=== PATIENT | female | born 1970 | race Caucasian/White ===

== ENCOUNTER 2016-06-08 20:14 | Inpatient (IN) | payer MEDICAID ==
[2016-06-08] MEDS ORDERED: Sodium Chloride 0.9% 1,000 ML IV SCH (22:00)
[2016-06-08] MEDS ORDERED: Levofloxacin/Dextrose 5%-Water 500 MG in Premix Bag 1 BAG IV ONE (22:24)
[2016-06-08] MEDS ORDERED: methylPREDNISolone Sodium Succinate 125 MG/2 ML SDV IVPUSH ONE (22:25)
[2016-06-08] MEDS ORDERED: HYDROmorphone 1 MG/ML Syringe IVPUSH ONE (22:27)
[2016-06-08] MEDS ORDERED: Albuterol/Ipratropium 3.0-0.5 MG/3 ML Neb Soln NEB ONE (22:27)
[2016-06-08] MEDS ORDERED: Nicotine Polacrilex 2 MG Gum CHEW PRN (22:29)
[2016-06-08] MEDS ORDERED: Nicotine 21 MG/24 Hr Patch TRDERM ONE (22:29)
[2016-06-08] MEDS ORDERED: Albuterol/Ipratropium 3.0-0.5 MG/3 ML Neb Soln ONE (22:48)
--- NOTE | 2016-06-09 00:19 | PCM.HP ---
H&P History of Present Illness - General Date of Service: 06/08/16 Admit Problem/Dx: Admission Diagnosis/Problem Admission Diagnosis/Problem Pneumonia Source of Information: Patient History Limitations: Reports: No limitations - History of Present Illness Initial Comments - Free Text/Narative: pneumonia; thi sis a 45 year old female presents to ER for evaluation of worsen cough. reports has been sick for the 3 to4 weeks, but the last week having increased cough, fatigue, weakness and back pain from cough. currently prescribed zithromax, robitussin dm, prednisone and albuterol mdi Seen by Dr. Peterson yesterday, who advised Ms. Zeng to come to hospital for evaluation. Onset of Symptoms: Reports: gradual Duration of Symptoms: Reports: Day(s):, Getting worse Location: Reports: generalized Quality: Reports: Ache Severity: moderate Improves with: Reports: Medication Worsens with: Reports: None Associated Symptoms: Reports: cough, fever/chills, malaise, nausea/vomiting ( from frequent cough), shortness of breath rib/back Pain Score (Numeric/FACES): 8 - Related Data Allergies/Adverse Reactions: Allergies Allergy/AdvReac Type Severity Reaction Status Date / Time No Known Allergies Allergy Verified 06/08/16 21:44 Home Medications: Home Meds Gabapentin [Neurontin] 900 mg PO QID 11/18/14 [History] LORazepam [Ativan] 1 mg PO TID PRN 11/18/14 [History] Polyethylene Glycol 3350 [MiraLAX] 17 gm PO DAILY PRN 11/18/14 [History] Simethicone 1 tab PO QID PRN 11/18/14 [History] busPIRone [Buspar] 30 mg PO TID 11/18/14 [History] hydrOXYzine Pamoate [Vistaril] 50 mg PO QID 11/18/14 [History] carBAMazepine [Epitol] 800 mg PO BEDTIME 01/27/15 [History] OLANZapine [Olanzapine] 2.5 mg PO DAILY 03/29/15 [History] Ibuprofen 600 mg PO Q6H PRN 06/05/15 [History] Albuterol Sulfate [Proair Hfa] 1 - 2 puff IH Q4HR PRN 11/12/15 [History] Levothyroxine Sodium [Synthroid] 75 mcg PO ACBREAKFAST 11/12/15 [History] metFORMIN [Glucophage] 500 mg PO BIDMEALS 11/12/15 [History] Azithromycin [Azithromycin] 1 tab PO DAILY 06/08/16 [History] Cefdinir [Cefdinir] 2 cap PO BID 06/08/16 [History] Mometasone/Formoterol [Dulera 200-5 MCG] 2 puff INH BID 06/08/16 [History] OLANZapine [Olanzapine] 7.5 mg PO BEDTIME 06/08/16 [History] Prednisone [IJD: Prednisone] 20 mg PO TID 06/08/16 [History] Ziprasidone HCl [Ziprasidone HCl] 40 mg PO BID 06/08/16 [History] guaiFENesin/Dextromethorphan [Adult Robitussin Peak Cold Dm] 5 ml PO Q4H PRN 02/12 [History] lamoTRIgine [Lamotrigine] 150 mg pe PO DAILY 06/08/16 [History] lamoTRIgine [Lamotrigine] 200 mg PO BEDTIME 06/08/16 [History] Past Medical History HEENT History: Reports: Other (see below) Other HEENT History: dental caries Cardiovascular History: Reports: High cholesterol Respiratory History: Reports: COPD, Other (see below) Other Respiratory History: wheezing at night Gastrointestinal History: Reports: Chronic constipation, Irritable bowel syndrome Other Gastrointestinal History: constipation Genitourinary History: Reports: UTI, recurrent [employer] History: Reports: Musculoskeletal History: Reports: Back pain, chronic, Fracture, Neck pain, chronic Other Musculoskeletal History: left wrist 10/07/13 Neurological History: Reports: Concussion, Headaches, chronic, Migraines Psychiatric History: Reports: Anxiety, Bipolar, Depression, PTSD, Suicide attempt Other Psychiatric History: seeing psychologist Endocrine/Metabolic History: Reports: Hypothyroidism, Obesity/BMI 30+ Oncologic (Cancer) History: Reports: Cervix Other Oncologic History: frozen - Infectious Disease History Infectious Disease History: Reports: Chicken pox - Past Surgical History Head Surgeries/Procedures: Reports: None HEENT Surgical History: Reports: Adenoidectomy, Tonsillectomy GI Surgical History: Reports: Hernia repair/other, Other (see below) Other GI Surgeries/Procedures: x2 and x4 laprascopic procedures Female Surgical History: Reports: section, Cervical cryotherapy, Cystectomy Social & Family History - Family History Family Medical History: Noncontributory - Tobacco Use Smoking Status *Q: Current Every Day Smoker Years of Tobacco use: 25 Packs/Tins Daily: 1 Used Tobacco, but Quit: No Second Hand Smoke Exposure: Yes - Caffeine Use Caffeine Use: Reports: Coffee, Soda - Recreational Drug Use Recreational Drug Use: No Drug Use in Last 12 Months: No Recreational Drug Type: Reports: Marijuana/Hashish Recreational Drug Use Frequency: Not Used In Over 6 Months - Living Situation & Occupation Living situation: Reports: with significant other H&P Review of Systems - Review of Systems: Review Of Systems: See Below General: Reports: chills, malaise HEENT: Reports: no symptoms Pulmonary: Reports: Shortness of Breath, Wheezing, Cough Cardiovascular: Reports: no symptoms Gastrointestinal: Reports: Nausea Musculoskeletal: Reports: back pain Skin: Reports: no symptoms Psychiatric: Reports: no symptoms Neurological: Reports: No Symptoms Hematologic/Lymphatic: Reports: no symptoms Immunologic: Reports: no symptoms Exam - Exam Exam: See Below - Vital Signs Vital Signs: Last Vital Signs Temp 37.8 C 06/08/16 23:59 Pulse 121 H 06/08/16 23:59 Resp 24 H 06/08/16 23:59 BP 163/94 H 06/08/16 23:59 Pulse Ox 94 L 06/08/16 23:59 Weight: 131.1 kg - Exam General: alert, oriented HEENT: PERRLA, Hearing intact, Mucosa moist & pink, Nares patent, Normal nasal septum, Posterior pharynx clear, Conjunctiva clear, EOMI, EACs clear, TMs clear Neck: supple, trachea midline, 2 Lungs: Decreased breath sounds, Wheezing, Other (frequent bronchospasms noted) Cardiovascular: regular rate, regular rhythm Abdomen: normal bowel sounds, soft (Female) Exam: Deferred Rectal (Female) Exam: Deferred Back Exam: normal inspection, full range of motion, NT Extremities: 3, normal inspection, 10 Skin: warm, dry, intact Neurological: reflexes equal bilateral, strength equal bilateral Neuro Extensive - Mental Status: alert, oriented x3, normal mood/affect, normal cognition Neuro Extensive - Motor, Sensory, Reflexes: normal gait Psychiatric: alert, normal affect, normal mood - Patient Data Lab Results last 24 hrs: Laboratory Results - last 24 hr 06/08/16 06/08/16 06/08/16 Range/Units 21:57 21:57 21:57 WBC 24.2 H (4.5-11.0) K/uL RBC 4.88 (3.30-5.50) M/uL Hgb 14.2 (12.0-15.0) g/dL Hct 42.9 (36.0-48.0) % MCV 88 (80-98) fL MCH 29 (27-31) pg MCHC 33 (32-36) % Plt Count 416 H (150-400) K/uL Neut % (Auto) 85 H (36-66) % Lymph % (Auto) 3 L (24-44) % Robeson % (Auto) 12 H (2-6) % Eos % (Auto) 0 L (2-4) % Baso % (Auto) 0 (0-1) % Sodium (140-148) mmol/L Potassium (3.6-5.2) mmol/L Chloride (100-108) mmol/L Carbon Dioxide (21-32) mmol/L Anion Gap (5.0-14.0) mmol/L BUN (7-18) mg/dL Creatinine (0.6-1.0) mg/dL Est Cr Clr Drug Dosing mL/min Estimated GFR (MDRD) (>60) Glucose (74-106) mg/dL Lactic Acid 3.1 H (0.4-2.0) mmol/L Calcium (8.5-10.1) mg/dL Total Bilirubin (0.2-1.0) mg/dL AST (15-37) U/L ALT (12-78) U/L Alkaline Phosphatase (46-116) U/L Total Protein (6.4-8.2) g/dL Albumin (3.4-5.0) g/dL Globulin (2.3-3.5) g/dL Albumin/Globulin Ratio (1.2-2.2) Amylase (25-115) U/L Lipase 80 (73-393) U/L 06/08/16 Range/Units 21:57 WBC (4.5-11.0) K/uL RBC (3.30-5.50) M/uL Hgb (12.0-15.0) g/dL Hct (36.0-48.0) % MCV (80-98) fL MCH (27-31) pg MCHC (32-36) % Plt Count (150-400) K/uL Neut % (Auto) (36-66) % Lymph % (Auto) (24-44) % Robeson % (Auto) (2-6) % Eos % (Auto) (2-4) % Baso % (Auto) (0-1) % Sodium 142 (140-148) mmol/L Potassium 4.4 (3.6-5.2) mmol/L Chloride 104 (100-108) mmol/L Carbon Dioxide 27 (21-32) mmol/L Anion Gap 11.1 (5.0-14.0) mmol/L BUN 7 (7-18) mg/dL Creatinine 0.9 (0.6-1.0) mg/dL Est Cr Clr Drug Dosing 78.38 mL/min Estimated GFR (MDRD) > 60 (>60) Glucose 127 H (74-106) mg/dL Lactic Acid (0.4-2.0) mmol/L Calcium 7.8 L (8.5-10.1) mg/dL Total Bilirubin 0.2 (0.2-1.0) mg/dL AST 13 L (15-37) U/L ALT 23 (12-78) U/L Alkaline Phosphatase 116 (46-116) U/L Total Protein 7.7 (6.4-8.2) g/dL Albumin 3.4 (3.4-5.0) g/dL Globulin 4.3 H (2.3-3.5) g/dL Albumin/Globulin Ratio 0.8 L (1.2-2.2) Amylase 36 (25-115) U/L Lipase (73-393) U/L Result Diagrams: 06/09/16 06:00 06/09/16 06:00 Marcio Results last 24 hrs: Microbiology 06/08/16 22:12 Influenza Type A Antigen Screen - Final Nasal, Unspecified NEGATIVE INFLUENZA A VIRUS AG Influenza Type B Antigen Screen - Final NEGATIVE INFLUENZA B VIRUS AG *Q Meaningful Use (ADM) - VTE *Q VTE Criteria *Q: - Stroke *Q Stroke Criteria *Q: - AMI *Q AMI Criteria *Q: - Problem List (1) Pneumonia SNOMED Code(s): 494742009 ICD Code: J18.9 - PNEUMONIA, UNSPECIFIED ORGANISM Status: Acute Current Visit: Yes Qualifiers: Pneumonia type: due to unspecified organism Laterality: left (2) Tobacco use SNOMED Code(s): 049235663 ICD Code: Z72.0 - TOBACCO USE Status: Acute Priority: High Current Visit: Yes (3) Anxiety disorder SNOMED Code(s): 879172351 ICD Code: F41.9 - ANXIETY DISORDER, UNSPECIFIED Status: Acute Priority: High Current Visit: Yes Qualifiers: Anxiety disorder type: generalized anxiety disorder Qualified Code(s): F41.1 - Generalized anxiety disorder Problem List Initiated/Reviewed/Updated: Yes Orders Last 24hrs: Active Orders 24 hr Category Date Time Status Patient Status Manage Transfer [TRANSFER] Routine ADT 06/08/16 23:59 Ordered RT Aerosol Therapy [RC] ASDIRECTED Care 06/08/16 22:28 Active Chest 2V [CR] Urgent Exams 06/08/16 21:57 Taken CULTURE BLOOD [BC] Urgent Lab 06/08/16 21:57 Received CULTURE BLOOD [BC] Urgent Lab 06/08/16 21:57 Received Nicotine Polacrilex [Nicorelief] Med 06/08/16 22:29 Active 4 mg CHEW Q2H PRN Sodium Chloride 0.9% [Normal Saline] 1,000 ml Med 06/08/16 22:00 Active IV ASDIRECTED Blood Culture x2 Reflex Set [OM.PC] Urgent Oth 06/08/16 21:57 Ordered Resuscitation Status Routine Resus Stat 06/09/16 00:00 Ordered Medication Orders Sodium Chloride (Normal Saline) 1,000 mls @ 500 mls/hr IV ASDIRECTED TONEY Last Admin: 06/08/16 22:11 Dose: 500 mls/hr Nicotine Polacrilex (Nicorelief) 4 mg CHEW Q2H PRN PRN Reason: Anxiety Assessment/Plan Comment:: ASSESSMENT / PLAN pneumonia; this is a 45 year old female presents to ER for evaluation of worsen cough. reports has been sick for the 3 to 4 weeks, but the last week having increased cough, fatigue, weakness and back pain from cough. currently prescribed zithromax, robitussin dm, prednisone and albuterol mdi Seen by Dr. Peterson yesterday, who advised Ms. Zeng to come to hospital for evaluation. She is a heavy smoker, with 2.5 packs per day since age 16 years, has decreased to 1 pack per day since illness began 4 weeks ago. Labs WBC>24 Plan pneumonia -Admit to [address] [place] [address] for further monitoring -IV fluids for rehydration NS at 125 mL per hour -solumedrol 125mg iv every 8 hr -IV antibiotics; Levoquin 500mg IV and Rocephin 1 gram IV -blood cultures pending -Advise to notify nurses of any chest pain or other symptoms -a.m. labs: CBC, BMP, lactic acid tobacco abuse -nicotine patch -nicotine gum Diabetes type 2 -sliding scale insulin coverage -blood glucose checks before meals and at bedtime Anxiety disorder -continue home medications as prescribed Maintenance issues -Orders home meds: ordered and reviewed -Nutrition: diabetic diet -Kimble catheter not indicated at this time -DVT: Lovenox 40 mg subcut CODE STATUS: Full Admission status: Admit to [address] [place] [address] Admission justification. This patient will be admitted for inpatient services and is medically appropriate meeting medical necessity for inpatient admission as outlined in my documentation. I reasonably expect the patient will require inpatient services that span. Time over 2 midnights. I reasonably expect this patient to be discharged or transferred within 96 hours after admission to the critical access hospital. Disposition; home with family Primary care provider: Mary Jane Harding MEDICAL STENOGRAPHER
[2016-06-09] MEDS ORDERED: guaiFENesin/Dextromethorphan 100-10 MG/5 ML Soln 10 ML Cup PO PRN ×3 (00:44→07:28)
[2016-06-09] MEDS ORDERED: Zolpidem 5 MG Tab PO PRN (00:44)
[2016-06-09] MEDS ORDERED: Magnesium Hydroxide 400 MG/5 ML Susp 30 ML Cup PO PRN (00:44)
[2016-06-09] MEDS ORDERED: Acetaminophen 325 MG Tab PO PRN (00:44)
[2016-06-09] MEDS ORDERED: Insulin Aspart 100 Units/ML 3 ML Pen SUBCUT SCH (00:44)
[2016-06-09] MEDS ORDERED: Docusate Sodium 100 MG Cap PO PRN (00:44)
[2016-06-09] MEDS ORDERED: LORazepam 0.5 MG Tab PO PRN (00:44)
[2016-06-09] MEDS ORDERED: Promethazine 25 MG Tab PO PRN (00:44)
[2016-06-09] MEDS ORDERED: Ondansetron 4 MG/2 ML SDV IV PRN (00:44)
[2016-06-09] MEDS ORDERED: Polyethylene Glycol 3350 Powder 17 GM Packet PO PRN (00:44)
[2016-06-09] MEDS ORDERED: LORazepam 2 MG/ML MDV IV PRN (00:44)
[2016-06-09] MEDS ORDERED: cefTRIAXone 1 GM in Sodium Chloride 0.9% 50 ML IV SCH ×2 (01:00→22:00)
[2016-06-09] MEDS: oxyCODONE 5 MG Tab PO PRN ×3 (01:07→09:29)
[2016-06-09] MEDS: Sodium Chloride 0.9% 1,000 ML IV SCH ×2 (01:09→09:29)
[2016-06-09] MEDS ORDERED: cefTRIAXone 1 GM Vial ONE (01:32)
[2016-06-09] MEDS ORDERED: Sodium Chloride 0.9% 50 ML ONE (01:38)
[2016-06-09] MEDS: methylPREDNISolone Sodium Succinate 125 MG/2 ML SDV IVPUSH SCH ×2 (02:27→08:29)
[2016-06-09] MEDS: Albuterol 0.083% 2.5 MG/3 ML Neb Soln NEB PRN ×2 (05:20→09:06)
[2016-06-09] MEDS: Benzonatate 100 MG Cap PO PRN ×2 (06:39→12:58)
--- NOTE | 2016-06-09 07:13 | EDM.PDOC ---
ED HPI GENERAL MEDICAL PROBLEM - General Chief Complaint: Respiratory Problem Stated Complaint: TROUBLE BREATHING/COUGH Time Seen by Provider: 06/08/16 20:41 Source of Information: Reports: Patient History Limitations: Reports: No limitations - History of Present Illness Onset: gradual Duration: Day(s):, Getting worse Location: Reports: generalized Quality: Reports: Ache Severity: moderate Improves with: Reports: Medication Worsens with: Reports: None Associated Symptoms: Reports: cough, fever/chills, malaise, nausea/vomiting ( from frequent cough), shortness of breath rib/back Pain Score (Numeric/FACES): 8 - Related Data Allergies Allergy/AdvReac Type Severity Reaction Status Date / Time No Known Allergies Allergy Verified 06/08/16 21:44 Home Meds: Home Meds Gabapentin [Neurontin] 900 mg PO QID 11/18/14 [History] LORazepam [Ativan] 1 mg PO TID PRN 11/18/14 [History] Polyethylene Glycol 3350 [MiraLAX] 17 gm PO DAILY PRN 11/18/14 [History] Simethicone 1 tab PO QID PRN 11/18/14 [History] busPIRone [Buspar] 30 mg PO TID 11/18/14 [History] hydrOXYzine Pamoate [Vistaril] 50 mg PO QID 11/18/14 [History] carBAMazepine [Epitol] 800 mg PO BEDTIME 01/27/15 [History] OLANZapine [Olanzapine] 2.5 mg PO DAILY 03/29/15 [History] Ibuprofen 600 mg PO Q6H PRN 06/05/15 [History] Albuterol Sulfate [Proair Hfa] 1 - 2 puff IH Q4HR PRN 11/12/15 [History] Levothyroxine Sodium [Synthroid] 75 mcg PO ACBREAKFAST 11/12/15 [History] metFORMIN [Glucophage] 500 mg PO BIDMEALS 11/12/15 [History] Azithromycin [Azithromycin] 1 tab PO DAILY 06/08/16 [History] Cefdinir [Cefdinir] 2 cap PO BID 06/08/16 [History] Mometasone/Formoterol [Dulera 200-5 MCG] 2 puff INH BID 06/08/16 [History] OLANZapine [Olanzapine] 7.5 mg PO BEDTIME 06/08/16 [History] Prednisone [IJD: Prednisone] 20 mg PO TID 06/08/16 [History] Ziprasidone HCl [Ziprasidone HCl] 40 mg PO BID 06/08/16 [History] guaiFENesin/Dextromethorphan [Adult Robitussin Peak Cold Dm] 5 ml PO Q4H PRN 02/12 [History] lamoTRIgine [Lamotrigine] 150 mg pe PO DAILY 06/08/16 [History] lamoTRIgine [Lamotrigine] 200 mg PO BEDTIME 06/08/16 [History] Past Medical History HEENT History: Reports: Other (see below) Other HEENT History: dental caries Cardiovascular History: Reports: High cholesterol Respiratory History: Reports: COPD, Other (see below) Other Respiratory History: wheezing at night Gastrointestinal History: Reports: Chronic constipation, Irritable bowel syndrome Other Gastrointestinal History: constipation Genitourinary History: Reports: UTI, recurrent HEART NURSE History: Reports: Musculoskeletal History: Reports: Back pain, chronic, Fracture, Neck pain, chronic Other Musculoskeletal History: left wrist 10/07/13 Neurological History: Reports: Concussion, Headaches, chronic, Migraines Psychiatric History: Reports: Anxiety, Bipolar, Depression, PTSD, Suicide attempt Other Psychiatric History: seeing psychologist Endocrine/Metabolic History: Reports: Hypothyroidism, Obesity/BMI 30+ Oncologic (Cancer) History: Reports: Cervix Other Oncologic History: frozen - Infectious Disease History Infectious Disease History: Reports: Chicken pox - Past Surgical History Head Surgeries/Procedures: Reports: None HEENT Surgical History: Reports: Adenoidectomy, Tonsillectomy GI Surgical History: Reports: Hernia repair/other, Other (see below) Other GI Surgeries/Procedures: x2 and x4 laprascopic procedures Female Surgical History: Reports: section, Cervical cryotherapy, Cystectomy Social & Family History - Family History Family Medical History: Noncontributory - Tobacco Use Smoking Status *Q: Current Every Day Smoker Years of Tobacco use: 25 Packs/Tins Daily: 1 Used Tobacco, but Quit: No Second Hand Smoke Exposure: Yes - Caffeine Use Caffeine Use: Reports: Coffee, Soda - Recreational Drug Use Recreational Drug Use: No Drug Use in Last 12 Months: No Recreational Drug Type: Reports: Marijuana/Hashish Recreational Drug Use Frequency: Not Used In Over 6 Months - Living Situation & Occupation Living situation: Reports: with significant other ED ROS GENERAL - Review of Systems Review Of Systems: See Below Constitutional: Reports: fever, chills, malaise, decreased appetite HEENT: Reports: Throat pain (secondary to frequent cough) Respiratory: Reports: Shortness of Breath, Wheezing, Pleuritic Chest Pain, Cough , Sputum, Other (tobacco use; >1 pack per day) Cardiovascular: Reports: Dyspnea on exertion Endocrine: Reports: other (diabetes type 2) GI/Abdominal: Reports: No symptoms : Reports: no symptoms Musculoskeletal: Reports: back pain Skin: Reports: no symptoms Neurological: Reports: No Symptoms Psychiatric: Reports: Anxiety Hematologic/Lymphatic: Reports: no symptoms Immunologic: Reports: no symptoms ED EXAM, GENERAL - Physical Exam Exam: See Below Exam Limited By: No limitations General Appearance: alert, anxious, mild distress, obese Eye Exam: bilateral eye: normal inspection Ears: normal external exam, normal canal, hearing grossly normal, normal TMs Ear Exam: bilateral ear: auricle normal, canal normal, TM normal Nose: normal inspection, normal mucosa, no blood Throat/Mouth: Normal inspection, Normal lips, Normal teeth, Normal gums, Normal oropharynx, Normal voice, No airway compromise Head: atraumatic, normocephalic Neck: normal inspection, supple, non-tender, full range of motion Respiratory/Chest: decreased breath sounds, crackles, wheezing, other (frequent prolonged coughing til point of vomiting and near fainting.) Cardiovascular: normal peripheral pulses, regular rate, rhythm, no edema, no murmur GI/Abdominal: normal bowel sounds, soft, non tender, no organomegaly, no distention, no abnormal bruit, no mass (Female) Exam: Deferred Rectal (Female) Exam: Deferred Back Exam: normal inspection, full range of motion, muscle spasm, other (upper back pain due to frequent prolonged cough) Extremities: normal inspection, normal range of motion, non-tender, normal capillary refill, no pedal edema Neurological: alert, oriented, CN II-XII intact, normal cognition, normal gait, normal reflexes, no motor/sensory deficits Psychiatric: normal affect, normal mood Skin Exam: Warm, Dry, Intact, Normal color, No rash Lymphatic: no adenopathy Course - Vital Signs Last Recorded V/S: Last Vital Signs Temp 36.1 C 06/09/16 05:00 Pulse 93 06/09/16 05:00 Resp 18 06/09/16 05:00 BP 143/80 H 06/09/16 05:00 Pulse Ox 98 06/09/16 05:00 - Orders/Labs/Meds Orders: Active Orders 24 hr Category Date Time Status RT Aerosol Therapy [RC] ASDIRECTED Care 06/08/16 22:28 Active Chest 2V [CR] Urgent Exams 06/08/16 21:57 Taken CULTURE BLOOD [BC] Urgent Lab 06/08/16 21:57 Received CULTURE BLOOD [BC] Urgent Lab 06/08/16 21:57 Received Nicotine Polacrilex [Nicorelief] Med 06/08/16 22:29 Active 4 mg CHEW Q2H PRN Sodium Chloride 0.9% [Normal Saline] 1,000 ml Med 06/08/16 22:00 Active IV ASDIRECTED Blood Culture x2 Reflex Set [OM.PC] Urgent Oth 06/08/16 21:57 Ordered Medication Orders Acetaminophen (Tylenol) 650 mg PO Q4H PRN PRN Reason: Pain (Mild 1-3)/fever Albuterol (Proventil Neb Soln) 2.5 mg NEB Q4H PRN PRN Reason: Shortness Of Breath/wheezing Last Admin: 06/09/16 05:20 Dose: 2.5 mg Albuterol/Ipratropium (Duoneb 3.0-0.5 Mg/3 Ml) 3 ml NEB QIDRT [facility] Benzonatate (Tessalon Perles) 100 mg PO TID PRN PRN Reason: Cough Last Admin: 06/09/16 06:39 Dose: 100 mg Buspirone HCl (Buspar) 30 mg PO TID [facility] Carbamazepine (Tegretol Tab) 800 mg PO BEDTIME [facility] Docusate Sodium (Colace) 100 mg PO BID PRN PRN Reason: Constipation Enoxaparin Sodium (Lovenox) 40 mg SUBCUT DAILY [facility] Gabapentin (Neurontin) 900 mg PO QID [facility] Guaifenesin/Dextromethorphan (Robitussin Dm) 5 ml PO Q4H PRN PRN Reason: Cough Guaifenesin/Dextromethorphan (Robitussin Dm) 10 ml PO Q4H PRN PRN Reason: Cough Last Admin: 06/09/16 05:20 Dose: 10 ml Hydroxyzine HCl (Atarax) 50 mg PO QID [facility] Sodium Chloride (Normal Saline) 1,000 mls @ 500 mls/hr IV ASDIRECTED [facility] Last Admin: 06/08/16 22:11 Dose: 500 mls/hr Sodium Chloride (Normal Saline) 1,000 mls @ 125 mls/hr IV ASDIRECTED [facility] Last Admin: 06/09/16 01:09 Dose: 125 mls/hr Ceftriaxone Sodium 1 gm/ (Sodium Chloride) 50 mls @ 100 mls/hr IV Q24H [facility] Last Admin: 06/09/16 01:41 Dose: 100 mls/hr Insulin Aspart (Novolog) 0 unit SUBCUT ASDIRECTED [facility] PRN Reason: Protocol Lamotrigine (Lamotrigine) 150 mg PO DAILY [facility] Lamotrigine (Lamotrigine) 200 mg PO BEDTIME [facility] Levothyroxine Sodium (Levothyroxine) 75 mcg PO ACBREAKFAST [facility] Lorazepam (Ativan) 1 mg IV Q6H PRN PRN Reason: Nausea/Vomiting Last Admin: 06/09/16 06:39 Dose: 1 mg Lorazepam (Ativan) 1 mg PO TID PRN PRN Reason: Anxiety Last Admin: 06/09/16 01:08 Dose: 1 mg Magnesium Hydroxide (Milk Of Magnesia) 30 ml PO Q12H PRN PRN Reason: Constipation Metformin HCl (Glucophage) 500 mg PO BIDMEALS [facility] Methylprednisolone Sodium Succinate (Solu-Medrol) 125 mg IVPUSH Q8H [facility] Last Admin: 06/09/16 02:27 Dose: Nicotine Polacrilex (Nicorelief) 4 mg CHEW Q2H PRN PRN Reason: Anxiety Olanzapine (Zyprexa) 2.5 mg PO DAILY [facility] Olanzapine (Zyprexa) 7.5 mg PO BEDTIME [facility] Ondansetron HCl (Zofran) 4 mg IV Q4H PRN PRN Reason: Nausea/Vomiting Oxycodone HCl (Oxycodone) 5 mg PO Q4H PRN PRN Reason: Pain (moderate 4-6) Last Admin: 06/09/16 05:19 Dose: 5 mg Admin: 06/09/16 01:07 Dose: 5 mg Polyethylene Glycol (Miralax) 17 gm PO DAILY PRN PRN Reason: Constipation Promethazine HCl (Phenergan) 25 mg PO Q6H PRN PRN Reason: Nausea able to take PO Ziprasidone (Geodon) 40 mg PO BID [facility] Zolpidem Tartrate (Ambien) 5 mg PO BEDTIME PRN PRN Reason: Sleep Labs: Laboratory Tests 06/08/16 06/08/16 06/08/16 Range/Units 21:57 21:57 21:57 WBC 24.2 H (4.5-11.0) K/uL RBC 4.88 (3.30-5.50) M/uL Hgb 14.2 (12.0-15.0) g/dL Hct 42.9 (36.0-48.0) % MCV 88 (80-98) fL MCH 29 (27-31) pg MCHC 33 (32-36) % Plt Count 416 H (150-400) K/uL Neut % (Auto) 85 H (36-66) % Lymph % (Auto) 3 L (24-44) % [place] % (Auto) 12 H (2-6) % Eos % (Auto) 0 L (2-4) % Baso % (Auto) 0 (0-1) % Sodium (140-148) mmol/L Potassium (3.6-5.2) mmol/L Chloride (100-108) mmol/L Carbon Dioxide (21-32) mmol/L Anion Gap (5.0-14.0) mmol/L BUN (7-18) mg/dL Creatinine (0.6-1.0) mg/dL Est Cr Clr Drug Dosing mL/min Estimated GFR (MDRD) (>60) Glucose (74-106) mg/dL Lactic Acid 3.1 H (0.4-2.0) mmol/L Calcium (8.5-10.1) mg/dL Total Bilirubin (0.2-1.0) mg/dL AST (15-37) U/L ALT (12-78) U/L Alkaline Phosphatase (46-116) U/L Total Protein (6.4-8.2) g/dL Albumin (3.4-5.0) g/dL Globulin (2.3-3.5) g/dL Albumin/Globulin Ratio (1.2-2.2) Amylase (25-115) U/L Lipase 80 (73-393) U/L 06/08/16 Range/Units 21:57 WBC (4.5-11.0) K/uL RBC (3.30-5.50) M/uL Hgb (12.0-15.0) g/dL Hct (36.0-48.0) % MCV (80-98) fL MCH (27-31) pg MCHC (32-36) % Plt Count (150-400) K/uL Neut % (Auto) (36-66) % Lymph % (Auto) (24-44) % Rapides % (Auto) (2-6) % Eos % (Auto) (2-4) % Baso % (Auto) (0-1) % Sodium 142 (140-148) mmol/L Potassium 4.4 (3.6-5.2) mmol/L Chloride 104 (100-108) mmol/L Carbon Dioxide 27 (21-32) mmol/L Anion Gap 11.1 (5.0-14.0) mmol/L BUN 7 (7-18) mg/dL Creatinine 0.9 (0.6-1.0) mg/dL Est Cr Clr Drug Dosing 78.38 mL/min Estimated GFR (MDRD) > 60 (>60) Glucose 127 H (74-106) mg/dL Lactic Acid (0.4-2.0) mmol/L Calcium 7.8 L (8.5-10.1) mg/dL Total Bilirubin 0.2 (0.2-1.0) mg/dL AST 13 L (15-37) U/L ALT 23 (12-78) U/L Alkaline Phosphatase 116 (46-116) U/L Total Protein 7.7 (6.4-8.2) g/dL Albumin 3.4 (3.4-5.0) g/dL Globulin 4.3 H (2.3-3.5) g/dL Albumin/Globulin Ratio 0.8 L (1.2-2.2) Amylase 36 (25-115) U/L Lipase (73-393) U/L Meds: Medications Generic Name Dose Route Start Last Admin Trade Name Freq PRN Reason Stop Dose Admin Acetaminophen 650 mg 06/09/16 00:44 Tylenol PO Q4H PRN Pain (Mild 1-3)/fever Albuterol 2.5 mg 06/09/16 00:44 06/09/16 05:20 Proventil Neb Soln NEB 2.5 mg Q4H PRN Administration Shortness Of Breath/wheezing Albuterol/Ipratropium 3 ml 06/09/16 07:00 Duoneb 3.0-0.5 Mg/3 Ml NEB QIDRT [facility] Benzonatate 100 mg 06/09/16 06:04 06/09/16 06:39 Tessalon Perles PO 100 mg TID PRN Administration Cough Buspirone HCl 30 mg 06/09/16 09:00 Buspar PO TID [facility] Carbamazepine 800 mg 06/09/16 21:00 Tegretol Tab PO BEDTIME [facility] Docusate Sodium 100 mg 06/09/16 00:44 Colace PO BID PRN Constipation Enoxaparin Sodium 40 mg 06/09/16 09:00 Lovenox SUBCUT DAILY [facility] Gabapentin 900 mg 06/09/16 06:00 Neurontin PO QID [facility] Guaifenesin/Dextromethorphan 5 ml 06/09/16 00:44 Robitussin Dm PO Q4H PRN Cough Guaifenesin/Dextromethorphan 10 ml 06/09/16 00:44 06/09/16 05:20 Robitussin Dm PO 10 ml Q4H PRN Administration Cough Hydroxyzine HCl 50 mg 06/09/16 06:00 Atarax PO QID [facility] Sodium Chloride 1,000 mls @ 500 mls/hr 06/08/16 22:00 06/08/16 22:11 Normal Saline IV 500 mls/hr ASDIRECTED [facility] Administration Sodium Chloride 1,000 mls @ 125 mls/hr 06/09/16 00:44 06/09/16 01:09 Normal Saline IV 125 mls/hr ASDIRECTED [facility] Administration Ceftriaxone Sodium 1 gm/ 50 mls @ 100 mls/hr 06/09/16 01:00 06/09/16 01:41 Sodium Chloride IV 100 mls/hr Q24H [facility] Administration Insulin Aspart 0 unit 06/09/16 00:44 Novolog SUBCUT ASDIRECTED [facility] Protocol Lamotrigine 150 mg 06/09/16 09:00 Lamotrigine PO DAILY [facility] Lamotrigine 200 mg 06/09/16 21:00 Lamotrigine PO BEDTIME [facility] Levothyroxine Sodium 75 mcg 06/09/16 07:30 Levothyroxine PO ACBREAKFAST [facility] Lorazepam 1 mg 06/09/16 00:44 06/09/16 06:39 Ativan IV 1 mg Q6H PRN Administration Nausea/Vomiting Lorazepam 1 mg 06/09/16 00:44 06/09/16 01:08 Ativan PO 1 mg TID PRN Administration Anxiety Magnesium Hydroxide 30 ml 06/09/16 00:44 Milk Of Magnesia PO Q12H PRN Constipation Metformin HCl 500 mg 06/09/16 08:00 Glucophage PO BIDMEALS [facility] Methylprednisolone Sodium Succinate 125 mg 06/09/16 01:00 06/09/16 02:27 Solu-Medrol IVPUSH Not Given Q8H [facility] Nicotine Polacrilex 4 mg 06/08/16 22:29 Nicorelief CHEW Q2H PRN Anxiety Olanzapine 2.5 mg 06/09/16 09:00 Zyprexa PO DAILY [facility] Olanzapine 7.5 mg 06/09/16 21:00 Zyprexa PO BEDTIME [facility] Ondansetron HCl 4 mg 06/09/16 00:44 Zofran IV Q4H PRN Nausea/Vomiting Oxycodone HCl 5 mg 06/09/16 00:44 06/09/16 05:19 Oxycodone PO 5 mg Q4H PRN Administration Pain (moderate 4-6) Polyethylene Glycol 17 gm 06/09/16 00:44 Miralax PO DAILY PRN Constipation Promethazine HCl 25 mg 06/09/16 00:44 Phenergan PO Q6H PRN Nausea able to take PO Ziprasidone 40 mg 06/09/16 09:00 Geodon PO BID [facility] Zolpidem Tartrate 5 mg 06/09/16 00:44 Ambien PO BEDTIME PRN Sleep Discontinued Medications Generic Name Dose Route Start Last Admin Trade Name Freq PRN Reason Stop Dose Admin Albuterol/Ipratropium 3 ml 06/08/16 22:27 06/08/16 23:02 Duoneb 3.0-0.5 Mg/3 Ml NEB 06/08/16 22:28 3 ml ONETIME ONE Administration Albuterol/Ipratropium Confirm 06/08/16 22:48 06/08/16 23:06 Duoneb 3.0-0.5 Mg/3 Ml Administered 06/08/16 22:49 Not Given Dose 3 ml .ROUTE .STK-MED ONE Ceftriaxone Sodium Confirm 06/09/16 01:32 06/09/16 01:41 Rocephin Administered 06/09/16 01:33 Not Given Dose 1 gm .ROUTE .STK-MED ONE Hydromorphone HCl 1 mg 06/08/16 22:27 06/08/16 23:00 Dilaudid IVPUSH 06/08/16 22:28 1 mg ONETIME ONE Administration Levofloxacin/Dextrose 500 mg/ 100 mls @ 100 mls/hr 06/08/16 22:24 06/08/16 23 :06 Premix IV 06/08/16 23:23 100 mls/hr ONETIME ONE Administration Sodium Chloride Confirm 06/09/16 01:38 06/09/16 01:42 Normal Saline Administered 06/09/16 01:39 Not Given Dose 50 mls @ as directed .ROUTE .STK-MED ONE Methylprednisolone Sodium Succinate 125 mg 06/08/16 22:25 06/08/16 23:04 Solu-Medrol IVPUSH 06/08/16 22:26 125 mg ONETIME ONE Administration Nicotine 21 mg 06/08/16 22:29 06/08/16 23:11 Habitrol TRDERM 06/08/16 22:30 21 mg ONETIME ONE Administration - Re-Assessments/Exams Free Text/Narrative Re-Assessment/Exam: labs; WBC>24 chest; left with infiltrate IV fluids and antibiotics started in ER IV solumedrol 125mg IV dilaudid and ativan for comfort plan to admit to hospital Ms. Zeng agrees with plan of care Departure - Departure Time of Disposition: 01:00 Disposition: Admitted As Inpatient 68 Condition: fair Clinical Impression: Pneumonia - Problem List & Annotations (1) Pneumonia SNOMED Code(s): 636653555 Code(s): J18.9 - PNEUMONIA, UNSPECIFIED ORGANISM Status: Acute Current Visit: Yes Qualifiers: Pneumonia type: due to unspecified organism Laterality: left (2) Tobacco use SNOMED Code(s): 930515112 Code(s): Z72.0 - TOBACCO USE Status: Acute Priority: High Current Visit : Yes (3) Anxiety disorder SNOMED Code(s): 568147672 Code(s): F41.9 - ANXIETY DISORDER, UNSPECIFIED Status: Acute Priority: High Current Visit: Yes Qualifiers: Anxiety disorder type: generalized anxiety disorder Qualified Code(s): F41.1 - Generalized anxiety disorder - My Orders Last 24 Hours: My Active Orders 06/08/16 21:57 Chest 2V [CR] Urgent CULTURE BLOOD [BC] Urgent CULTURE BLOOD [BC] Urgent Blood Culture x2 Reflex Set [OM.PC] Urgent 06/08/16 22:00 Sodium Chloride 0.9% [Normal Saline] 1,000 ml IV ASDIRECTED 06/08/16 22:28 RT Aerosol Therapy [RC] ASDIRECTED 06/08/16 22:29 Nicotine Polacrilex [Nicorelief] 4 mg CHEW Q2H PRN - Assessment/Plan Last 24 Hours: My Active Orders 06/08/16 21:57 Chest 2V [CR] Urgent CULTURE BLOOD [BC] Urgent CULTURE BLOOD [BC] Urgent Blood Culture x2 Reflex Set [OM.PC] Urgent 06/08/16 22:00 Sodium Chloride 0.9% [Normal Saline] 1,000 ml IV ASDIRECTED 06/08/16 22:28 RT Aerosol Therapy [RC] ASDIRECTED 06/08/16 22:29 Nicotine Polacrilex [Nicorelief] 4 mg CHEW Q2H PRN
[2016-06-09] MEDS: Albuterol/Ipratropium 3.0-0.5 MG/3 ML Neb Soln NEB SCH ×2 (07:21→11:13)
[2016-06-09] MEDS ORDERED: Levothyroxine 75 MCG Tab PO SCH (07:30)
[2016-06-09] MEDS ORDERED: metFORMIN 500 MG Tab PO SCH (08:00)
[2016-06-09] MEDS: hydrOXYzine HCl 25 MG Tab PO SCH ×2 (08:24→10:27)
[2016-06-09] MEDS: Gabapentin 300 MG Cap PO SCH ×2 (08:26→10:27)
--- NOTE | 2016-06-09 08:40 | CR ---
Chest 2V INDICATION: cough rule out pnemonia FINDINGS: Normal heart size. No focal consolidation. Mild prominence of the interstitium which is no nspecific but can be secondary to atypical infectious processes or edema.
[2016-06-09] MEDS ORDERED: lamoTRIgine 100 MG Tab PO SCH ×2 (09:00→21:00)
[2016-06-09] MEDS ORDERED: OLANZapine 5 MG Tab PO SCH ×2 (09:00→21:00)
[2016-06-09] MEDS ORDERED: busPIRone 10 MG Tab PO SCH (09:00)
[2016-06-09] MEDS ORDERED: Ziprasidone HCl 20 MG Cap PO SCH (09:00)
[2016-06-09] MEDS ORDERED: Enoxaparin 40 MG/0.4 ML Syringe SUBCUT SCH (09:00)
[2016-06-09] MEDS ORDERED: LAMOTRIGINE PO SCH ×2 (09:00)
[2016-06-09 11:30] VITALS: BP 148/82
[2016-06-09] MEDS ORDERED: Codeine/guaiFENesin 100mg-10 MG/5 ML Syrup 10 ML Cup PO PRN (12:02)
--- NOTE | 2016-06-09 13:05 | PCM.DCSUM1 ---
Discharge Summary - Hospital Course Brief History: 45 -year-old female with history of tobacco dependence and COPD who presents with increasing cough and shortness of breath. She was admitted for management of atypical pneumonia and mild COPD exacerbation. - Discharge Data Discharge Date: 06/09/16 Discharge Disposition: Home, Self-Care 01 Condition: Good - Discharge Diagnosis/Problem(s) (1) Atypical pneumonia SNOMED Code(s): 454262763 ICD Code: J18.9 - PNEUMONIA, UNSPECIFIED ORGANISM Status: Acute (2) Acute exacerbation of chronic obstructive pulmonary disease SNOMED Code(s): 196009763 ICD Code: J44.1 - CHRONIC OBSTRUCTIVE PULMONARY DISEASE W (ACUTE) EXACERBATION Status: Acute (3) Tobacco dependence syndrome SNOMED Code(s): 44304896 ICD Code: F17.200 - NICOTINE DEPENDENCE, UNSPECIFIED, UNCOMPLICATED Status : Acute - Patient Summary/Data Hospital Course: Nichelle presented to the emergency room with progressive cough and shortness of breath. She had recently been diagnosed with an atypical pneumonia and had been started on antibiotics but felt too sick to be safe at home. She was admitted to the hospital and given a single dose of ceftriaxone and a single dose of levofloxacin. She received IV steroids overnight as well as nebulized inhaled therapies. By the morning after admission she is feeling a fair amount better. Her wheezing has diminished from oliveros-expiratory to just end expiratory. Her oxygenation has been stable even without supplemental oxygen. she has not had any fevers. She feels well enough at this point to be safe for hospital discharge. She has been up and walking around without significant dyspnea on exertion. She does understand that she will have to go slow and steady for several days. I believe she is safe for outpatient management at this time since she is no longer hypoxic. She has prescriptions for antibiotics as well as steroids and an albuterol inhaler. I did provide a prescription for Robitussin with codeine which she will use as needed for her cough. She should followup if symptoms get worse or do not continue to get better. - Patient Instructions Diet: Regular Diet as Tolerated Activity: As Tolerated Driving: May Drive Today Showering/Bathing: May Shower Notify Provider of: Fever, Increased Pain, Nausea and/or Vomiting Other/Special Instructions: 1. You were in the hospital for management of atypical pneumonia with bronchospasm. He seemed to be improving with the use of steroids and antibiotics. I would recommend that you continue to take the antibiotics prescribed by Dr. Rodrigues (cefdinir and azithromycin) as well at the prednisone per taper schedule. You can use the albuterol inhaler or albuterol nebulizer as needed for shortness of breath and wheezing. 2. I would strongly recommend complete tobacco cessation. Cutting down on her smoking is an excellent first step. I have provided some written information for you to help with your journey to quit smoking. 3. Please seek medical attention if you develop fever greater than 101, have acute onset of severe shortness of breath, develop chest pain or develop severe abdominal pain with nausea and vomiting. - Discharge Plan Prescriptions/Med Rec: Codeine/guaiFENesin [Robitussin AC] 10 ml PO Q4H PRN #240 ml PRN Reason: Cough Home Medications: Home Meds Gabapentin [Neurontin] 900 mg PO QID 11/18/14 [History] LORazepam [Ativan] 1 mg PO TID PRN 11/18/14 [History] Polyethylene Glycol 3350 [MiraLAX] 17 gm PO DAILY PRN 11/18/14 [History] Simethicone 1 tab PO QID PRN 11/18/14 [History] busPIRone [Buspar] 30 mg PO TID 11/18/14 [History] hydrOXYzine Pamoate [Vistaril] 50 mg PO QID 11/18/14 [History] carBAMazepine [Epitol] 800 mg PO BEDTIME 01/27/15 [History] OLANZapine [Olanzapine] 2.5 mg PO DAILY 03/29/15 [History] Ibuprofen 600 mg PO Q6H PRN 06/05/15 [History] Albuterol Sulfate [Proair Hfa] 1 - 2 puff IH Q4HR PRN 11/12/15 [History] Levothyroxine Sodium [Synthroid] 75 mcg PO ACBREAKFAST 11/12/15 [History] metFORMIN [Glucophage] 500 mg PO BIDMEALS 11/12/15 [History] Azithromycin 1 tab PO DAILY 06/08/16 [History] Cefdinir 2 cap PO BID 06/08/16 [History] Mometasone/Formoterol [Dulera 200-5 MCG] 2 puff INH BID 06/08/16 [History] OLANZapine [Olanzapine] 7.5 mg PO BEDTIME 06/08/16 [History] Prednisone [IJD: Prednisone] 20 mg PO TID 06/08/16 [History] Ziprasidone HCl 40 mg PO BID 06/08/16 [History] guaiFENesin/Dextromethorphan [Adult Robitussin Peak Cold Dm] 5 ml PO Q4H PRN 02/12 [History] lamoTRIgine [Lamotrigine] 150 mg pe PO DAILY 06/08/16 [History] lamoTRIgine [Lamotrigine] 200 mg PO BEDTIME 06/08/16 [History] Codeine/guaiFENesin [Robitussin AC] 10 ml PO Q4H PRN #240 ml 06/09/16 [Rx] Patient Handouts: Cefdinir capsules, Azithromycin tablets, Community-Acquired Pneumonia, Adult, Smoking Cessation, Tips for Success Referrals: Abbi Harding PA [Primary Care Provider] - (f/u early next week if your symptoms do not continue to improve or they get worse) - Discharge Summary/Plan Comment DC Time >30 min.: No (25) - Patient Data Vitals - Most Recent: Last Vital Signs Temp 36.3 C 06/09/16 11:29 Pulse 86 06/09/16 11:29 Resp 20 06/09/16 11:29 BP 148/82 H 06/09/16 11:29 Pulse Ox 94 L 06/09/16 11:29 Weight - Most Recent: 131.1 kg I&O - Last 24 hours: Intake & Output 06/08/16 06/09/16 06/09/16 22:59 06:59 14:59 Intake Total 360 480 Output Total 300 Balance 360 180 Lab Results - Last 24 hrs: Laboratory Results - last 24 hr 06/09/16 06/09/16 Range/Units 06:00 06:00 WBC 16.7 H (4.5-11.0) K/uL RBC 4.60 (3.30-5.50) M/uL Hgb 13.3 (12.0-15.0) g/dL Hct 41.3 (36.0-48.0) % MCV 90 (80-98) fL MCH 29 (27-31) pg MCHC 32 (32-36) % Plt Count 348 (150-400) K/uL Neut % (Auto) 84 H (36-66) % Lymph % (Auto) 7 L (24-44) % Kendall % (Auto) 10 H (2-6) % Eos % (Auto) 0 L (2-4) % Baso % (Auto) 0 (0-1) % Sodium 143 (140-148) mmol/L Potassium 4.5 (3.6-5.2) mmol/L Chloride 105 (100-108) mmol/L Carbon Dioxide 26 (21-32) mmol/L Anion Gap 11.6 (5.0-14.0) mmol/L BUN 8 (7-18) mg/dL Creatinine 1.0 (0.6-1.0) mg/dL Est Cr Clr Drug Dosing 70.35 mL/min Estimated GFR (MDRD) > 60 (>60) Glucose 175 H (74-106) mg/dL Calcium 7.7 L (8.5-10.1) mg/dL Med Orders - Current: Current Medications Acetaminophen (Tylenol) 650 mg PO Q4H PRN PRN Reason: Pain (Mild 1-3)/fever Albuterol (Proventil Neb Soln) 2.5 mg NEB Q4H PRN PRN Reason: Shortness Of Breath/wheezing Last Admin: 06/09/16 09:06 Dose: 2.5 mg Albuterol/Ipratropium (Duoneb 3.0-0.5 Mg/3 Ml) 3 ml NEB QIDRT [facility] Last Admin: 06/09/16 11:13 Dose: 3 ml Benzonatate (Tessalon Perles) 100 mg PO TID PRN PRN Reason: Cough Last Admin: 06/09/16 12:58 Dose: 100 mg Buspirone HCl (Buspar) 30 mg PO TID [facility] Last Admin: 06/09/16 08:25 Dose: 30 mg Carbamazepine (Tegretol Tab) 800 mg PO BEDTIME [facility] Docusate Sodium (Colace) 100 mg PO BID PRN PRN Reason: Constipation Doxycycline Hyclate (Vibramycin) 100 mg PO BID [facility] Enoxaparin Sodium (Lovenox) 40 mg SUBCUT DAILY [facility] Last Admin: 06/09/16 08:26 Dose: 40 mg Gabapentin (Neurontin) 900 mg PO QID [facility] Last Admin: 06/09/16 10:27 Dose: 900 mg Guaifenesin/Codeine Phosphate (Robitussin Ac) 10 ml PO Q4H PRN PRN Reason: Cough Hydroxyzine HCl (Atarax) 50 mg PO QID [facility] Last Admin: 06/09/16 10:27 Dose: 50 mg Sodium Chloride (Normal Saline) 1,000 mls @ 125 mls/hr IV ASDIRECTED [facility] Last Admin: 06/09/16 09:29 Dose: 125 mls/hr Ceftriaxone Sodium 1 gm/ (Sodium Chloride) 50 mls @ 100 mls/hr IV Q24H [facility] Insulin Aspart (Novolog) 0 unit SUBCUT ASDIRECTED [facility] PRN Reason: Protocol Lamotrigine (Lamotrigine) 200 mg PO BEDTIME [facility] Lamotrigine 50 mg/ Lamotrigine (100 mg) 150 mg PO DAILY [facility] Last Admin: 06/09/16 08:27 Dose: 150 mg Levothyroxine Sodium (Levothyroxine) 75 mcg PO ACBREAKFAST [facility] Last Admin: 06/09/16 08:25 Dose: 75 mcg Lorazepam (Ativan) 1 mg IV Q6H PRN PRN Reason: Nausea/Vomiting Last Admin: 06/09/16 06:39 Dose: 1 mg Lorazepam (Ativan) 1 mg PO TID PRN PRN Reason: Anxiety Last Admin: 06/09/16 01:08 Dose: 1 mg Magnesium Hydroxide (Milk Of Magnesia) 30 ml PO Q12H PRN PRN Reason: Constipation Metformin HCl (Glucophage) 500 mg PO BIDMEALS [facility] Last Admin: 06/09/16 08:25 Dose: 500 mg Methylprednisolone Sodium Succinate (Solu-Medrol) 62.5 mg IVPUSH Q8H [facility] Nicotine Polacrilex (Nicorelief) 4 mg CHEW Q2H PRN PRN Reason: Anxiety Olanzapine (Zyprexa) 2.5 mg PO DAILY [facility] Last Admin: 06/09/16 08:24 Dose: 2.5 mg Olanzapine (Zyprexa) 7.5 mg PO BEDTIME [facility] Ondansetron HCl (Zofran) 4 mg IV Q4H PRN PRN Reason: Nausea/Vomiting Oxycodone HCl (Oxycodone) 5 mg PO Q4H PRN PRN Reason: Pain (moderate 4-6) Last Admin: 06/09/16 09:29 Dose: 5 mg Polyethylene Glycol (Miralax) 17 gm PO DAILY PRN PRN Reason: Constipation Promethazine HCl (Phenergan) 25 mg PO Q6H PRN PRN Reason: Nausea able to take PO Ziprasidone (Geodon) 40 mg PO BID [facility] Last Admin: 06/09/16 08:23 Dose: 40 mg Zolpidem Tartrate (Ambien) 5 mg PO BEDTIME PRN PRN Reason: Sleep Discontinued Medications Albuterol/Ipratropium (Duoneb 3.0-0.5 Mg/3 Ml) 3 ml NEB ONETIME ONE Stop: 06/08/16 22:28 Last Admin: 06/08/16 23:02 Dose: 3 ml Albuterol/Ipratropium (Duoneb 3.0-0.5 Mg/3 Ml) Confirm Administered Dose 3 ml .ROUTE .STK-MED ONE Stop: 06/08/16 22:49 Last Admin: 06/08/16 23:06 Dose: Not Given Ceftriaxone Sodium (Rocephin) Confirm Administered Dose 1 gm .ROUTE .STK-MED ONE Stop: 06/09/16 01:33 Last Admin: 06/09/16 01:41 Dose: Not Given Guaifenesin/Dextromethorphan (Robitussin Dm) 10 ml PO Q4H PRN PRN Reason: Cough Last Admin: 06/09/16 05:20 Dose: 10 ml Guaifenesin/Dextromethorphan (Robitussin Dm) 5 - 10 ml PO Q4H PRN PRN Reason: Cough Last Admin: 06/09/16 10:31 Dose: 10 ml Hydromorphone HCl (Dilaudid) 1 mg IVPUSH ONETIME ONE Stop: 06/08/16 22:28 Last Admin: 06/08/16 23:00 Dose: 1 mg Sodium Chloride (Normal Saline) 1,000 mls @ 500 mls/hr IV ASDIRECTED [facility] Last Admin: 06/08/16 22:11 Dose: 500 mls/hr Levofloxacin/Dextrose 500 mg/ (Premix) 100 mls @ 100 mls/hr IV ONETIME ONE Stop: 06/08/16 23:23 Last Admin: 06/08/16 23:06 Dose: 100 mls/hr Ceftriaxone Sodium 1 gm/ (Sodium Chloride) 50 mls @ 100 mls/hr IV Q24H [facility] Last Admin: 06/09/16 01:41 Dose: 100 mls/hr Sodium Chloride (Normal Saline) Confirm Administered Dose 50 mls @ as directed .ROUTE .STK-MED ONE Stop: 06/09/16 01:39 Last Admin: 06/09/16 01:42 Dose: Not Given Methylprednisolone Sodium Succinate (Solu-Medrol) 125 mg IVPUSH ONETIME ONE Stop: 06/08/16 22:26 Last Admin: 06/08/16 23:04 Dose: 125 mg Methylprednisolone Sodium Succinate (Solu-Medrol) 125 mg IVPUSH Q8H [facility] Last Admin: 06/09/16 08:29 Dose: 125 mg Nicotine (Habitrol) 21 mg TRDERM ONETIME ONE Stop: 06/08/16 22:30 Last Admin: 06/08/16 23:11 Dose: 21 mg *Q Meaningful Use (DIS) - VTE *Q VTE Criteria *Q: - Stroke *Q Stroke Criteria *Q: - AMI *Q AMI Criteria *Q:
[2016-06-09] MEDS ORDERED: methylPREDNISolone Sodium Succinate 125 MG/2 ML SDV IVPUSH SCH (16:00)
[2016-06-09] MEDS ORDERED: Doxycycline 100 MG Cap PO SCH (21:00)
[2016-06-09] MEDS ORDERED: carBAMazepine 200 MG Tab PO SCH (21:00)
== END 2016-06-09 13:25 | disposition home or self-care (01) | DRG 139 ==
LOC: JP.ED 20:14 → JP.ICU 23:59 → JP.2SS 06-09 04:44
PROVIDERS: ADMIT Internal Medicine; ATTEND Internal Medicine
DX: J18.9 Pneumonia, unspecified organism (principal); F17.210 Nicotine dependence, cigarettes, uncomplicated; J44.1 Chronic obstructive pulmonary disease with (acute) exacerbation; K59.09 Other constipation; Z87.440 Personal history of urinary (tract) infections; E03.9 Hypothyroidism, unspecified; F41.1 Generalized anxiety disorder; F31.9 Bipolar disorder, unspecified; F43.10 Post-traumatic stress disorder, unspecified; E66.9 Obesity, unspecified; Z68.30 Body mass index [BMI] 30.0-30.9, adult; Z85.41 Personal history of malignant neoplasm of cervix uteri; Z79.84 Long term (current) use of oral hypoglycemic drugs; Z79.52 Long term (current) use of systemic steroids; Z91.5 Personal history of self-harm
CPT/HCPCS: 36415; 71020; 71020-26; 80048; 80053; 82150; 83605; 83690; 85025; 87040; 87804; 94640-76; 96361; 96365; 96375; 99285-25; A9270-GY; J0696; J1170; J1650; J1956; J2060; J2930; J7040; J7050; J7620

== ENCOUNTER 2016-07-26 16:41 | Emergency (ER) | payer MEDICAID ==
[2016-07-26 16:58] VITALS: BP 109/74
--- NOTE | 2016-07-26 17:16 | EDM.PDOC ---
[id number] 4d PAIN IN RIGHT SIDE RIBS Time Seen by Provider: 07/26/16 17:30 Source of Information: Reports: Patient History Limitations: Reports: No Limitations - History of Present Illness INITIAL COMMENTS - FREE TEXT/NARRATIVE: 45-year-old female was sitting in a chair reached down to pick something off the floor and couldn't reach it so extended her arm and pushed the right side of her chest on the arm of the chair and felt a pop, this occurred this morning and she is in a lot of discomfort. She has some pain with breathing. Onset: Sudden (7 hours ago) Location: Reports: Chest - Related Data Allergies Allergy/AdvReac Type Severity Reaction Status Date / Time No Known Allergies Allergy Verified 06/08/16 21:44 Home Meds: Home Meds Gabapentin [Neurontin] 900 mg PO QID 11/18/14 [History] LORazepam [Ativan] 1 mg PO TID PRN 11/18/14 [History] Polyethylene Glycol 3350 [MiraLAX] 17 gm PO DAILY PRN 11/18/14 [History] Simethicone 1 tab PO QID PRN 11/18/14 [History] busPIRone [Buspar] 30 mg PO TID 11/18/14 [History] carBAMazepine [Epitol] 800 mg PO BEDTIME 01/27/15 [History] Ibuprofen 600 mg PO Q6H PRN 06/05/15 [History] Albuterol Sulfate [Proair Hfa] 1 - 2 puff IH Q4HR PRN 11/12/15 [History] Levothyroxine Sodium [Synthroid] 75 mcg PO ACBREAKFAST 11/12/15 [History] metFORMIN [Glucophage] 500 mg PO BIDMEALS 11/12/15 [History] Ziprasidone HCl 40 mg PO BID 06/08/16 [History] lamoTRIgine [Lamotrigine] 150 mg pe PO DAILY 06/08/16 [History] lamoTRIgine [Lamotrigine] 200 mg PO BEDTIME 06/08/16 [History] Past Medical History HEENT History: Reports: Other (See Below) Other HEENT History: dental caries Cardiovascular History: Reports: High Cholesterol Respiratory History: Reports: COPD Other Respiratory History: wheezing at noc Gastrointestinal History: Reports: Chronic Constipation, Irritable Bowel Syndrome Other Gastrointestinal History: constipation Genitourinary History: Reports: UTI, Recurrent [employer]IST History: Reports: Musculoskeletal History: Reports: Back Pain, Chronic, Fracture, Neck Pain, Chronic Other Musculoskeletal History: left wrist 10/07/13 Neurological History: Reports: Concussion, Headaches, Chronic, Migraines Psychiatric History: Reports: Anxiety, Bipolar, Depression, PTSD, Suicide Attempt Other Psychiatric History: seeing psychologist Endocrine/Metabolic History: Reports: Hypothyroidism, Obesity/BMI 30+ Oncologic (Cancer) History: Reports: Cervix Other Oncologic History: frozen - Infectious Disease History Infectious Disease History: Reports: Chicken Pox - Past Surgical History Head Surgeries/Procedures: Reports: None GI Surgical History: Reports: Hernia Repair/Other, Other (See Below) Female Surgical History: Reports: Section, Cervical Cryotherapy, Cystectomy Social & Family History - Family History Family Medical History: Noncontributory - Tobacco Use Smoking Status *Q: Current Every Day Smoker Years of Tobacco use: 25 Packs/Tins Daily: 1 Used Tobacco, but Quit: No Second Hand Smoke Exposure: Yes - Caffeine Use Caffeine Use: Reports: Coffee, Soda - Recreational Drug Use Recreational Drug Use: Yes Drug Use in Last 12 Months: No Recreational Drug Type: Reports: Marijuana/Hashish Recreational Drug Use Frequency: Not Used In Over 6 Months - Living Situation & Occupation Living situation: Reports: with Significant Other ED ROS GENERAL - Review of Systems Review Of Systems: See Below Constitutional: Denies: Fever, Chills Respiratory: Reports: Pleuritic Chest Pain. Denies: Shortness of Breath Cardiovascular: Reports: Chest Pain GI/Abdominal: Denies: Abdominal Pain, Nausea, Vomiting Skin: Reports: No Symptoms. Denies: Bruising Neurological: Denies: Headache ED EXAM, GENERAL - Physical Exam Exam: See Below Exam Limited By: No Limitations General Appearance: Alert, Mild Distress (Acting very uncomfortable, holding her left anterior chest) Respiratory/Chest: No Respiratory Distress, Lungs Clear Cardiovascular: Regular Rate, Rhythm GI/Abdominal: Other (Morbidly obese, nontender) Neurological: Alert, Oriented Skin Exam: Warm, Dry, Other (No bruising or rash seen over the injured area) Course - Vital Signs Last Recorded V/S: Last Vital Signs Temp 97.4 F 07/26/16 17:08 Pulse 95 07/26/16 17:08 Resp 16 07/26/16 17:08 BP 109/74 07/26/16 17:08 Pulse Ox 95 07/26/16 17:08 - Orders/Labs/Meds Orders: Active Orders 24 hr Category Date Time Status Chest 2V [CR] Routine Exams 07/26/16 17:45 Taken Meds: Medications Discontinued Medications Generic Name Dose Route Start Last Admin Trade Name Luanne PRN Reason Stop Dose Admin Ketorolac Tromethamine 60 mg 07/26/16 17:56 07/26/16 18:00 Toradol IM 07/26/16 17:57 60 mg ONETIME ONE Administration - Re-Assessments/Exams Free Text/Narrative Re-Assessment/Exam: 07/26/16 18:08 Patient was asking for pain control so 60 mg of Toradol IM were given, and a two -view chest x-ray was obtained. 07/26/16 18:20 The Toradol didn't help, chest x-ray was normal. It was explained to the patient that she has a costochondral strain and it needs to get better with time. She was given 6 hydrocodone for pain control for the next 1-2 nights. She can recheck later with her primary provider as she may need a physical therapy consult if not improving satisfactorily. Departure - Departure Time of Disposition: 19:00 Disposition: Home, Self-Care 01 Condition: good Clinical Impression: Sprain of costochondral joint Qualifiers: Encounter type: initial encounter Qualified Code(s): S23.41XA - Sprain of ribs , initial encounter - Discharge Information Instructions: Costochondritis, [id number] Referrals: Abbi Harding PA [Primary Care Provider] - Forms: ED Department Discharge Care Plan Goals: Continue with ibuprofen 2-3 times daily, and add hydrocodone if needed the next 1-2 nights. Increase activity as tolerated. Local ice may help as well, and recheck in 3-4 days if not improving satisfactorily with your regular doctor, a physical therapy consultation may be helpful. - My Orders Last 24 Hours: My Active Orders 07/26/16 17:45 Chest 2V [CR] Routine - Assessment/Plan Last 24 Hours: My Active Orders 07/26/16 17:45 Chest 2V [CR] Routine
[2016-07-26] MEDS ORDERED: Ketorolac 60 MG/2 ML SDV IM ONE (17:56)
--- NOTE | 2016-07-27 10:08 | CR ---
Chest 2V HISTORY: No Clinical Info FINDINGS: Heart size within normal limits. Pulmonary vasculature within normal limits. No evidence f or focal consolidation or cardiopulmonary process. IMPRESSION: No radiographic evidence for acute cardiopulmonary process.
== END 2016-07-26 19:00 | disposition home or self-care (01) ==
LOC: JP.ED 16:41
DX: S23.41XA Sprain of ribs, initial encounter (principal); J44.9 Chronic obstructive pulmonary disease, unspecified; E78.00 Pure hypercholesterolemia, unspecified; F41.9 Anxiety disorder, unspecified; F32.9 Major depressive disorder, single episode, unspecified; F31.9 Bipolar disorder, unspecified; E03.9 Hypothyroidism, unspecified; E66.9 Obesity, unspecified; Z68.41 Body mass index [BMI] 40.0-44.9, adult; Z85.41 Personal history of malignant neoplasm of cervix uteri; Z98.890 Other specified postprocedural states; F17.210 Nicotine dependence, cigarettes, uncomplicated; Z79.899 Other long term (current) drug therapy; X58.XXXA Exposure to other specified factors, initial encounter
CPT/HCPCS: 71020; 96372; 99284; J1885

== ENCOUNTER 2016-09-27 16:52 | Emergency (ER) | payer MEDICAID ==
[2016-09-27 17:07] VITALS: BP 142/73
--- NOTE | 2016-09-27 17:13 | EDM.PDOC ---
ED HPI GENERAL MEDICAL PROBLEM - General Chief Complaint: Genitourinary Problem Stated Complaint: SURGERY 09/20 Time Seen by Provider: 09/27/16 17:10 Source of Information: Reports: Patient History Limitations: Reports: No Limitations - History of Present Illness INITIAL COMMENTS - FREE TEXT/NARRATIVE: pt had a tubal done on Monday and she continues to have alot of pain, She is out of her pain meds at this time. She has not had a fever and has not had any sig vag discharge. Onset: Gradual Duration: Day(s): Location: Reports: Abdomen Quality: Reports: Sharp Associated Symptoms: Reports: No Other Symptoms pelvic Pain Score (Numeric/FACES): 8 - Related Data Allergies Allergy/AdvReac Type Severity Reaction Status Date / Time No Known Allergies Allergy Verified 06/08/16 21:44 Home Meds: Home Meds Gabapentin [Neurontin] 900 mg PO QID 11/18/14 [History] LORazepam [Ativan] 1 mg PO TID PRN 11/18/14 [History] Polyethylene Glycol 3350 [MiraLAX] 17 gm PO DAILY PRN 11/18/14 [History] busPIRone [Buspar] 30 mg PO TID 11/18/14 [History] carBAMazepine [Epitol] 800 mg PO BEDTIME 01/27/15 [History] Ibuprofen 800 mg PO Q6H PRN 06/05/15 [History] Albuterol Sulfate [Proair Hfa] 1 - 2 puff IH Q4HR PRN 11/12/15 [History] Levothyroxine Sodium [Synthroid] 75 mcg PO ACBREAKFAST 11/12/15 [History] metFORMIN [Glucophage] 500 mg PO BIDMEALS 11/12/15 [History] Ziprasidone HCl 40 mg PO BID 06/08/16 [History] lamoTRIgine [Lamotrigine] 150 mg pe PO DAILY 06/08/16 [History] lamoTRIgine [Lamotrigine] 200 mg PO BEDTIME 06/08/16 [History] Past Medical History HEENT History: Reports: Other (See Below) Other HEENT History: dental caries Cardiovascular History: Reports: High Cholesterol Respiratory History: Reports: COPD Other Respiratory History: wheezing at noc Gastrointestinal History: Reports: Chronic Constipation, Irritable Bowel Syndrome Other Gastrointestinal History: constipation Genitourinary History: Reports: UTI, Recurrent [employer]PER[employer]OR History: Reports: Musculoskeletal History: Reports: Back Pain, Chronic, Fracture, Neck Pain, Chronic Other Musculoskeletal History: left wrist 10/07/13 Neurological History: Reports: Concussion, Headaches, Chronic, Migraines Psychiatric History: Reports: Anxiety, Bipolar, Depression, PTSD, Suicide Attempt Other Psychiatric History: seeing psychologist Endocrine/Metabolic History: Reports: Hypothyroidism, Obesity/BMI 30+ Oncologic (Cancer) History: Reports: Cervix Other Oncologic History: frozen - Infectious Disease History Infectious Disease History: Reports: Chicken Pox - Past Surgical History Head Surgeries/Procedures: Reports: None GI Surgical History: Reports: Hernia Repair/Other, Other (See Below) Female Surgical History: Reports: Section, Cervical Cryotherapy, Cystectomy, Tubal Ligation Social & Family History - Family History Family Medical History: Noncontributory - Tobacco Use Smoking Status *Q: Current Every Day Smoker Years of Tobacco use: 25 Packs/Tins Daily: 1 Used Tobacco, but Quit: No Second Hand Smoke Exposure: Yes - Caffeine Use Caffeine Use: Reports: Coffee, Soda - Recreational Drug Use Recreational Drug Use: Yes Drug Use in Last 12 Months: No Recreational Drug Type: Reports: Marijuana/Hashish Recreational Drug Use Frequency: Not Used In Over 6 Months - Living Situation & Occupation Living situation: Reports: with Significant Other ED ROS GENERAL - Review of Systems Review Of Systems: See Below Constitutional: Reports: No Symptoms HEENT: Reports: No Symptoms Respiratory: Reports: No Symptoms Cardiovascular: Reports: No Symptoms Endocrine: Reports: No Symptoms GI/Abdominal: Reports: Other (pt is having pain on both sides low abdoman. ) : Reports: No Symptoms Musculoskeletal: Reports: No Symptoms Skin: Reports: No Symptoms ED EXAM, RENAL/ - Physical Exam Exam: See Below Text/Narrative:: pt arrived with pain in her lower abdoman post tubal. Her pain has not relented. Exam Limited By: No Limitations General Appearance: Alert, Anxious, Moderate Distress Ears: Normal TMs Throat/Mouth: Normal Inspection Head: Atraumatic Neck: Normal Inspection Respiratory/Chest: No Respiratory Distress Cardiovascular: JVD GI/Abdominal: Soft, Other (pt is not guarded. ) Rectal (Female) Exam: Deferred Course - Vital Signs Last Recorded V/S: Last Vital Signs Temp 37.2 C 09/27/16 17:14 Pulse 103 H 09/27/16 17:14 Resp 28 H 09/27/16 17:14 BP 142/73 H 09/27/16 17:14 Pulse Ox 93 L 09/27/16 17:14 - Orders/Labs/Meds Orders: Active Orders 24 hr Category Date Time Status UA W/MICROSCOPIC [URIN] Urgent Lab 09/27/16 17:54 Received Labs: Laboratory Tests 09/27/16 Range/Units 17:34 WBC 11.7 H (4.5-11.0) K/uL RBC 4.44 (3.30-5.50) M/uL Hgb 12.9 (12.0-15.0) g/dL Hct 38.2 (36.0-48.0) % MCV 86 (80-98) fL MCH 29 (27-31) pg MCHC 34 (32-36) % Plt Count 264 (150-400) K/uL Neut % (Auto) 68 H (36-66) % Lymph % (Auto) 18 L (24-44) % [place] % (Auto) 14 H (2-6) % Eos % (Auto) 1 L (2-4) % Baso % (Auto) 0 (0-1) % Meds: Medications Discontinued Medications Generic Name Dose Route Start Last Admin Trade Name Freq PRN Reason Stop Dose Admin Ketorolac Tromethamine 60 mg 09/27/16 17:25 09/27/16 17:39 Toradol IM 09/27/16 17:26 60 mg ONETIME ONE Administration - Re-Assessments/Exams Free Text/Narrative Re-Assessment/Exam: 09/27/16 17:59 [place]bc [place] [id number]. She did get torodol 60mg im and norco 5/325 q6h prn for pain. 09/27/16 18:05 UA was clear. Departure - Departure Time of Disposition: 18:05 Disposition: Home, Self-Care 01 Condition: Fair Clinical Impression: Postoperative pain - Discharge Information Forms: ED Department Discharge Care Plan Goals: see obgyn regarding the ongoing pain, norco 5/325 q6h prn for pain # 5 - My Orders Last 24 Hours: My Active Orders 09/27/16 17:54 UA W/MICROSCOPIC [URIN] Urgent - Assessment/Plan Last 24 Hours: My Active Orders 09/27/16 17:54 UA W/MICROSCOPIC [URIN] Urgent
[2016-09-27] MEDS ORDERED: Ketorolac 60 MG/2 ML SDV IM ONE (17:25)
[2016-09-27] MEDS ORDERED: Acetaminophen/HYDROcodone 325-5 MG Tab PO ONE (18:04)
== END 2016-09-27 18:26 | disposition home or self-care (01) ==
LOC: JP.ED 16:52
DX: G89.18 Other acute postprocedural pain (principal); R10.30 Lower abdominal pain, unspecified; E78.00 Pure hypercholesterolemia, unspecified; J44.9 Chronic obstructive pulmonary disease, unspecified; G43.909 Migraine, unspecified, not intractable, without status migrainosus; E03.9 Hypothyroidism, unspecified; E66.9 Obesity, unspecified; Z85.41 Personal history of malignant neoplasm of cervix uteri; Z79.899 Other long term (current) drug therapy; Z87.440 Personal history of urinary (tract) infections; Z98.51 Tubal ligation status; Z98.890 Other specified postprocedural states
CPT/HCPCS: 36415; 81001; 85025; 96372; 99284; A9270; J1885

== ENCOUNTER 2016-12-23 14:12 | Emergency (ER) | payer MEDICAID ==
[2016-12-23 14:30] VITALS: BP 154/106
--- NOTE | 2016-12-23 15:07 | EDM.PDOC ---
ED HPI GENERAL MEDICAL PROBLEM - General Chief Complaint: Neurological Problem Stated Complaint: PSYCHIATRIST SENT OVER TO BE SEEN FOR AN MRI? Time Seen by Provider: 12/23/16 14:40 Source of Information: Reports: Patient, Provider History Limitations: Reports: No Limitations - History of Present Illness INITIAL COMMENTS - FREE TEXT/NARRATIVE: 45-year-old female with chronic psychiatric issues including hallucinations had a psychiatric evaluation today and when she mentioned her headaches and worsening visual hallucinations the psychiatrist became worried about a possible tumor. He was actually considering the possibility for several weeks, and was hoping to send her to the emergency room for a CT of the head for reassurance. In talking with the patient she has no neurologic deficits, visual problems, speech difficulties, peripheral weakness or paresthesias. She has had a headache for the past 24 hours, left frontal in location. She has tried 2 doses of ibuprofen today without relief. She looks completely comfortable. Severity: Moderate Associated Symptoms: Reports: Other (Headaches) Head Pain Score (Numeric/FACES): 7 - Related Data Allergies Allergy/AdvReac Type Severity Reaction Status Date / Time No Known Allergies Allergy Verified 12/23/16 14:28 Home Meds: Home Meds Gabapentin [Neurontin] 900 mg PO QID 11/18/14 [History] LORazepam [Ativan] 1 mg PO TID PRN 11/18/14 [History] Polyethylene Glycol 3350 [MiraLAX] 17 gm PO DAILY PRN 11/18/14 [History] busPIRone [Buspar] 30 mg PO TID 11/18/14 [History] carBAMazepine [Epitol] 800 mg PO BEDTIME 01/27/15 [History] Ibuprofen 800 mg PO Q6H PRN 06/05/15 [History] Albuterol Sulfate [Proair Hfa] 1 - 2 puff IH Q4HR PRN 11/12/15 [History] Levothyroxine Sodium [Synthroid] 75 mcg PO ACBREAKFAST 11/12/15 [History] metFORMIN [Glucophage] 500 mg PO BIDMEALS 11/12/15 [History] Ziprasidone HCl 40 mg PO BID 06/08/16 [History] lamoTRIgine [Lamotrigine] 150 mg pe PO DAILY 06/08/16 [History] lamoTRIgine [Lamotrigine] 200 mg PO BEDTIME 04/12/17 [History] Past Medical History HEENT History: Reports: Other (See Below) Other HEENT History: dental caries Cardiovascular History: Reports: High Cholesterol Respiratory History: Reports: COPD Other Respiratory History: wheezing at noc Gastrointestinal History: Reports: Chronic Constipation, Irritable Bowel Syndrome Other Gastrointestinal History: constipation Genitourinary History: Reports: UTI, Recurrent 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: Musculoskeletal History: Reports: Back Pain, Chronic, Fracture, Neck Pain, Chronic Other Musculoskeletal History: left wrist 10/07/13 Neurological History: Reports: Concussion, Headaches, Chronic, Migraines Psychiatric History: Reports: Anxiety, Bipolar, Depression, PTSD, Suicide Attempt Other Psychiatric History: seeing psychologist, MAURICIO ANNE Endocrine/Metabolic History: Reports: Hypothyroidism, Obesity/BMI 30+ Oncologic (Cancer) History: Reports: Cervix Other Oncologic History: frozen - Infectious Disease History Infectious Disease History: Reports: Chicken Pox - Past Surgical History GI Surgical History: Reports: Hernia Repair/Other, Other (See Below) Female Surgical History: Reports: Section, Cervical Cryotherapy, Cystectomy, Tubal Ligation Social & Family History - Family History Family Medical History: Noncontributory - Tobacco Use Smoking Status *Q: Unknown Ever Smoked Years of Tobacco use: 25 Packs/Tins Daily: 1 Used Tobacco, but Quit: No Second Hand Smoke Exposure: Yes - Caffeine Use Caffeine Use: Reports: Coffee, Soda - Recreational Drug Use Recreational Drug Use: Yes Drug Use in Last 12 Months: No Recreational Drug Type: Reports: Marijuana/Hashish Recreational Drug Use Frequency: Not Used In Over 6 Months - Living Situation & Occupation Living situation: Reports: with Significant Other ED ROS GENERAL - Review of Systems Review Of Systems: See Below Constitutional: Denies: Fever, Chills, Malaise HEENT: Denies: Vision Change Respiratory: Denies: Shortness of Breath Cardiovascular: Denies: Chest Pain GI/Abdominal: Denies: Abdominal Pain Musculoskeletal: Reports: No Symptoms Skin: Reports: No Symptoms Neurological: Reports: Headache Psychiatric: Reports: Hallucinations ED EXAM, GENERAL - Physical Exam Exam: See Below Exam Limited By: No Limitations General Appearance: Alert, No Apparent Distress Eye Exam: Bilateral Eye: EOMI, PERRL Head: Atraumatic Respiratory/Chest: No Respiratory Distress Neurological: Alert, Oriented, No Motor/Sensory Deficits Psychiatric: Normal Affect, Normal Mood Skin Exam: Warm, Dry Course - Vital Signs Last Recorded V/S: Last Vital Signs Temp 36.7 F L 12/23/16 14:29 Pulse 102 H 12/23/16 14:29 Resp 15 12/23/16 14:29 BP 154/106 H 12/23/16 14:29 Pulse Ox 96 12/23/16 14:29 - Orders/Labs/Meds Orders: Active Orders 24 hr Category Date Time Status Head wo Cont [CT] Stat Exams 12/23/16 14:45 Taken Meds: Medications Discontinued Medications Generic Name Dose Route Start Last Admin Trade Name Luanne PRN Reason Stop Dose Admin Ketorolac Tromethamine 60 mg 12/23/16 15:20 12/23/16 15:24 Toradol IM 12/23/16 15:21 60 mg ONETIME ONE Administration - Re-Assessments/Exams Free Text/Narrative Re-Assessment/Exam: 12/23/16 15:[address] without contrast was obtained. 12/23/16 15:[address] was completely normal. Patient was given 60 mg of Toradol IM for her headache. 12/23/16 15:47 Patient's headache improved with the Toradol. She told me that her psychiatrist asked her to ask me if I would give her Xanax instead of Ativan if her CAT scan was normal. However I talked with him for several minutes prior to her coming in and he never mentioned that, I'm going to ask her to talk with him about that next week. That is what myself and the psychiatrist agreed on. Departure - Departure Time of Disposition: 15:58 Disposition: Home, Self-Care 01 Condition: Good Clinical Impression: Visual hallucination, Tension headache - Discharge Information Instructions: Tension Headache, [id number] Referrals: Abbi Harding PA [Primary Care Provider] - Forms: ED Department Discharge Care Plan Goals: Continue your regular medications until you can talk to your psychiatrist next week. Rest, activity as tolerated. - My Orders Last 24 Hours: My Active Orders 12/23/16 14:45 Head wo Cont [CT] Stat - Assessment/Plan Last 24 Hours: My Active Orders 12/23/16 14:45 Head wo Cont [CT] Stat
[2016-12-23] MEDS ORDERED: Ketorolac 60 MG/2 ML SDV IM ONE (15:20)
== END 2016-12-23 15:59 | disposition home or self-care (01) ==
LOC: JP.ED 14:12
DX: R44.1 Visual hallucinations (principal); G44.209 Tension-type headache, unspecified, not intractable; J44.9 Chronic obstructive pulmonary disease, unspecified; E66.9 Obesity, unspecified; Z79.899 Other long term (current) drug therapy
CPT/HCPCS: 70450; 96372; 99284; J1885

== ENCOUNTER 2017-04-07 07:45 | Day surgery (SDC) | payer MEDICAID ==
[~2017-04-07 07:45] MED LIST: Bupivacaine 0.5% 50 ML MDV ONE; Lidocaine 1% with EPINEPHrine 1:100,000 50 ML MDV ONE
[2017-04-07] MEDS ORDERED: Lactated Ringers 1,000 ML IV SCH (08:00)
[2017-04-07] MEDS ORDERED: Neostigmine Methylsulfate 1 MG/ML 5 ML Syringe ONE (08:02)
[2017-04-07] MEDS ORDERED: Succinylcholine/Normal Saline 200 MG/10 ML Syringe ONE (08:02)
[2017-04-07] MEDS ORDERED: fentaNYL 250 MCG/5 ML SDV ONE (08:02)
[2017-04-07] MEDS ORDERED: Propofol 200 MG/20 ML SDV ONE (08:02)
[2017-04-07] MEDS ORDERED: Rocuronium 50 MG/5 ML Vial ONE (08:02)
[2017-04-07] MEDS ORDERED: Ondansetron 4 MG/2 ML SDV ONE (08:02)
[2017-04-07] MEDS ORDERED: Dexamethasone 4 MG/ML SDV ONE (08:02)
[2017-04-07] MEDS ORDERED: Bupivacaine 0.5%/EPINEPHrine 1:200,000 50 ML MDV ONE (08:28)
[2017-04-07] MEDS ORDERED: Albuterol/Ipratropium 3.0-0.5 MG/3 ML Neb Soln NEB ONE (09:00)
[2017-04-07] MEDS ORDERED: ceFAZolin 2 GM in Premix Bag 1 BAG IV ONE (09:00)
[2017-04-07] MEDS ORDERED: fentaNYL 100 MCG/2 ML SDV ONE (09:52)
[2017-04-07] MEDS ORDERED: hydrOXYzine HCl 100 MG/2 ML SDV IM ONE (10:39)
[2017-04-07] MEDS ORDERED: Acetaminophen/HYDROcodone 325-5 MG Tab PO PRN (11:16)
[2017-04-07 12:07] VITALS: BP 126/87
--- NOTE | 2017-04-07 17:27 | OR ---
DATE OF PROCEDURE: 04/07/2017 PREOPERATIVE DIAGNOSIS: Epigastric hernia. POSTOPERATIVE DIAGNOSIS: Epigastric hernia. PROCEDURE: Repair of epigastric hernia with an 8 cm Ventralex mesh patch with straps. ANESTHESIA: General endotracheal. INDICATION: This 46-year-old white female, notes a tender mass in her epigastrium in the supraumbilical area. She has a history of an umbilical hernia repair in the remote past. She denies predisposing factors for hernia formation. I counseled her for repair of this hernia possibly with mesh including risks and alternatives, and she gave her informed consent to proceed. DESCRIPTION OF PROCEDURE: After adequate general endotracheal anesthesia was obtained, the patient's abdomen was prepped and draped in the usual sterile fashion. Time-out was held. A vertical midline incision was made in the supraumbilical area. This was carried deep using Bovie cautery to a hernia sac. The hernia sac was dissected free. It was not incarcerated. The sac was opened and noted to contain no intraabdominal contents. The sac was excised and sent to pathology. The defect was large enough but we could use an 8 cm Ventralex mesh patch with straps. This was obtained, was placed under the defect, and the straps were anchored to the anterior fascia with horizontal mattress stitches of 2-0 Vicryl. The 2-0 Vicryl then closed the fascia over the mesh with a running stitch. Lidocaine 1% with epinephrine in a 50:50 mix with 0.5% Marcaine was infiltrated about the incision. The incision was irrigated and suctioned dry. Interrupted stitches of 3-0 Vicryl were used to approximate the subcutaneous tissue, 4-0 Vicryl were used in a subcuticular stitch was placed to approximate the skin. Dermabond was applied. The anesthesia was reversed. She was extubated and brought to recovery room in good condition. Jesse Altamirano MD /[id number]
== END 2017-04-07 12:15 | disposition home or self-care (01) ==
LOC: JP.SDS 07:45
PROVIDERS: ATTEND Surgery
DX: K43.9 Ventral hernia without obstruction or gangrene (principal); F41.9 Anxiety disorder, unspecified; J44.9 Chronic obstructive pulmonary disease, unspecified; E03.9 Hypothyroidism, unspecified; E66.01 Morbid (severe) obesity due to excess calories; Z68.41 Body mass index [BMI] 40.0-44.9, adult; F33.41 Major depressive disorder, recurrent, in partial remission; Z79.899 Other long term (current) drug therapy; F17.210 Nicotine dependence, cigarettes, uncomplicated
CPT/HCPCS: 49570; 81025; 82962; 94640; A9270; C1781; J0690; J1100; J2405; J2704; J3010; J3410; J7120; J7620; 88302

== ENCOUNTER 2017-07-14 09:06 | Day surgery (SDC) | payer MEDICARE, MEDICAID ==
[~2017-07-14 09:06] MED LIST changes: +Midazolam 1 MG/ML 2 ML SDV ONE; +Propofol 200 MG/20 ML SDV ONE; +fentaNYL 100 MCG/2 ML SDV ONE
[2017-07-14] MEDS ORDERED: Albuterol 0.083% 2.5 MG/3 ML Neb Soln NEB ONE (10:00)
[2017-07-14] MEDS ORDERED: Propofol 200 MG/20 ML SDV ONE ×2 (10:59→11:15)
[2017-07-14] MEDS ORDERED: Dextrose 5%-Lactated Ringers 1,000 ML IV SCH (11:00)
[2017-07-14] MEDS ORDERED: fentaNYL 100 MCG/2 ML SDV ONE (11:25)
[2017-07-14] MEDS ORDERED: ceFAZolin 2 GM in Premix Bag 1 BAG IV ONE ×4 (11:30)
[2017-07-14] MEDS ORDERED: ceFAZolin 2 GM in Sodium Chloride 0.9% 50 ML IV ONE (11:30)
[2017-07-14] MEDS ORDERED: hydrOXYzine HCl 100 MG/2 ML SDV IM ONE (11:38)
[2017-07-14] MEDS ORDERED: Acetaminophen/HYDROcodone 325-5 MG Tab PO ONE (12:20)
[2017-07-14 12:40] VITALS: BP 139/85
--- NOTE | 2017-07-17 12:06 | OR ---
DATE OF PROCEDURE: 07/14/2017 PREOPERATIVE DIAGNOSIS: Periumbilical hernia. POSTOPERATIVE DIAGNOSIS: Periumbilical hernia. PROCEDURE: Repair of periumbilical hernia with an 8 cm in diameter Ventralex mesh patch with straps. ANESTHESIA: IV anesthesia with monitored anesthesia care. INDICATION: This 46-year-old white female has a history of multiple prior hernias. Most recently, she had an epigastric hernia repaired. She notes reducible mass just to the left of her umbilicus. CAT scan shows that she has a periumbilical hernia. She is admitted for repair of this hernia. I counseled her for the procedure with possible mesh, including risks and alternatives, and she gave her informed consent to proceed. DESCRIPTION OF PROCEDURE: After adequate IV anesthesia was obtained, the patient's abdomen was prepped and draped in the usual sterile fashion. Time-out was held. A midline incision was made, going to the left of the umbilicus. This was a small incision. This was carried deep and sharply to the hernia sac. The sac was dissected free, excised, and sent to pathology. There was omentum present, which was dissected free and reduced back in the abdominal cavity. The defect was large enough to allow 2 fingers to be introduced into it. We obtained an 8 cm in diameter Ventralex mesh patch with straps. This was placed down under the defect. The straps were pulled up. Bringing the mesh to the posterior aspect of the anterior abdominal wall. The straps were cut to appropriate length and anchored with 2- 0 Vicryl suture to the anterior fascia. The fascia was closed over the mesh with interrupted 2-0 Vicryl suture. The subcutaneous tissue was closed with 2-0 Vicryl, 4-0 Vicryl using a subcuticular stitch was placed to approximate the skin. Dermabond was applied. She tolerated the procedure well and was brought from the operating room in a good condition. Jesse Altamirano MD /[id number]
== END 2017-07-14 12:46 | disposition home or self-care (01) ==
LOC: JP.SDS 09:06
PROVIDERS: ATTEND Surgery
DX: K42.9 Umbilical hernia without obstruction or gangrene (principal); J44.9 Chronic obstructive pulmonary disease, unspecified; F41.9 Anxiety disorder, unspecified; E66.01 Morbid (severe) obesity due to excess calories; J30.2 Other seasonal allergic rhinitis; E03.9 Hypothyroidism, unspecified; J45.20 Mild intermittent asthma, uncomplicated; F17.210 Nicotine dependence, cigarettes, uncomplicated; F31.81 Bipolar II disorder; E11.9 Type 2 diabetes mellitus without complications; Z68.41 Body mass index [BMI] 40.0-44.9, adult; Z79.899 Other long term (current) drug therapy; Z79.84 Long term (current) use of oral hypoglycemic drugs
CPT/HCPCS: 49585; 81025; 94640; A9270; C1781; J0690; J2250; J2704; J3010; J3410; J7042

== ENCOUNTER 2017-07-23 15:01 | Emergency (ER) | payer MEDICARE, MEDICAID ==
[2017-07-23 15:57] VITALS: BP 133/87
[2017-07-23] MEDS ORDERED: Acetaminophen/HYDROcodone 325-5 MG Tab PO ONE (16:49)
--- NOTE | 2017-07-23 16:51 | EDM.PDOC ---
ED HPI GENERAL MEDICAL PROBLEM - General Chief Complaint: Abdominal Pain Stated Complaint: FLUID LEAKAGE FROM HERNIA SURGERY 2 WEEKS AGO Time Seen by Provider: 07/23/17 16:05 Source of Information: Reports: Patient History Limitations: Reports: No Limitations - History of Present Illness INITIAL COMMENTS - FREE TEXT/NARRATIVE: 46 yo presents with drainage from ABD hernia repair site. pain was managed by norco but she ran out 2 days ago. last dose of ibuprofen 800 mg was this morning. denies headache or fever. denies general illness. Pt has hx of peripheral edema but it usually resolves on its own. Abdominal Pain Score (Numeric/FACES): 8 - Related Data Allergies Allergy/AdvReac Type Severity Reaction Status Date / Time No Known Allergies Allergy Verified 07/23/17 16:31 Home Meds: Home Meds Gabapentin [Neurontin] 900 mg PO QID 11/18/14 [History] Polyethylene Glycol 3350 [MiraLAX] 17 gm PO DAILY PRN 11/18/14 [History] carBAMazepine [Epitol] 800 mg PO BEDTIME 01/27/15 [History] Ibuprofen 800 mg PO Q6H PRN 06/05/15 [History] Albuterol Sulfate [Proair Hfa] 1 - 2 puff IH Q4HR PRN 11/12/15 [History] Levothyroxine Sodium [Synthroid] 75 mcg PO ACBREAKFAST 11/12/15 [History] metFORMIN [Glucophage] 500 mg PO BIDMEALS 11/12/15 [History] lamoTRIgine [Lamotrigine] 150 mg pe PO DAILY 06/08/16 [History] lamoTRIgine [Lamotrigine] 200 mg PO BEDTIME 06/08/16 [History] ALPRAZolam [Alprazolam] 1 mg PO QID 04/05/17 [History] Cyclobenzaprine HCl 10 mg PO TID PRN 04/05/17 [History] risperiDONE 1 mg PO BID 04/05/17 [History] Ciclopirox [Loprox 0.77% Crm] 1 cm TOP BID 07/12/17 [History] FLUoxetine HCl [Fluoxetine HCl] 10 mg PO DAILY 07/12/17 [History] OLANZapine [Olanzapine] 20 mg PO DAILY 07/12/17 [History] Past Medical History HEENT History: Reports: Impaired Vision, Other (See Below) Other HEENT History: dental caries Cardiovascular History: Reports: High Cholesterol Respiratory History: Reports: COPD Other Respiratory History: wheezing at noc Gastrointestinal History: Reports: Chronic Constipation, Irritable Bowel Syndrome Other Gastrointestinal History: constipation Genitourinary History: Reports: UTI, Recurrent 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: Musculoskeletal History: Reports: Back Pain, Chronic, Fracture, Neck Pain, Chronic Other Musculoskeletal History: left wrist 10/07/13 Neurological History: Reports: Concussion, Headaches, Chronic, Migraines Psychiatric History: Reports: Anxiety, Bipolar, Depression, PTSD, Suicide Attempt Other Psychiatric History: seeing psychologist, [employer] Endocrine/Metabolic History: Reports: Diabetes, Type II, Hypothyroidism, Obesity /BMI 30+ Oncologic (Cancer) History: Reports: Cervix Other Oncologic History: frozen - Infectious Disease History Infectious Disease History: Reports: Chicken Pox - Past Surgical History GI Surgical History: Reports: Hernia Repair/Other, Other (See Below) Other GI Surgeries/Procedures: laparoscopies umbilical hernia with mesh Female Surgical History: Reports: Section, Cervical Cryotherapy, Cystectomy, Tubal Ligation Social & Family History - Family History Family Medical History: Noncontributory Cardiac: Reports: [place], Stent Respiratory: Reports: COPD Musculoskeletal: Reports: Back pain, Chronic Endocrine/Metabolic: Reports: Diabetes, type II, Hypothyroidism - Tobacco Use Smoking Status *Q: Current Every Day Smoker Years of Tobacco use: 30 Packs/Tins Daily: 1.5 Used Tobacco, but Quit: No Second Hand Smoke Exposure: Yes - Caffeine Use Caffeine Use: Reports: Coffee, Soda - Recreational Drug Use Recreational Drug Use: No - Living Situation & Occupation Living situation: Reports: with Significant Other ED ROS GENERAL - Review of Systems Review Of Systems: See Below Constitutional: Denies: Fever, Chills, Malaise, Fatigue Respiratory: Reports: Cough (chronic for pt). Denies: Shortness of Breath, Wheezing Cardiovascular: Denies: Chest Pain GI/Abdominal: Reports: Abdominal Pain : Denies: Dysuria, Flank Pain, Frequency ED EXAM, GI/ABD - Physical Exam Exam: See Below Exam Limited By: No Limitations General Appearance: Alert, WD/WN, No Apparent Distress Neck: No: Lymphadenopathy (R), Lymphadenopathy (L) Respiratory/Chest: No Respiratory Distress, Lungs Clear, Normal Breath Sounds. No: Crackles, Rhonchi, Wheezing Cardiovascular: Other (2+ pitting edema bilateral LE). No: Regular Rate, Rhythm GI/Abdominal Exam: Soft, Tender (moderate tenderness at umbilical repair site, bloody SA drainage, no flucuance, no erythema, not warm to the touch) Neurological: Alert, Oriented Psychiatric: Normal Affect, Normal Mood Skin Exam: Warm, Dry, Intact. No: Rash Course - Vital Signs Last Recorded V/S: Last Vital Signs Temp 36.7 C 07/23/17 16:32 Pulse 108 H 07/23/17 16:32 Resp 20 07/23/17 16:32 BP 133/87 07/23/17 16:32 Pulse Ox 92 L 07/23/17 16:32 - Orders/Labs/Meds Labs: Laboratory Tests 07/23/17 07/23/17 Range/Units 17:00 17:00 WBC 13.3 H (4.5-11.0) K/uL RBC 4.85 (3.30-5.50) M/uL Hgb 13.1 (12.0-15.0) g/dL Hct 41.8 (36.0-48.0) % MCV 86 (80-98) fL MCH 27 (27-31) pg MCHC 31 L (32-36) % Plt Count 306 (150-400) K/uL Neut % (Auto) 67 H (36-66) % Lymph % (Auto) 20 L (24-44) % [place] % (Auto) 12 H (2-6) % Eos % (Auto) 1 L (2-4) % Baso % (Auto) 0 (0-1) % Sodium 141 (140-148) mmol/L Potassium 4.5 (3.6-5.2) mmol/L Chloride 102 (100-108) mmol/L Carbon Dioxide 35 H (21-32) mmol/L Anion Gap 8.5 (5.0-14.0) mmol/L BUN 4 L (7-18) mg/dL Creatinine 0.9 (0.6-1.0) mg/dL Est Cr Clr Drug Dosing 80.47 mL/min Estimated GFR (MDRD) > 60 (>60) Glucose 127 H (74-106) mg/dL Calcium 8.8 (8.5-10.1) mg/dL Meds: Medications Discontinued Medications Generic Name Dose Route Start Last Admin Trade Name Freq PRN Reason Stop Dose Admin Hydrocodone Bitart/Acetaminophen 1 tab 07/23/17 16:49 07/23/17 16:55 [place] 325-5 Mg PO 07/23/17 16:50 1 tab ONETIME ONE Administration Furosemide 40 mg 07/23/17 17:29 07/23/17 17:42 Lasix PO 07/23/17 17:30 40 mg ONETIME ONE Administration - Re-Assessments/Exams Free Text/Narrative Re-Assessment/Exam: 07/23/17 17:36 oral norco given and pain is now tolerable. will DC on small amount of norco with instructions to follow-up with surgeon. Will also treat with lasix 20 mg daily for 4 days Departure - Departure Time of Disposition: 17:47 Disposition: Home, Self-Care 01 Condition: Good Clinical Impression: Post-op pain, Peripheral edema - Discharge Information Instructions: Opioid Pain Medicine Information Referrals: Abbi Harding PA [Primary Care Provider] - Forms: ED Department Discharge Additional Instructions: norco 10 tablets this must last you through your follow-up with surgery Lasix 20 mg daily start tomorrow increase fluid intake with goal of 1.5 L per day
[2017-07-23] MEDS ORDERED: Furosemide 40 MG Tab PO ONE (17:29)
== END 2017-07-23 18:04 | disposition home or self-care (01) ==
LOC: JP.ED 15:01
DX: G89.18 Other acute postprocedural pain (principal); R10.9 Unspecified abdominal pain; R60.0 Localized edema; J44.9 Chronic obstructive pulmonary disease, unspecified; E11.9 Type 2 diabetes mellitus without complications; E03.9 Hypothyroidism, unspecified; Z79.899 Other long term (current) drug therapy; E78.00 Pure hypercholesterolemia, unspecified; Z79.84 Long term (current) use of oral hypoglycemic drugs; Z98.890 Other specified postprocedural states
CPT/HCPCS: 36415; 80048; 85025; 99284; A9270

== ENCOUNTER 2017-09-06 15:56 | Emergency (ER) | payer MEDICARE, MEDICAID ==
[2017-09-06] MEDS ORDERED: Albuterol 0.083% 2.5 MG/3 ML Neb Soln NEB ONE (16:16)
[2017-09-06] MEDS ORDERED: Sodium Chloride 0.9% 10 ML Syringe FLUSH PRN (16:22)
--- NOTE | 2017-09-06 16:24 | EDM.PDOC ---
<Iveth Starks - Last Filed: 09/06/17 18:14> ED HPI GENERAL MEDICAL PROBLEM - General Chief Complaint: Respiratory Problem Stated Complaint: BREATHING TROUBLE, PASSING OUT Time Seen by Provider: 09/06/17 16:24 Source of Information: Reports: Patient, Family History Limitations: Reports: No Limitations - History of Present Illness INITIAL COMMENTS - FREE TEXT/NARRATIVE: PT ARRIVED WITH MARKED SOB. sHE IS COUGHING UP GRREN SPUTUM. hER 02 SATS WETRE DOWN IN THE 70S ON ARRIVAL. Onset: Gradual, Other ( PAST 2-3 DAYS. ) Duration: Hour(s): Location: Reports: Chest Associated Symptoms: Reports: Cough, Malaise, Shortness of Breath - Related Data Allergies Allergy/AdvReac Type Severity Reaction Status Date / Time No Known Allergies Allergy Verified 09/06/17 17:54 Home Meds: Home Meds Gabapentin [Neurontin] 900 mg PO QID 11/18/14 [History] Polyethylene Glycol 3350 [MiraLAX] 17 gm PO DAILY PRN 11/18/14 [History] carBAMazepine [Epitol] 800 mg PO BEDTIME 01/27/15 [History] Ibuprofen 800 mg PO Q6H PRN 06/05/15 [History] Albuterol Sulfate [Proair Hfa] 1 - 2 puff IH Q4HR PRN 11/12/15 [History] Levothyroxine Sodium [Synthroid] 75 mcg PO ACBREAKFAST 11/12/15 [History] metFORMIN [Glucophage] 500 mg PO BIDMEALS 11/12/15 [History] lamoTRIgine [Lamotrigine] 150 mg pe PO DAILY 06/08/16 [History] lamoTRIgine [Lamotrigine] 200 mg PO BEDTIME 06/08/16 [History] ALPRAZolam [Alprazolam] 1 mg PO QID 04/05/17 [History] Cyclobenzaprine HCl 10 mg PO TID PRN 04/05/17 [History] risperiDONE 1 mg PO BID 04/05/17 [History] Ciclopirox [Loprox 0.77% Crm] 1 cm TOP BID 07/12/17 [History] FLUoxetine HCl [Fluoxetine HCl] 10 mg PO DAILY 07/12/17 [History] OLANZapine [Olanzapine] 20 mg PO DAILY 07/12/17 [History] Past Medical History HEENT History: Reports: Impaired Vision, Other (See Below) Other HEENT History: dental caries Cardiovascular History: Reports: High Cholesterol Respiratory History: Reports: COPD Other Respiratory History: wheezing at noc Gastrointestinal History: Reports: Chronic Constipation, Irritable Bowel Syndrome Other Gastrointestinal History: constipation Genitourinary History: Reports: UTI, Recurrent 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: Musculoskeletal History: Reports: Back Pain, Chronic, Fracture, Neck Pain, Chronic Other Musculoskeletal History: left wrist 10/07/13 Neurological History: Reports: Concussion, Headaches, Chronic, Migraines Psychiatric History: Reports: Anxiety, Bipolar, Depression, PTSD, Suicide Attempt Other Psychiatric History: seeing psychologist, [employer] Endocrine/Metabolic History: Reports: Diabetes, Type II, Hypothyroidism, Obesity /BMI 30+ Oncologic (Cancer) History: Reports: Cervix Other Oncologic History: frozen - Infectious Disease History Infectious Disease History: Reports: Chicken Pox - Past Surgical History GI Surgical History: Reports: Hernia Repair/Other, Other (See Below) Other GI Surgeries/Procedures: laparoscopies umbilical hernia with mesh Female Surgical History: Reports: Section, Cervical Cryotherapy, Cystectomy, Tubal Ligation Social & Family History - Family History Family Medical History: Noncontributory Cardiac: Reports: PA, Stent Respiratory: Reports: COPD Musculoskeletal: Reports: Back pain, Chronic Endocrine/Metabolic: Reports: Diabetes, type II, Hypothyroidism - Caffeine Use Caffeine Use: Reports: Coffee, Soda - Living Situation & Occupation Living situation: Reports: with Significant Other ED ROS GENERAL - Review of Systems Review Of Systems: See Below Constitutional: Reports: Chills, Malaise HEENT: Reports: No Symptoms Respiratory: Reports: Shortness of Breath, Other (LOW O2 SATS. ) Cardiovascular: Reports: No Symptoms Endocrine: Reports: No Symptoms GI/Abdominal: Reports: No Symptoms : Reports: No Symptoms Musculoskeletal: Reports: No Symptoms Skin: Reports: No Symptoms Neurological: Reports: No Symptoms Psychiatric: Reports: No Symptoms ED EXAM, GENERAL - Physical Exam Exam: See Below Free Text/Narrative:: PT ARRIVED WITH INCREASED SOB AND COUGHING UP GEEN SPUTUM.sHE HAS A HISTORY OF COPD. sHE HAS NOT HAD A DEFINITE FEVER. hER O2 SATS WERE DOWN IN THE 70S ON ARRIVAL. Exam Limited By: No Limitations General Appearance: Alert, Moderate Distress, Other ( VERY LOW O2 SATS. ) Ears: Normal TMs Nose: Normal Inspection Throat/Mouth: Normal Inspection Head: Atraumatic Neck: Normal Inspection Respiratory/Chest: Decreased Breath Sounds, Wheezing, Prolonged Expiration Cardiovascular: Regular Rate, Rhythm GI/Abdominal: Soft, Non-Tender (Female) Exam: Deferred Rectal (Female) Exam: Deferred Back Exam: Normal Inspection Extremities: Pedal Edema, Other (PT DOES USE A FLUID PILL AND TODAY SHE HAS HAD SWELLING. ) Neurological: Alert, Oriented, Normal Cognition Psychiatric: Normal Affect Course - Vital Signs Last Recorded V/S: Last Vital Signs Temp 36.9 C 09/06/17 16:30 Pulse 101 H 09/06/17 18:43 Resp 22 H 09/06/17 18:43 BP 118/85 09/06/17 18:43 Pulse Ox 91 L 09/06/17 18:43 - Orders/Labs/Meds Orders: Active Orders 24 hr Category Date Time Status RT Aerosol Therapy [RC] ASDIRECTED Care 09/06/17 16:17 Active RT Aerosol Therapy [RC] ASDIRECTED Care 09/06/17 16:55 Active Chest 2V [CR] Stat Exams 09/06/17 16:23 Taken CULTURE BLOOD [BC] Urgent Lab 09/06/17 17:05 Received CULTURE BLOOD [BC] Urgent Lab 09/06/17 17:05 Received UA W/MICROSCOPIC [URIN] Urgent Lab 09/06/17 16:55 Ordered Sodium Chloride 0.9% [Normal Saline] 1,000 ml Med 09/06/17 17:45 Active IV ASDIRECTED Sodium Chloride 0.9% [Normal Saline] 1,000 ml Med 09/06/17 17:45 Active IV ASDIRECTED Sodium Chloride 0.9% [Saline Flush] Med 09/06/17 16:22 Active 10 ml FLUSH ASDIRECTED PRN Blood Culture x2 Reflex Set [OM.PC] Urgent Oth 09/06/17 17:05 Ordered Saline Lock Insert [OM.PC] Routine Oth 09/06/17 16:22 Ordered Medication Orders Sodium Chloride (Normal Saline) 1,000 mls @ 999 mls/hr IV ASDIRECTED TONEY Last Admin: 09/06/17 17:42 Dose: 999 mls/hr Sodium Chloride (Normal Saline) 1,000 mls @ 500 mls/hr IV ASDIRECTED TONEY Last Admin: 09/06/17 19:18 Dose: 500 mls/hr Sodium Chloride (Saline Flush) 10 ml FLUSH ASDIRECTED PRN PRN Reason: Keep Vein Open Last Admin: 09/06/17 17:39 Dose: 10 ml Labs: Laboratory Tests 09/06/17 09/06/17 09/06/17 Range/Units 16:16 16:16 16:30 WBC 15.3 H (4.5-11.0) K/uL RBC 4.79 (3.30-5.50) M/uL Hgb 12.6 (12.0-15.0) g/dL Hct 40.3 (36.0-48.0) % MCV 84 (80-98) fL MCH 26 L (27-31) pg MCHC 31 L (32-36) % Plt Count 302 (150-400) K/uL Neut % (Auto) 73 H (36-66) % Lymph % (Auto) 11 L (24-44) % Mobile % (Auto) 16 H (2-6) % Eos % (Auto) 1 L (2-4) % Baso % (Auto) 0 (0-1) % Puncture Site ABG pH (7.350-7.450) ABG pCO2 (35.0-42.0) mmHg ABG pO2 (75.0-100.0) mmHg ABG HCO3 (22.0-26.0) mmol/L ABG Total CO2 (21.0-25.0) mmol/L ABG O2 Saturation (95.0-98.0) % ABG O2 Content (15.0-23.0) %vol ABG Base Excess mm/L ABG Hemoglobin (12.0-16.0) g/dL ABG Oxyhemoglobin % ABG Carboxyhemoglobin (0.0-1.6) % ABG Methemoglobin % Hernando Test O2 Delivery Device Oxygen Flow Rate L Sodium 129 L (140-148) mmol/L Potassium 3.1 L (3.6-5.2) mmol/L Chloride 92 L (100-108) mmol/L Carbon Dioxide 29 (21-32) mmol/L Anion Gap 11.1 (5.0-14.0) mmol/L BUN 5 L (7-18) mg/dL Creatinine 0.9 (0.6-1.0) mg/dL Est Cr Clr Drug Dosing 80.47 mL/min Estimated GFR (MDRD) > 60 (>60) Glucose 125 H (74-106) mg/dL Lactic Acid (0.4-2.0) mmol/L Calcium 7.9 L (8.5-10.1) mg/dL Total Bilirubin 0.3 (0.2-1.0) mg/dL AST 20 (15-37) U/L ALT 21 (12-78) U/L Alkaline Phosphatase 118 H (46-116) U/L NT-Pro-B Natriuret Pep 559 H (5-125) pg/mL Total Protein 7.2 (6.4-8.2) g/dL Albumin 2.9 L (3.4-5.0) g/dL Globulin 4.3 H (2.3-3.5) g/dL Albumin/Globulin Ratio 0.7 L (1.2-2.2) Urine Color Urine Appearance Urine pH (4.5-8.0) Ur Specific [place] (1.008-1.030) Urine Protein (NEGATIVE) mg/dL Urine Glucose (UA) (NEGATIVE) mg/dL Urine Ketones (NEGATIVE) mg/dL Urine Occult Blood (NEGATIVE) Urine Nitrite (NEGATIVE) Urine Bilirubin (NEGATIVE) Urine Urobilinogen (NORMAL) mg/dL Ur Leukocyte Esterase (NEGATIVE) Urine RBC (0-5) Urine WBC (0-5) Ur Epithelial Cells Amorphous Sediment Urine Bacteria Urine Mucus Urine Other 09/06/17 09/06/17 09/06/17 Range/Units 16:31 16:55 17:06 WBC (4.5-11.0) K/uL RBC (3.30-5.50) M/uL Hgb (12.0-15.0) g/dL Hct (36.0-48.0) % MCV (80-98) fL MCH (27-31) pg MCHC (32-36) % Plt Count (150-400) K/uL Neut % (Auto) (36-66) % Lymph % (Auto) (24-44) % Mobile % (Auto) (2-6) % Eos % (Auto) (2-4) % Baso % (Auto) (0-1) % Puncture Site Rt radial ABG pH 7.381 (7.350-7.450) ABG pCO2 53.5 H (35.0-42.0) mmHg ABG pO2 90.0 (75.0-100.0) mmHg ABG HCO3 31.0 H (22.0-26.0) mmol/L ABG Total CO2 28.0 H (21.0-25.0) mmol/L ABG O2 Saturation 96.9 (95.0-98.0) % ABG O2 Content 14.5 L (15.0-23.0) %vol ABG Base Excess 5.2 mm/L ABG Hemoglobin 12.3 (12.0-16.0) g/dL ABG Oxyhemoglobin 83.1 % ABG Carboxyhemoglobin 13.2 H (0.0-1.6) % ABG Methemoglobin 1.0 % Hernando Test Pass O2 Delivery Device Nasal cannula Oxygen Flow Rate 6 L Sodium (140-148) mmol/L Potassium (3.6-5.2) mmol/L Chloride (100-108) mmol/L Carbon Dioxide (21-32) mmol/L Anion Gap (5.0-14.0) mmol/L BUN (7-18) mg/dL Creatinine (0.6-1.0) mg/dL Est Cr Clr Drug Dosing mL/min Estimated GFR (MDRD) (>60) Glucose (74-106) mg/dL Lactic Acid 2.3 H (0.4-2.0) mmol/L Calcium (8.5-10.1) mg/dL Total Bilirubin (0.2-1.0) mg/dL AST (15-37) U/L ALT (12-78) U/L Alkaline Phosphatase (46-116) U/L NT-Pro-B Natriuret Pep (5-125) pg/mL Total Protein (6.4-8.2) g/dL Albumin (3.4-5.0) g/dL Globulin (2.3-3.5) g/dL Albumin/Globulin Ratio (1.2-2.2) Urine Color Yellow Urine Appearance Clear Urine pH 6.0 (4.5-8.0) Ur Specific [place] 1.005 L (1.008-1.030) Urine Protein Negative (NEGATIVE) mg/dL Urine Glucose (UA) 1000 H (NEGATIVE) mg/dL Urine Ketones Negative (NEGATIVE) mg/dL Urine Occult Blood Negative (NEGATIVE) Urine Nitrite Negative (NEGATIVE) Urine Bilirubin Negative (NEGATIVE) Urine Urobilinogen Normal (NORMAL) mg/dL Ur Leukocyte Esterase Negative (NEGATIVE) Urine RBC 0-5 (0-5) Urine WBC 0-5 (0-5) Ur Epithelial Cells Few Amorphous Sediment Not seen Urine Bacteria Rare Urine Mucus Not seen Urine Other Meds: Medications Generic Name Dose Route Start Last Admin Trade Name Freq PRN Reason Stop Dose Admin Sodium Chloride 1,000 mls @ 999 mls/hr 09/06/17 17:45 09/06/17 17:42 Normal Saline IV 999 mls/hr ASDIRECTED TONEY Administration Sodium Chloride 1,000 mls @ 500 mls/hr 09/06/17 17:45 09/06/17 19:18 Normal Saline IV 500 mls/hr ASDIRECTED TONEY Administration Sodium Chloride 10 ml 09/06/17 16:22 09/06/17 17:39 Saline Flush FLUSH 10 ml ASDIRECTED PRN Administration Keep Vein Open Discontinued Medications Generic Name Dose Route Start Last Admin Trade Name Freq PRN Reason Stop Dose Admin Albuterol 2.5 mg 09/06/17 16:16 09/06/17 16:20 Proventil Neb Soln NEB 09/06/17 16:17 2.5 mg ONETIME ONE Administration Albuterol/Ipratropium 3 ml 09/06/17 16:55 09/06/17 17:34 Duoneb 3.0-0.5 Mg/3 Ml NEB 09/06/17 16:56 3 ml ONETIME ONE Administration Ceftriaxone Sodium 1 gm/ 50 mls @ 100 mls/hr 09/06/17 17:04 09/06/17 17:34 Sodium Chloride IV 09/06/17 17:33 100 mls/hr ONETIME ONE Administration Methylprednisolone Sodium Succinate 125 mg 09/06/17 17:03 09/06/17 17:34 Solu-Medrol IVPUSH 09/06/17 17:04 125 mg ONETIME ONE Administration Potassium Chloride 10 meq 09/06/17 17:06 09/06/17 17:34 Potassium Chloride PO 09/06/17 17:07 10 meq ONETIME ONE Administration Potassium Chloride 20 meq 09/06/17 17:06 09/06/17 17:34 Klor-Con M20 PO 09/06/17 17:07 20 meq ONETIME ONE Administration - Re-Assessments/Exams Free Text/Narrative Re-Assessment/Exam: 09/06/17 18:15 chest xray revealed a infiltrate in the left lower lung base. . Her wbc is elevated. Her lactic acid is elevated. She has received 1 gm of rocephen. 2 liters of fluid was ordered. She was given 2 nebs and solumedrol 125 mg iv. Departure - Departure Disposition: DC/Tfer to [facility] 02 Clinical Impression: Hypoxia Pneumonia Qualifiers: Pneumonia type: due to unspecified organism Laterality: unspecified laterality Lung location: unspecified part of lung Qualified Code(s): J18.9 - Pneumonia, unspecified organism - Discharge Information Referrals: Abbi Harding PA [Primary Care Provider] - Forms: ED Department Discharge <Nikhil Granda - Last Filed: 09/06/17 19:35> Course - Vital Signs Text/Narrative:: Accepted in [place] @ 1930h by Dr. Burger, hospitalist. Departure - Departure Time of Disposition: 19:40 Condition: Poor
[2017-09-06] MEDS ORDERED: Albuterol/Ipratropium 3.0-0.5 MG/3 ML Neb Soln NEB ONE (16:55)
[2017-09-06] MEDS ORDERED: methylPREDNISolone Sodium Succinate 125 MG/2 ML SDV IVPUSH ONE (17:03)
[2017-09-06] MEDS ORDERED: cefTRIAXone 1 GM in Sodium Chloride 0.9% 50 ML IV ONE (17:04)
[2017-09-06] MEDS ORDERED: Potassium Chloride 10 MEQ Cap.ER PO ONE (17:06)
[2017-09-06] MEDS ORDERED: Potassium Chloride 20 MEQ Tab.ER PO ONE (17:06)
[2017-09-06] MEDS ORDERED: Sodium Chloride 0.9% 1,000 ML IV SCH ×2 (17:45)
[2017-09-06 19:38] VITALS: BP 144/88
--- NOTE | 2017-09-07 08:33 | CR ---
CHEST: 2 view CLINICAL HISTORY:Productive cough, shortness of breath COMPARISON:2017 FINDINGS: Heart size is normal. Pulmonary vascularity is mildly cephalized. There are diffuse patchy bilateral pulmonary infiltrates. There are no effusions. IMPRESSION: Diffuse bilateral pulmonary infiltrates. Considering patient's history, this is most lik gurdeep bilateral pneumonia. There is some vascular cephalization which may represent pulmonary venous hypertension
== END 2017-09-06 20:00 ==
LOC: JP.ED 15:56
DX: J18.9 Pneumonia, unspecified organism (principal); R09.02 Hypoxemia; E78.00 Pure hypercholesterolemia, unspecified; J44.9 Chronic obstructive pulmonary disease, unspecified; E11.9 Type 2 diabetes mellitus without complications; E03.9 Hypothyroidism, unspecified; Z79.899 Other long term (current) drug therapy; Z79.84 Long term (current) use of oral hypoglycemic drugs
CPT/HCPCS: 36415; 36600; 71046; 80053; 81001; 82803; 83605; 83880; 85025; 87040; 94640; 96361; 96365; 96375; 99285; A9270; J0696; J2930; J7030; J7050; J7620

== ENCOUNTER 2018-03-13 17:25 | Emergency (ER) | payer MEDICARE, MEDICAID ==
[2018-03-13 18:09] VITALS: BP 119/75
[2018-03-13] MEDS ORDERED: HYDROmorphone 1 MG/ML Syringe IM ONE (18:32)
--- NOTE | 2018-03-13 18:39 | EDM.PDOC ---
ED HPI GENERAL MEDICAL PROBLEM - General Chief Complaint: ENT Problem Stated Complaint: TOOTH BROKE Time Seen by Provider: 03/13/18 18:25 Source of Information: Reports: Patient History Limitations: Reports: No Limitations - History of Present Illness INITIAL COMMENTS - FREE TEXT/NARRATIVE: 47-year-old female with advanced dental decay in the right upper molars who is scheduled for a consultation for oral surgery had a piece of the anterior aspect of the tooth break off earlier today. She called the dentist and they said that she has to wait till her oral surgery appointment. She is in significant discomfort. Onset: Sudden Duration: Hour(s): (6 hours ago) Right Upper Tooth/Teeth Pain Score (Numeric/FACES): 8 - Related Data Allergies Allergy/AdvReac Type Severity Reaction Status Date / Time No Known Allergies Allergy Verified 03/13/18 18:14 Home Meds: Home Meds Gabapentin [Neurontin] 900 mg PO QID 11/18/14 [History] Polyethylene Glycol 3350 [MiraLAX] 17 gm PO DAILY PRN 11/18/14 [History] carBAMazepine [Epitol] 800 mg PO BEDTIME 01/27/15 [History] Ibuprofen 800 mg PO Q6H PRN 06/05/15 [History] Albuterol Sulfate [Proair Hfa] 1 - 2 puff IH Q4HR PRN 11/12/15 [History] Levothyroxine Sodium [Synthroid] 88 mcg PO ACBREAKFAST 11/12/15 [History] metFORMIN [Glucophage] 1,000 mg PO BIDMEALS 11/12/15 [History] lamoTRIgine [Lamotrigine] 150 mg pe PO DAILY 06/08/16 [History] lamoTRIgine [Lamotrigine] 200 mg PO BEDTIME 06/08/16 [History] ALPRAZolam [Alprazolam] 1 mg PO QID 04/05/17 [History] Cyclobenzaprine HCl 10 mg PO TID PRN 04/05/17 [History] risperiDONE 1 mg PO BID 04/05/17 [History] Ciclopirox [Loprox 0.77% Crm] 1 cm TOP BID 07/12/17 [History] FLUoxetine HCl [Fluoxetine HCl] 40 mg PO DAILY 07/12/17 [History] OLANZapine [Olanzapine] 15 mg PO BEDTIME 07/12/17 [History] Past Medical History HEENT History: Reports: Impaired Vision, Other (See Below) Other HEENT History: dental caries; wears glasses Cardiovascular History: Reports: SOB on Exertion Respiratory History: Reports: COPD, SOB, Other (See Below) Other Respiratory History: wheezing at noc; uses home O2; hospitalized in ICU 2017 for pneumonia Gastrointestinal History: Reports: Chronic Constipation, Irritable Bowel Syndrome Other Gastrointestinal History: constipation Genitourinary History: Reports: UTI, Recurrent [employer]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: Musculoskeletal History: Reports: Back Pain, Chronic, Fracture, Neck Pain, Chronic Other Musculoskeletal History: left wrist 10/07/13 Neurological History: Reports: Concussion, Headaches, Chronic, Migraines Psychiatric History: Reports: Anxiety, Bipolar, Depression, Psych Hospitalization(s), PTSD, Suicide Attempt, Suicidal Ideation, Other (See Below) 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 Endocrine/Metabolic History: Reports: Diabetes, Type II, Hypothyroidism, Obesity /BMI 30+ Oncologic (Cancer) History: Reports: Cervix Other Oncologic History: frozen - Infectious Disease History Infectious Disease History: Reports: Chicken Pox - Past Surgical History Head Surgeries/Procedures: Reports: None HEENT Surgical History: Reports: Adenoidectomy, Tonsillectomy Cardiovascular Surgical History: Reports: None Respiratory Surgical History: Reports: None GI Surgical History: Reports: Hernia Repair/Other, Other (See Below) Other GI Surgeries/Procedures: laparoscopies umbilical hernia with mesh x4 Female Surgical History: Reports: Section, Cervical Cryotherapy, Cystectomy, Tubal Ligation Endocrine Surgical History: Reports: None Neurological Surgical History: Reports: None Musculoskeletal Surgical History: Reports: Other (See Below) Other Musculoskeletal Surgeries/Procedures:: wrist surgery Oncologic Surgical History: Reports: None Dermatological Surgical History: Reports: None Social & Family History - Family History Family Medical History: Noncontributory HEENT: Reports: Impaired Vision Cardiac: Reports: ND, Stent Respiratory: Reports: COPD Musculoskeletal: Reports: Back pain, Chronic Endocrine/Metabolic: Reports: Diabetes, type II, Hypothyroidism Oncologic: Reports: Prostate - Tobacco Use Smoking Status *Q: Current Every Day Smoker Years of Tobacco use: 31 Packs/Tins Daily: 1 Second Hand Smoke Exposure: Yes - Caffeine Use Caffeine Use: Reports: Coffee, Soda - Recreational Drug Use Recreational Drug Use: No - Living Situation & Occupation Living situation: Reports: with Significant Other ED ROS ENT - Review of Systems Review Of Systems: See Below Constitutional: Denies: Fever, Chills HEENT: Reports: Dental Pain Respiratory: Reports: Other (COPD, oxygen dependent stable) Cardiovascular: Denies: Chest Pain GI/Abdominal: Denies: Nausea, Vomiting ED EXAM, ENT - Physical Exam Exam: See Below Exam Limited By: No Limitations General Appearance: Alert, No Apparent Distress (Patient is not distressed but does look uncomfortable) Mouth/Throat: Dental Tenderness (The second molar of the right maxilla is significantly decayed, the anterior aspect is broken. There is no significant gingival erythema or swelling) Respiratory/Chest: No Respiratory Distress Course - Vital Signs Last Recorded V/S: Last Vital Signs Temp 97.6 F 03/13/18 18:20 Pulse 104 H 03/13/18 18:20 Resp 20 03/13/18 18:20 BP 119/75 03/13/18 18:20 Pulse Ox 995 H 03/13/18 18:20 - Orders/Labs/Meds Meds: Medications Discontinued Medications Generic Name Dose Route Start Last Admin Trade Name Luanne PRN Reason Stop Dose Admin Hydromorphone HCl 1 mg 03/13/18 18:32 03/13/18 18:47 Dilaudid IM 03/13/18 18:33 1 mg ONETIME ONE Administration - Re-Assessments/Exams Free Text/Narrative Re-Assessment/Exam: 03/13/18 18:36 Patient was started on penicillin VK 500 4 times a day for prevention of abscess formation, given 1 mg of IM Dilaudid and 10 hydrocodone to take for extra pain control. She needs to call the dentist again tomorrow to ask them if they can do a temporary crown or cover to give her some more consistent relief until surgery. Departure - Departure Time of Disposition: 18:50 Disposition: Home, Self-Care 01 Condition: Good Clinical Impression: Broken tooth Qualifiers: Encounter type: initial encounter Fracture type: closed Qualified Code(s): S02.5XXA - Fracture of tooth (traumatic), initial encounter for closed fracture - Discharge Information Instructions: Tooth Injuries, [id number] Referrals: Abbi Harding PA [Primary Care Provider] - Forms: ED Department Discharge Care Plan Goals: Take a regular anti-inflammatory such as ibuprofen or naproxen, add stronger pain medications as prescribed and avoid warm or cold foods. Contacted the dentist tomorrow to discuss a temporary pain solution until seen by oral surgery.
== END 2018-03-13 18:50 | disposition home or self-care (01) ==
LOC: JP.ED 17:25
DX: K03.81 Cracked tooth (principal); J44.9 Chronic obstructive pulmonary disease, unspecified; E11.9 Type 2 diabetes mellitus without complications; E66.9 Obesity, unspecified; F17.210 Nicotine dependence, cigarettes, uncomplicated; Z79.899 Other long term (current) drug therapy; Z79.84 Long term (current) use of oral hypoglycemic drugs
CPT/HCPCS: 96372; 99283; J1170

== ENCOUNTER 2018-11-02 09:12 | Day surgery (SDC) | payer MEDICARE, BC ==
[~2018-11-02 09:12] MED LIST changes: -Midazolam 1 MG/ML 2 ML SDV ONE; -Propofol 200 MG/20 ML SDV ONE; -fentaNYL 100 MCG/2 ML SDV ONE
[2018-11-02] MEDS ORDERED: Dextrose 5%-Lactated Ringers 1,000 ML IV SCH (10:00)
[2018-11-02] MEDS ORDERED: ceFAZolin 2 GM in Premix Bag 1 BAG IV ONE (10:00)
[2018-11-02] MEDS ORDERED: Albuterol/Ipratropium 3.0-0.5 MG/3 ML Neb Soln NEB ONE (10:00)
[2018-11-02] MEDS ORDERED: Dexamethasone 4 MG/ML SDV ONE (11:12)
[2018-11-02] MEDS ORDERED: fentaNYL 250 MCG/5 ML SDV ONE (11:12)
[2018-11-02] MEDS ORDERED: Rocuronium 50 MG/5 ML Vial ONE ×2 (11:12→12:13)
[2018-11-02] MEDS ORDERED: Succinylcholine 200 MG/10 ML MDV ONE (11:12)
[2018-11-02] MEDS ORDERED: Ondansetron 4 MG/2 ML SDV ONE (11:12)
[2018-11-02] MEDS ORDERED: Propofol 200 MG/20 ML SDV ONE (11:12)
[2018-11-02] MEDS ORDERED: Neostigmine Methylsulfate 1 MG/ML 5 ML Syringe ONE (12:14)
[2018-11-02] MEDS ORDERED: Glycopyrrolate 0.2 MG/ML 5 ML MDV ONE (12:14)
[2018-11-02] MEDS ORDERED: fentaNYL 100 MCG/2 ML SDV ONE (12:36)
[2018-11-02] MEDS ORDERED: hydrOXYzine HCl 100 MG/2 ML SDV IM ONE (12:44)
[2018-11-02] MEDS ORDERED: Acetaminophen/HYDROcodone 325-5 MG Tab PO PRN (13:34)
--- NOTE | 2018-11-02 13:57 | OR ---
DATE OF PROCEDURE: 11/02/2018 PREOPERATIVE DIAGNOSIS: Recurrent umbilical hernia, incarcerated. POSTOPERATIVE DIAGNOSIS: Recurrent incarcerated umbilical hernia. PROCEDURE: Removal of existing mesh and repair of recurrent incarcerated umbilical hernia with an 11.4 cm in diameter Ventrio ST hernia patch. SURGEON: Jesse Altamirano MD ANESTHESIA: General endotracheal. INDICATION: This 47-year-old white female, about a year and a half ago, underwent repair of hernia immediately adjacent to her umbilicus. This was done with an 8 cm in diameter Ventralex mesh patch with straps. She has developed a recurrence. There was a mass protruding up just to the left of her umbilicus. This was not reducible. CAT scan showed she has fat in this hernia. It is uncomfortable for her. She is admitted for repair of this with mesh. We also plan to remove her old mesh. I counseled her for surgery, including risks and alternatives, and she gave her informed consent to proceed. DESCRIPTION OF PROCEDURE: After adequate general endotracheal anesthesia was obtained, the patient's abdomen was prepped and draped in the usual sterile fashion. The leg compression stockings were in place and used during the entire procedure. Time-out was held. An incision surrounding the umbilicus to the left and extending a little superior was made. This was carried deep bluntly and sharply to the incarcerated hernia. This was the mesh. This was dissected free. The mesh was excised. There was omentum adherent in it. This was all dissected free and reduced back in the abdominal cavity with the mesh delivered from the field. The defect measured about 4 cm in diameter. We obtained an 11.4 cm in diameter Ventrio ST hernia patch. This was used to repair the defect. 2-0 Vicryl suture was placed superiorly and inferiorly in the mesh. A small skin incision was then made superior and inferior to the hernia defect. The mesh was placed down under the defect. We used the trocar from the fascial closure device to penetrate through the abdominal wall superiorly and inferiorly to grab each arm of the associated suture. When we had them both up, the mesh nicely laid out underneath the fascia, both sutures were tied down. We then used the [facility] permanent fixation system device to place ernesto around all sides of the mesh, nicely closing off all sides and anchored it well to the anterior abdominal wall. All looked well. The fascia was closed over the mesh with a running stitch of 0 Vicryl. The incision was irrigated and suctioned dry. 4-0 Vicryl using a subcuticular stitch was placed to approximate the skin. Dermabond was applied. The anesthesia was reversed. She was extubated. She was placed on the cart with an abdominal binder placed. She was taken to the recovery room in a good condition having tolerated the procedure well. Jesse Altamirano MD /[id number]
[2018-11-02 14:53] VITALS: BP 112/76
== END 2018-11-02 15:17 | disposition home or self-care (01) ==
LOC: JP.SDS 09:12
PROVIDERS: ATTEND Surgery
DX: K42.0 Umbilical hernia with obstruction, without gangrene (principal); J44.9 Chronic obstructive pulmonary disease, unspecified; F31.9 Bipolar disorder, unspecified; E11.9 Type 2 diabetes mellitus without complications; J30.2 Other seasonal allergic rhinitis; F17.210 Nicotine dependence, cigarettes, uncomplicated; E66.01 Morbid (severe) obesity due to excess calories; Z68.33 Body mass index [BMI] 33.0-33.9, adult
CPT/HCPCS: 49587; A9270; C1713; C1781; J0330; J0690; J1100; J2405; J2704; J2710; J3010; J3410; J3490; J7042; J7620-GY

== ENCOUNTER 2018-11-03 15:46 | Emergency (ER) | payer MEDICARE, BC ==
[2018-11-03] MEDS ORDERED: oxyCODONE 5 MG Tab PO ONE (16:12)
[2018-11-03 16:17] VITALS: BP 115/77
--- NOTE | 2018-11-03 16:18 | EDM.PDOC ---
ED HPI GENERAL MEDICAL PROBLEM - General Chief Complaint: General Stated Complaint: SURGERY 11/02, HAVING PAIN Time Seen by Provider: 11/03/18 16:05 Source of Information: Reports: Patient, Old Records, Provider History Limitations: Reports: No Limitations - History of Present Illness INITIAL COMMENTS - FREE TEXT/NARRATIVE: 47 yo female had hernia repair yesterday here. States her pain is worse today and her 5/325 Oaklyn's (2) is not controlling her pain. Her visiting nurse thought her bowel sounds were diminished so her surgeon asked her to come to the ER to be evaluated. 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) (Oaklyn x 2) - Related Data Allergies Allergy/AdvReac Type Severity Reaction Status Date / Time No Known Allergies Allergy Verified 11/03/18 16:01 Home Meds: Home Meds Gabapentin [Neurontin] 900 mg PO QID 11/18/14 [History] Polyethylene Glycol 3350 [MiraLAX] 17 gm PO DAILY PRN 11/18/14 [History] carBAMazepine [Epitol] 800 mg PO BEDTIME 01/27/15 [History] Ibuprofen 800 mg PO Q6H PRN 06/05/15 [History] Albuterol Sulfate [Proair Hfa] 1 - 2 puff IH Q4HR PRN 11/12/15 [History] Levothyroxine Sodium [Synthroid] 88 mcg PO ACBREAKFAST 11/12/15 [History] metFORMIN [Glucophage] 1,000 mg PO BIDMEALS 11/12/15 [History] lamoTRIgine [Lamotrigine] 100 mg pe PO DAILY 06/08/16 [History] lamoTRIgine [Lamotrigine] 200 mg PO BEDTIME 06/08/16 [History] ALPRAZolam [Alprazolam] 1 mg PO QID 04/05/17 [History] Cyclobenzaprine HCl 10 mg PO TID PRN 04/05/17 [History] Ciclopirox [Loprox 0.77% Crm] 1 cm TOP BID 07/12/17 [History] FLUoxetine HCl [Fluoxetine HCl] 60 mg PO DAILY 07/12/17 [History] OLANZapine [Olanzapine] 15 mg PO BEDTIME 07/12/17 [History] Albuterol/Ipratropium [DuoNeb 3.0-0.5 MG/3 ML] 3 ml IH QID 11/01/18 [History] Aspirin [Halfprin] 81 mg PO DAILY 11/01/18 [History] Empagliflozin [Jardiance] 10 mg PO DAILY 11/01/18 [History] Furosemide 80 mg PO BID 11/01/18 [History] Potassium Chloride [Klor-Con M20] 20 meq PO BID 11/01/18 [History] Hydrocodone/Acetaminophen [Hydrocodon-Acetaminophen 5-325] 1 - 2 tab PO Q4H PRN 11/03/18 [History] Past Medical History HEENT History: Reports: Impaired Vision, Other (See Below) Other HEENT History: dental caries; wears glasses Cardiovascular History: Reports: SOB on Exertion Respiratory History: Reports: COPD, SOB, Other (See Below) Other Respiratory History: wheezing at noc; uses home O2; hospitalized in ICU 2017 for pneumonia Gastrointestinal History: Reports: Chronic Constipation, Irritable Bowel Syndrome Other Gastrointestinal History: constipation Genitourinary History: Reports: UTI, Recurrent 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: Musculoskeletal History: Reports: Back Pain, Chronic, Fracture, Neck Pain, Chronic Other Musculoskeletal History: left wrist 10/07/13 Neurological History: Reports: Concussion, Headaches, Chronic, Migraines Psychiatric History: Reports: Anxiety, Bipolar, Depression, Psych Hospitalization(s), PTSD, Suicide Attempt, Suicidal Ideation, Other (See Below) Other Psychiatric History: seeing psychologist, JOSHERNATACHA PERSONALITY Endocrine/Metabolic History: Reports: Diabetes, Type II, Hypothyroidism, Obesity /BMI 30+ Oncologic (Cancer) History: Reports: Cervix Other Oncologic History: frozen - Infectious Disease History Infectious Disease History: Reports: Chicken Pox, Influenza - Past Surgical History Head Surgeries/Procedures: Reports: None HEENT Surgical History: Reports: Adenoidectomy, Tonsillectomy Cardiovascular Surgical History: Reports: None Respiratory Surgical History: Reports: None GI Surgical History: Reports: Hernia, Abdominal, Hernia Repair/Other, Other ( See Below) Other GI Surgeries/Procedures: laparoscopies umbilical hernia with mesh x4 Female Surgical History: Reports: Section, Cervical Cryotherapy, Cystectomy, Tubal Ligation Endocrine Surgical History: Reports: None Neurological Surgical History: Reports: None Musculoskeletal Surgical History: Reports: Other (See Below) Other Musculoskeletal Surgeries/Procedures:: wrist surgery Oncologic Surgical History: Reports: None Dermatological Surgical History: Reports: None Social & Family History - Family History Family Medical History: Noncontributory HEENT: Reports: Impaired Vision Cardiac: Reports: [place], Stent Respiratory: Reports: COPD Musculoskeletal: Reports: Back pain, Chronic Endocrine/Metabolic: Reports: Diabetes, type II, Hypothyroidism Oncologic: Reports: Prostate - Tobacco Use Smoking Status *Q: Current Every Day Smoker Years of Tobacco use: 30 Packs/Tins Daily: 2 Used Tobacco, but Quit: No Second Hand Smoke Exposure: Yes - Caffeine Use Caffeine Use: Reports: Soda - Recreational Drug Use Recreational Drug Use: No - Living Situation & Occupation Living situation: Reports: with Significant Other ED ROS GENERAL - Review of Systems Review Of Systems: See Below Constitutional: Reports: No Symptoms HEENT: Reports: No Symptoms Respiratory: Reports: No Symptoms Cardiovascular: Reports: No Symptoms Endocrine: Reports: No Symptoms GI/Abdominal: Reports: Abdominal Pain, Flatus. Denies: Constipation, Diarrhea, Distension, Nausea, Vomiting : Reports: No Symptoms Musculoskeletal: Reports: No Symptoms Skin: Reports: No Symptoms Neurological: Reports: No Symptoms ED EXAM, GENERAL - Physical Exam Exam: See Below Exam Limited By: No Limitations General Appearance: Alert, WD/WN, No Apparent Distress, Obese Eye Exam: Bilateral Eye: Normal Inspection, PERRL Ears: Normal External Exam, Hearing Grossly Normal Ear Exam: Bilateral Ear: Auricle Normal, Canal Normal Nose: Normal Inspection, No Blood Throat/Mouth: Normal Inspection, Normal Lips, Normal Oropharynx, Normal Voice, No Airway Compromise Head: Atraumatic, Normocephalic Neck: Normal Inspection Respiratory/Chest: No Respiratory Distress, Lungs Clear, Normal Breath Sounds, No Accessory Muscle Use Cardiovascular: Regular Rate, Rhythm, No Edema GI/Abdominal: Normal Bowel Sounds, Soft, Non-Tender, No Distention Back Exam: Normal Inspection. No: CVA Tenderness (R), CVA Tenderness (L) Extremities: Normal Inspection, Normal Range of Motion, Non-Tender, No Pedal Edema Neurological: Alert, Oriented, CN II-XII Intact, Normal Cognition, No Motor/ Sensory Deficits Psychiatric: Normal Affect, Normal Mood Skin Exam: Warm, Dry, Intact, Normal Color, No Rash Course - Vital Signs Last Recorded V/S: Last Vital Signs Temp 35.3 C 11/03/18 16:05 Pulse 93 11/03/18 16:05 Resp 16 11/03/18 16:05 BP 115/77 11/03/18 16:05 Pulse Ox 93 L 11/03/18 16:05 - Orders/Labs/Meds Orders: Active Orders 24 hr Category Date Time Status Abdomen 2V AP Flat Upright [CR] Stat Exams 11/03/18 15:59 Ordered Meds: Medications Discontinued Medications Generic Name Dose Route Start Last Admin Trade Name Freq PRN Reason Stop Dose Admin Oxycodone HCl 5 mg 11/03/18 16:12 11/03/18 16:16 Oxycodone PO 11/03/18 16:13 5 mg ONETIME ONE Administration - Radiology Interpretation Free Text/Narrative:: Abd flat and upright X-ray-neg Departure - Departure Time of Disposition: 17:25 Disposition: Home, Self-Care 01 Condition: Good Clinical Impression: Post-op pain - Discharge Information *PRESCRIPTION DRUG MONITORING PROGRAM REVIEWED*: No *COPY OF PRESCRIPTION DRUG MONITORING REPORT IN PATIENT PARVIZ: No Instructions: Pain Relief Before and After Surgery Referrals: Abbi Harding PA [Primary Care Provider] - Forms: ED Department Discharge Additional Instructions: Take Oaklyn 7.5/325 1-2 every 6 hrs as needed for pain relief. Drink ample fluids and consider Miralax to keep your stools soft so you don't get constipated. F/U with your doctor this next week. If your pain is less you may go back to the lower strength Oaklyn for pain control. - My Orders Last 24 Hours: My Active Orders 11/03/18 15:59 Abdomen 2V AP Flat Upright [CR] Stat - Assessment/Plan Last 24 Hours: My Active Orders 11/03/18 15:59 Abdomen 2V AP Flat Upright [CR] Stat
--- NOTE | 2018-11-03 17:49 | CRLCR ---
Indication: Pain after hernia repair 1 day prior Technique: AP abdominal radiographs, 4 images Comparison: Abdominal CT 09/21/2018. Findings: No pneumoperitoneum. No evidence of ileus or bowel obstruction. Lung bases clear. No acute osseous abnormality. Surgical masses noted in the region of the recently repaired periumbilical hernia. Essure devices project over the pelvis. Impression: 1. No bowel obstruction or ileus. 2. No free air. Dictated by Rodolfo Reynolds MD @ Nov 03 2018 5:46PM Signed by Dr. Rodolfo Reynolds @ Nov 03 2018 5:49PM
== END 2018-11-03 17:47 | disposition home or self-care (01) ==
LOC: JP.ED 15:46
DX: G89.18 Other acute postprocedural pain (principal); F17.210 Nicotine dependence, cigarettes, uncomplicated; J44.9 Chronic obstructive pulmonary disease, unspecified; F31.9 Bipolar disorder, unspecified; F41.9 Anxiety disorder, unspecified; E11.9 Type 2 diabetes mellitus without complications; E03.9 Hypothyroidism, unspecified; Z79.84 Long term (current) use of oral hypoglycemic drugs; Z79.899 Other long term (current) drug therapy; Z79.82 Long term (current) use of aspirin
CPT/HCPCS: 74019; 99284; A9270

== ENCOUNTER 2019-02-06 14:29 | Inpatient (IN) | payer MEDICARE, BC ==
[2019-02-06] MEDS ORDERED: Codeine/guaiFENesin 100mg-10 MG/5 ML Syrup 10 ML Cup PO ONE (15:36)
[2019-02-06] MEDS ORDERED: Acetaminophen 325 MG Tab PO ONE (15:36)
[2019-02-06] MEDS ORDERED: methylPREDNISolone Sodium Succinate 125 MG/2 ML SDV IVPUSH ONE (15:42)
[2019-02-06] MEDS ORDERED: Doxycycline 100 MG in Sodium Chloride 0.9% 100 ML IV SCH (15:45)
[2019-02-06] MEDS ORDERED: cefTRIAXone 2 GM in Sodium Chloride 0.9% 50 ML IV SCH (15:45)
[2019-02-06] MEDS ORDERED: Lactated Ringers 1,000 ML IV SCH (15:45)
--- NOTE | 2019-02-06 15:47 | EDM.PDOC ---
ED HPI GENERAL MEDICAL PROBLEM - General Chief Complaint: Respiratory Problem Stated Complaint: UPPER RESP PAIN Time Seen by Provider: 02/06/19 15:28 Source of Information: Reports: Patient, RN Notes Reviewed History Limitations: Reports: No Limitations - History of Present Illness INITIAL COMMENTS - FREE TEXT/NARRATIVE: 48-year-old female presents emergency department today complaint of shortness of breath, she does have a known history of COPD will use oxygen at home as needed however she states over the last couple days she is gotten progressively more short of breath does have cough and sputum production also has had fevers at home. Chest Pain Score (Numeric/FACES): 7 - Related Data Allergies Allergy/AdvReac Type Severity Reaction Status Date / Time No Known Allergies Allergy Verified 02/06/19 14:50 Home Meds: Home Meds Gabapentin [Neurontin] 900 mg PO QID 11/18/14 [History] Polyethylene Glycol 3350 [MiraLAX] 17 gm PO DAILY PRN 11/18/14 [History] carBAMazepine [Epitol] 800 mg PO BEDTIME 01/27/15 [History] Ibuprofen 800 mg PO Q6H PRN 06/05/15 [History] Albuterol Sulfate [Proair Hfa] 1 - 2 puff IH Q4HR PRN 11/12/15 [History] Levothyroxine Sodium [Synthroid] 88 mcg PO ACBREAKFAST 11/12/15 [History] metFORMIN [Glucophage] 1,000 mg PO QID 11/12/15 [History] lamoTRIgine [Lamotrigine] 100 mg pe PO DAILY 06/08/16 [History] lamoTRIgine [Lamotrigine] 200 mg PO BEDTIME 06/08/16 [History] ALPRAZolam [Alprazolam] 1 mg PO QID 04/05/17 [History] Ciclopirox [Loprox 0.77% Crm] 1 cm TOP BID 07/12/17 [History] FLUoxetine HCl [Fluoxetine HCl] 60 mg PO DAILY 07/12/17 [History] OLANZapine [Olanzapine] 15 mg PO BEDTIME 07/12/17 [History] Albuterol/Ipratropium [DuoNeb 3.0-0.5 MG/3 ML] 3 ml IH QID 11/01/18 [History] Aspirin [Halfprin] 81 mg PO DAILY 11/01/18 [History] Empagliflozin [Jardiance] 10 mg PO DAILY 11/01/18 [History] Furosemide 80 mg PO BID 11/01/18 [History] Potassium Chloride [Klor-Con M20] 20 meq PO BID 11/01/18 [History] tiZANidine [Zanaflex] 2 mg PO Q8HR PRN 02/06/19 [History] Past Medical History HEENT History: Reports: Impaired Vision, Other (See Below) Other HEENT History: dental caries; wears glasses Cardiovascular History: Reports: SOB on Exertion Respiratory History: Reports: COPD, SOB, Other (See Below) Other Respiratory History: wheezing at noc; uses home O2; hospitalized in ICU 2017 for pneumonia Gastrointestinal History: Reports: Chronic Constipation, Irritable Bowel Syndrome Other Gastrointestinal History: constipation Genitourinary History: Reports: UTI, Recurrent 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: Musculoskeletal History: Reports: Back Pain, Chronic, Fracture, Neck Pain, Chronic Other Musculoskeletal History: left wrist 10/07/13 Neurological History: Reports: Concussion, Headaches, Chronic, Migraines Psychiatric History: Reports: Anxiety, Bipolar, Depression, Psych Hospitalization(s), PTSD, Suicide Attempt, Suicidal Ideation, Other (See Below) Other Psychiatric History: seeing psychologist, MAURICIO PERSONALITY Endocrine/Metabolic History: Reports: Diabetes, Type II, Hypothyroidism, Obesity /BMI 30+ Oncologic (Cancer) History: Reports: Cervix Other Oncologic History: frozen - Infectious Disease History Infectious Disease History: Reports: Chicken Pox - Past Surgical History Head Surgeries/Procedures: Reports: None HEENT Surgical History: Reports: Adenoidectomy, Tonsillectomy Cardiovascular Surgical History: Reports: None Respiratory Surgical History: Reports: None GI Surgical History: Reports: Hernia, Abdominal, Hernia Repair/Other, Other ( See Below) Other GI Surgeries/Procedures: laparoscopies umbilical hernia with mesh x4 Female Surgical History: Reports: Section, Cervical Cryotherapy, Cystectomy, Tubal Ligation Endocrine Surgical History: Reports: None Neurological Surgical History: Reports: None Musculoskeletal Surgical History: Reports: Other (See Below) Other Musculoskeletal Surgeries/Procedures:: wrist surgery Oncologic Surgical History: Reports: None Dermatological Surgical History: Reports: None Social & Family History - Family History Family Medical History: Noncontributory HEENT: Reports: Impaired Vision Cardiac: Reports: [place], Stent Respiratory: Reports: COPD Musculoskeletal: Reports: Back pain, Chronic Endocrine/Metabolic: Reports: Diabetes, type II, Hypothyroidism Oncologic: Reports: Prostate - Tobacco Use Smoking Status *Q: Current Every Day Smoker Years of Tobacco use: 28 Packs/Tins Daily: 1.5 - Caffeine Use Caffeine Use: Reports: Coffee, Soda - Recreational Drug Use Recreational Drug Use: No - Living Situation & Occupation Living situation: Reports: with Significant Other ED ROS GENERAL - Review of Systems Review Of Systems: See Below Constitutional: Reports: Fever, Chills HEENT: Reports: No Symptoms Respiratory: Reports: Shortness of Breath, Wheezing, Cough, Sputum Cardiovascular: Reports: Dyspnea on Exertion GI/Abdominal: Reports: No Symptoms : Reports: No Symptoms ED EXAM, GENERAL - Physical Exam Exam: See Below Exam Limited By: Other General Appearance: Alert, Mild Distress Respiratory/Chest: Decreased Breath Sounds, Rhonchi, Wheezing, Accessory Muscle Use Cardiovascular: Regular Rate, Rhythm, No Murmur GI/Abdominal: Soft, Non-Tender Course - Vital Signs Last Recorded V/S: Last Vital Signs Temp 100.9 F H 02/06/19 17:15 Pulse 82 02/06/19 17:09 Resp 24 H 02/06/19 17:09 BP 129/75 02/06/19 17:09 Pulse Ox 90 L 02/06/19 17:09 - Orders/Labs/Meds Orders: Active Orders 24 hr Category Date Time Status Cardiac Monitoring [RC] CONTINUOUS Care 02/06/19 15:32 Active CULTURE BLOOD [BC] Urgent Lab 02/06/19 16:00 Received CULTURE BLOOD [BC] Urgent Lab 02/06/19 16:07 Received CULTURE RESPIRATORY + SMEAR [RM] Routine Lab 02/06/19 16:48 Results Doxycycline [Vibramycin] 100 mg Med 02/06/19 15:45 Active Sodium Chloride 0.9% [Normal Saline] 100 ml IV Q12H Lactated Ringers [Ringers, Lactated] 1,000 ml Med 02/06/19 15:45 Active IV ASDIRECTED cefTRIAXone [Rocephin] 2 gm Med 02/06/19 15:45 Active Sodium Chloride 0.9% [Normal Saline] 50 ml IV Q24H Blood Culture x2 Reflex Set [OM.PC] Urgent Oth 02/06/19 15:31 Ordered Severe Sepsis Onset Time [OM.PC] Stat Oth 02/06/19 15:31 Ordered Medication Orders Ceftriaxone Sodium 2 gm/ (Sodium Chloride) 50 mls @ 100 mls/hr IV Q24H [facility] Last Admin: 02/06/19 16:11 Dose: 100 mls/hr Doxycycline Hyclate 100 mg/ (Sodium Chloride) 100 mls @ 100 mls/hr IV Q12H [facility] Last Admin: 02/06/19 16:10 Dose: 100 mls/hr Lactated Ringer's (Ringers, Lactated) 1,000 mls @ 999 mls/hr IV ASDIRECTED [facility] Last Admin: 02/06/19 16:09 Dose: 999 mls/hr Labs: Laboratory Tests 02/06/19 02/06/19 02/06/19 Range/Units 16:00 16:07 16:07 WBC 13.4 H (4.5-11.0) K/uL RBC 4.99 (3.30-5.50) M/uL Hgb 11.6 L (12.0-15.0) g/dL Hct 39.5 (36.0-48.0) % MCV 79 L (80-98) fL MCH 23 L (27-31) pg MCHC 29 L (32-36) % Plt Count 291 (150-400) K/uL Neut % (Auto) 68 H (36-66) % Lymph % (Auto) 12 L (24-44) % Evangeline % (Auto) 20 H (2-6) % Eos % (Auto) 1 L (2-4) % Baso % (Auto) 0 (0-1) % Puncture Site Rt radial ABG pH 7.390 (7.350-7.450) ABG pCO2 58.7 H (35.0-42.0) mmHg ABG pO2 60.0 L (75.0-100.0) mmHg ABG HCO3 34.8 H (22.0-26.0) mmol/L ABG Total CO2 31.8 H (21.0-25.0) mmol/L ABG O2 Saturation 88.3 L (95.0-98.0) % ABG O2 Content 13.6 L (15.0-23.0) %vol ABG Base Excess 8.5 mm/L ABG Hemoglobin 11.5 L (12.0-16.0) g/dL ABG Oxyhemoglobin 83.7 % ABG Carboxyhemoglobin 4.2 H (0.0-1.6) % ABG Methemoglobin 1.0 % Hernando Test Pass O2 Delivery Device Nasal cannula Oxygen Flow Rate L Sodium 135 L (140-148) mmol/L Potassium 3.1 L (3.6-5.2) mmol/L Chloride 94 L (100-108) mmol/L Carbon Dioxide 35 H (21-32) mmol/L Anion Gap 9.1 (5.0-14.0) mmol/L BUN 5 L (7-18) mg/dL Creatinine 0.8 (0.6-1.0) mg/dL Est Cr Clr Drug Dosing 85.45 mL/min Estimated GFR (MDRD) > 60 (>60) Glucose 113 H (74-106) mg/dL Lactic Acid (0.4-2.0) mmol/L Calcium 7.9 L (8.5-10.1) mg/dL Total Bilirubin 0.3 (0.2-1.0) mg/dL AST 84 H D (15-37) U/L ALT 81 H (12-78) U/L Alkaline Phosphatase 147 H (46-116) U/L Troponin I < 0.017 (0.000-0.056) ng/mL C-Reactive Protein > 25.00 H (0.0-0.3) mg/dL Total Protein 7.7 (6.4-8.2) g/dL Albumin 2.8 L (3.4-5.0) g/dL Globulin 4.9 H (2.3-3.5) g/dL Albumin/Globulin Ratio 0.6 L (1.2-2.2) Urine Color (YELLOW) Urine Appearance (CLEAR) Urine pH (5.0-8.0) Ur Specific Atlantic (1.008-1.030) Urine Protein (NEGATIVE) mg/dL Urine Glucose (UA) (NEGATIVE) mg/dL Urine Ketones (NEGATIVE) mg/dL Urine Occult Blood (NEGATIVE) Urine Nitrite (NEGATIVE) Urine Bilirubin (NEGATIVE) Urine Urobilinogen (0.2-1.0) EU/dL Ur Leukocyte Esterase (NEGATIVE) Urine RBC (0-5) Urine WBC (0-5) Ur Epithelial Cells Amorphous Sediment Urine Bacteria Urine Mucus 02/06/19 02/06/19 Range/Units 16:07 16:46 WBC (4.5-11.0) K/uL RBC (3.30-5.50) M/uL Hgb (12.0-15.0) g/dL Hct (36.0-48.0) % MCV (80-98) fL MCH (27-31) pg MCHC (32-36) % Plt Count (150-400) K/uL Neut % (Auto) (36-66) % Lymph % (Auto) (24-44) % Evangeline % (Auto) (2-6) % Eos % (Auto) (2-4) % Baso % (Auto) (0-1) % Puncture Site ABG pH (7.350-7.450) ABG pCO2 (35.0-42.0) mmHg ABG pO2 (75.0-100.0) mmHg ABG HCO3 (22.0-26.0) mmol/L ABG Total CO2 (21.0-25.0) mmol/L ABG O2 Saturation (95.0-98.0) % ABG O2 Content (15.0-23.0) %vol ABG Base Excess mm/L ABG Hemoglobin (12.0-16.0) g/dL ABG Oxyhemoglobin % ABG Carboxyhemoglobin (0.0-1.6) % ABG Methemoglobin % Hernando Test O2 Delivery Device Oxygen Flow Rate L Sodium (140-148) mmol/L Potassium (3.6-5.2) mmol/L Chloride (100-108) mmol/L Carbon Dioxide (21-32) mmol/L Anion Gap (5.0-14.0) mmol/L BUN (7-18) mg/dL Creatinine (0.6-1.0) mg/dL Est Cr Clr Drug Dosing mL/min Estimated GFR (MDRD) (>60) Glucose (74-106) mg/dL Lactic Acid 1.5 (0.4-2.0) mmol/L Calcium (8.5-10.1) mg/dL Total Bilirubin (0.2-1.0) mg/dL AST (15-37) U/L ALT (12-78) U/L Alkaline Phosphatase (46-116) U/L Troponin I (0.000-0.056) ng/mL C-Reactive Protein (0.0-0.3) mg/dL Total Protein (6.4-8.2) g/dL Albumin (3.4-5.0) g/dL Globulin (2.3-3.5) g/dL Albumin/Globulin Ratio (1.2-2.2) Urine Color Yellow (YELLOW) Urine Appearance Clear (CLEAR) Urine pH 6.0 (5.0-8.0) Ur Specific [place] 1.015 (1.008-1.030) Urine Protein 30 H (NEGATIVE) mg/dL Urine Glucose (UA) 500 H (NEGATIVE) mg/dL Urine Ketones Negative (NEGATIVE) mg/dL Urine Occult Blood Small H (NEGATIVE) Urine Nitrite Negative (NEGATIVE) Urine Bilirubin Negative (NEGATIVE) Urine Urobilinogen 1.0 (0.2-1.0) EU/dL Ur Leukocyte Esterase Negative (NEGATIVE) Urine RBC 0-5 (0-5) Urine WBC Not seen (0-5) Ur Epithelial Cells Rare Amorphous Sediment Not seen Urine Bacteria Not seen Urine Mucus Not seen Meds: Medications Generic Name Dose Route Start Last Admin Trade Name Freq PRN Reason Stop Dose Admin Ceftriaxone Sodium 2 gm/ 50 mls @ 100 mls/hr 02/06/19 15:45 02/06/19 16:11 Sodium Chloride IV 100 mls/hr Q24H TONEY Administration Doxycycline Hyclate 100 mg/ 100 mls @ 100 mls/hr 02/06/19 15:45 02/06/19 16: 10 Sodium Chloride IV 100 mls/hr Q12H TONEY Administration Lactated Ringer's 1,000 mls @ 999 mls/hr 02/06/19 15:45 02/06/19 16:09 Ringers, Lactated IV 999 mls/hr ASDIRECTED TONEY Administration Discontinued Medications Generic Name Dose Route Start Last Admin Trade Name Freq PRN Reason Stop Dose Admin Acetaminophen 650 mg 02/06/19 15:36 02/06/19 16:08 Tylenol PO 02/06/19 15:37 650 mg NOW ONE Administration Guaifenesin/Codeine Phosphate 10 ml 02/06/19 15:36 02/06/19 15:54 Robitussin Ac PO 02/06/19 15:37 10 ml ONETIME ONE Administration Methylprednisolone Sodium Succinate 125 mg 02/06/19 15:42 02/06/19 16:12 Solu-Medrol IVPUSH 02/06/19 15:43 125 mg ONETIME ONE Administration Departure - Departure Time of Disposition: 17:36 Disposition: Admitted As Inpatient 68 Condition: Fair Clinical Impression: COPD with acute bronchitis - Discharge Information Referrals: Abbi Harding PA [Primary Care Provider] - Forms: ED Department Discharge Sepsis Event Note - Evaluation Sepsis Screening Result: Possible Sepsis Risk - Focused Exam Vital Signs: Vital Signs Temp Temp Pulse Resp BP Pulse Ox 02/06/19 17:15 100.9 F H 02/06/19 17:09 82 24 H 129/75 90 L 02/06/19 16:08 102.1 F H 02/06/19 15:49 85 22 H 129/83 95 02/06/19 15:15 24 H 94 L 02/06/19 14:46 100.1 F 71 24 H 111/43 L 71 L Date Exam was Performed: 02/06/19 Time Exam was Performed: 17:35 - My Orders Last 24 Hours: My Active Orders 02/06/19 15:31 Blood Culture x2 Reflex Set [OM.PC] Urgent Severe Sepsis Onset Time [OM.PC] Stat 02/06/19 15:32 Cardiac Monitoring [RC] CONTINUOUS 02/06/19 15:45 Doxycycline [Vibramycin] 100 mg Sodium Chloride 0.9% [Normal Saline] 100 ml IV Q12H Lactated Ringers [Ringers, Lactated] 1,000 ml IV ASDIRECTED cefTRIAXone [Rocephin] 2 gm Sodium Chloride 0.9% [Normal Saline] 50 ml IV Q24H 02/06/19 16:00 CULTURE BLOOD [BC] Urgent 02/06/19 16:07 CULTURE BLOOD [BC] Urgent 02/06/19 16:48 CULTURE RESPIRATORY + SMEAR [RM] Routine - Assessment/Plan Last 24 Hours: My Active Orders 02/06/19 15:31 Blood Culture x2 Reflex Set [OM.PC] Urgent Severe Sepsis Onset Time [OM.PC] Stat 02/06/19 15:32 Cardiac Monitoring [RC] CONTINUOUS 02/06/19 15:45 Doxycycline [Vibramycin] 100 mg Sodium Chloride 0.9% [Normal Saline] 100 ml IV Q12H Lactated Ringers [Ringers, Lactated] 1,000 ml IV ASDIRECTED cefTRIAXone [Rocephin] 2 gm Sodium Chloride 0.9% [Normal Saline] 50 ml IV Q24H 02/06/19 16:00 CULTURE BLOOD [BC] Urgent 02/06/19 16:07 CULTURE BLOOD [BC] Urgent 02/06/19 16:48 CULTURE RESPIRATORY + SMEAR [RM] Routine Plan: Assessment Acuity = acute Site and laterality = COPD exacerbation with bronchitis Etiology = unknown Manifestations = hypoxia Location of injury = Home Lab values = WBC elevated 13.4 consistent leukocytosis pH normal 7.39 PCO2 58.7 PO2 60 bicarb 34.8 potassium low at 3.1 consistent hypokalemia AST elevated 84 ALT elevated 81 consistent with elevated liver enzymes troponin is negative CRP greater than 25 urinalysis unremarkable chest x-ray shows opacity of infiltrate versus fluid overload type pattern Plan Call discussed case with hospitalist on-call at 1700 agreed to come and evaluate the patient emergency department for admission This note was dictated using Subtext voice recognition software please call with any questions on syntax or grammar.
--- NOTE | 2019-02-06 17:07 | CRLCR ---
Indication: Hypoxia. Technique: PA and lateral views the chest. Comparison: September 27, 2017. Findings: Bilateral patchy opacities are identified bilaterally. Heart is normal sized. No pleural effusion or pneumothorax is identified. Impression: Bilateral opacities, infiltrates versus fluid overload versus an inflammatory process. Dictated by Danielle Mueller MD @ Feb 06 2019 5:06PM Signed by Dr. Danielle Mueller @ Feb 06 2019 5:06PM
[2019-02-06] MEDS ORDERED: Potassium Chloride 20 MEQ in Premix Bag 1 BAG IV ONE (17:35)
[2019-02-06] MEDS ORDERED: Lidocaine 1% PF 2 ML SDV IV ONE (17:53)
[2019-02-06] MEDS ORDERED: Nicotine 21 MG/24 Hr Patch TRDERM ONE (17:54)
[2019-02-06] MEDS ORDERED: Acetaminophen 325 MG Tab PO PRN (19:45)
[2019-02-06] MEDS ORDERED: Albuterol 0.083% 2.5 MG/3 ML Neb Soln NEB PRN (19:45)
[2019-02-06] MEDS ORDERED: Morphine 2 MG/ML Syringe IVPUSH PRN (19:45)
[2019-02-06] MEDS ORDERED: Bisacodyl 5 MG Tab PO PRN (19:45)
[2019-02-06] MEDS ORDERED: Ondansetron 4 MG Tab.DIS PO PRN (19:45)
[2019-02-06] MEDS ORDERED: Docusate Sodium 100 MG Cap PO PRN (19:45)
[2019-02-06] MEDS ORDERED: Polyethylene Glycol 3350 Powder 17 GM Packet PO PRN (19:45)
[2019-02-06] MEDS ORDERED: oxyCODONE 5 MG Tab PO PRN (19:45)
[2019-02-06] MEDS ORDERED: Ondansetron 4 MG/2 ML SDV IV PRN (19:45)
[2019-02-06] MEDS: Sodium Chloride 0.9% 1,000 ML IV SCH (20:23)
[2019-02-06] MEDS: Potassium Chloride 20 MEQ Tab.ER PO SCH (20:41)
[2019-02-06] MEDS: Albuterol/Ipratropium 3.0-0.5 MG/3 ML Neb Soln NEB SCH (20:41)
[2019-02-06] MEDS: Furosemide 40 MG Tab PO SCH (20:41)
[2019-02-06] MEDS: lamoTRIgine 100 MG Tab PO SCH (20:42)
[2019-02-06] MEDS: OLANZapine 5 MG Tab PO SCH (20:43)
[2019-02-06] MEDS: carBAMazepine 200 MG Tab PO SCH (20:44)
[2019-02-06] MEDS: Insulin Lispro 100 Unit/ML 3 ML KwikPen SUBCUT SCH (20:54)
[2019-02-06] MEDS ORDERED: CICLOPIROX TOP SCH (21:00)
[2019-02-06] MEDS: Propranolol 40 MG Tab PO SCH (21:46)
[2019-02-06] MEDS: Nicotine 21 MG/24 Hr Patch TRDERM SCH (21:46)
[2019-02-06] MEDS: ALPRAZolam 0.5 MG Tab PO SCH (21:47)
[2019-02-06] MEDS: Gabapentin 300 MG Cap PO SCH (21:48)
[2019-02-06] MEDS: methylPREDNISolone Sodium Succinate 125 MG/2 ML SDV IV SCH (21:48)
[2019-02-06] MEDS: Codeine/guaiFENesin 100mg-10 MG/5 ML Syrup 10 ML Cup PO PRN (21:59)
--- NOTE | 2019-02-06 22:01 | PCM.HP.2 ---
H&P History of Present Illness - General Date of Service: 02/06/19 Admit Problem/Dx: Admission Diagnosis/Problem Admission Diagnosis/Problem Acute bronchitis with chronic obstructive pulmonary disease (COPD) Source of Information: Patient, Provider, RN History Limitations: Reports: No Limitations - History of Present Illness Initial Comments - Free Text/Narative: 48-year-old female presents emergency department today complaint of shortness of breath, she does have a known history of COPD will use oxygen at home as needed however she states over the last couple days she is gotten progressively more short of breath does have cough and sputum production also has had fevers at home. Acuity = acute Site and laterality = COPD exacerbation with bronchitis Etiology = unknown Manifestations = hypoxia Lab values = WBC elevated 13.4 consistent leukocytosis pH normal 7.39 PCO2 58.7 PO2 60 bicarb 34.8 potassium low at 3.1 consistent hypokalemia AST elevated 84 ALT elevated 81 consistent with elevated liver enzymes troponin is negative CRP greater than 25 urinalysis unremarkable chest x-ray shows opacity of infiltrate versus fluid overload type pattern Plan Call discussed case with hospitalist on-call at 1700 agreed to come and evaluate the patient emergency department for admission Onset of Symptoms: Reports: Gradual Symptom Onset Date: 02/03/19 Duration of Symptoms: Reports: Getting Worse Location: Reports: Generalized Quality: Reports: Other (shortness of breath) Severity: Severe Improves with: Reports: None Worsens with: Reports: None Context: Reports: Other (has COPD, used to have home oxygen and nebs, but weaned herself off. but the last 4 days has been sick.) Associated Symptoms: Reports: Cough, Fever/Chills (for the past 4 days), Loss of Appetite, Nausea/Vomiting (from all the phlem - coughing up then swallowed the phlem - then vomited.), Shortness of Breath, Weakness Chest Pain Score (Numeric/FACES): 7 - Related Data Allergies/Adverse Reactions: Allergies Allergy/AdvReac Type Severity Reaction Status Date / Time No Known Allergies Allergy Verified 02/06/19 14:50 Home Medications: Home Meds Gabapentin [Neurontin] 900 mg PO QID 11/18/14 [History] Polyethylene Glycol 3350 [MiraLAX] 17 gm PO DAILY PRN 11/18/14 [History] carBAMazepine [Epitol] 800 mg PO BEDTIME 01/27/15 [History] Ibuprofen 800 mg PO Q6H PRN 06/05/15 [History] Albuterol Sulfate [Proair Hfa] 1 - 2 puff IH Q4HR PRN 11/12/15 [History] Levothyroxine Sodium [Synthroid] 88 mcg PO ACBREAKFAST 11/12/15 [History] metFORMIN [Glucophage] 1,000 mg PO QID 11/12/15 [History] lamoTRIgine [Lamotrigine] 100 mg pe PO DAILY 06/08/16 [History] lamoTRIgine [Lamotrigine] 200 mg PO BEDTIME 06/08/16 [History] ALPRAZolam [Alprazolam] 1 mg PO QID 04/05/17 [History] Ciclopirox [Loprox 0.77% Crm] 1 cm TOP BID 07/12/17 [History] FLUoxetine HCl [Fluoxetine HCl] 60 mg PO DAILY 07/12/17 [History] OLANZapine [Olanzapine] 15 mg PO BEDTIME 07/12/17 [History] Albuterol/Ipratropium [DuoNeb 3.0-0.5 MG/3 ML] 3 ml IH QID 11/01/18 [History] Aspirin [Halfprin] 81 mg PO DAILY 11/01/18 [History] Empagliflozin [Jardiance] 10 mg PO DAILY 11/01/18 [History] Furosemide 80 mg PO BID 11/01/18 [History] Potassium Chloride [Klor-Con M20] 20 meq PO BID 11/01/18 [History] Propranolol [Inderal] 20 mg PO BID 02/06/19 [History] Propranolol [Inderal] 20 mg PO PRN 02/06/19 [History] tiZANidine [Zanaflex] 2 mg PO Q8HR PRN 02/06/19 [History] Past Medical History HEENT History: Reports: Impaired Vision, Other (See Below) Other HEENT History: dental caries; wears glasses Cardiovascular History: Reports: SOB on Exertion Respiratory History: Reports: COPD, SOB, Other (See Below) Other Respiratory History: wheezing at noc; uses home O2; hospitalized in ICU 2017 for pneumonia Gastrointestinal History: Reports: Chronic Constipation, Irritable Bowel Syndrome Other Gastrointestinal History: constipation Genitourinary History: Reports: UTI, Recurrent [employer] History: Reports: Musculoskeletal History: Reports: Back Pain, Chronic, Fracture, Neck Pain, Chronic Other Musculoskeletal History: left wrist 10/07/13 Neurological History: Reports: Concussion, Headaches, Chronic, Migraines Psychiatric History: Reports: Anxiety, Bipolar, Depression, Psych Hospitalization(s), PTSD, Suicide Attempt, Suicidal Ideation, Other (See Below) Other Psychiatric History: seeing psychologist, [facility] Endocrine/Metabolic History: Reports: Diabetes, Type II, Hypothyroidism, Obesity /BMI 30+ Oncologic (Cancer) History: Reports: Cervix Other Oncologic History: frozen - Infectious Disease History Infectious Disease History: Reports: Chicken Pox - Past Surgical History Head Surgeries/Procedures: Reports: None HEENT Surgical History: Reports: Adenoidectomy, Tonsillectomy Cardiovascular Surgical History: Reports: None Respiratory Surgical History: Reports: None GI Surgical History: Reports: Hernia, Abdominal, Hernia Repair/Other, Other ( See Below) Other GI Surgeries/Procedures: laparoscopies umbilical hernia with mesh x4 Female Surgical History: Reports: Section, Cervical Cryotherapy, Cystectomy, Tubal Ligation Endocrine Surgical History: Reports: None Neurological Surgical History: Reports: None Musculoskeletal Surgical History: Reports: Other (See Below) Other Musculoskeletal Surgeries/Procedures:: wrist surgery Oncologic Surgical History: Reports: None Dermatological Surgical History: Reports: None Social & Family History - Family History Family Medical History: Noncontributory HEENT: Reports: Impaired Vision Cardiac: Reports: DE, Stent Respiratory: Reports: COPD Musculoskeletal: Reports: Back pain, Chronic Endocrine/Metabolic: Reports: Diabetes, type II, Hypothyroidism Oncologic: Reports: Prostate - Tobacco Use Smoking Status *Q: Current Every Day Smoker Years of Tobacco use: 31 Packs/Tins Daily: 2 Used Tobacco, but Quit: No Second Hand Smoke Exposure: Yes - Caffeine Use Caffeine Use: Reports: Coffee, Soda Other Caffeine Use: high intake per day - Recreational Drug Use Recreational Drug Use: No - Living Situation & Occupation Living situation: Reports: with Significant Other (lives with YOVANY Goldman in [place]. 2 children ages 26 years and 11 years.) Occupation: Disabled H&P Review of Systems - Review of Systems: Review Of Systems: See Below General: Reports: Fever, Chills, Malaise, Weakness, Decreased Appetite HEENT: Reports: Glasses, Headaches, Rhinitis, Sore Throat, Other (dentures) Pulmonary: Reports: Shortness of Breath, Wheezing, Pleuritic Chest Pain, Cough, Sputum Cardiovascular: Reports: Edema (hx of CHF, "takes water pills and potassium") Gastrointestinal: Reports: Decreased Appetite, Nausea Genitourinary: Reports: No Symptoms Musculoskeletal: Reports: Other (generalized back pain from coughing.) Skin: Reports: No Symptoms Neurological: Reports: Headache Hematologic/Lymphatic: Reports: No Symptoms Immunologic: Reports: No Symptoms Exam - Exam Exam: See Below - Vital Signs Vital Signs: Last Vital Signs Temp 36.5 C 02/06/19 19:45 Pulse 82 02/06/19 19:45 Resp 20 02/06/19 19:45 BP 126/73 02/06/19 19:45 Pulse Ox 93 L 02/06/19 19:45 Weight: 110.223 kg - Exam Quality Assessment: Supplemental Oxygen, DVT Prophylaxis General: Alert, Oriented, Cooperative, Mild Distress HEENT: PERRLA, Conjunctiva Clear, EACs Clear, EOMI, Hearing Intact, Mucosa Moist & [place], Nares Patent, Glasses, Other (full dentures) Neck: Supple, Trachea Midline Lungs: Decreased Breath Sounds (bilateral), Crackles (bilateral), Wheezing ( expiratory bilateral) Cardiovascular: Regular Rate, Regular Rhythm, Normal S1, Normal S2 GI/Abdominal Exam: Normal Bowel Sounds, Soft, Non-Tender (Female) Exam: Deferred Rectal (Female) Exam: Deferred Extremities: Normal Inspection, Normal Range of Motion, Non-Tender, No Pedal Edema, Normal Capillary Refill Peripheral Pulses: 2+: Radial (L), Radial (R) Skin: Warm, Dry, Intact Neurological: Cranial Nerves Intact, Reflexes Equal Bilateral Neuro Extensive - Mental Status: Alert, Oriented x3, Normal Mood/Affect, Normal Cognition Neuro Extensive - Motor, Sensory, Reflexes: CN II-XII Intact, Normal Gait, Normal Reflexes Psychiatric: Alert, Normal Affect, Normal Mood, Other (reports Bi-polar, anxiety disorder and PTSD) - Patient Data Lab Results Last 24 hrs: Laboratory Results - last 24 hr 02/06/19 02/06/19 02/06/19 Range/Units 16:00 16:07 16:07 WBC 13.4 H (4.5-11.0) K/uL RBC 4.99 (3.30-5.50) M/uL Hgb 11.6 L (12.0-15.0) g/dL Hct 39.5 (36.0-48.0) % MCV 79 L (80-98) fL MCH 23 L (27-31) pg MCHC 29 L (32-36) % Plt Count 291 (150-400) K/uL Neut % (Auto) 68 H (36-66) % Lymph % (Auto) 12 L (24-44) % [place] % (Auto) 20 H (2-6) % Eos % (Auto) 1 L (2-4) % Baso % (Auto) 0 (0-1) % Puncture Site Rt radial ABG pH 7.390 (7.350-7.450) ABG pCO2 58.7 H (35.0-42.0) mmHg ABG pO2 60.0 L (75.0-100.0) mmHg ABG HCO3 34.8 H (22.0-26.0) mmol/L ABG Total CO2 31.8 H (21.0-25.0) mmol/L ABG O2 Saturation 88.3 L (95.0-98.0) % ABG O2 Content 13.6 L (15.0-23.0) %vol ABG Base Excess 8.5 mm/L ABG Hemoglobin 11.5 L (12.0-16.0) g/dL ABG Oxyhemoglobin 83.7 % ABG Carboxyhemoglobin 4.2 H (0.0-1.6) % ABG Methemoglobin 1.0 % Hernando Test Pass O2 Delivery Device Nasal cannula Oxygen Flow Rate L Sodium 135 L (140-148) mmol/L Potassium 3.1 L (3.6-5.2) mmol/L Chloride 94 L (100-108) mmol/L Carbon Dioxide 35 H (21-32) mmol/L Anion Gap 9.1 (5.0-14.0) mmol/L BUN 5 L (7-18) mg/dL Creatinine 0.8 (0.6-1.0) mg/dL Est Cr Clr Drug Dosing 85.45 mL/min Estimated GFR (MDRD) > 60 (>60) Glucose 113 H (74-106) mg/dL Lactic Acid (0.4-2.0) mmol/L Calcium 7.9 L (8.5-10.1) mg/dL Total Bilirubin 0.3 (0.2-1.0) mg/dL AST 84 H D (15-37) U/L ALT 81 H (12-78) U/L Alkaline Phosphatase 147 H (46-116) U/L Troponin I < 0.017 (0.000-0.056) ng/mL C-Reactive Protein > 25.00 H (0.0-0.3) mg/dL Total Protein 7.7 (6.4-8.2) g/dL Albumin 2.8 L (3.4-5.0) g/dL Globulin 4.9 H (2.3-3.5) g/dL Albumin/Globulin Ratio 0.6 L (1.2-2.2) Urine Color (YELLOW) Urine Appearance (CLEAR) Urine pH (5.0-8.0) Ur Specific [place] (1.008-1.030) Urine Protein (NEGATIVE) mg/dL Urine Glucose (UA) (NEGATIVE) mg/dL Urine Ketones (NEGATIVE) mg/dL Urine Occult Blood (NEGATIVE) Urine Nitrite (NEGATIVE) Urine Bilirubin (NEGATIVE) Urine Urobilinogen (0.2-1.0) EU/dL Ur Leukocyte Esterase (NEGATIVE) Urine RBC (0-5) Urine WBC (0-5) Ur Epithelial Cells Amorphous Sediment Urine Bacteria Urine Mucus 02/06/19 02/06/19 Range/Units 16:07 16:46 WBC (4.5-11.0) K/uL RBC (3.30-5.50) M/uL Hgb (12.0-15.0) g/dL Hct (36.0-48.0) % MCV (80-98) fL MCH (27-31) pg MCHC (32-36) % Plt Count (150-400) K/uL Neut % (Auto) (36-66) % Lymph % (Auto) (24-44) % [place] % (Auto) (2-6) % Eos % (Auto) (2-4) % Baso % (Auto) (0-1) % Puncture Site ABG pH (7.350-7.450) ABG pCO2 (35.0-42.0) mmHg ABG pO2 (75.0-100.0) mmHg ABG HCO3 (22.0-26.0) mmol/L ABG Total CO2 (21.0-25.0) mmol/L ABG O2 Saturation (95.0-98.0) % ABG O2 Content (15.0-23.0) %vol ABG Base Excess mm/L ABG Hemoglobin (12.0-16.0) g/dL ABG Oxyhemoglobin % ABG Carboxyhemoglobin (0.0-1.6) % ABG Methemoglobin % Hernando Test O2 Delivery Device Oxygen Flow Rate L Sodium (140-148) mmol/L Potassium (3.6-5.2) mmol/L Chloride (100-108) mmol/L Carbon Dioxide (21-32) mmol/L Anion Gap (5.0-14.0) mmol/L BUN (7-18) mg/dL Creatinine (0.6-1.0) mg/dL Est Cr Clr Drug Dosing mL/min Estimated GFR (MDRD) (>60) Glucose (74-106) mg/dL Lactic Acid 1.5 (0.4-2.0) mmol/L Calcium (8.5-10.1) mg/dL Total Bilirubin (0.2-1.0) mg/dL AST (15-37) U/L ALT (12-78) U/L Alkaline Phosphatase (46-116) U/L Troponin I (0.000-0.056) ng/mL C-Reactive Protein (0.0-0.3) mg/dL Total Protein (6.4-8.2) g/dL Albumin (3.4-5.0) g/dL Globulin (2.3-3.5) g/dL Albumin/Globulin Ratio (1.2-2.2) Urine Color Yellow (YELLOW) Urine Appearance Clear (CLEAR) Urine pH 6.0 (5.0-8.0) Ur Specific [place] 1.015 (1.008-1.030) Urine Protein 30 H (NEGATIVE) mg/dL Urine Glucose (UA) 500 H (NEGATIVE) mg/dL Urine Ketones Negative (NEGATIVE) mg/dL Urine Occult Blood Small H (NEGATIVE) Urine Nitrite Negative (NEGATIVE) Urine Bilirubin Negative (NEGATIVE) Urine Urobilinogen 1.0 (0.2-1.0) EU/dL Ur Leukocyte Esterase Negative (NEGATIVE) Urine RBC 0-5 (0-5) Urine WBC Not seen (0-5) Ur Epithelial Cells Rare Amorphous Sediment Not seen Urine Bacteria Not seen Urine Mucus Not seen Result Diagrams: 02/06/19 16:07 02/06/19 16:07 Marcio Results Last 24 hrs: Microbiology 02/06/19 16:48 Gram Stain - Final Sputum - Expectorated 02/06/19 16:46 Influenza Type A Antigen Screen - Final Nasal Aspirate, Unspecified NEGATIVE INFLUENZA A VIRUS AG REFERENCE RANGE: NEGATIVE Influenza Type B Antigen Screen - Final NEGATIVE INFLUENZA B VIRUS AG REFERENCE RANGE: NEGATIVE Sepsis Event Note - Evaluation Sepsis Screening Result: No Definite Risk - Focused Exam Vital Signs: Vital Signs Temp Temp Pulse Resp BP Pulse Ox 02/06/19 19:45 36.5 C 82 20 126/73 93 L 02/06/19 19:01 84 20 122/45 L 90 L 02/06/19 17:53 85 104/56 L 90 L 02/06/19 17:15 38.3 C H 02/06/19 17:09 82 24 H 129/75 90 L 02/06/19 16:08 38.9 C H 02/06/19 15:49 85 22 H 129/83 95 02/06/19 15:15 24 H 94 L 02/06/19 14:46 37.8 C 71 24 H 111/43 L 71 L Date Exam was Performed: 02/06/19 Time Exam was Performed: 22:18 - Problem List (1) COPD with acute bronchitis SNOMED Code(s): 985994470423270 ICD Code: J44.0 - CHR OBSTRUCTIVE PULMON DISEASE WITH (ACUTE) LOWER RESP INFCT; J20.9 - ACUTE BRONCHITIS, UNSPECIFIED Status: Acute Priority: High Current Visit: Yes (2) Chronic mental illness SNOMED Code(s): 195916863 ICD Code: F99 - MENTAL DISORDER, NOT OTHERWISE SPECIFIED Status: Chronic Priority: Medium Current Visit: Yes (3) Tobacco dependence syndrome SNOMED Code(s): 86879171 ICD Code: F17.200 - NICOTINE DEPENDENCE, UNSPECIFIED, UNCOMPLICATED Status : Chronic Priority: High Current Visit: Yes (4) Type 2 diabetes mellitus SNOMED Code(s): 37733072 ICD Code: E11.9 - TYPE 2 DIABETES MELLITUS WITHOUT COMPLICATIONS Status: Chronic Priority: Medium Current Visit: Yes Qualifiers: Diabetes mellitus residential insulin use: without residential use (5) Congestive heart failure (CHF) SNOMED Code(s): 28106587 ICD Code: I50.9 - HEART FAILURE, UNSPECIFIED Status: Chronic Priority: Low Current Visit: Yes Qualifiers: Heart failure chronicity: chronic (6) Hypokalemia SNOMED Code(s): 25441121 ICD Code: E87.6 - HYPOKALEMIA Status: Chronic Priority: Low Current Visit: Yes Problem List Initiated/Reviewed/Updated: Yes Orders Last 24hrs: Active Orders 24 hr Category Date Time Status Communication Order [RC] ASDIRECTED Care 02/06/19 19:45 Active Diabetes Education [RC] Click to Edit Care 02/06/19 19:45 Active Intake and Output [RC] QSHIFT Care 02/06/19 19:45 Active Notify Provider Vital Signs [RC] ASDIRECTED Care 02/06/19 19:45 Active Notify Provider [RC] PRN Care 02/06/19 19:45 Active Notify Provider [RC] PRN Care 02/06/19 19:45 Active Oxygen Therapy [RC] PRN Care 02/06/19 19:45 Active Pulse Oximetry [RC] CONTINUOUS Care 02/06/19 19:45 Active RT Aerosol Therapy [RC] ASDIRECTED Care 02/06/19 19:45 Active Up ad Valeri [RC] ASDIRECTED Care 02/06/19 19:45 Active VTE/DVT Education [RC] Per Unit Routine Care 02/06/19 19:45 Active Vital Signs [RC] Q4H Care 02/06/19 19:45 Active Consistent Carbohydrate Diet [DIET] Diet 02/06/19 Breakfast Active BASIC METABOLIC PANEL,BMP [CHEM] AM Lab 02/07/19 05:11 Ordered CBC WITH AUTO DIFF [HEME] AM Lab 02/07/19 05:11 Ordered CULTURE BLOOD [BC] Urgent Lab 02/06/19 16:00 Received CULTURE BLOOD [BC] Urgent Lab 02/06/19 16:07 Received CULTURE RESPIRATORY + SMEAR [RM] Routine Lab 02/06/19 16:48 Results ALPRAZolam [Xanax] Med 02/06/19 22:00 Active 1 mg PO QID Acetaminophen [Tylenol] Med 02/06/19 19:45 Active 650 mg PO Q4H PRN Albuterol [Proventil Neb Soln] Med 02/06/19 19:45 Active 2.5 mg NEB Q2H PRN Albuterol/Ipratropium [DuoNeb 3.0-0.5 MG/3 ML] Med 02/06/19 21:00 Active 3 ml NEB QIDRT Bisacodyl [Dulcolax] Med 02/06/19 19:45 Active 5 mg PO DAILY PRN Ciclopirox [Loprox 0.77% Crm] Med 02/06/19 21:00 Pending 1 cm TOP BID Codeine/guaiFENesin [Robitussin AC] Med 02/06/19 19:45 Active 10 ml PO Q4H PRN Docusate Sodium [Colace] Med 02/06/19 19:45 Active 100 mg PO BID PRN Doxycycline [Vibramycin] 100 mg Med 02/07/19 06:00 Active Sodium Chloride 0.9% [Normal Saline] 100 ml IV Q12H Empagliflozin [Jardiance] Med 02/07/19 09:00 Pending 10 mg PO DAILY Enoxaparin [Lovenox] Med 02/07/19 09:00 Active 40 mg SUBCUT DAILY FLUoxetine [PROzac] Med 02/07/19 09:00 Active 60 mg PO DAILY Furosemide [Lasix] Med 02/06/19 19:45 Active 80 mg PO BIDDIURETIC Gabapentin [Neurontin] Med 02/06/19 22:00 Active 900 mg PO QID Insulin Lispro [HumaLOG] Med 02/06/19 20:00 Active See Protocol SUBCUT QIDACANDBED Levothyroxine [Synthroid] Med 02/07/19 07:30 Active 88 mcg PO ACBREAKFAST Morphine Med 02/06/19 19:45 Active 2 mg IVPUSH Q2H PRN Nicotine [Habitrol] Med 02/06/19 21:00 Active 21 mg TRDERM DAILY OLANZapine [ZyPREXA] Med 02/06/19 21:00 Active 15 mg PO BEDTIME Ondansetron [Zofran ODT] Med 02/06/19 19:45 Active 4 mg PO Q6H PRN Ondansetron [Zofran] Med 02/06/19 19:45 Active 4 mg IV Q4H PRN Pantoprazole [ProTONIX IV] Med 02/07/19 09:00 Active 40 mg IVPUSH DAILY Polyethylene Glycol 3350 [MiraLAX] Med 02/06/19 19:45 Active 17 gm PO DAILY PRN Potassium Chloride [Klor-Con M20] Med 02/06/19 21:00 Active 20 meq PO BID Propranolol [Inderal] Med 02/06/19 21:30 Active 20 mg PO BID Sodium Chloride 0.9% [Normal Saline] 1,000 ml Med 02/06/19 19:45 Active IV ASDIRECTED carBAMazepine [TEGretol Tab] Med 02/06/19 21:00 Active 800 mg PO BEDTIME cefTRIAXone [Rocephin] 2 gm Med 02/07/19 16:00 Active Sodium Chloride 0.9% [Normal Saline] 50 ml IV Q24H lamoTRIgine Med 02/07/19 09:00 Active 100 mg PO DAILY lamoTRIgine Med 02/06/19 21:00 Active 200 mg PO BEDTIME methylPREDNISolone Sod Succ [Solu-MEDROL] Med 02/06/19 22:00 Active 62.5 mg IV Q6H oxyCODONE Med 02/06/19 19:45 Active 10 mg PO Q4H PRN Blood Culture x2 Reflex Set [OM.PC] Urgent Oth 02/06/19 15:31 Ordered Severe Sepsis Onset Time [OM.PC] Stat Ot 02/06/19 15:31 Ordered Resuscitation Status Routine Resus Stat 02/06/19 18:34 Ordered Medication Orders Acetaminophen (Tylenol) 650 mg PO Q4H PRN PRN Reason: Pain (Mild 1-3)/fever Albuterol (Proventil Neb Soln) 2.5 mg NEB Q2H PRN PRN Reason: Shortness Of Breath/wheezing Albuterol/Ipratropium (Duoneb 3.0-0.5 Mg/3 Ml) 3 ml NEB QIDRT [facility] Last Admin: 02/06/19 20:41 Dose: 3 ml Alprazolam (Xanax) 1 mg PO QID [facility] Last Admin: 02/06/19 21:47 Dose: 1 mg Bisacodyl (Dulcolax) 5 mg PO DAILY PRN PRN Reason: Constipation Carbamazepine (Tegretol Tab) 800 mg PO BEDTIME [facility] Last Admin: 02/06/19 20:44 Dose: 800 mg Docusate Sodium (Colace) 100 mg PO BID PRN PRN Reason: Constipation Enoxaparin Sodium (Lovenox) 40 mg SUBCUT DAILY [facility] Fluoxetine HCl (Prozac) 60 mg PO DAILY [facility] Furosemide (Lasix) 80 mg PO BIDDIURETIC [facility] Last Admin: 02/06/19 20:41 Dose: Not Given Gabapentin (Neurontin) 900 mg PO QID [facility] Last Admin: 02/06/19 21:48 Dose: 900 mg Guaifenesin/Codeine Phosphate (Robitussin Ac) 10 ml PO Q4H PRN PRN Reason: Cough Doxycycline Hyclate 100 mg/ (Sodium Chloride) 100 mls @ 100 mls/hr IV Q12H [facility] Ceftriaxone Sodium 2 gm/ (Sodium Chloride) 50 mls @ 100 mls/hr IV Q24H [facility] Sodium Chloride (Normal Saline) 1,000 mls @ 125 mls/hr IV ASDIRECTED [facility] Last Admin: 02/06/19 20:23 Dose: 125 mls/hr Insulin Human Lispro (Humalog) 0 unit SUBCUT QIDACANDBED [facility]; Protocol Last Admin: 02/06/19 20:54 Dose: 1 units Lamotrigine (Lamotrigine) 100 mg PO DAILY [facility] Lamotrigine (Lamotrigine) 200 mg PO BEDTIME [facility] Last Admin: 02/06/19 20:42 Dose: 200 mg Levothyroxine Sodium (Synthroid) 88 mcg PO ACBREAKFAST [facility] Methylprednisolone Sodium Succinate (Solu-Medrol) 62.5 mg IV Q6H [facility] Last Admin: 02/06/19 21:48 Dose: 62.5 mg Morphine Sulfate (Morphine) 2 mg IVPUSH Q2H PRN PRN Reason: Pain (severe 7-10) Nicotine (Habitrol) 21 mg TRDERM DAILY [facility] Last Admin: 02/06/19 21:46 Dose: 21 mg Non-Formulary Medication (Ciclopirox [Loprox 0.77% Crm]) 1 cm TOP BID [facility] Non-Formulary Medication (Empagliflozin [Jardiance]) 10 mg PO DAILY [facility] Olanzapine (Zyprexa) 15 mg PO BEDTIME [facility] Last Admin: 02/06/19 20:43 Dose: 15 mg Ondansetron HCl (Zofran Odt) 4 mg PO Q6H PRN PRN Reason: Nausea able to take PO Ondansetron HCl (Zofran) 4 mg IV Q4H PRN PRN Reason: Nausea/Vomiting Oxycodone HCl (Oxycodone) 10 mg PO Q4H PRN PRN Reason: Pain (moderate 4-6) Pantoprazole Sodium (Protonix Iv) 40 mg IVPUSH DAILY [facility] Polyethylene Glycol (Miralax) 17 gm PO DAILY PRN PRN Reason: Constipation Potassium Chloride (Klor-Con M20) 20 meq PO BID [facility] Last Admin: 02/06/19 20:41 Dose: 20 meq Propranolol HCl (Inderal) 20 mg PO BID [facility] Last Admin: 02/06/19 21:46 Dose: 20 mg Assessment/Plan Comment:: Assessment/Plan Comment: COPD WITH ACUTE BRONCHITIS -IV Rocephin 2 gram daily -IV Doxycycline 100 mg every 12 hours -IV Solu-medrol 62.5mg every 6 hours, 125mg given in ER -Duonebs every 6 hours scheduled -Albuterol neb every 2 hours prn shortness of breath or wheezing -Robitussin AC 10ml every 4 hours prn cough -blood cultures x 2 pending -sputum culture pending Labs in am - CBC, BMP CONGESTIVE HEART FAILURE -continue Lasix 80 mg po bid -continue home medication Hypokalemia - Potassium 3.1 in ER, given IV Potassium 20 meq. -Potassium replacement bid -am Labs - BMP TYPE 2 DIABETES MELLITUS -Continue oral hypoglycemic therapy -Low-dose sliding scale Humalog -4 times a day glucometers Mental illness - reports Bi-polar, anxiety, depression, PTSD -continue home medication Nicotine dependence - reports smoke one and half pack of cigarettes daily -would like to quit -Nicotine patch 21 mg daily MAINTENANCE ISSUES -DVT prophylaxis;Lovenox 40 mg subcut daily -GI prophylaxis; IV Protonix 40 mg daily -Kimble catheter;Not indicated -Nutrition; Consistent Carb, no milk, dairy intolerance -Nicotine dependence; Nicotine 21mg patch CODE STATUS-FULL ADMISSION STATUS-patient will be admitted to inpatient status, expect at least a 2 night hospital stay for evaluation and management of problems as outlined above. At the time of this admission I do not reasonably expected evaluation and management of this problem will require more than a 96 hour hospital stay. DISPOSITION-anticipate discharge to home after the hospital stay. PRIMARY CARE PROVIDER-Dr. Marcio Harding HOSPITALIST - Dr. Ruiz - Mortality Measure Prognosis:: Good
[2019-02-07] MEDS ORDERED: Pneumococcal Polyvalent-23 Vaccine 0.5 ML SDV IM ONE (00:43)
[2019-02-07] MEDS: Codeine/guaiFENesin 100mg-10 MG/5 ML Syrup 10 ML Cup PO PRN ×5 (01:48→21:16)
[2019-02-07] MEDS: Sodium Chloride 0.9% 1,000 ML IV SCH ×2 (04:34→13:41)
[2019-02-07] MEDS: methylPREDNISolone Sodium Succinate 125 MG/2 ML SDV IV SCH ×2 (04:36→09:09)
[2019-02-07] MEDS: Gabapentin 300 MG Cap PO SCH ×4 (06:06→21:12)
[2019-02-07] MEDS: ALPRAZolam 0.5 MG Tab PO SCH ×5 (06:06→21:16)
[2019-02-07] MEDS: Doxycycline 100 MG in Sodium Chloride 0.9% 100 ML IV SCH ×2 (06:07→18:32)
[2019-02-07] MEDS: Albuterol/Ipratropium 3.0-0.5 MG/3 ML Neb Soln NEB SCH ×4 (07:31→21:07)
[2019-02-07] MEDS ORDERED: Nicotine 21 MG/24 Hr Patch TRDERM SCH (09:00)
[2019-02-07] MEDS ORDERED: Non-Formulary Medication 1 Each (Empagliflozin [Jardiance] 10 MG) PO SCH (09:00)
[2019-02-07] MEDS ORDERED: Pantoprazole 40 MG Vial IVPUSH SCH (09:00)
[2019-02-07] MEDS: Levothyroxine 88 MCG Tab PO SCH (09:05)
[2019-02-07] MEDS: Pantoprazole 40 MG Tab.CR PO SCH (09:05)
[2019-02-07] MEDS: Furosemide 40 MG Tab PO SCH ×2 (09:06→14:18)
[2019-02-07] MEDS: Potassium Chloride 20 MEQ Tab.ER PO SCH ×2 (09:07→21:10)
[2019-02-07] MEDS: Nicotine 21 MG/24 Hr Patch TRDERM SCH ×2 (09:07→23:48)
[2019-02-07] MEDS: FLUoxetine 20 MG Cap PO SCH (09:07)
[2019-02-07] MEDS: Propranolol 40 MG Tab PO SCH ×2 (09:08→21:09)
[2019-02-07] MEDS: Enoxaparin 40 MG/0.4 ML Syringe SUBCUT SCH (09:08)
[2019-02-07] MEDS: lamoTRIgine 100 MG Tab PO SCH ×2 (09:10→21:10)
[2019-02-07] MEDS: Insulin Lispro 100 Unit/ML 3 ML KwikPen SUBCUT SCH ×4 (09:11→21:05)
[2019-02-07] MEDS ORDERED: Propranolol 40 MG Tab PO PRN (14:07)
--- NOTE | 2019-02-07 15:08 | PCM.PN ---
- General Info Date of Service: 02/07/19 Subjective Update: Ms. Zneg has been stable since admission and reports improvement in shortness of breath. She continues to experience wheezing and requires supplemental oxygen to maintain adequate oxygenation. Functional Status: Reports: Tolerating Diet, Ambulating, Urinating - Review of Systems General: Denies: Fever, Chills Pulmonary: Reports: Shortness of Breath, Cough, Wheezing. Denies: Pleuritic Chest Pain, Sputum, Hemoptysis Cardiovascular: Reports: Dyspnea on Exertion. Denies: Chest Pain, Palpitations , Orthopnea, PND, Edema, Lightheadedness Gastrointestinal: Reports: No Symptoms - Patient Data Vitals - Most Recent: Last Vital Signs Temp 96.5 F 02/07/19 15:00 Pulse 64 02/07/19 15:00 Resp 18 02/07/19 15:00 BP 102/57 L 02/07/19 15:00 Pulse Ox 94 L 02/07/19 15:00 Weight - Most Recent: 243 lb I&O - Last 24 Hours: Intake & Output 02/07/19 02/07/19 02/07/19 06:59 14:59 22:59 Intake Total 3134 1180 Output Total 800 500 Balance 2334 680 Lab Results Last 24 Hours: Laboratory Results - last 24 hr 02/06/19 02/06/19 02/06/19 Range/Units 16:00 16:07 16:07 WBC 13.4 H (4.5-11.0) K/uL RBC 4.99 (3.30-5.50) M/uL Hgb 11.6 L (12.0-15.0) g/dL Hct 39.5 (36.0-48.0) % MCV 79 L (80-98) fL MCH 23 L (27-31) pg MCHC 29 L (32-36) % Plt Count 291 (150-400) K/uL Neut % (Auto) 68 H (36-66) % Lymph % (Auto) 12 L (24-44) % [place] % (Auto) 20 H (2-6) % Eos % (Auto) 1 L (2-4) % Baso % (Auto) 0 (0-1) % Puncture Site Rt radial ABG pH 7.390 (7.350-7.450) ABG pCO2 58.7 H (35.0-42.0) mmHg ABG pO2 60.0 L (75.0-100.0) mmHg ABG HCO3 34.8 H (22.0-26.0) mmol/L ABG Total CO2 31.8 H (21.0-25.0) mmol/L ABG O2 Saturation 88.3 L (95.0-98.0) % ABG O2 Content 13.6 L (15.0-23.0) %vol ABG Base Excess 8.5 mm/L ABG Hemoglobin 11.5 L (12.0-16.0) g/dL ABG Oxyhemoglobin 83.7 % ABG Carboxyhemoglobin 4.2 H (0.0-1.6) % ABG Methemoglobin 1.0 % Hernando Test Pass O2 Delivery Device Nasal cannula Oxygen Flow Rate L Sodium 135 L (140-148) mmol/L Potassium 3.1 L (3.6-5.2) mmol/L Chloride 94 L (100-108) mmol/L Carbon Dioxide 35 H (21-32) mmol/L Anion Gap 9.1 (5.0-14.0) mmol/L BUN 5 L (7-18) mg/dL Creatinine 0.8 (0.6-1.0) mg/dL Est Cr Clr Drug Dosing 85.45 mL/min Estimated GFR (MDRD) > 60 (>60) Glucose 113 H (74-106) mg/dL Lactic Acid (0.4-2.0) mmol/L Calcium 7.9 L (8.5-10.1) mg/dL Total Bilirubin 0.3 (0.2-1.0) mg/dL AST 84 H D (15-37) U/L ALT 81 H (12-78) U/L Alkaline Phosphatase 147 H (46-116) U/L Troponin I < 0.017 (0.000-0.056) ng/mL C-Reactive Protein > 25.00 H (0.0-0.3) mg/dL Total Protein 7.7 (6.4-8.2) g/dL Albumin 2.8 L (3.4-5.0) g/dL Globulin 4.9 H (2.3-3.5) g/dL Albumin/Globulin Ratio 0.6 L (1.2-2.2) Urine Color (YELLOW) Urine Appearance (CLEAR) Urine pH (5.0-8.0) Ur Specific [place] (1.008-1.030) Urine Protein (NEGATIVE) mg/dL Urine Glucose (UA) (NEGATIVE) mg/dL Urine Ketones (NEGATIVE) mg/dL Urine Occult Blood (NEGATIVE) Urine Nitrite (NEGATIVE) Urine Bilirubin (NEGATIVE) Urine Urobilinogen (0.2-1.0) EU/dL Ur Leukocyte Esterase (NEGATIVE) Urine RBC (0-5) Urine WBC (0-5) Ur Epithelial Cells Amorphous Sediment Urine Bacteria Urine Mucus 02/06/19 02/06/19 02/07/19 Range/Units 16:07 16:46 04:10 WBC 13.3 H (4.5-11.0) K/uL RBC 4.55 (3.30-5.50) M/uL Hgb 10.6 L (12.0-15.0) g/dL Hct 36.2 (36.0-48.0) % MCV 80 (80-98) fL MCH 23 L (27-31) pg MCHC 29 L (32-36) % Plt Count 270 (150-400) K/uL Neut % (Auto) 76 H (36-66) % Lymph % (Auto) 11 L (24-44) % [place] % (Auto) 13 H (2-6) % Eos % (Auto) 0 L (2-4) % Baso % (Auto) 0 (0-1) % Puncture Site ABG pH (7.350-7.450) ABG pCO2 (35.0-42.0) mmHg ABG pO2 (75.0-100.0) mmHg ABG HCO3 (22.0-26.0) mmol/L ABG Total CO2 (21.0-25.0) mmol/L ABG O2 Saturation (95.0-98.0) % ABG O2 Content (15.0-23.0) %vol ABG Base Excess mm/L ABG Hemoglobin (12.0-16.0) g/dL ABG Oxyhemoglobin % ABG Carboxyhemoglobin (0.0-1.6) % ABG Methemoglobin % Hernando Test O2 Delivery Device Oxygen Flow Rate L Sodium (140-148) mmol/L Potassium (3.6-5.2) mmol/L Chloride (100-108) mmol/L Carbon Dioxide (21-32) mmol/L Anion Gap (5.0-14.0) mmol/L BUN (7-18) mg/dL Creatinine (0.6-1.0) mg/dL Est Cr Clr Drug Dosing mL/min Estimated GFR (MDRD) (>60) Glucose (74-106) mg/dL Lactic Acid 1.5 (0.4-2.0) mmol/L Calcium (8.5-10.1) mg/dL Total Bilirubin (0.2-1.0) mg/dL AST (15-37) U/L ALT (12-78) U/L Alkaline Phosphatase (46-116) U/L Troponin I (0.000-0.056) ng/mL C-Reactive Protein (0.0-0.3) mg/dL Total Protein (6.4-8.2) g/dL Albumin (3.4-5.0) g/dL Globulin (2.3-3.5) g/dL Albumin/Globulin Ratio (1.2-2.2) Urine Color Yellow (YELLOW) Urine Appearance Clear (CLEAR) Urine pH 6.0 (5.0-8.0) Ur Specific [place] 1.015 (1.008-1.030) Urine Protein 30 H (NEGATIVE) mg/dL Urine Glucose (UA) 500 H (NEGATIVE) mg/dL Urine Ketones Negative (NEGATIVE) mg/dL Urine Occult Blood Small H (NEGATIVE) Urine Nitrite Negative (NEGATIVE) Urine Bilirubin Negative (NEGATIVE) Urine Urobilinogen 1.0 (0.2-1.0) EU/dL Ur Leukocyte Esterase Negative (NEGATIVE) Urine RBC 0-5 (0-5) Urine WBC Not seen (0-5) Ur Epithelial Cells Rare Amorphous Sediment Not seen Urine Bacteria Not seen Urine Mucus Not seen 02/07/19 Range/Units 04:10 WBC (4.5-11.0) K/uL RBC (3.30-5.50) M/uL Hgb (12.0-15.0) g/dL Hct (36.0-48.0) % MCV (80-98) fL MCH (27-31) pg MCHC (32-36) % Plt Count (150-400) K/uL Neut % (Auto) (36-66) % Lymph % (Auto) (24-44) % [place] % (Auto) (2-6) % Eos % (Auto) (2-4) % Baso % (Auto) (0-1) % Puncture Site ABG pH (7.350-7.450) ABG pCO2 (35.0-42.0) mmHg ABG pO2 (75.0-100.0) mmHg ABG HCO3 (22.0-26.0) mmol/L ABG Total CO2 (21.0-25.0) mmol/L ABG O2 Saturation (95.0-98.0) % ABG O2 Content (15.0-23.0) %vol ABG Base Excess mm/L ABG Hemoglobin (12.0-16.0) g/dL ABG Oxyhemoglobin % ABG Carboxyhemoglobin (0.0-1.6) % ABG Methemoglobin % Hernando Test O2 Delivery Device Oxygen Flow Rate L Sodium 138 L (140-148) mmol/L Potassium 3.5 L (3.6-5.2) mmol/L Chloride 99 L (100-108) mmol/L Carbon Dioxide 33 H (21-32) mmol/L Anion Gap 9.5 (5.0-14.0) mmol/L BUN 6 L (7-18) mg/dL Creatinine 0.6 (0.6-1.0) mg/dL Est Cr Clr Drug Dosing 113.93 mL/min Estimated GFR (MDRD) > 60 (>60) Glucose 128 H (74-106) mg/dL Lactic Acid (0.4-2.0) mmol/L Calcium 7.9 L (8.5-10.1) mg/dL Total Bilirubin (0.2-1.0) mg/dL AST (15-37) U/L ALT (12-78) U/L Alkaline Phosphatase (46-116) U/L Troponin I (0.000-0.056) ng/mL C-Reactive Protein (0.0-0.3) mg/dL Total Protein (6.4-8.2) g/dL Albumin (3.4-5.0) g/dL Globulin (2.3-3.5) g/dL Albumin/Globulin Ratio (1.2-2.2) Urine Color (YELLOW) Urine Appearance (CLEAR) Urine pH (5.0-8.0) Ur Specific [place] (1.008-1.030) Urine Protein (NEGATIVE) mg/dL Urine Glucose (UA) (NEGATIVE) mg/dL Urine Ketones (NEGATIVE) mg/dL Urine Occult Blood (NEGATIVE) Urine Nitrite (NEGATIVE) Urine Bilirubin (NEGATIVE) Urine Urobilinogen (0.2-1.0) EU/dL Ur Leukocyte Esterase (NEGATIVE) Urine RBC (0-5) Urine WBC (0-5) Ur Epithelial Cells Amorphous Sediment Urine Bacteria Urine Mucus Marcio Results Last 24 Hours: Microbiology 02/06/19 16:48 Gram Stain - Final Sputum - Expectorated 02/06/19 16:46 Influenza Type A Antigen Screen - Final Nasal Aspirate, Unspecified NEGATIVE INFLUENZA A VIRUS AG REFERENCE RANGE: NEGATIVE Influenza Type B Antigen Screen - Final NEGATIVE INFLUENZA B VIRUS AG REFERENCE RANGE: NEGATIVE Med Orders - Current: Current Medications Acetaminophen (Tylenol) 650 mg PO Q4H PRN PRN Reason: Pain (Mild 1-3)/fever Last Admin: 02/07/19 01:50 Dose: 650 mg Albuterol (Proventil Neb Soln) 2.5 mg NEB Q2H PRN PRN Reason: Shortness Of Breath/wheezing Albuterol/Ipratropium (Duoneb 3.0-0.5 Mg/3 Ml) 3 ml NEB QIDRT [facility] Last Admin: 02/07/19 14:44 Dose: 3 ml Alprazolam (Xanax) 1 mg PO QID [facility] Last Admin: 02/07/19 11:20 Dose: 1 mg Bisacodyl (Dulcolax) 5 mg PO DAILY PRN PRN Reason: Constipation Carbamazepine (Tegretol Tab) 800 mg PO BEDTIME [facility] Last Admin: 02/06/19 20:44 Dose: 800 mg Docusate Sodium (Colace) 100 mg PO BID PRN PRN Reason: Constipation Enoxaparin Sodium (Lovenox) 40 mg SUBCUT DAILY [facility] Last Admin: 02/07/19 09:08 Dose: 40 mg Fluoxetine HCl (Prozac) 60 mg PO DAILY [facility] Last Admin: 02/07/19 09:07 Dose: 60 mg Furosemide (Lasix) 80 mg PO BIDDIURETIC [facility] Last Admin: 02/07/19 14:18 Dose: 80 mg Gabapentin (Neurontin) 900 mg PO QID [facility] Last Admin: 02/07/19 09:09 Dose: 900 mg Guaifenesin/Codeine Phosphate (Robitussin Ac) 10 ml PO Q4H PRN PRN Reason: Cough Last Admin: 02/07/19 13:12 Dose: 10 ml Doxycycline Hyclate 100 mg/ (Sodium Chloride) 100 mls @ 100 mls/hr IV Q12H [facility] Last Admin: 02/07/19 06:07 Dose: 100 mls/hr Ceftriaxone Sodium 2 gm/ (Sodium Chloride) 50 mls @ 100 mls/hr IV Q24H [facility] Insulin Human Lispro (Humalog) 0 unit SUBCUT QIDACANDBED [facility]; Protocol Last Admin: 02/07/19 11:53 Dose: 2 units Lamotrigine (Lamotrigine) 100 mg PO DAILY [facility] Last Admin: 02/07/19 09:10 Dose: 100 mg Lamotrigine (Lamotrigine) 200 mg PO BEDTIME [facility] Last Admin: 02/06/19 20:42 Dose: 200 mg Levothyroxine Sodium (Synthroid) 88 mcg PO ACBREAKFAST [facility] Last Admin: 02/07/19 09:05 Dose: 88 mcg Methylprednisolone Sodium Succinate (Solu-Medrol) 40 mg IV Q6H [facility] Morphine Sulfate (Morphine) 2 mg IVPUSH Q2H PRN PRN Reason: Pain (severe 7-10) Nicotine (Habitrol) 21 mg TRDERM DAILY [facility] Last Admin: 02/07/19 09:07 Dose: 21 mg Non-Formulary Medication (Ciclopirox [Loprox 0.77% Crm]) 1 cm TOP BID [facility] Non-Formulary Medication (Empagliflozin [Jardiance]) 10 mg PO DAILY [facility] Olanzapine (Zyprexa) 15 mg PO BEDTIME [facility] Last Admin: 02/06/19 20:43 Dose: 15 mg Ondansetron HCl (Zofran Odt) 4 mg PO Q6H PRN PRN Reason: Nausea able to take PO Ondansetron HCl (Zofran) 4 mg IV Q4H PRN PRN Reason: Nausea/Vomiting Oxycodone HCl (Oxycodone) 10 mg PO Q4H PRN PRN Reason: Pain (moderate 4-6) Pantoprazole Sodium (Protonix) 40 mg PO ACBREAKFAST [facility] Last Admin: 02/07/19 09:05 Dose: 40 mg Polyethylene Glycol (Miralax) 17 gm PO DAILY PRN PRN Reason: Constipation Potassium Chloride (Klor-Con M20) 20 meq PO BID [facility] Last Admin: 02/07/19 09:07 Dose: 20 meq Potassium Chloride (Klor-Con M20) 40 meq PO ONETIME ONE Stop: 02/07/19 17:01 Propranolol HCl (Inderal) 20 mg PO BID [facility] Last Admin: 02/07/19 09:08 Dose: 20 mg Propranolol HCl (Inderal) 20 mg PO DAILY PRN PRN Reason: Anxiety Last Admin: 02/07/19 14:18 Dose: 20 mg Discontinued Medications Acetaminophen (Tylenol) 650 mg PO NOW ONE Stop: 02/06/19 15:37 Last Admin: 02/06/19 16:08 Dose: 650 mg Guaifenesin/Codeine Phosphate (Robitussin Ac) 10 ml PO ONETIME ONE Stop: 02/06/19 15:37 Last Admin: 02/06/19 15:54 Dose: 10 ml Ceftriaxone Sodium 2 gm/ (Sodium Chloride) 50 mls @ 100 mls/hr IV Q24H [facility] Last Admin: 02/06/19 16:11 Dose: 100 mls/hr Doxycycline Hyclate 100 mg/ (Sodium Chloride) 100 mls @ 100 mls/hr IV Q12H [facility] Last Admin: 02/06/19 16:10 Dose: 100 mls/hr Lactated Ringer's (Ringers, Lactated) 1,000 mls @ 999 mls/hr IV ASDIRECTED [facility] Last Admin: 02/06/19 16:09 Dose: 999 mls/hr Potassium Chloride 20 meq/ (Premix) 100 mls @ 50 mls/hr IV ONETIME ONE Stop: 02/06/19 19:34 Last Admin: 02/06/19 18:16 Dose: 50 mls/hr Sodium Chloride (Normal Saline) 1,000 mls @ 125 mls/hr IV ASDIRECTED [facility] Last Admin: 02/07/19 13:41 Dose: 125 mls/hr Lidocaine HCl (Xylocaine-Mpf 1%) 2 ml IV ONETIME ONE Stop: 02/06/19 17:54 Last Admin: 02/06/19 18:17 Dose: 2 ml Methylprednisolone Sodium Succinate (Solu-Medrol) 125 mg IVPUSH ONETIME ONE Stop: 02/06/19 15:43 Last Admin: 02/06/19 16:12 Dose: 125 mg Methylprednisolone Sodium Succinate (Solu-Medrol) 62.5 mg IV Q6H [facility] Last Admin: 02/07/19 09:09 Dose: 62.5 mg Nicotine (Habitrol) 21 mg TRDERM ONETIME ONE Stop: 02/06/19 17:55 Last Admin: 02/06/19 18:24 Dose: 21 mg Nicotine (Habitrol) 21 mg TRDERM DAILY [facility] Pneumococcal Polyvalent Vaccine (Pneumovax 23) 0.5 ml IM .ONCE ONE Stop: 02/08/19 10:01 - Exam Quality Assessment: DVT Prophylaxis General: Alert, Oriented, Cooperative, Mild Distress Lungs: Decreased Breath Sounds, Rhonchi, Wheezing. No: Crackles, Rales, Rub, Stridor Cardiovascular: Regular Rate, Regular Rhythm, No Murmurs GI/Abdominal Exam: Soft, Non-Tender, No Organomegaly, No Distention Extremities: Non-Tender, No Pedal Edema Sepsis Event Note - Evaluation Sepsis Screening Result: No Definite Risk - Focused Exam Vital Signs: Vital Signs Temp Pulse Resp BP Pulse Ox Pulse Ox 02/07/19 15:00 96.5 F 64 18 102/57 L 94 L 02/07/19 14:45 76 91 L 02/07/19 11:30 61 94 L 02/07/19 11:00 95.2 F L 62 18 111/64 97 02/07/19 07:31 70 86 L 02/07/19 07:00 95.5 F 61 22 H 119/70 97 Date Exam was Performed: 02/07/19 Time Exam was Performed: 15:05 - Problem List Review Problem List Initiated/Reviewed/Updated: Yes - My Orders Last 24 Hours: My Active Orders 02/07/19 14:07 Propranolol [Inderal] 20 mg PO DAILY PRN 02/07/19 15:04 methylPREDNISolone Sod Succ [Solu-MEDROL] 40 mg IV Q6H Convert IV to Saline Lock [OM.PC] Routine 02/07/19 17:00 Potassium Chloride [Klor-Con M20] 40 meq PO ONETIME ONE 02/08/19 05:00 BASIC METABOLIC PANEL,BMP [CHEM] Timed CBC WITH AUTO DIFF [HEME] Timed - Plan Plan:: Assessment/Plan Comment: COPD WITH ACUTE BRONCHITIS -IV Rocephin 2 gram daily -IV Doxycycline 100 mg every 12 hours -IV Solu-medrol 40mg every 6 hours -Duonebs every 6 hours scheduled -Albuterol neb every 2 hours prn shortness of breath or wheezing -Robitussin AC 10ml every 4 hours prn cough -blood cultures x 2 pending -sputum culture pending Labs in am - CBC, BMP CONGESTIVE HEART FAILURE -continue Lasix 80 mg po bid -continue home medication Hypokalemia - Potassium 3.1 in ER, given IV Potassium 20 meq. -Potassium replacement bid -am Labs - BMP TYPE 2 DIABETES MELLITUS -Continue oral hypoglycemic therapy -Low-dose sliding scale Humalog -4 times a day glucometers Mental illness - reports Bi-polar, anxiety, depression, PTSD -continue home medication Nicotine dependence - reports smoke one and half pack of cigarettes daily -would like to quit -Nicotine patch 21 mg daily MAINTENANCE ISSUES -DVT prophylaxis;Lovenox 40 mg subcut daily -GI prophylaxis; IV Protonix 40 mg daily -Kimble catheter;Not indicated -Nutrition; Consistent Carb, no milk, dairy intolerance -Nicotine dependence; Nicotine 21mg patch CODE STATUS-FULL ADMISSION STATUS-patient will be admitted to inpatient status, expect at least a 2 night hospital stay for evaluation and management of problems as outlined above. At the time of this admission I do not reasonably expected evaluation and management of this problem will require more than a 96 hour hospital stay. DISPOSITION-anticipate discharge to home after the hospital stay. PRIMARY CARE PROVIDER-Dr. Marcio Harding HOSPITALIST - Dr. Ruiz
[2019-02-07] MEDS: cefTRIAXone 2 GM in Sodium Chloride 0.9% 50 ML IV SCH (15:21)
[2019-02-07] MEDS: methylPREDNISolone Sodium Succinate 40 MG/1 ML SDV IV SCH ×2 (15:36→21:12)
[2019-02-07] MEDS ORDERED: Potassium Chloride 20 MEQ Tab.ER PO ONE (17:00)
[2019-02-07] MEDS: tiZANidine 2 MG Tab PO PRN (21:09)
[2019-02-07] MEDS: carBAMazepine 200 MG Tab PO SCH (21:11)
[2019-02-07] MEDS: OLANZapine 5 MG Tab PO SCH (21:11)
[2019-02-08] MEDS: Codeine/guaiFENesin 100mg-10 MG/5 ML Syrup 10 ML Cup PO PRN ×4 (01:10→17:17)
[2019-02-08] MEDS: methylPREDNISolone Sodium Succinate 40 MG/1 ML SDV IV SCH ×3 (04:41→16:23)
[2019-02-08] MEDS: Gabapentin 300 MG Cap PO SCH ×3 (05:41→16:23)
[2019-02-08] MEDS: ALPRAZolam 0.5 MG Tab PO SCH ×3 (05:41→16:23)
[2019-02-08] MEDS: Doxycycline 100 MG in Sodium Chloride 0.9% 100 ML IV SCH (06:17)
[2019-02-08 08:02] VITALS: BP 102/49
[2019-02-08] MEDS: Levothyroxine 88 MCG Tab PO SCH (08:26)
[2019-02-08] MEDS: Pantoprazole 40 MG Tab.CR PO SCH (08:26)
[2019-02-08] MEDS: Furosemide 40 MG Tab PO SCH ×2 (08:28→14:24)
[2019-02-08] MEDS: Propranolol 40 MG Tab PO SCH (08:29)
[2019-02-08] MEDS: Potassium Chloride 20 MEQ Tab.ER PO SCH (08:30)
[2019-02-08] MEDS: lamoTRIgine 100 MG Tab PO SCH (08:31)
[2019-02-08] MEDS: Enoxaparin 40 MG/0.4 ML Syringe SUBCUT SCH (08:31)
[2019-02-08] MEDS: FLUoxetine 20 MG Cap PO SCH (08:32)
[2019-02-08] MEDS: Insulin Lispro 100 Unit/ML 3 ML KwikPen SUBCUT SCH ×2 (08:45→11:46)
[2019-02-08] MEDS: Albuterol/Ipratropium 3.0-0.5 MG/3 ML Neb Soln NEB SCH ×3 (09:01→14:42)
[2019-02-08] MEDS: tiZANidine 2 MG Tab PO PRN (09:56)
[2019-02-08] MEDS ORDERED: Pneumococcal Polyvalent-23 Vaccine 0.5 ML SDV IM ONE (10:00)
--- NOTE | 2019-02-08 10:46 | PCM.DCSUM1 ---
Discharge Summary - Hospital Course Brief History: Ms. Zeng is a 48-year-old woman who was admitted through the emergency department with increased shortness of breath and cough secondary to COPD exacerbation and underlying bronchitis. - Discharge Data Discharge Date: 02/08/19 Discharge Disposition: Home, W Home Health Agency 06 Condition: Stable - Referral to Home Health Date of Face to Face Encounter: 02/08/19 Reason for Homebound Status: Weakness, O2 dependent COPD Primary Care Physician: CONNOR Lopez Skilled Need: Nursing, PT, OT - Discharge Diagnosis/Problem(s) (1) COPD with acute bronchitis SNOMED Code(s): 600418717496669 ICD Code: J44.0 - CHR OBSTRUCTIVE PULMON DISEASE WITH (ACUTE) LOWER RESP INFCT; J20.9 - ACUTE BRONCHITIS, UNSPECIFIED Status: Acute Priority: High Current Visit: Yes (2) Chronic mental illness SNOMED Code(s): 098023808 ICD Code: F99 - MENTAL DISORDER, NOT OTHERWISE SPECIFIED Status: Chronic Priority: Medium Current Visit: Yes (3) Tobacco dependence syndrome SNOMED Code(s): 05904580 ICD Code: F17.200 - NICOTINE DEPENDENCE, UNSPECIFIED, UNCOMPLICATED Status : Chronic Priority: High Current Visit: Yes (4) Type 2 diabetes mellitus SNOMED Code(s): 64059858 ICD Code: E11.9 - TYPE 2 DIABETES MELLITUS WITHOUT COMPLICATIONS Status: Chronic Priority: Medium Current Visit: Yes Qualifiers: Diabetes mellitus senior living insulin use: 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 Zeng is a 48-year-old female who was admitted through the emergency department with complaint of shortness of breath and cough. She does have a known history of COPD will use oxygen at home as needed however she states over the last couple days she is gotten progressively more short of breath does have cough and sputum production also has had fevers at home. Chest x-ray was obtained in the emergency department and showed no obvious infiltrate. White blood cell count was modestly elevated and she was found to be hypoxic requiring supplemental oxygen. On admission she was started on antibiotic therapy with doxycycline and ceftriaxone. She received supplemental oxygen as well as IV fluids for hydration. Glucocorticoid therapy was initiated with Solu -Medrol every 6 hours. Over the next 2 days of hospitalization she improved significantly and was able to be up and about her room ambulating without significant shortness of breath. Physical exam had improved with much less wheezing and tightness. She will continue to require supplemental oxygen after discharge 2 L/min via nasal cannula. She already has oxygen available at home. She will be transitioned to oral antibiotic therapy with levofloxacin 500 mg daily for an additional 5 days. She will be transitioned to oral prednisone 40 mg daily for an additional 4 days. Follow-up appointment will be scheduled with her primary care provider within 1 week. She will resume home care services after discharge. Activity will be as tolerated and she will resume her usual diabetic diet. - Patient Instructions Diet: Diabetic Diet Activity: As Tolerated Other/Special Instructions: Please schedule follow-up appointment with primary care provider within 1 week. Home oxygen, 2 L/min via nasal cannula. - Discharge Plan *PRESCRIPTION DRUG MONITORING PROGRAM REVIEWED*: Not Applicable *COPY OF PRESCRIPTION DRUG MONITORING REPORT IN PATIENT PARVIZ: Not Applicable Prescriptions/Med Rec: Levofloxacin [Levaquin] 500 mg PO DAILY #5 tablet predniSONE [Prednisone] 40 mg PO DAILY #8 tablet Home Medications: Home Meds Gabapentin [Neurontin] 900 mg PO QID 11/18/14 [History] Polyethylene Glycol 3350 [MiraLAX] 17 gm PO DAILY PRN 11/18/14 [History] carBAMazepine [Epitol] 800 mg PO BEDTIME 01/27/15 [History] Ibuprofen 800 mg PO Q6H PRN 06/05/15 [History] Albuterol Sulfate [Proair Hfa] 1 - 2 puff IH Q4HR PRN 11/12/15 [History] Levothyroxine Sodium [Synthroid] 88 mcg PO ACBREAKFAST 11/12/15 [History] metFORMIN [Glucophage] 1,000 mg PO QID 11/12/15 [History] lamoTRIgine [Lamotrigine] 100 mg pe PO DAILY 06/08/16 [History] lamoTRIgine [Lamotrigine] 200 mg PO BEDTIME 06/08/16 [History] ALPRAZolam [Alprazolam] 1 mg PO QID 04/05/17 [History] Ciclopirox [Loprox 0.77% Crm] 1 cm TOP BID 07/12/17 [History] FLUoxetine HCl [Fluoxetine HCl] 60 mg PO DAILY 07/12/17 [History] OLANZapine [Olanzapine] 15 mg PO BEDTIME 07/12/17 [History] Albuterol/Ipratropium [DuoNeb 3.0-0.5 MG/3 ML] 3 ml IH QID 11/01/18 [History] Aspirin [Halfprin] 81 mg PO DAILY 11/01/18 [History] Empagliflozin [Jardiance] 10 mg PO DAILY 11/01/18 [History] Furosemide 80 mg PO BID 11/01/18 [History] Potassium Chloride [Klor-Con M20] 20 meq PO BID 11/01/18 [History] Propranolol [Inderal] 20 mg PO BID 02/06/19 [History] Propranolol [Inderal] 20 mg PO DAILY PRN 02/06/19 [History] tiZANidine [Zanaflex] 2 mg PO Q8HR PRN 02/06/19 [History] Levofloxacin [Levaquin] 500 mg PO DAILY #5 tablet 02/08/19 [Rx] predniSONE [Prednisone] 40 mg PO DAILY #8 tablet 02/08/19 [Rx] Oxygen Therapy Mode: Nasal Cannula Oxygen Flow Rate (L/min): 2 Maintain SpO2% greater than: 90 Referrals: Stephanie Ferguson DO [Physician] - 02/13/19 11:00 am ([facility]) - Discharge Summary/Plan Comment DC Time >30 min.: No - Patient Data Vitals - Most Recent: Last Vital Signs Temp 95 F L 02/08/19 07:59 Pulse 62 02/08/19 09:01 Resp 16 02/08/19 07:59 BP 102/49 L 02/08/19 07:59 Pulse Ox 97 02/08/19 07:59 Weight - Most Recent: 243 lb I&O - Last 24 hours: Intake & Output 02/07/19 02/08/19 02/08/19 22:59 06:59 14:59 Intake Total 2906 705 Output Total 1300 650 Balance 1606 55 Lab Results - Last 24 hrs: Laboratory Results - last 24 hr 02/08/19 02/08/19 Range/Units 05:47 05:47 WBC 11.5 H (4.5-11.0) K/uL RBC 4.41 (3.30-5.50) M/uL Hgb 10.3 L (12.0-15.0) g/dL Hct 35.5 L (36.0-48.0) % MCV 81 (80-98) fL MCH 23 L (27-31) pg MCHC 29 L (32-36) % Plt Count 275 (150-400) K/uL Neut % (Auto) 63 (36-66) % Lymph % (Auto) 23 L (24-44) % [place] % (Auto) 13 H (2-6) % Eos % (Auto) 0 L (2-4) % Baso % (Auto) 0 (0-1) % Sodium 135 L (140-148) mmol/L Potassium 4.1 (3.6-5.2) mmol/L Chloride 98 L (100-108) mmol/L Carbon Dioxide 33 H (21-32) mmol/L Anion Gap 8.1 (5.0-14.0) mmol/L BUN 12 D (7-18) mg/dL Creatinine 0.6 (0.6-1.0) mg/dL Est Cr Clr Drug Dosing 113.93 mL/min Estimated GFR (MDRD) > 60 (>60) Glucose 130 H (74-106) mg/dL Calcium 8.1 L (8.5-10.1) mg/dL CAROLE Results - Last 24 hrs: Microbiology 02/06/19 16:48 Gram Stain - Final Sputum - Expectorated Respiratory Culture - Preliminary NORMAL RESPIRATORY MITA 1 DAY 02/06/19 16:07 Aerobic Blood Culture - Preliminary Blood - Arm, Right NO GROWTH AFTER 1 DAY Anaerobic Blood Culture - Preliminary NO GROWTH AFTER 1 DAY 02/06/19 16:00 Aerobic Blood Culture - Preliminary Blood - Artery NO GROWTH AFTER 1 DAY Anaerobic Blood Culture - Preliminary NO GROWTH AFTER 1 DAY Med Orders - Current: Current Medications Acetaminophen (Tylenol) 650 mg PO Q4H PRN PRN Reason: Pain (Mild 1-3)/fever Last Admin: 02/07/19 01:50 Dose: 650 mg Albuterol (Proventil Neb Soln) 2.5 mg NEB Q2H PRN PRN Reason: Shortness Of Breath/wheezing Albuterol/Ipratropium (Duoneb 3.0-0.5 Mg/3 Ml) 3 ml NEB QIDRT [facility] Last Admin: 02/08/19 09:01 Dose: 3 ml Alprazolam (Xanax) 1 mg PO QID [facility] Last Admin: 02/08/19 10:01 Dose: 1 mg Bisacodyl (Dulcolax) 5 mg PO DAILY PRN PRN Reason: Constipation Carbamazepine (Tegretol Tab) 800 mg PO BEDTIME [facility] Last Admin: 02/07/19 21:11 Dose: 800 mg Docusate Sodium (Colace) 100 mg PO BID PRN PRN Reason: Constipation Enoxaparin Sodium (Lovenox) 40 mg SUBCUT DAILY [facility] Last Admin: 02/08/19 08:31 Dose: 40 mg Fluoxetine HCl (Prozac) 60 mg PO DAILY [facility] Last Admin: 02/08/19 08:32 Dose: 60 mg Furosemide (Lasix) 80 mg PO BIDDIURETIC [facility] Last Admin: 02/08/19 08:28 Dose: 80 mg Gabapentin (Neurontin) 900 mg PO QID [facility] Last Admin: 02/08/19 09:57 Dose: 900 mg Guaifenesin/Codeine Phosphate (Robitussin Ac) 10 ml PO Q4H PRN PRN Reason: Cough Last Admin: 02/08/19 06:27 Dose: 10 ml Doxycycline Hyclate 100 mg/ (Sodium Chloride) 100 mls @ 100 mls/hr IV Q12H [facility] Last Admin: 02/08/19 06:17 Dose: 100 mls/hr Ceftriaxone Sodium 2 gm/ (Sodium Chloride) 50 mls @ 100 mls/hr IV Q24H [facility] Last Admin: 02/07/19 15:21 Dose: 100 mls/hr Insulin Human Lispro (Humalog) 0 unit SUBCUT QIDACANDBED [facility]; Protocol Last Admin: 02/08/19 08:45 Dose: Not Given Lamotrigine (Lamotrigine) 100 mg PO DAILY [facility] Last Admin: 02/08/19 08:31 Dose: 100 mg Lamotrigine (Lamotrigine) 200 mg PO BEDTIME [facility] Last Admin: 02/07/19 21:10 Dose: 200 mg Levothyroxine Sodium (Synthroid) 88 mcg PO ACBREAKFAST [facility] Last Admin: 02/08/19 08:26 Dose: 88 mcg Methylprednisolone Sodium Succinate (Solu-Medrol) 40 mg IV Q6H [facility] Last Admin: 02/08/19 09:57 Dose: 40 mg Morphine Sulfate (Morphine) 2 mg IVPUSH Q2H PRN PRN Reason: Pain (severe 7-10) Nicotine (Habitrol) 21 mg TRDERM BEDTIME [facility] Non-Formulary Medication (Ciclopirox [Loprox 0.77% Crm]) 1 cm TOP BID [facility] Non-Formulary Medication (Empagliflozin [Jardiance]) 10 mg PO DAILY [facility] Olanzapine (Zyprexa) 15 mg PO BEDTIME [facility] Last Admin: 02/07/19 21:11 Dose: 15 mg Ondansetron HCl (Zofran Odt) 4 mg PO Q6H PRN PRN Reason: Nausea able to take PO Ondansetron HCl (Zofran) 4 mg IV Q4H PRN PRN Reason: Nausea/Vomiting Oxycodone HCl (Oxycodone) 10 mg PO Q4H PRN PRN Reason: Pain (moderate 4-6) Pantoprazole Sodium (Protonix) 40 mg PO ACBREAKFAST [facility] Last Admin: 02/08/19 08:26 Dose: 40 mg Polyethylene Glycol (Miralax) 17 gm PO DAILY PRN PRN Reason: Constipation Potassium Chloride (Klor-Con M20) 20 meq PO BID [facility] Last Admin: 02/08/19 08:30 Dose: 20 meq Propranolol HCl (Inderal) 20 mg PO BID [facility] Last Admin: 02/08/19 08:29 Dose: 20 mg Propranolol HCl (Inderal) 20 mg PO DAILY PRN PRN Reason: Anxiety Last Admin: 02/07/19 14:18 Dose: 20 mg Tizanidine HCl (Zanaflex) 2 mg PO Q8H PRN PRN Reason: Muscle Spasm Last Admin: 02/08/19 09:56 Dose: 2 mg Discontinued Medications Acetaminophen (Tylenol) 650 mg PO NOW ONE Stop: 02/06/19 15:37 Last Admin: 02/06/19 16:08 Dose: 650 mg Guaifenesin/Codeine Phosphate (Robitussin Ac) 10 ml PO ONETIME ONE Stop: 02/06/19 15:37 Last Admin: 02/06/19 15:54 Dose: 10 ml Ceftriaxone Sodium 2 gm/ (Sodium Chloride) 50 mls @ 100 mls/hr IV Q24H [facility] Last Admin: 02/06/19 16:11 Dose: 100 mls/hr Doxycycline Hyclate 100 mg/ (Sodium Chloride) 100 mls @ 100 mls/hr IV Q12H [facility] Last Admin: 02/06/19 16:10 Dose: 100 mls/hr Lactated Ringer's (Ringers, Lactated) 1,000 mls @ 999 mls/hr IV ASDIRECTED [facility] Last Admin: 02/06/19 16:09 Dose: 999 mls/hr Potassium Chloride 20 meq/ (Premix) 100 mls @ 50 mls/hr IV ONETIME ONE Stop: 02/06/19 19:34 Last Admin: 02/06/19 18:16 Dose: 50 mls/hr Sodium Chloride (Normal Saline) 1,000 mls @ 125 mls/hr IV ASDIRECTED [facility] Last Admin: 02/07/19 13:41 Dose: 125 mls/hr Lidocaine HCl (Xylocaine-Mpf 1%) 2 ml IV ONETIME ONE Stop: 02/06/19 17:54 Last Admin: 02/06/19 18:17 Dose: 2 ml Methylprednisolone Sodium Succinate (Solu-Medrol) 125 mg IVPUSH ONETIME ONE Stop: 02/06/19 15:43 Last Admin: 02/06/19 16:12 Dose: 125 mg Methylprednisolone Sodium Succinate (Solu-Medrol) 62.5 mg IV Q6H [facility] Last Admin: 02/07/19 09:09 Dose: 62.5 mg Nicotine (Habitrol) 21 mg TRDERM ONETIME ONE Stop: 02/06/19 17:55 Last Admin: 02/06/19 18:24 Dose: 21 mg Nicotine (Habitrol) 21 mg TRDERM DAILY [facility] Nicotine (Habitrol) 21 mg TRDERM DAILY [facility] Last Admin: 02/07/19 23:48 Dose: 21 mg Pneumococcal Polyvalent Vaccine (Pneumovax 23) 0.5 ml IM .ONCE ONE Stop: 02/08/19 10:01 Potassium Chloride (Klor-Con M20) 40 meq PO ONETIME ONE Stop: 02/07/19 17:01 Last Admin: 02/07/19 17:20 Dose: 40 meq - Exam General: Reports: Alert, Oriented, Cooperative, No Acute Distress Lungs: Reports: Normal Respiratory Effort, Wheezing. Denies: Rales, Rhonchi, Stridor Cardiovascular: Reports: Regular Rate, Regular Rhythm, No Murmurs GI/Abdominal Exam: Soft, Non-Tender, No Organomegaly, No Distention
[2019-02-08 14:43] VITALS: PULSE 60
[2019-02-08] MEDS: cefTRIAXone 2 GM in Sodium Chloride 0.9% 50 ML IV SCH (16:23)
[2019-02-08] MEDS ORDERED: Nicotine 21 MG/24 Hr Patch TRDERM SCH (21:00)
== END 2019-02-08 17:30 | disposition home health service (06) | DRG 202 ==
LOC: JP.ED 14:29 → JP.MS 18:25
PROVIDERS: ADMIT Hospitalist; ATTEND Hospitalist
DX: J20.9 Acute bronchitis, unspecified (principal); J44.1 Chronic obstructive pulmonary disease with (acute) exacerbation; J44.0 Chronic obstructive pulmonary disease with (acute) lower respiratory infection; R09.02 Hypoxemia; F99 Mental disorder, not otherwise specified; K58.1 Irritable bowel syndrome with constipation; F17.200 Nicotine dependence, unspecified, uncomplicated; E11.9 Type 2 diabetes mellitus without complications; H54.7 Unspecified visual loss; K59.09 Other constipation; F17.210 Nicotine dependence, cigarettes, uncomplicated; G89.29 Other chronic pain; I50.9 Heart failure, unspecified; E87.6 Hypokalemia; M54.9 Dorsalgia, unspecified; M54.2 Cervicalgia; G43.909 Migraine, unspecified, not intractable, without status migrainosus; F60.3 Borderline personality disorder; Z91.5 Personal history of self-harm; F41.9 Anxiety disorder, unspecified; F31.9 Bipolar disorder, unspecified; F43.10 Post-traumatic stress disorder, unspecified; E03.9 Hypothyroidism, unspecified; E66.9 Obesity, unspecified; Z68.38 Body mass index [BMI] 38.0-38.9, adult; Z90.89 Acquired absence of other organs; Z98.51 Tubal ligation status; Z98.890 Other specified postprocedural states; Z85.41 Personal history of malignant neoplasm of cervix uteri; Z99.81 Dependence on supplemental oxygen; Z79.84 Long term (current) use of oral hypoglycemic drugs; Z79.899 Other long term (current) drug therapy; Z79.890 Hormone replacement therapy
CPT/HCPCS: 36415; 36600; 71046; 80053; 81001; 82803; 83605; 84484; 85025; 86140; 87040 ×2; 87070; 87077; 87205; 87804 ×2; 96365; 96367; 96375; 99284; 99285; A9270 ×3; J0696; J2001; J2930; J3480; J3490; J7050 ×2; J7120; 80048; 82962; 94640; 94762; J1650; J1815; J2920; J7030; J7620-GY

== ENCOUNTER 2019-04-21 23:47 | Emergency (ER) | payer MEDICARE, BC ==
--- NOTE | 2019-04-22 00:29 | EDM.PDOC ---
ED HPI GENERAL MEDICAL PROBLEM - General Chief Complaint: Flank Pain Stated Complaint: [facility] Time Seen by Provider: 04/22/19 00:20 Source of Information: Reports: Patient, RN Notes Reviewed History Limitations: Reports: No Limitations - History of Present Illness INITIAL COMMENTS - FREE TEXT/NARRATIVE: 48-year-old female presents emergency department today complaint of abdominal pain, she states the pain started about 24 hours ago no nausea or vomiting she still passing gas does have a history of abdominal surgeries pain is predominantly on the left flank area, EMS services were called she did receive 100 mcg of fentanyl while in route now has become very somnolent and hypotensive. Does arouse and will respond to questions LLQ Pain Score (Numeric/FACES): 4 - Related Data Allergies Allergy/AdvReac Type Severity Reaction Status Date / Time No Known Allergies Allergy Verified 04/22/19 00:08 Home Meds: Home Meds Gabapentin [Neurontin] 900 mg PO QID 11/18/14 [History] Polyethylene Glycol 3350 [MiraLAX] 17 gm PO DAILY PRN 11/18/14 [History] carBAMazepine [Epitol] 800 mg PO BEDTIME 01/27/15 [History] Ibuprofen 800 mg PO Q6H PRN 06/05/15 [History] Albuterol Sulfate [Proair Hfa] 1 - 2 puff IH Q4HR PRN 11/12/15 [History] Levothyroxine Sodium [Synthroid] 100 mcg PO ACBREAKFAST 11/12/15 [History] metFORMIN [Glucophage] 1,000 mg PO BID 11/12/15 [History] lamoTRIgine [Lamotrigine] 100 mg PO BID 06/08/16 [History] ALPRAZolam [Alprazolam] 1 mg PO QID 04/05/17 [History] Ciclopirox [Loprox 0.77% Crm] 1 cm TOP BID 07/12/17 [History] FLUoxetine HCl [Fluoxetine HCl] 60 mg PO DAILY 07/12/17 [History] OLANZapine [Olanzapine] 10 mg PO BID 07/12/17 [History] Albuterol/Ipratropium [DuoNeb 3.0-0.5 MG/3 ML] 3 ml IH QID 11/01/18 [History] Aspirin [Halfprin] 81 mg PO DAILY 11/01/18 [History] Empagliflozin [Jardiance] 10 mg PO DAILY 11/01/18 [History] Furosemide 80 mg PO BID 11/01/18 [History] Potassium Chloride [Klor-Con M20] 20 meq PO BID 11/01/18 [History] Propranolol [Inderal] 20 mg PO DAILY PRN 02/06/19 [History] Propranolol [Inderal] 20 mg PO TID 02/06/19 [History] tiZANidine [Zanaflex] 2 mg PO Q8HR PRN 02/06/19 [History] Ergocalciferol (Vitamin D2) [Vitamin D2] 50,000 unit PO Q7D 04/22/19 [History] Fluticasone/Umeclidin/Vilanter [Trelegy Ellipta 100-62.5-25] 1 puff INH DAILY [History] Simvastatin 1 tab PO BEDTIME 04/22/19 [History] lisinopriL [Lisinopril] 1 tab PO DAILY 04/22/19 [History] Past Medical History HEENT History: Reports: Impaired Vision, Other (See Below) Other HEENT History: dental caries; wears glasses Cardiovascular History: Reports: Heart Failure, High Cholesterol, Hypertension, SOB on Exertion Respiratory History: Reports: COPD, SOB, Other (See Below) Other Respiratory History: wheezing at noc; uses home O2; hospitalized in ICU 2017 for pneumonia Gastrointestinal History: Reports: Chronic Constipation, Irritable Bowel Syndrome Other Gastrointestinal History: constipation Genitourinary History: Reports: UTI, Recurrent [employer]AL[employer] 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: Reports: Musculoskeletal History: Reports: Back Pain, Chronic, Fracture, Neck Pain, Chronic Other Musculoskeletal History: left wrist 10/07/13 Neurological History: Reports: Concussion, Headaches, Chronic, Migraines Psychiatric History: Reports: Anxiety, Bipolar, Depression, Psych Hospitalization(s), PTSD, Suicide Attempt, Suicidal Ideation, Other (See Below) Other Psychiatric History: seeing psychologist, BORDERLINE PERSONALITY Endocrine/Metabolic History: Reports: Diabetes, Type II, Hypothyroidism, Obesity /BMI 30+ Oncologic (Cancer) History: Reports: Cervix Other Oncologic History: frozen - Infectious Disease History Infectious Disease History: Reports: Chicken Pox - Past Surgical History Head Surgeries/Procedures: Reports: None HEENT Surgical History: Reports: Adenoidectomy, Tonsillectomy Cardiovascular Surgical History: Reports: None Respiratory Surgical History: Reports: None GI Surgical History: Reports: Hernia, Abdominal, Hernia Repair/Other, Other ( See Below) Other GI Surgeries/Procedures: laparoscopies umbilical hernia with mesh x4 Female Surgical History: Reports: Section, Cervical Cryotherapy, Cystectomy, Tubal Ligation Endocrine Surgical History: Reports: None Neurological Surgical History: Reports: None Musculoskeletal Surgical History: Reports: Other (See Below) Other Musculoskeletal Surgeries/Procedures:: wrist surgery Oncologic Surgical History: Reports: None Dermatological Surgical History: Reports: None Social & Family History - Family History Family Medical History: Noncontributory HEENT: Reports: Impaired Vision Cardiac: Reports: IA, Stent Respiratory: Reports: COPD Musculoskeletal: Reports: Back pain, Chronic Endocrine/Metabolic: Reports: Diabetes, type II, Hypothyroidism Oncologic: Reports: Prostate - Tobacco Use Smoking Status *Q: Current Every Day Smoker Years of Tobacco use: 31 Packs/Tins Daily: 1 - Caffeine Use Caffeine Use: Reports: Coffee, Soda Other Caffeine Use: high intake per day - Recreational Drug Use Recreational Drug Use: No - Living Situation & Occupation Living situation: Reports: with Significant Other (lives with YOVANY Goldman in [place]. 2 children ages 26 years and 11 years.) Occupation: Disabled ED ROS GENERAL - Review of Systems Review Of Systems: See Below Constitutional: Reports: No Symptoms HEENT: Reports: No Symptoms Respiratory: Reports: Shortness of Breath Cardiovascular: Reports: Dyspnea on Exertion GI/Abdominal: Reports: Abdominal Pain, Flatus. Denies: Nausea, Vomiting : Reports: No Symptoms ED EXAM, GI/ABD - Physical Exam Exam: See Below Exam Limited By: No Limitations General Appearance: Obese, Other (Somnolent but arousable) Respiratory/Chest: No Respiratory Distress, Lungs Clear, Normal Breath Sounds, No Accessory Muscle Use, Chest Non-Tender Cardiovascular: Regular Rate, Rhythm, No Murmur GI/Abdominal Exam: Normal Bowel Sounds, Soft, Non-Tender, No Organomegaly, No Distention, No Mass Course - Vital Signs Last Recorded V/S: Last Vital Signs Temp 97.1 F 04/22/19 00:09 Pulse 70 04/22/19 00:09 Resp 20 04/22/19 00:09 BP 97/57 L 04/22/19 00:09 Pulse Ox 93 L 04/22/19 00:09 - Orders/Labs/Meds Orders: Active Orders 24 hr Category Date Time Status Abdomen 1V Upright [CR] Urgent Exams 04/22/19 00:24 Taken Labs: Laboratory Tests 04/22/19 04/22/19 04/22/19 Range/Units 00:30 00:30 00:30 WBC 14.1 H (4.5-11.0) K/uL RBC 5.26 (3.30-5.50) M/uL Hgb 11.4 L (12.0-15.0) g/dL Hct 38.9 (36.0-48.0) % MCV 74 L (80-98) fL MCH 22 L (27-31) pg MCHC 29 L (32-36) % Plt Count 327 (150-400) K/uL Neut % (Auto) 67 H (36-66) % Lymph % (Auto) 20 L (24-44) % [place] % (Auto) 13 H (2-6) % Eos % (Auto) 1 L (2-4) % Baso % (Auto) 0 (0-1) % Sodium 140 (140-148) mmol/L Potassium 3.9 (3.6-5.2) mmol/L Chloride 102 (100-108) mmol/L Carbon Dioxide 27 (21-32) mmol/L Anion Gap 10.9 (5.0-14.0) mmol/L BUN 8 (7-18) mg/dL Creatinine 0.5 L (0.6-1.0) mg/dL Est Cr Clr Drug Dosing 141.82 mL/min Estimated GFR (MDRD) > 60 (>60) Glucose 95 (74-106) mg/dL Lactic Acid 0.9 (0.4-2.0) mmol/L Calcium 7.7 L (8.5-10.1) mg/dL Total Bilirubin 0.3 (0.2-1.0) mg/dL AST 11 L D (15-37) U/L ALT 14 D (12-78) U/L Alkaline Phosphatase 99 (46-116) U/L Troponin I < 0.017 (0.000-0.056) ng/mL Total Protein 6.7 (6.4-8.2) g/dL Albumin 2.9 L (3.4-5.0) g/dL Globulin 3.8 H (2.3-3.5) g/dL Albumin/Globulin Ratio 0.8 L (1.2-2.2) Lipase 91 (73-393) U/L Urine Color (YELLOW) Urine Appearance (CLEAR) Urine pH (5.0-8.0) Ur Specific [place] (1.008-1.030) Urine Protein (NEGATIVE) mg/dL Urine Glucose (UA) (NEGATIVE) mg/dL Urine Ketones (NEGATIVE) mg/dL Urine Occult Blood (NEGATIVE) Urine Nitrite (NEGATIVE) Urine Bilirubin (NEGATIVE) Urine Urobilinogen (0.2-1.0) EU/dL Ur Leukocyte Esterase (NEGATIVE) Urine RBC (0-5) Urine WBC (0-5) Ur Epithelial Cells Amorphous Sediment Urine Bacteria Urine Mucus 04/22/19 Range/Units 00:55 WBC (4.5-11.0) K/uL RBC (3.30-5.50) M/uL Hgb (12.0-15.0) g/dL Hct (36.0-48.0) % MCV (80-98) fL MCH (27-31) pg MCHC (32-36) % Plt Count (150-400) K/uL Neut % (Auto) (36-66) % Lymph % (Auto) (24-44) % [place] % (Auto) (2-6) % Eos % (Auto) (2-4) % Baso % (Auto) (0-1) % Sodium (140-148) mmol/L Potassium (3.6-5.2) mmol/L Chloride (100-108) mmol/L Carbon Dioxide (21-32) mmol/L Anion Gap (5.0-14.0) mmol/L BUN (7-18) mg/dL Creatinine (0.6-1.0) mg/dL Est Cr Clr Drug Dosing mL/min Estimated GFR (MDRD) (>60) Glucose (74-106) mg/dL Lactic Acid (0.4-2.0) mmol/L Calcium (8.5-10.1) mg/dL Total Bilirubin (0.2-1.0) mg/dL AST (15-37) U/L ALT (12-78) U/L Alkaline Phosphatase (46-116) U/L Troponin I (0.000-0.056) ng/mL Total Protein (6.4-8.2) g/dL Albumin (3.4-5.0) g/dL Globulin (2.3-3.5) g/dL Albumin/Globulin Ratio (1.2-2.2) Lipase (73-393) U/L Urine Color Yellow (YELLOW) Urine Appearance Clear (CLEAR) Urine pH 7.0 (5.0-8.0) Ur Specific [place] 1.010 (1.008-1.030) Urine Protein Negative (NEGATIVE) mg/dL Urine Glucose (UA) 500 H (NEGATIVE) mg/dL Urine Ketones Negative (NEGATIVE) mg/dL Urine Occult Blood Trace-lysed H (NEGATIVE) Urine Nitrite Negative (NEGATIVE) Urine Bilirubin Negative (NEGATIVE) Urine Urobilinogen 0.2 (0.2-1.0) EU/dL Ur Leukocyte Esterase Negative (NEGATIVE) Urine RBC 0-5 (0-5) Urine WBC 0-5 (0-5) Ur Epithelial Cells Few Amorphous Sediment Not seen Urine Bacteria Few Urine Mucus Not seen Meds: Medications Discontinued Medications Generic Name Dose Route Start Last Admin Trade Name Grantq PRN Reason Stop Dose Admin Simethicone 160 mg 04/22/19 01:10 04/22/19 01:18 Simethicone PO 04/22/19 01:11 160 mg ONETIME ONE Administration Departure - Departure Time of Disposition: 01:38 Disposition: Home, Self-Care 01 Condition: Fair Clinical Impression: Abdominal pain Qualifiers: Abdominal location: unspecified location Qualified Code(s): R10.9 - Unspecified abdominal pain - Discharge Information Instructions: Abdominal Pain, Adult, [id number] Referrals: PCP,None [Primary Care Provider] - Forms: ED Department Discharge Additional Instructions: Try the MiraLAX at home for the stooling gas, use hydrocodone 1 tablet p.o. 3 times daily as needed as needed for pain control, please followup with your primary care provider in 2-3 days if not better, please call return to the emergency department with worsening of symptoms. Sepsis Event Note - Evaluation Sepsis Screening Result: No Definite Risk - Focused Exam Vital Signs: Vital Signs Temp Pulse Resp BP Pulse Ox 04/22/19 00:09 97.1 F 70 20 97/57 L 93 L 04/21/19 23:53 97.1 F 70 22 H 97/57 L 93 L Date Exam was Performed: 04/22/19 Time Exam was Performed: 01:36 - My Orders Last 24 Hours: My Active Orders 04/22/19 00:24 Abdomen 1V Upright [CR] Urgent - Assessment/Plan Last 24 Hours: My Active Orders 04/22/19 00:24 Abdomen 1V Upright [CR] Urgent Plan: Assessment Acuity = acute Site and laterality = left-sided flank pain Etiology = unknown Manifestations = none Location of injury = Home Lab values = WBC elevated 14.7 consistent leukocytosis remainder CBC unremarkable, CMP unremarkable troponin is negative urinalysis reveals trace blood, x-ray abdomen shows moderate amount of gas and stool Plan Prescription written for hydrocodone 5/325 1 tab p.o. 3 times daily PRN total number 4 have her follow-up with her primary care in the next 2 to 3 days if not better This note was dictated using [email or web address] voice recognition software please call with any questions on syntax or grammar.
[2019-04-22] MEDS ORDERED: Simethicone 80 MG Tab.Chew PO ONE (01:10)
[2019-04-22 01:58] VITALS: BP 95/49; PULSE 69
--- NOTE | 2019-04-22 08:44 | CR ---
Abdomen 1V Upright CLINICAL HISTORY: Abdominal pain FINDINGS: Small intestinal gas pattern is nonacute. There is no free intraperitoneal air identified. There is moderate stool in the right colon and gaseous distention of the transverse and descending colon. Patient has had previous abdominal hernia repair. IMPRESSION: Moderate fecal retention Nonacute small intestinal gas pattern
== END 2019-04-22 02:03 | disposition home or self-care (01) ==
LOC: JP.ED 23:47
DX: R10.32 Left lower quadrant pain (principal); I11.0 Hypertensive heart disease with heart failure; I50.9 Heart failure, unspecified; E78.00 Pure hypercholesterolemia, unspecified; J44.9 Chronic obstructive pulmonary disease, unspecified; F41.9 Anxiety disorder, unspecified; F32.9 Major depressive disorder, single episode, unspecified; E11.9 Type 2 diabetes mellitus without complications; E66.9 Obesity, unspecified; Z68.38 Body mass index [BMI] 38.0-38.9, adult; F17.210 Nicotine dependence, cigarettes, uncomplicated; Z79.899 Other long term (current) drug therapy; Z79.82 Long term (current) use of aspirin; Z79.84 Long term (current) use of oral hypoglycemic drugs
CPT/HCPCS: 36415; 74018; 80053; 81001; 83605; 83690; 84484; 85025; 99283; 99284; A9270

== ENCOUNTER 2020-08-26 20:04 | Emergency (ER) | payer MEDICARE, MEDICAID ==
[2020-08-26] MEDS ORDERED: Acetaminophen/HYDROcodone 325-10 MG Tab PO ONE (21:05)
[2020-08-26] MEDS ORDERED: Sodium Chloride 3% 500 ML IV SCH (22:30)
--- NOTE | 2020-08-26 22:32 | EDM.PDOC ---
ED HPI GENERAL MEDICAL PROBLEM - General Chief Complaint: Neurological Problem Stated Complaint: PASSING OUT Time Seen by Provider: 08/26/20 20:25 Source of Information: Reports: Patient, [facility] Records History Limitations: Reports: No Limitations - History of Present Illness INITIAL COMMENTS - FREE TEXT/NARRATIVE: 49-year-old female who is been having some problems over the past 1-2 weeks with syncopal episodes. She had an MRI of the head, a fairly complete blood work-up and is on a Holter monitor. Tonight she had 2 additional episodes of syncope, the second she fell and hit her knees hard on the floor and is having some right knee pain. Apparently after EMS arrived she had a syncopal episode while they were there and was hypotensive and bradycardic. She was given 500 cc of IV bolus fluid in route to the hospital, she arrives sleepy and acting somewhat sedated but otherwise stable. Her main complaint is right knee discomfort. She is asking for something for pain. Onset: Unknown/Unsure Duration: Week(s): (Symptoms have been recurring for several weeks) Location: Reports: Lower Extremity, Right (Pain from falling) Associated Symptoms: Reports: Confusion (Mild intermittent confusion), Malaise, Weakness. Denies: Headaches, Loss of Appetite, Nausea/Vomiting, Shortness of Breath - Related Data Allergies Allergy/AdvReac Type Severity Reaction Status Date / Time No Known Allergies Allergy Verified 08/26/20 20:22 Home Meds: Home Meds ALPRAZolam [Xanax] 1 mg PO QID PRN 08/26/20 [History] Albuterol [Ventolin HFA] 1 puff IH Q4HR PRN 08/26/20 [History] Aspirin [Halfprin] 81 mg PO DAILY 08/26/20 [History] Ciclopirox Olamine [Loprox] 1 applic TOP BID 08/26/20 [History] Clotrimazole [Lotrimin AF 1% Crm] 1 applic TOP BID 08/26/20 [History] Cyanocobalamin (Vitamin B-12) [Vitamin B-12] 1,000 mcg SL DAILY 08/26/20 [History] Docusate Sodium [Dulcolax Stool Softener] 2 tab PO DAILY 08/26/20 [History] Ergocalciferol (Vitamin D2) [Vitamin D2] 1,250 mcg PO WEEKLY 08/26/20 [History] FLUoxetine [PROzac] 3 cap PO DAILY 08/26/20 [History] Fluticasone/Umeclidin/Vilanter [Trelegy Ellipta 100-62.5-25] 1 puff IH DAILY 08/26/20 [History] Furosemide 2 tab PO BID 08/26/20 [History] Gabapentin [Neurontin] 3 cap PO QID 08/26/20 [History] Levothyroxine [Synthroid] 100 mcg PO ACBREAKFAST 08/26/20 [History] Oxybutynin Chloride [Oxybutynin Chloride ER] 5 mg PO DAILY 08/26/20 [History] Potassium Chloride 20 meq PO BID 08/26/20 [History] Sennosides [Senna] 8.6 mg PO BEDTIME 08/26/20 [History] Simvastatin [Zocor] 10 mg PO BEDTIME 08/26/20 [History] Urea [Urea 40% Crm] 1 applic TOP BID 08/26/20 [History] lamoTRIgine [Lamotrigine] 100 mg PO BID 08/26/20 [History] lisinopriL [Lisinopril] 2.5 mg PO DAILY 08/26/20 [History] metFORMIN [Glucophage] 1,000 mg PO BIDMEALS 08/26/20 [History] methocarbamoL [Methocarbamol] 500 mg PO TID 08/26/20 [History] polyethylene glycoL 3350 [Polyethylene Glycol 3350] 17 gm PO DAILY PRN 08/26/20 [History] risperiDONE [Risperidone] 1 mg PO ASDIRECTED 08/26/20 [History] Past Medical History HEENT History: Reports: Impaired Vision Respiratory History: Reports: COPD, Sleep Apnea, Other (See Below) Gastrointestinal History: Reports: Chronic Constipation Genitourinary History: Reports: None 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 History: Reports: Musculoskeletal History: Reports: Fibromyalgia Psychiatric History: Reports: Anxiety, Depression, Panic Attack, PTSD Endocrine/Metabolic History: Reports: Diabetes, Type II, Hypothyroidism, Obesity/BMI 30+ Oncologic (Cancer) History: Reports: Cervix - Past Surgical History Head Surgeries/Procedures: Reports: None HEENT Surgical History: Reports: Adenoidectomy, Tonsillectomy Respiratory Surgical History: Reports: None GI Surgical History: Reports: None, Hernia Repair/Other Female Surgical History: Reports: Section, D&C Endocrine Surgical History: Reports: None Musculoskeletal Surgical History: Reports: Other (See Below) Other Musculoskeletal Surgeries/Procedures:: left wrist Oncologic Surgical History: Reports: None Dermatological Surgical History: Reports: None Social & Family History - Tobacco Use Tobacco Use Status *Q: Former Tobacco User Years of Tobacco use: 30 Packs/Tins Daily: 2 Used Tobacco, but Quit: No Second Hand Smoke Exposure: Yes - Caffeine Use Caffeine Use: Reports: Coffee, Soda - Recreational Drug Use Recreational Drug Use: No ED ROS GENERAL - Review of Systems Review Of Systems: See Below Constitutional: Reports: Malaise. Denies: Fever, Chills HEENT: Denies: Vision Change Respiratory: Denies: Shortness of Breath Cardiovascular: Reports: Lightheadedness, Syncope. Denies: Chest Pain Endocrine: Reports: Low Glucose (EMS checked glucose on arrival which was 75, they considered this low and gave her D50 and her glucose was 110 on arrival to ER) ED EXAM, NEURO - Physical Exam Exam: See Below Exam Limited By: No Limitations General Appearance: Alert, No Apparent Distress, Other (Patient is acting somewhat sleepy, very flat affect and slightly slurred speech) Eye Exam: Bilateral Eye: Normal Inspection Head Exam: Atraumatic Neck: Supple, Non-Tender Respiratory/Chest: Lungs Clear Cardiovascular: Regular Rate, Rhythm. No: Bradycardia, Tachycardia GI/Abdominal: Soft, Non-Tender Neurological: Alert, No Motor/Sensory Deficits, Oriented x 3 Extremities: Other (Superficial abrasion on the right knee, no effusion or ligam ent instability but very tender over the patella) Psychiatric: Depressed Mood, Flat Affect Skin Exam: Warm, Dry, Other (Superficial abrasion on the right knee) Course - Vital Signs Last Recorded V/S: Last Vital Signs Temp 97.6 F 08/26/20 20:07 Pulse 91 08/26/20 23:00 Resp 16 08/26/20 23:00 BP 99/65 08/26/20 23:00 Pulse Ox 96 08/26/20 23:00 - Orders/Labs/Meds Orders: Active Orders 24 hr Category Date Time Status Knee 3V Rt [CR] Stat Exams 08/26/20 21:05 Taken Labs: Laboratory Tests 08/26/20 08/26/20 Range/Units 21:45 21:45 WBC 14.7 H (4.5-11.0) K/uL RBC 5.24 (3.30-5.50) M/uL Hgb 15.9 H (12.0-15.0) g/dL Hct 47.0 (36.0-48.0) % MCV 90 (80-98) fL MCH 30 (27-31) pg MCHC 34 (32-36) % Plt Count 229 (150-400) K/uL Neut % (Auto) 73.6 H (36-66) % Lymph % (Auto) 15.4 L (24-44) % Trigg % (Auto) 10.3 H (2-6) % Eos % (Auto) 0.6 L (2-4) % Baso % (Auto) 0.1 (0-1) % Sodium 140 (140-148) mmol/L Potassium 3.1 L (3.6-5.2) mmol/L Chloride 97 L (100-108) mmol/L Carbon Dioxide 31 (21-32) mmol/L Anion Gap 15.1 H (5.0-14.0) mmol/L BUN 4 L (7-18) mg/dL Creatinine 1.0 (0.6-1.0) mg/dL Est Cr Clr Drug Dosing 67.63 mL/min Estimated GFR (MDRD) 59 L (>60) Glucose 96 (74-106) mg/dL Calcium 8.4 L (8.5-10.1) mg/dL Total Bilirubin 0.3 (0.2-1.0) mg/dL AST 15 (15-37) U/L ALT 17 (12-78) U/L Alkaline Phosphatase 116 (46-116) U/L C-Reactive Protein 2.44 H (0.0-0.3) mg/dL Total Protein 6.7 (6.4-8.2) g/dL Albumin 2.8 L (3.4-5.0) g/dL Globulin 3.9 H (2.3-3.5) g/dL Albumin/Globulin Ratio 0.7 L (1.2-2.2) Meds: Medications Discontinued Medications Generic Name Dose Route Start Last Admin Trade Name Freq PRN Reason Stop Dose Admin Hydrocodone Bitart/Acetaminophen 1 tab 08/26/20 21:05 08/26/20 21:25 Acetaminophen/Hydrocodone 325-10 Mg Tab PO 08/26/20 21:06 1 tab ONETIME ONE Administration Sodium Chloride 1,000 mls @ 1,000 mls/hr 08/26/20 22:45 08/26/20 22:37 Normal Saline IV 1,000 mls/hr ASDIRECTED TONEY Administration - Re-Assessments/Exams Free Text/Narrative Re-Assessment/Exam: 08/27/20 05:51 An x-ray was done of the right knee which showed no fracture, patient was given 1 10 mg hydrocodone for pain control. Her medical records were reviewed, a recent MRI that she said showed "MS" was actually pretty normal and the MS changes were felt to be most likely normal. CBC and CMP were obtained, mild dehydration is possible with a slightly elevated BUN/creatinine so normal saline was continued as a bolus. Patient rested comfortably while in the emergency room. On further questioning she just started a muscle relaxer a couple weeks ago by her primary provider which definitely could be interacting with the numerous medications she takes including psychiatric medications. I encouraged her to stop the muscle relaxer until she is consulted by neurology next week. I offered to consider transfer the patient to [facility] in [facility] but she preferred to go home, she does have assistance. Departure - Departure Time of Disposition: 22:48 Disposition: Home, Self-Care 01 Clinical Impression: Syncope Qualifiers: Syncope type: vasovagal syncope Qualified Code(s): R55 - Syncope and collapse Hypotension Qualifiers: Hypotension type: unspecified hypotension type Qualified Code(s): I95.9 - Hypotension, unspecified - Discharge Information Instructions: Syncope Referrals: Abbi Harding PA [Primary Care Provider] - Forms: ED Department Discharge Care Plan Goals: Stop taking the muscle relaxer that was recently prescribed to you, and concentrate on getting plenty of fluids. Recheck with neurology as scheduled, or return to the emergency room if symptoms are persistent or worsening. Sepsis Event Note (ED) - Evaluation Sepsis Screening Result: No Definite Risk - Focused Exam Vital Signs: Vital Signs Temp Pulse Resp BP Pulse Ox 08/26/20 23:00 91 16 99/65 96 08/26/20 22:30 93 20 104/71 95 08/26/20 22:15 95 21 H 85/58 L 95 08/26/20 21:45 92 24 H 94/64 94 L 08/26/20 21:15 92 23 H 96/59 L 96 08/26/20 21:00 99 24 H 104/67 88 L 08/26/20 20:45 98 24 H 106/75 94 L 08/26/20 20:30 102 H 19 94/62 90 L 08/26/20 20:15 98 23 H 97/62 90 L 08/26/20 20:07 97.6 F 98 24 H 108/60 94 L 08/26/20 20:05 97.6 F 98 24 H 108/60 94 L - My Orders Last 24 Hours: My Active Orders 08/26/20 21:05 Knee 3V Rt [CR] Stat - Assessment/Plan Last 24 Hours: My Active Orders 08/26/20 21:05 Knee 3V Rt [CR] Stat
[2020-08-26] MEDS ORDERED: Sodium Chloride 0.9% 1,000 ML IV SCH (22:45)
[2020-08-26 23:10] VITALS: BP 99/65; PULSE 91
--- NOTE | 2020-08-27 08:53 | CR ---
Knee 3V Rt CLINICAL HISTORY: Injury FINDINGS: No acute fracture or dislocation is noted. There are no osseous lesions. Articular surfaces are smooth. Impression: Negative
== END 2020-08-26 23:28 | disposition home or self-care (01) ==
LOC: MERGE 20:04 → JP.ED 20:04
DX: I95.9 Hypotension, unspecified (principal); J44.9 Chronic obstructive pulmonary disease, unspecified; E11.9 Type 2 diabetes mellitus without complications; E03.9 Hypothyroidism, unspecified; E66.9 Obesity, unspecified; Z68.34 Body mass index [BMI] 34.0-34.9, adult; Z79.82 Long term (current) use of aspirin; Z79.899 Other long term (current) drug therapy
CPT/HCPCS: 36415; 73562; 80053; 85025; 86140; 99284; A9270; J7030

== ENCOUNTER 2020-08-30 23:39 | Observation (INO) | payer MEDICARE, MEDICAID ==
[2020-08-31] MEDS ORDERED: Lactated Ringers 1,000 ML IV SCH (00:15)
[2020-08-31] MEDS ORDERED: Piperacillin/Tazobactam 4.5 GM in Sodium Chloride 0.9% 100 ML IV ONE (00:17)
--- NOTE | 2020-08-31 00:24 | EDM.PDOC ---
ED HPI GENERAL MEDICAL PROBLEM - General Chief Complaint: Neurological Problem Stated Complaint: [facility] Time Seen by Provider: 08/31/20 00:09 Source of Information: Reports: Patient, EMS, Old Records, RN Notes Reviewed History Limitations: Reports: Altered Mental Status - History of Present Illness INITIAL COMMENTS - FREE TEXT/NARRATIVE: 49-year-old female presents emergency department day following multiple syncopal events, she has been evaluated in the emergency department for syncopal events in the past does have a Holter monitor in place however this particular event she is very lethargic and weak she denies any fevers she is arousable to stimulation denies any pain also of note she is hypoxic she normally does not wear oxygen Treatments URGENT CARE: Reports: Isotonic Fluid, IV/IO, See EMS Report Right Hip Pain Score (Numeric/FACES): 10 - Related Data Allergies Allergy/AdvReac Type Severity Reaction Status Date / Time No Known Allergies Allergy Verified 08/31/20 00:07 Home Meds: Home Meds Gabapentin [Neurontin] 900 mg PO QID 11/18/14 [History] Polyethylene Glycol 3350 [MiraLAX] 17 gm PO DAILY PRN 11/18/14 [History] carBAMazepine [Epitol] 800 mg PO BEDTIME 01/27/15 [History] Ibuprofen 800 mg PO Q6H PRN 06/05/15 [History] lamoTRIgine [Lamotrigine] 100 mg PO BID 06/08/16 [History] Ciclopirox [Loprox 0.77% Crm] 1 cm TOP BID 07/12/17 [History] FLUoxetine HCl [Fluoxetine HCl] 60 mg PO DAILY 07/12/17 [History] OLANZapine [Olanzapine] 10 mg PO BID 07/12/17 [History] Empagliflozin [Jardiance] 10 mg PO DAILY 11/01/18 [History] Furosemide 80 mg PO BID 11/01/18 [History] Potassium Chloride [Klor-Con M20] 20 meq PO BID 11/01/18 [History] Propranolol [Inderal] 20 mg PO TID 02/06/19 [History] tiZANidine [Zanaflex] 2 mg PO Q8HR PRN 02/06/19 [History] Fluticasone/Umeclidin/Vilanter [Trelegy Ellipta 100-62.5-25] 1 puff INH DAILY 04/22/19 [History] ALPRAZolam [Xanax] 1 mg PO QID PRN 08/26/20 [History] Albuterol [Ventolin HFA] 1 puff IH Q4HR PRN 08/26/20 [History] Aspirin [Halfprin] 81 mg PO DAILY 08/26/20 [History] Clotrimazole [Lotrimin AF 1% Crm] 1 applic TOP BID 08/26/20 [History] Cyanocobalamin (Vitamin B-12) [Vitamin B-12] 1,000 mcg SL DAILY 08/26/20 [History] Docusate Sodium [Dulcolax Stool Softener] 2 tab PO DAILY 08/26/20 [History] Ergocalciferol (Vitamin D2) [Vitamin D2] 1,250 mcg PO WEEKLY 08/26/20 [History] Levothyroxine [Synthroid] 100 mcg PO ACBREAKFAST 08/26/20 [History] Oxybutynin Chloride [Oxybutynin Chloride ER] 5 mg PO DAILY 08/26/20 [History] Sennosides [Senna] 8.6 mg PO BEDTIME 08/26/20 [History] Simvastatin [Zocor] 10 mg PO BEDTIME 08/26/20 [History] Urea [Urea 40% Crm] 1 applic TOP BID 08/26/20 [History] lisinopriL [Lisinopril] 2.5 mg PO DAILY 08/26/20 [History] metFORMIN [Glucophage] 1,000 mg PO BIDMEALS 08/26/20 [History] methocarbamoL [Methocarbamol] 500 mg PO TID 08/26/20 [History] polyethylene glycoL 3350 [Polyethylene Glycol 3350] 17 gm PO DAILY PRN 08/26/20 [History] risperiDONE [Risperidone] 1 mg PO ASDIRECTED 08/26/20 [History] Past Medical History HEENT History: Reports: Impaired Vision, Other (See Below) Other HEENT History: dental caries; wears glasses Cardiovascular History: Reports: High Cholesterol, Heart Failure, Hypertension, SOB on Exertion Respiratory History: Reports: COPD, Other (See Below), Sleep Apnea, SOB Other Respiratory History: wheezing at noc; uses home O2; hospitalized in ICU 07/2017 for pneumonia Gastrointestinal History: Reports: Chronic Constipation, Irritable Bowel Syndrome Other Gastrointestinal History: constipation Genitourinary History: Reports: None, UTI, Recurrent BEEF GRINDER History: Reports: Musculoskeletal History: Reports: Back Pain, Chronic, Fibromyalgia, Fracture, Neck Pain, Chronic Other Musculoskeletal History: left wrist 10/07/13 Neurological History: Reports: Concussion, Headaches, Chronic, Migraines Psychiatric History: Reports: Anxiety, Bipolar, Depression, Other (See Below), Panic Attack, Psych Hospitalization(s), PTSD, Suicide Attempt, Suicidal Ideation Other Psychiatric History: seeing psychologist, BORDERLINE PERSONALITY Endocrine/Metabolic History: Reports: Diabetes, Type II, Hypothyroidism, Obesity/BMI 30+ Oncologic (Cancer) History: Reports: Cervix Other Oncologic History: frozen - Infectious Disease History Infectious Disease History: Reports: Chicken Pox - Past Surgical History GI Surgical History: Reports: Hernia, Abdominal, Hernia Repair/Other, None, Other (See Below) Female Surgical History: Reports: Cystectomy, Cervical Cryotherapy, Section, D&C, Tubal Ligation Social & Family History - Family History Family Medical History: No Pertinent Family History HEENT: Reports: Impaired Vision Cardiac: Reports: [place], Stent Respiratory: Reports: COPD Musculoskeletal: Reports: Back pain, Chronic Endocrine/Metabolic: Reports: Diabetes, type II, Hypothyroidism Oncologic: Reports: Prostate - Caffeine Use Caffeine Use: Reports: Coffee, Soda Other Caffeine Use: high intake per day - Living Situation & Occupation Living situation: Reports: with Significant Other (lives with YOVANY Goldman in [place]. 2 children ages 26 years and 11 years.) Occupation: Disabled ED ROS GENERAL - Review of Systems Review Of Systems: Unable To Obtain Reason Not Obtained: Lethargic unable to answer questions ED EXAM, SEPSIS - Physical Exam Exam: See Below Exam Limited By: Altered Mental Status (Lethargic) General Appearance: Alert, Lethargic, Other (Arousable to stimulation) Eye Exam: Bilateral Eye: Normal Inspection, PERRL Respiratory/Chest: Decreased Breath Sounds. No: Crackles, Rales, Rhonchi, Wheezing Cardiovascular: Regular Rate, Rhythm, No Murmur GI/Abdominal Exam: Soft, Non-Tender #1 Interpretation EKG Date: 08/31/20 Time: 01:07 Rhythm: NSR [place]: LAD-Left [place] Deviation P-Wave: Present QRS: Normal ST-T: Normal QT: Normal Comparison: NA - No Prior EKG Course - Vital Signs Last Recorded V/S: Last Vital Signs Temp 97.6 F 08/31/20 00:35 Pulse 95 08/31/20 02:00 Resp 19 08/31/20 02:00 BP 95/56 L 08/31/20 02:00 Pulse Ox 93 L 08/31/20 02:00 - Orders/Labs/Meds Orders: Active Orders 24 hr Category Date Time Status EKG Documentation Completion [RC] ASDIRECTED Care 08/31/20 00:24 Active Vital Signs [RC] Q1H Care 08/31/20 00:15 Active Chest 1V Frontal [CR] Stat Exams 08/31/20 00:16 Taken CULTURE BLOOD [BC] Urgent Lab 08/31/20 00:25 Received CULTURE BLOOD [BC] Urgent Lab 08/31/20 00:30 Received CULTURE URINE [RM] Urgent Lab 08/31/20 01:50 Received DRUG SCREEN, URINE [URCHEM] Stat Lab 08/31/20 02:45 Ordered REFLEX LACTIC ACID YES OR NO [CHEM] Routine Lab 08/31/20 01:03 Received Lactated Ringers [Ringers, Lactated] 1,000 ml Med 08/31/20 00:15 Active IV ASDIRECTED Blood Culture x2 Reflex Set [OM.PC] Urgent Oth 08/31/20 00:15 Ordered Isolation [COMM] Stat Oth 08/31/20 01:39 Ordered EKG 12 Lead [EK] Stat Ther 08/31/20 00:24 Ordered Medication Orders Lactated Ringer's (Ringers, Lactated) 1,000 mls @ 999 mls/hr IV ASDIRECTED TONEY Last Admin: 08/31/20 00:35 Dose: 999 mls/hr Documented by: JUANITA Labs: Laboratory Tests 08/31/20 08/31/20 08/31/20 Range/Units 00:25 00:25 00:25 WBC 15.2 H (4.5-11.0) K/uL RBC 4.95 (3.30-5.50) M/uL Hgb 14.9 (12.0-15.0) g/dL Hct 44.8 (36.0-48.0) % MCV 91 (80-98) fL MCH 30 (27-31) pg MCHC 33 (32-36) % Plt Count 227 (150-400) K/uL Neut % (Auto) 78.3 H (36-66) % Lymph % (Auto) 10.8 L (24-44) % [place] % (Auto) 10.5 H (2-6) % Eos % (Auto) 0.3 L (2-4) % Baso % (Auto) 0.1 (0-1) % Puncture Site ABG pH (7.350-7.450) ABG pCO2 (35.0-42.0) mmHg ABG pO2 (75.0-100.0) mmHg ABG HCO3 (22.0-26.0) mmol/L ABG Total CO2 (21.0-25.0) mmol/L ABG O2 Saturation (95.0-98.0) % ABG O2 Content (15.0-23.0) %vol ABG Base Excess mm/L ABG Hemoglobin (12.0-16.0) g/dL ABG Oxyhemoglobin % ABG Carboxyhemoglobin (0.0-1.6) % ABG Methemoglobin % O2 Delivery Device Oxygen Flow Rate L Sodium 139 L (140-148) mmol/L Potassium 3.5 L (3.6-5.2) mmol/L Chloride 100 (100-108) mmol/L Carbon Dioxide 27 (21-32) mmol/L Anion Gap 15.5 H (5.0-14.0) mmol/L BUN 6 L (7-18) mg/dL Creatinine 1.1 H (0.6-1.0) mg/dL Est Cr Clr Drug Dosing 56.89 mL/min Estimated GFR (MDRD) 53 L (>60) Glucose 107 H (74-106) mg/dL Lactic Acid 4.7 H (0.4-2.0) mmol/L Calcium 8.4 L (8.5-10.1) mg/dL Total Bilirubin 0.3 (0.2-1.0) mg/dL AST 15 (15-37) U/L ALT 19 (12-78) U/L Alkaline Phosphatase 105 (46-116) U/L Ammonia (11-32) umol/L C-Reactive Protein 3.10 H (0.0-0.3) mg/dL NT-Pro-B Natriuret Pep (5-125) pg/mL Total Protein 6.3 L (6.4-8.2) g/dL Albumin 2.6 L (3.4-5.0) g/dL Globulin 3.7 H (2.3-3.5) g/dL Albumin/Globulin Ratio 0.7 L (1.2-2.2) Procalcitonin ng/mL Urine Color (YELLOW) Urine Appearance (CLEAR) Urine pH (5.0-8.0) Ur Specific [place] (1.008-1.030) Urine Protein (NEGATIVE) mg/dL Urine Glucose (UA) (NEGATIVE) mg/dL Urine Ketones (NEGATIVE) mg/dL Urine Occult Blood (NEGATIVE) Urine Nitrite (NEGATIVE) Urine Bilirubin (NEGATIVE) Urine Urobilinogen (0.2-1.0) EU/dL Ur Leukocyte Esterase (NEGATIVE) Urine RBC (0-5) Urine WBC (0-5) Ur Epithelial Cells Amorphous Sediment Urine Bacteria Urine Mucus Salicylates (2.0-20.0) mg/dL Acetaminophen (10.0-30.0) ug/mL Ethyl Alcohol mg/dL Influenza Type A RNA (NEGATIVE) RSV RNA (INAAT) (NEGATIVE) Influenza Type B RNA (NEGATIVE) SARS-CoV-2 RNA ([place]) (NEGATIVE) 08/31/20 08/31/20 08/31/20 Range/Units 00:25 00:25 00:25 WBC (4.5-11.0) K/uL RBC (3.30-5.50) M/uL Hgb (12.0-15.0) g/dL Hct (36.0-48.0) % MCV (80-98) fL MCH (27-31) pg MCHC (32-36) % Plt Count (150-400) K/uL Neut % (Auto) (36-66) % Lymph % (Auto) (24-44) % [place] % (Auto) (2-6) % Eos % (Auto) (2-4) % Baso % (Auto) (0-1) % Puncture Site ABG pH (7.350-7.450) ABG pCO2 (35.0-42.0) mmHg ABG pO2 (75.0-100.0) mmHg ABG HCO3 (22.0-26.0) mmol/L ABG Total CO2 (21.0-25.0) mmol/L ABG O2 Saturation (95.0-98.0) % ABG O2 Content (15.0-23.0) %vol ABG Base Excess mm/L ABG Hemoglobin (12.0-16.0) g/dL ABG Oxyhemoglobin % ABG Carboxyhemoglobin (0.0-1.6) % ABG Methemoglobin % O2 Delivery Device Oxygen Flow Rate L Sodium (140-148) mmol/L Potassium (3.6-5.2) mmol/L Chloride (100-108) mmol/L Carbon Dioxide (21-32) mmol/L Anion Gap (5.0-14.0) mmol/L BUN (7-18) mg/dL Creatinine (0.6-1.0) mg/dL Est Cr Clr Drug Dosing mL/min Estimated GFR (MDRD) (>60) Glucose (74-106) mg/dL Lactic Acid (0.4-2.0) mmol/L Calcium (8.5-10.1) mg/dL Total Bilirubin (0.2-1.0) mg/dL AST (15-37) U/L ALT (12-78) U/L Alkaline Phosphatase (46-116) U/L Ammonia 15 (11-32) umol/L C-Reactive Protein (0.0-0.3) mg/dL NT-Pro-B Natriuret Pep 47 (5-125) pg/mL Total Protein (6.4-8.2) g/dL Albumin (3.4-5.0) g/dL Globulin (2.3-3.5) g/dL Albumin/Globulin Ratio (1.2-2.2) Procalcitonin < 0.05 ng/mL Urine Color (YELLOW) Urine Appearance (CLEAR) Urine pH (5.0-8.0) Ur Specific [place] (1.008-1.030) Urine Protein (NEGATIVE) mg/dL Urine Glucose (UA) (NEGATIVE) mg/dL Urine Ketones (NEGATIVE) mg/dL Urine Occult Blood (NEGATIVE) Urine Nitrite (NEGATIVE) Urine Bilirubin (NEGATIVE) Urine Urobilinogen (0.2-1.0) EU/dL Ur Leukocyte Esterase (NEGATIVE) Urine RBC (0-5) Urine WBC (0-5) Ur Epithelial Cells Amorphous Sediment Urine Bacteria Urine Mucus Salicylates (2.0-20.0) mg/dL Acetaminophen 0.0 L (10.0-30.0) ug/mL Ethyl Alcohol mg/dL Influenza Type A RNA (NEGATIVE) RSV RNA (INAAT) (NEGATIVE) Influenza Type B RNA (NEGATIVE) SARS-CoV-2 RNA ([place]) (NEGATIVE) 08/31/20 08/31/20 08/31/20 Range/Units 00:25 00:25 00:30 WBC (4.5-11.0) K/uL RBC (3.30-5.50) M/uL Hgb (12.0-15.0) g/dL Hct (36.0-48.0) % MCV (80-98) fL MCH (27-31) pg MCHC (32-36) % Plt Count (150-400) K/uL Neut % (Auto) (36-66) % Lymph % (Auto) (24-44) % [place] % (Auto) (2-6) % Eos % (Auto) (2-4) % Baso % (Auto) (0-1) % Puncture Site R brachial ABG pH 7.429 (7.350-7.450) ABG pCO2 39.4 (35.0-42.0) mmHg ABG pO2 67.0 L (75.0-100.0) mmHg ABG HCO3 25.6 (22.0-26.0) mmol/L ABG Total CO2 22.2 (21.0-25.0) mmol/L ABG O2 Saturation 93.3 L (95.0-98.0) % ABG O2 Content 18.0 (15.0-23.0) %vol ABG Base Excess 1.8 mm/L ABG Hemoglobin 15.0 (12.0-16.0) g/dL ABG Oxyhemoglobin 85.4 % ABG Carboxyhemoglobin 7.5 H (0.0-1.6) % ABG Methemoglobin 1.0 % O2 Delivery Device Nasal cannula Oxygen Flow Rate 2.0 L Sodium (140-148) mmol/L Potassium (3.6-5.2) mmol/L Chloride (100-108) mmol/L Carbon Dioxide (21-32) mmol/L Anion Gap (5.0-14.0) mmol/L BUN (7-18) mg/dL Creatinine (0.6-1.0) mg/dL Est Cr Clr Drug Dosing mL/min Estimated GFR (MDRD) (>60) Glucose (74-106) mg/dL Lactic Acid (0.4-2.0) mmol/L Calcium (8.5-10.1) mg/dL Total Bilirubin (0.2-1.0) mg/dL AST (15-37) U/L ALT (12-78) U/L Alkaline Phosphatase (46-116) U/L Ammonia (11-32) umol/L C-Reactive Protein (0.0-0.3) mg/dL NT-Pro-B Natriuret Pep (5-125) pg/mL Total Protein (6.4-8.2) g/dL Albumin (3.4-5.0) g/dL Globulin (2.3-3.5) g/dL Albumin/Globulin Ratio (1.2-2.2) Procalcitonin ng/mL Urine Color (YELLOW) Urine Appearance (CLEAR) Urine pH (5.0-8.0) Ur Specific [place] (1.008-1.030) Urine Protein (NEGATIVE) mg/dL Urine Glucose (UA) (NEGATIVE) mg/dL Urine Ketones (NEGATIVE) mg/dL Urine Occult Blood (NEGATIVE) Urine Nitrite (NEGATIVE) Urine Bilirubin (NEGATIVE) Urine Urobilinogen (0.2-1.0) EU/dL Ur Leukocyte Esterase (NEGATIVE) Urine RBC (0-5) Urine WBC (0-5) Ur Epithelial Cells Amorphous Sediment Urine Bacteria Urine Mucus Salicylates 7.8 (2.0-20.0) mg/dL Acetaminophen (10.0-30.0) ug/mL Ethyl Alcohol 3 mg/dL Influenza Type A RNA (NEGATIVE) RSV RNA (INAAT) (NEGATIVE) Influenza Type B RNA (NEGATIVE) SARS-CoV-2 RNA ([place]) (NEGATIVE) 08/31/20 08/31/20 Range/Units 01:55 02:08 WBC (4.5-11.0) K/uL RBC (3.30-5.50) M/uL Hgb (12.0-15.0) g/dL Hct (36.0-48.0) % MCV (80-98) fL MCH (27-31) pg MCHC (32-36) % Plt Count (150-400) K/uL Neut % (Auto) (36-66) % Lymph % (Auto) (24-44) % [place] % (Auto) (2-6) % Eos % (Auto) (2-4) % Baso % (Auto) (0-1) % Puncture Site ABG pH (7.350-7.450) ABG pCO2 (35.0-42.0) mmHg ABG pO2 (75.0-100.0) mmHg ABG HCO3 (22.0-26.0) mmol/L ABG Total CO2 (21.0-25.0) mmol/L ABG O2 Saturation (95.0-98.0) % ABG O2 Content (15.0-23.0) %vol ABG Base Excess mm/L ABG Hemoglobin (12.0-16.0) g/dL ABG Oxyhemoglobin % ABG Carboxyhemoglobin (0.0-1.6) % ABG Methemoglobin % O2 Delivery Device Oxygen Flow Rate L Sodium (140-148) mmol/L Potassium (3.6-5.2) mmol/L Chloride (100-108) mmol/L Carbon Dioxide (21-32) mmol/L Anion Gap (5.0-14.0) mmol/L BUN (7-18) mg/dL Creatinine (0.6-1.0) mg/dL Est Cr Clr Drug Dosing mL/min Estimated GFR (MDRD) (>60) Glucose (74-106) mg/dL Lactic Acid (0.4-2.0) mmol/L Calcium (8.5-10.1) mg/dL Total Bilirubin (0.2-1.0) mg/dL AST (15-37) U/L ALT (12-78) U/L Alkaline Phosphatase (46-116) U/L Ammonia (11-32) umol/L C-Reactive Protein (0.0-0.3) mg/dL NT-Pro-B Natriuret Pep (5-125) pg/mL Total Protein (6.4-8.2) g/dL Albumin (3.4-5.0) g/dL Globulin (2.3-3.5) g/dL Albumin/Globulin Ratio (1.2-2.2) Procalcitonin ng/mL Urine Color Yellow (YELLOW) Urine Appearance Clear (CLEAR) Urine pH 6.0 (5.0-8.0) Ur Specific [place] 1.015 (1.008-1.030) Urine Protein Negative (NEGATIVE) mg/dL Urine Glucose (UA) Negative (NEGATIVE) mg/dL Urine Ketones Negative (NEGATIVE) mg/dL Urine Occult Blood Negative (NEGATIVE) Urine Nitrite Negative (NEGATIVE) Urine Bilirubin Negative (NEGATIVE) Urine Urobilinogen 0.2 (0.2-1.0) EU/dL Ur Leukocyte Esterase Small H (NEGATIVE) Urine RBC 0-5 (0-5) Urine WBC 20-30 H (0-5) Ur Epithelial Cells Few Amorphous Sediment Not seen Urine Bacteria Few Urine Mucus Not seen Salicylates (2.0-20.0) mg/dL Acetaminophen (10.0-30.0) ug/mL Ethyl Alcohol mg/dL Influenza Type A RNA Negative (NEGATIVE) RSV RNA (INAAT) Negative (NEGATIVE) Influenza Type B RNA Negative (NEGATIVE) SARS-CoV-2 RNA ([place]) Negative (NEGATIVE) Meds: Medications Generic Name Dose Route Start Last Admin Trade Name Freq PRN Reason Stop Dose Admin Lactated Ringer's 1,000 mls @ 999 mls/hr 08/31/20 00:15 08/31/20 00:35 Ringers, Lactated IV 999 mls/hr ASDIRECTED TONEY Administration Discontinued Medications Generic Name Dose Route Start Last Admin Trade Name Freq PRN Reason Stop Dose Admin Piperacillin Sod/Tazobactam 100 mls @ 100 mls/hr 08/31/20 00:17 08/31/20 01:09 Sod 4.5 gm/ Sodium Chloride IV 08/31/20 01:16 100 mls/hr ONETIME ONE Administration Departure - Departure Time of Disposition: 02:56 Disposition: Admitted As Inpatient 68 Condition: Fair Clinical Impression: Lethargic - Discharge Information Referrals: PCP,None [Primary Care Provider] - Forms: ED Department Discharge Sepsis Event Note (ED) - Evaluation Sepsis Screening Result: No Definite Risk - Focused Exam Vital Signs: Vital Signs Temp Pulse Resp BP Pulse Ox 08/31/20 02:00 95 19 95/56 L 93 L 08/31/20 01:15 93 17 96/53 L 92 L 08/31/20 00:35 97.6 F 98 20 101/63 90 L 08/30/20 23:52 97.6 F 98 24 H 92/55 L 86 L - My Orders Last 24 Hours: My Active Orders 08/31/20 00:15 Vital Signs [RC] Q1H Lactated Ringers [Ringers, Lactated] 1,000 ml IV ASDIRECTED Blood Culture x2 Reflex Set [OM.PC] Urgent 08/31/20 00:16 Chest 1V Frontal [CR] Stat 08/31/20 00:24 EKG Documentation Completion [RC] ASDIRECTED EKG 12 Lead [EK] Stat 08/31/20 00:25 CULTURE BLOOD [BC] Urgent 08/31/20 00:30 CULTURE BLOOD [BC] Urgent 08/31/20 01:03 REFLEX LACTIC ACID YES OR NO [CHEM] Routine 08/31/20 01:39 Isolation [COMM] Stat 08/31/20 01:50 CULTURE URINE [RM] Urgent 08/31/20 02:45 DRUG SCREEN, URINE [URCHEM] Stat - Assessment/Plan Last 24 Hours: My Active Orders 08/31/20 00:15 Vital Signs [RC] Q1H Lactated Ringers [Ringers, Lactated] 1,000 ml IV ASDIRECTED Blood Culture x2 Reflex Set [OM.PC] Urgent 08/31/20 00:16 Chest 1V Frontal [CR] Stat 08/31/20 00:24 EKG Documentation Completion [RC] ASDIRECTED EKG 12 Lead [EK] Stat 08/31/20 00:25 CULTURE BLOOD [BC] Urgent 08/31/20 00:30 CULTURE BLOOD [BC] Urgent 08/31/20 01:03 REFLEX LACTIC ACID YES OR NO [CHEM] Routine 08/31/20 01:39 Isolation [COMM] Stat 08/31/20 01:50 CULTURE URINE [RM] Urgent 08/31/20 02:45 DRUG SCREEN, URINE [URCHEM] Stat Plan: Assessment Acuity = acute Site and laterality = lethargic concern for possible sepsis versus polypharmacy Etiology = unknown Manifestations = GCS 13 Location of injury = Home Lab values = WBC elevated 15.2 consistent leukocytosis pH 7.43 normal PCO2 39.4 and bicarb 25.6, creatinine elevated 1.1 consistent acute renal failure stage T3a lactic acid elevated 4.7 consistent lactic acidosis CRP elevated 3.1 proBNP normal at 47 procalcitonin negative urinalysis does reveal 20-30 WBCs consistent with pyuria cultures pending alcohol is negative chest x-ray I did review films myself I cannot appreciate any acute process, the official read from radiology is pending, blood cultures are pending Covid pending Plan Call discussed case hospitalist on-call at 250 can agreed to come evaluate patient emergency department for admission she has been given 1 L fluid and 1 dose of Zosyn This note was dictated using [employer] voice recognition software please call with any questions on syntax or grammar.
[2020-08-31 02:51] LABS: CORONAVIRUS COVID-19 NAA NEGATIVE (NEGATIVE)
[2020-08-31] MEDS ORDERED: Acetaminophen 500 MG Tab PO ONE (03:45)
[2020-08-31] MEDS ORDERED: Sodium Chloride 0.9% 1,000 ML IV SCH (03:45)
--- NOTE | 2020-08-31 04:04 | PCM.HP.2 ---
H&P History of Present Illness - General Date of Service: 08/31/20 Admit Problem/Dx: Admission Diagnosis/Problem Admission Diagnosis/Problem Syncope Source of Information: Patient, Provider History Limitations: Reports: No Limitations - History of Present Illness Initial Comments - Free Text/Narative: CC: I keep fainting HPI: Nichelle presents to the emergency room with another episode of syncope. She reports 4 such episodes over the past 4 days. She was evaluated 5 days ago for the same thing. Work-up was benign. She does not report any preceding symptoms. She says she just simply collapses. Tonight she was getting out of the shower and just suddenly went to the ground. She reports that otherwise she has been feeling well. She has not had any fevers, headaches, cough, shortness of breath. No abdominal pain or nausea. No change in bowel or bladder habits. No skin rashes other than some abrasions on her knees from falling down. She is not taking any new medications. She has not had recent dose changes of her medications that she is aware of. She reports that home care sets up her medications. She is currently reporting mild achy pain in both of her knees because of the fall and abrasions. Pain is worse when she tries to move her legs around and gets better when they are stationary. She is been using ibuprofen at home with some relief. Work-up in the emergency room revealed a sedated patient who is able to answer questions. White blood cell count mildly elevated lactic acid level is 4.7. No strong evidence for infection at this point. I think this is related to too many medications contributing to his somnolence and she is dehydrated. She will be admitted for observation, hydration and medication review. Right Hip Pain Score (Numeric/FACES): 10 - Related Data Allergies/Adverse Reactions: Allergies Allergy/AdvReac Type Severity Reaction Status Date / Time No Known Allergies Allergy Verified 08/31/20 00:07 Home Medications: Home Meds Gabapentin [Neurontin] 900 mg PO QID 11/18/14 [History] Polyethylene Glycol 3350 [MiraLAX] 17 gm PO DAILY PRN 11/18/14 [History] Ibuprofen 800 mg PO Q6H PRN 06/05/15 [History] lamoTRIgine [Lamotrigine] 150 mg PO BID 06/08/16 [History] Ciclopirox [Loprox 0.77% Crm] 1 cm TOP BID 07/12/17 [History] FLUoxetine HCl [Fluoxetine HCl] 60 mg PO DAILY 07/12/17 [History] OLANZapine [Olanzapine] 10 mg PO BID 07/12/17 [History] Empagliflozin [Jardiance] 10 mg PO DAILY 11/01/18 [History] Furosemide 80 mg PO BID 11/01/18 [History] Potassium Chloride [Klor-Con M20] 20 meq PO BID 11/01/18 [History] Propranolol [Inderal] 20 mg PO TID 02/06/19 [History] tiZANidine [Zanaflex] 2 mg PO Q8HR PRN 02/06/19 [History] Fluticasone/Umeclidin/Vilanter [Trelegy Ellipta 100-62.5-25] 1 puff INH DAILY 04/22/19 [History] ALPRAZolam [Xanax] 1 mg PO QID PRN 08/26/20 [History] Albuterol [Ventolin HFA] 1 puff IH Q4HR PRN 08/26/20 [History] Aspirin [Halfprin] 81 mg PO DAILY 08/26/20 [History] Clotrimazole [Lotrimin AF 1% Crm] 1 applic TOP BID 08/26/20 [History] Cyanocobalamin (Vitamin B-12) [Vitamin B-12] 1,000 mcg SL DAILY 08/26/20 [History] Docusate Sodium [Dulcolax Stool Softener] 2 tab PO DAILY 08/26/20 [History] Ergocalciferol (Vitamin D2) [Vitamin D2] 1,250 mcg PO WEEKLY 08/26/20 [History] Levothyroxine [Synthroid] 100 mcg PO ACBREAKFAST 08/26/20 [History] Oxybutynin Chloride [Oxybutynin Chloride ER] 5 mg PO DAILY 08/26/20 [History] Sennosides [Senna] 8.6 mg PO BEDTIME 08/26/20 [History] Simvastatin [Zocor] 10 mg PO BEDTIME 08/26/20 [History] Urea [Urea 40% Crm] 1 applic TOP BID 08/26/20 [History] lisinopriL [Lisinopril] 2.5 mg PO DAILY 08/26/20 [History] metFORMIN [Glucophage] 1,000 mg PO BIDMEALS 08/26/20 [History] methocarbamoL [Methocarbamol] 500 mg PO TID 08/26/20 [History] polyethylene glycoL 3350 [Polyethylene Glycol 3350] 17 gm PO DAILY PRN 08/26/20 [History] QUEtiapine [SEROquel] 25 mg PO QID PRN 08/31/20 [History] Past Medical History HEENT History: Reports: Impaired Vision, Other (See Below) Other HEENT History: dental caries; wears glasses Cardiovascular History: Reports: High Cholesterol, Heart Failure, Hypertension, SOB on Exertion Respiratory History: Reports: COPD, Other (See Below), Sleep Apnea, SOB Other Respiratory History: wheezing at [facility]; uses home O2; hospitalized in ICU 07/2017 for pneumonia Gastrointestinal History: Reports: Chronic Constipation, Irritable Bowel Syndrome Other Gastrointestinal History: constipation Genitourinary History: Reports: None, UTI, Recurrent 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: Musculoskeletal History: Reports: Back Pain, Chronic, Fibromyalgia, Fracture, [place] Pain, Chronic Other Musculoskeletal History: left wrist 10/07/13 Neurological History: Reports: Concussion, Headaches, Chronic, Migraines Psychiatric History: Reports: Anxiety, Bipolar, Depression, Other (See Below), Panic Attack, Psych Hospitalization(s), PTSD, Suicide Attempt, Suicidal Ideation Other Psychiatric History: seeing psychologist, BORDERLINE PERSONALITY Endocrine/Metabolic History: Reports: Diabetes, Type II, Hypothyroidism, Obesity/BMI 30+ Oncologic (Cancer) History: Reports: Cervix Other Oncologic History: frozen - Infectious Disease History Infectious Disease History: Reports: Chicken Pox - Past Surgical History GI Surgical History: Reports: Hernia, Abdominal, Hernia Repair/Other, None, Other (See Below) Female Surgical History: Reports: Cystectomy, Cervical Cryotherapy, Section, D&C, Tubal Ligation Social & Family History - Family History Family Medical History: No Pertinent Family History HEENT: Reports: Impaired Vision Cardiac: Reports: ND, Stent Respiratory: Reports: COPD Musculoskeletal: Reports: Back pain, Chronic Endocrine/Metabolic: Reports: Diabetes, type II, Hypothyroidism Oncologic: Reports: Prostate - Tobacco Use Tobacco Use Status *Q: Current Every Day Tobacco User Years of Tobacco use: 30 Packs/Tins Daily: 2 Used Tobacco, but Quit: No Second Hand Smoke Exposure: Yes - Caffeine Use Caffeine Use: Reports: Coffee, Soda Other Caffeine Use: high intake per day - Alcohol Use Alcohol Use History: No - Recreational Drug Use Recreational Drug Use: No - Living Situation & Occupation Living situation: Reports: with Significant Other (lives with YOVANY Goldman in [place]. 2 children ages 26 years and 11 years.) Occupation: Disabled H&P Review of Systems - Review of Systems: Review Of Systems: See Below Free Text/Narrative: A complete 12 point review of systems was obtained. Pertinent positives and negatives are noted in the history of present illness. All other systems were reviewed and were negative except as noted. Exam - Exam Exam: See Below - Vital Signs Vital Signs: Last Vital Signs Temp 36.4 C 08/31/20 00:35 Pulse 95 08/31/20 02:00 Resp 19 08/31/20 02:00 BP 95/56 L 08/31/20 02:00 Pulse Ox 93 L 08/31/20 02:00 Weight: 99.79 kg - Exam Quality Assessment: Supplemental Oxygen General: Alert, Cooperative, Sedated (Sleepy but able to answer questions) HEENT: Conjunctiva Clear, Pupils Equal. No: Mucosa Moist & [place] (dry), Scleral Icterus Neck: Supple, Trachea Midline. No: Lymphadenopathy Lungs: Clear to Auscultation, Normal Respiratory Effort Cardiovascular: Regular Rate, Regular Rhythm. No: Systolic Murmur GI/Abdominal Exam: Normal Bowel Sounds, Soft, Non-Tender, No Distention, No Mass Extremities: No Pedal Edema. No: Joint Swelling, Increased Warmth Peripheral Pulses: 1+: Dorsalis Pedis (L), Dorsalis Pedis (R) Skin: Warm, Dry, Other (Abrasions on both knees with no active bleeding) Neuro Extensive - Mental Status: Alert, Slow Response to Commands Neuro Extensive - Motor, Sensory, Reflexes: No: Dysarthria, Abnormal Motor, Tremor Psychiatric: Alert. No: Anxious, Agitated - Patient Data Lab Results Last 24 hrs: Laboratory Results - last 24 hr 08/31/20 08/31/20 08/31/20 Range/Units 00:25 00:25 00:25 WBC 15.2 H (4.5-11.0) K/uL RBC 4.95 (3.30-5.50) M/uL Hgb 14.9 (12.0-15.0) g/dL Hct 44.8 (36.0-48.0) % MCV 91 (80-98) fL MCH 30 (27-31) pg MCHC 33 (32-36) % Plt Count 227 (150-400) K/uL Neut % (Auto) 78.3 H (36-66) % Lymph % (Auto) 10.8 L (24-44) % [place] % (Auto) 10.5 H (2-6) % Eos % (Auto) 0.3 L (2-4) % Baso % (Auto) 0.1 (0-1) % Puncture Site ABG pH (7.350-7.450) ABG pCO2 (35.0-42.0) mmHg ABG pO2 (75.0-100.0) mmHg ABG HCO3 (22.0-26.0) mmol/L ABG Total CO2 (21.0-25.0) mmol/L ABG O2 Saturation (95.0-98.0) % ABG O2 Content (15.0-23.0) %vol ABG Base Excess mm/L ABG Hemoglobin (12.0-16.0) g/dL ABG Oxyhemoglobin % ABG Carboxyhemoglobin (0.0-1.6) % ABG Methemoglobin % O2 Delivery Device Oxygen Flow Rate L Sodium 139 L (140-148) mmol/L Potassium 3.5 L (3.6-5.2) mmol/L Chloride 100 (100-108) mmol/L Carbon Dioxide 27 (21-32) mmol/L Anion Gap 15.5 H (5.0-14.0) mmol/L BUN 6 L (7-18) mg/dL Creatinine 1.1 H (0.6-1.0) mg/dL Est Cr Clr Drug Dosing 56.89 mL/min Estimated GFR (MDRD) 53 L (>60) Glucose 107 H (74-106) mg/dL Lactic Acid 4.7 H (0.4-2.0) mmol/L Calcium 8.4 L (8.5-10.1) mg/dL Total Bilirubin 0.3 (0.2-1.0) mg/dL AST 15 (15-37) U/L ALT 19 (12-78) U/L Alkaline Phosphatase 105 (46-116) U/L Ammonia (11-32) umol/L C-Reactive Protein 3.10 H (0.0-0.3) mg/dL NT-Pro-B Natriuret Pep (5-125) pg/mL Total Protein 6.3 L (6.4-8.2) g/dL Albumin 2.6 L (3.4-5.0) g/dL Globulin 3.7 H (2.3-3.5) g/dL Albumin/Globulin Ratio 0.7 L (1.2-2.2) Procalcitonin ng/mL Urine Color (YELLOW) Urine Appearance (CLEAR) Urine pH (5.0-8.0) Ur Specific [place] (1.008-1.030) Urine Protein (NEGATIVE) mg/dL Urine Glucose (UA) (NEGATIVE) mg/dL Urine Ketones (NEGATIVE) mg/dL Urine Occult Blood (NEGATIVE) Urine Nitrite (NEGATIVE) Urine Bilirubin (NEGATIVE) Urine Urobilinogen (0.2-1.0) EU/dL Ur Leukocyte Esterase (NEGATIVE) Urine RBC (0-5) Urine WBC (0-5) Ur Epithelial Cells Amorphous Sediment Urine Bacteria Urine Mucus Salicylates (2.0-20.0) mg/dL Urine Opiates Screen (NEGATIVE) Ur Oxycodone Screen (NEGATIVE) Urine Methadone Screen (NEGATIVE) Ur Propoxyphene Screen (NEGATIVE) Acetaminophen (10.0-30.0) ug/mL Ur Barbiturates Screen (NEGATIVE) Ur Tricyclics Screen (NEGATIVE) Ur Phencyclidine Scrn (NEGATIVE) Ur Amphetamine Screen (NEGATIVE) U Methamphetamines Scrn (NEGATIVE) Urine MDMA Screen (NEGATIVE) U Benzodiazepines Scrn (NEGATIVE) U Cocaine Metab Screen (NEGATIVE) U Marijuana (THC) Screen (NEGATIVE) Ethyl Alcohol mg/dL Influenza Type A RNA (NEGATIVE) RSV RNA (INAAT) (NEGATIVE) Influenza Type B RNA (NEGATIVE) SARS-CoV-2 RNA ([place]) (NEGATIVE) 08/31/20 08/31/20 08/31/20 Range/Units 00:25 00:25 00:25 WBC (4.5-11.0) K/uL RBC (3.30-5.50) M/uL Hgb (12.0-15.0) g/dL Hct (36.0-48.0) % MCV (80-98) fL MCH (27-31) pg MCHC (32-36) % Plt Count (150-400) K/uL Neut % (Auto) (36-66) % Lymph % (Auto) (24-44) % [place] % (Auto) (2-6) % Eos % (Auto) (2-4) % Baso % (Auto) (0-1) % Puncture Site ABG pH (7.350-7.450) ABG pCO2 (35.0-42.0) mmHg ABG pO2 (75.0-100.0) mmHg ABG HCO3 (22.0-26.0) mmol/L ABG Total CO2 (21.0-25.0) mmol/L ABG O2 Saturation (95.0-98.0) % ABG O2 Content (15.0-23.0) %vol ABG Base Excess mm/L ABG Hemoglobin (12.0-16.0) g/dL ABG Oxyhemoglobin % ABG Carboxyhemoglobin (0.0-1.6) % ABG Methemoglobin % O2 Delivery Device Oxygen Flow Rate L Sodium (140-148) mmol/L Potassium (3.6-5.2) mmol/L Chloride (100-108) mmol/L Carbon Dioxide (21-32) mmol/L Anion Gap (5.0-14.0) mmol/L BUN (7-18) mg/dL Creatinine (0.6-1.0) mg/dL Est Cr Clr Drug Dosing mL/min Estimated GFR (MDRD) (>60) Glucose (74-106) mg/dL Lactic Acid (0.4-2.0) mmol/L Calcium (8.5-10.1) mg/dL Total Bilirubin (0.2-1.0) mg/dL AST (15-37) U/L ALT (12-78) U/L Alkaline Phosphatase (46-116) U/L Ammonia 15 (11-32) umol/L C-Reactive Protein (0.0-0.3) mg/dL NT-Pro-B Natriuret Pep 47 (5-125) pg/mL Total Protein (6.4-8.2) g/dL Albumin (3.4-5.0) g/dL Globulin (2.3-3.5) g/dL Albumin/Globulin Ratio (1.2-2.2) Procalcitonin < 0.05 ng/mL Urine Color (YELLOW) Urine Appearance (CLEAR) Urine pH (5.0-8.0) Ur Specific [place] (1.008-1.030) Urine Protein (NEGATIVE) mg/dL Urine Glucose (UA) (NEGATIVE) mg/dL Urine Ketones (NEGATIVE) mg/dL Urine Occult Blood (NEGATIVE) Urine Nitrite (NEGATIVE) Urine Bilirubin (NEGATIVE) Urine Urobilinogen (0.2-1.0) EU/dL Ur Leukocyte Esterase (NEGATIVE) Urine RBC (0-5) Urine WBC (0-5) Ur Epithelial Cells Amorphous Sediment Urine Bacteria Urine Mucus Salicylates (2.0-20.0) mg/dL Urine Opiates Screen (NEGATIVE) Ur Oxycodone Screen (NEGATIVE) Urine Methadone Screen (NEGATIVE) Ur Propoxyphene Screen (NEGATIVE) Acetaminophen 0.0 L (10.0-30.0) ug/mL Ur Barbiturates Screen (NEGATIVE) Ur Tricyclics Screen (NEGATIVE) Ur Phencyclidine Scrn (NEGATIVE) Ur Amphetamine Screen (NEGATIVE) U Methamphetamines Scrn (NEGATIVE) Urine MDMA Screen (NEGATIVE) U Benzodiazepines Scrn (NEGATIVE) U Cocaine Metab Screen (NEGATIVE) U Marijuana (THC) Screen (NEGATIVE) Ethyl Alcohol mg/dL Influenza Type A RNA (NEGATIVE) RSV RNA (INAAT) (NEGATIVE) Influenza Type B RNA (NEGATIVE) SARS-CoV-2 RNA ([place]) (NEGATIVE) 08/31/20 08/31/20 08/31/20 Range/Units 00:25 00:25 00:30 WBC (4.5-11.0) K/uL RBC (3.30-5.50) M/uL Hgb (12.0-15.0) g/dL Hct (36.0-48.0) % MCV (80-98) fL MCH (27-31) pg MCHC (32-36) % Plt Count (150-400) K/uL Neut % (Auto) (36-66) % Lymph % (Auto) (24-44) % [place] % (Auto) (2-6) % Eos % (Auto) (2-4) % Baso % (Auto) (0-1) % Puncture Site R brachial ABG pH 7.429 (7.350-7.450) ABG pCO2 39.4 (35.0-42.0) mmHg ABG pO2 67.0 L (75.0-100.0) mmHg ABG HCO3 25.6 (22.0-26.0) mmol/L ABG Total CO2 22.2 (21.0-25.0) mmol/L ABG O2 Saturation 93.3 L (95.0-98.0) % ABG O2 Content 18.0 (15.0-23.0) %vol ABG Base Excess 1.8 mm/L ABG Hemoglobin 15.0 (12.0-16.0) g/dL ABG Oxyhemoglobin 85.4 % ABG Carboxyhemoglobin 7.5 H (0.0-1.6) % ABG Methemoglobin 1.0 % O2 Delivery Device Nasal cannula Oxygen Flow Rate 2.0 L Sodium (140-148) mmol/L Potassium (3.6-5.2) mmol/L Chloride (100-108) mmol/L Carbon Dioxide (21-32) mmol/L Anion Gap (5.0-14.0) mmol/L BUN (7-18) mg/dL Creatinine (0.6-1.0) mg/dL Est Cr Clr Drug Dosing mL/min Estimated GFR (MDRD) (>60) Glucose (74-106) mg/dL Lactic Acid (0.4-2.0) mmol/L Calcium (8.5-10.1) mg/dL Total Bilirubin (0.2-1.0) mg/dL AST (15-37) U/L ALT (12-78) U/L Alkaline Phosphatase (46-116) U/L Ammonia (11-32) umol/L C-Reactive Protein (0.0-0.3) mg/dL NT-Pro-B Natriuret Pep (5-125) pg/mL Total Protein (6.4-8.2) g/dL Albumin (3.4-5.0) g/dL Globulin (2.3-3.5) g/dL Albumin/Globulin Ratio (1.2-2.2) Procalcitonin ng/mL Urine Color (YELLOW) Urine Appearance (CLEAR) Urine pH (5.0-8.0) Ur Specific [place] (1.008-1.030) Urine Protein (NEGATIVE) mg/dL Urine Glucose (UA) (NEGATIVE) mg/dL Urine Ketones (NEGATIVE) mg/dL Urine Occult Blood (NEGATIVE) Urine Nitrite (NEGATIVE) Urine Bilirubin (NEGATIVE) Urine Urobilinogen (0.2-1.0) EU/dL Ur Leukocyte Esterase (NEGATIVE) Urine RBC (0-5) Urine WBC (0-5) Ur Epithelial Cells Amorphous Sediment Urine Bacteria Urine Mucus Salicylates 7.8 (2.0-20.0) mg/dL Urine Opiates Screen (NEGATIVE) Ur Oxycodone Screen (NEGATIVE) Urine Methadone Screen (NEGATIVE) Ur Propoxyphene Screen (NEGATIVE) Acetaminophen (10.0-30.0) ug/mL Ur Barbiturates Screen (NEGATIVE) Ur Tricyclics Screen (NEGATIVE) Ur Phencyclidine Scrn (NEGATIVE) Ur Amphetamine Screen (NEGATIVE) U Methamphetamines Scrn (NEGATIVE) Urine MDMA Screen (NEGATIVE) U Benzodiazepines Scrn (NEGATIVE) U Cocaine Metab Screen (NEGATIVE) U Marijuana (THC) Screen (NEGATIVE) Ethyl Alcohol 3 mg/dL Influenza Type A RNA (NEGATIVE) RSV RNA (INAAT) (NEGATIVE) Influenza Type B RNA (NEGATIVE) SARS-CoV-2 RNA ([place]) (NEGATIVE) 08/31/20 08/31/20 08/31/20 Range/Units 01:40 01:55 02:08 WBC (4.5-11.0) K/uL RBC (3.30-5.50) M/uL Hgb (12.0-15.0) g/dL Hct (36.0-48.0) % MCV (80-98) fL MCH (27-31) pg MCHC (32-36) % Plt Count (150-400) K/uL Neut % (Auto) (36-66) % Lymph % (Auto) (24-44) % [place] % (Auto) (2-6) % Eos % (Auto) (2-4) % Baso % (Auto) (0-1) % Puncture Site ABG pH (7.350-7.450) ABG pCO2 (35.0-42.0) mmHg ABG pO2 (75.0-100.0) mmHg ABG HCO3 (22.0-26.0) mmol/L ABG Total CO2 (21.0-25.0) mmol/L ABG O2 Saturation (95.0-98.0) % ABG O2 Content (15.0-23.0) %vol ABG Base Excess mm/L ABG Hemoglobin (12.0-16.0) g/dL ABG Oxyhemoglobin % ABG Carboxyhemoglobin (0.0-1.6) % ABG Methemoglobin % O2 Delivery Device Oxygen Flow Rate L Sodium (140-148) mmol/L Potassium (3.6-5.2) mmol/L Chloride (100-108) mmol/L Carbon Dioxide (21-32) mmol/L Anion Gap (5.0-14.0) mmol/L BUN (7-18) mg/dL Creatinine (0.6-1.0) mg/dL Est Cr Clr Drug Dosing mL/min Estimated GFR (MDRD) (>60) Glucose (74-106) mg/dL Lactic Acid (0.4-2.0) mmol/L Calcium (8.5-10.1) mg/dL Total Bilirubin (0.2-1.0) mg/dL AST (15-37) U/L ALT (12-78) U/L Alkaline Phosphatase (46-116) U/L Ammonia (11-32) umol/L C-Reactive Protein (0.0-0.3) mg/dL NT-Pro-B Natriuret Pep (5-125) pg/mL Total Protein (6.4-8.2) g/dL Albumin (3.4-5.0) g/dL Globulin (2.3-3.5) g/dL Albumin/Globulin Ratio (1.2-2.2) Procalcitonin ng/mL Urine Color Yellow (YELLOW) Urine Appearance Clear (CLEAR) Urine pH 6.0 (5.0-8.0) Ur Specific [place] 1.015 (1.008-1.030) Urine Protein Negative (NEGATIVE) mg/dL Urine Glucose (UA) Negative (NEGATIVE) mg/dL Urine Ketones Negative (NEGATIVE) mg/dL Urine Occult Blood Negative (NEGATIVE) Urine Nitrite Negative (NEGATIVE) Urine Bilirubin Negative (NEGATIVE) Urine Urobilinogen 0.2 (0.2-1.0) EU/dL Ur Leukocyte Esterase Small H (NEGATIVE) Urine RBC 0-5 (0-5) Urine WBC 20-30 H (0-5) Ur Epithelial Cells Few Amorphous Sediment Not seen Urine Bacteria Few Urine Mucus Not seen Salicylates (2.0-20.0) mg/dL Urine Opiates Screen Negative (NEGATIVE) Ur Oxycodone Screen Negative (NEGATIVE) Urine Methadone Screen Negative (NEGATIVE) Ur Propoxyphene Screen Negative (NEGATIVE) Acetaminophen (10.0-30.0) ug/mL Ur Barbiturates Screen Negative (NEGATIVE) Ur Tricyclics Screen Presumptive positive H (NEGATIVE) Ur Phencyclidine Scrn Negative (NEGATIVE) Ur Amphetamine Screen Negative (NEGATIVE) U Methamphetamines Scrn Negative (NEGATIVE) Urine MDMA Screen Negative (NEGATIVE) U Benzodiazepines Scrn Presumptive positive H (NEGATIVE) U Cocaine Metab Screen Negative (NEGATIVE) U Marijuana (THC) Screen Presumptive positive H (NEGATIVE) Ethyl Alcohol mg/dL Influenza Type A RNA Negative (NEGATIVE) RSV RNA (INAAT) Negative (NEGATIVE) Influenza Type B RNA Negative (NEGATIVE) SARS-CoV-2 RNA ([place]) Negative (NEGATIVE) Result Diagrams: 08/31/20 00:25 08/31/20 00:25 Imaging Impressions Last 24 hrs: Chest x-ray-image personally reviewed-lungs are clear with no obvious mass, infiltrate or effusion. Heart size is normal. #1 Interpretation EKG Date: 08/31/20 Rhythm: NSR Rate (Beats/Min): 85 [place]: RAD-Right [place] Deviation P-Wave: Present QRS: RBBB ST-T: Normal QT: Prolonged MN/PQ Interval: normal Comparison: NA - No Prior EKG Sepsis Event Note - Evaluation Sepsis Screening Result: No Definite Risk - Focused Exam Vital Signs: Vital Signs Temp Pulse Resp BP Pulse Ox 08/31/20 02:00 95 19 95/56 L 93 L 08/31/20 01:15 93 17 96/53 L 92 L 08/31/20 00:35 36.4 C 98 20 101/63 90 L 08/30/20 23:52 36.4 C 98 24 H 92/55 L 86 L *Q Meaningful Use (ADM) - VTE Risk Assess *Q Each Risk Factor Represents 1 Point: Age 41 - 59 years, Obesity ( BMI > 25 kg/m2) Total Score 1 Point Risk Factors: 2 Each Risk Factor Represents 2 Points: None Total Score 2 Point Risk Factors: 0 Each Risk Factor Represents 3 Points: None Total Score 3 Point Risk Factors: 0 Each Risk Factor Represents 5 Points: None Total Score 5 Point Risk Factors: 0 Venous Thromboembolism Risk Factor Score *Q: 2 - Problem List (1) Syncope SNOMED Code(s): 146711814 ICD Code: R55 - SYNCOPE AND COLLAPSE Status: Acute Current Visit: No Qualifiers: Syncope type: unspecified Qualified Code(s): R55 - Syncope and collapse (2) Bipolar 2 disorder SNOMED Code(s): 07271602 ICD Code: F31.81 - BIPOLAR II DISORDER Status: Chronic Current Visit: No (3) Anxiety disorder SNOMED Code(s): 403932153 ICD Code: F41.9 - ANXIETY DISORDER, UNSPECIFIED Status: Chronic Priority: High Current Visit: No Qualifiers: Anxiety disorder type: generalized anxiety disorder Qualified Code(s): F41.1 - Generalized anxiety disorder (4) Obesity (BMI 30-39.9) SNOMED Code(s): 567612211, 235527804 ICD Code: E66.9 - OBESITY, UNSPECIFIED Status: Chronic Current Visit: No (5) Tobacco dependence syndrome SNOMED Code(s): 74868576 ICD Code: F17.200 - NICOTINE DEPENDENCE, UNSPECIFIED, UNCOMPLICATED Status: Chronic Priority: High Current Visit: No (6) Type 2 diabetes mellitus SNOMED Code(s): 37152832 ICD Code: E11.9 - TYPE 2 DIABETES MELLITUS WITHOUT COMPLICATIONS Status: Chronic Priority: Medium Current Visit: No Qualifiers: Diabetes mellitus 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 helper insulin use: without custodial use Diabetes mellitus complication status: without complication Qualified Code(s): E11.9 - Type 2 diabetes mellitus without complications Problem List Initiated/Reviewed/Updated: Yes Orders Last 24hrs: Active Orders 24 hr Category Date Time Status Patient Status Manage Transfer [TRANSFER] Routine ADT 08/31/20 03:48 Ordered EKG Documentation Completion [RC] ASDIRECTED Care 08/31/20 00:24 Active Vital Signs [RC] Q1H Care 08/31/20 00:15 Active Chest 1V Frontal [CR] Stat Exams 08/31/20 00:16 Taken CULTURE BLOOD [BC] Urgent Lab 08/31/20 00:25 Received CULTURE BLOOD [BC] Urgent Lab 08/31/20 00:30 Received CULTURE URINE [RM] Urgent Lab 08/31/20 01:50 Received LACTIC ACID [CHEM] Routine Lab 08/31/20 04:03 Ordered Lactated Ringers [Ringers, Lactated] 1,000 ml Med 08/31/20 00:15 Active IV ASDIRECTED Sodium Chloride 0.9% [Normal Saline] 1,000 ml Med 08/31/20 03:45 Active IV ASDIRECTED Blood Culture x2 Reflex Set [OM.PC] Urgent Oth 08/31/20 00:15 Ordered Isolation [COMM] Stat Oth 08/31/20 01:39 Ordered Resuscitation Status Routine Resus Stat 08/31/20 03:52 Ordered EKG 12 Lead [EK] Stat Ther 08/31/20 00:24 Ordered Medication Orders Lactated Ringer's (Ringers, Lactated) 1,000 mls @ 999 mls/hr IV ASDIRECTED TONEY Last Admin: 08/31/20 00:35 Dose: 999 mls/hr Documented by: JUANITA Sodium Chloride (Normal Saline) 1,000 mls @ 999 mls/hr IV ASDIRECTED TONEY Stop: 08/31/20 04:46 Assessment/Plan Comment:: ASSESSMENT AND PLAN - Syncope-patient quite lethargic but is able to answer questions appropriately. I suspect this is related to medications and she is on a variety of different things that could be leading to her sedation and syncope. I think the gabapentin seems to be the most likely culprit given the very large dose as well as her reduced GFR. She has prescriptions for several different muscle relaxers but I do not think she is taking anything inappropriate because home care sets up her medications for her. No strong evidence to support infection other than may be a urinary tract infection but she has no symptoms or fever. Lactic acid is elevated but I think this is related to dehydration rather than infection and sepsis. I would anticipate she should improve with some fluids and holding her medications that could lead to sedation. -Second 1 L bolus of normal saline -Start continuous infusion of IV fluids after second bolus -Cardiac monitoring -Repeat lactic acid -Empiric dose of ceftriaxone, consider additional antibiotics if urine culture grows out a specific bacteria -Hold home medications as discussed below Bipolar disorder with anxiety-complicated medication history and we will need to obtain a list from her home care agency. She is on lamotrigine, gabapentin, benzodiazepines, quetiapine, potentially several different muscle relaxers. I am going to hold all of these until she wakes up and then we can go from there. -Hold all home medications -Verify medication list with [facility] Type 2 diabetes mellitus-she has lactic acidosis and her Metformin will be held. -Low-dose sliding scale insulin Tobacco dependence-encourage cessation Maintenance issues - -DVT prophylaxis-mechanical -GI prophylaxis-not indicated -Nutrition-diabetic -Kimble catheter-not indicated CODE STATUS -full code Admission justification -this patient will be admitted for observation to [facility] and ensure that she clears up Disposition -I anticipate discharge home after the hospital stay Primary care physician -CONNOR Lopez M.D. - Mortality Measure Prognosis:: Good
[2020-08-31] MEDS ORDERED: Ondansetron 4 MG/2 ML SDV IV PRN (04:44)
[2020-08-31] MEDS ORDERED: Albuterol 0.083% 2.5 MG/3 ML Neb Soln NEB PRN (04:44)
[2020-08-31] MEDS ORDERED: Acetaminophen 325 MG Tab PO PRN (04:44)
[2020-08-31] MEDS ORDERED: LORazepam 2 MG/ML SDV IVPUSH PRN (04:44)
[2020-08-31] MEDS ORDERED: Magnesium Hydroxide 400 MG/5 ML Susp 30 ML Cup PO PRN (04:44)
[2020-08-31] MEDS ORDERED: Ondansetron 4 MG Tab.DIS PO PRN (04:44)
[2020-08-31] MEDS ORDERED: cefTRIAXone 1 GM in Sodium Chloride 0.9% 50 ML IV SCH (07:00)
[2020-08-31] MEDS: Insulin Lispro 100 Unit/ML 3 ML KwikPen SUBCUT SCH ×4 (07:28→21:20)
[2020-08-31] MEDS: cefTRIAXone 1 GM in Sodium Chloride 0.9% 50 ML IV SCH (08:40)
[2020-08-31] MEDS: Sodium Chloride 0.9% 1,000 ML IV SCH ×2 (08:40→16:48)
[2020-08-31] MEDS: Ibuprofen 600 MG Tab PO PRN ×2 (08:45→20:02)
[2020-08-31] MEDS ORDERED: Oxybutynin 5 MG Tab PO SCH (09:00)
[2020-08-31] MEDS ORDERED: Cyanocobalamin (Vitamin B12) 1,000 MCG Tab PO SCH (09:00)
[2020-08-31] MEDS ORDERED: Empagliflozin 10 MG Tab PO SCH (09:00)
[2020-08-31] MEDS ORDERED: Non-Formulary Medication 1 Each (Fluticasone/Umeclidin/Vilanter [Trelegy Ellipta 100-62.5- INH SCH (09:00)
--- NOTE | 2020-08-31 11:11 | CR ---
CHEST: Portable 08/31/2020 at 12:45 AM CLINICAL HISTORY:Hypoxia COMPARISON:2019 FINDINGS: The heart size, pulmonary vascularity and hilar structures are normal. No infiltrate effusion or pneumothorax is seen. There is a monitor device over the upper central chest IMPRESSION: No acute cardiopulmonary process.
[2020-08-31] MEDS: FLUoxetine 20 MG Cap PO SCH (12:38)
[2020-08-31] MEDS: Levothyroxine 100 MCG Tab PO SCH (12:38)
[2020-08-31] MEDS: Aspirin 81 MG Tab.EC PO SCH (12:38)
[2020-08-31] MEDS ORDERED: Albuterol/Ipratropium 3.0-0.5 MG/3 ML Neb Soln INH PRN (12:45)
[2020-08-31] MEDS ORDERED: QUEtiapine 25 MG Tab PO PRN (12:45)
--- NOTE | 2020-08-31 12:57 | PCM.PN ---
- General Info Date of Service: 08/31/20 Subjective Update: Ms. Zeng has improved since admission yesterday, she is more alert and interactive. She reports ongoing symptoms of lightheadedness and weakness. No specific etiology has been identified for that and symptoms have been present for some time. Likely that at least some component of this is related to medication effect. She was very lethargic when she came in yesterday meds have essentially been held since that time and she is more alert and interactive. Functional Status: Reports: Tolerating Diet, Urinating - Review of Systems General: Reports: Weakness, Fatigue. Denies: Fever, Chills Pulmonary: Reports: No Symptoms Cardiovascular: Reports: No Symptoms Gastrointestinal: Reports: No Symptoms Genitourinary: Reports: No Symptoms - Patient Data Vitals - Most Recent: Last Vital Signs Temp 95.7 F L 08/31/20 10:43 Pulse 86 08/31/20 10:43 Resp 16 08/31/20 10:43 BP 90/55 L 08/31/20 10:43 Pulse Ox 95 08/31/20 10:43 Orthostatic Blood Pressure [ 103/78 Standing] Orthostatic Blood Pressure [ 98/75 Sitting] Orthostatic Blood Pressure [ 96/63 Supine] Weight - Most Recent: 219 lb 15.988 oz I&O - Last 24 Hours: Intake & Output 08/30/20 08/31/20 08/31/20 22:59 06:59 14:59 Intake Total 240 Balance 240 Lab Results Last 24 Hours: Laboratory Results - last 24 hr 08/31/20 08/31/20 08/31/20 Range/Units 00:25 00:25 00:25 WBC 15.2 H (4.5-11.0) K/uL RBC 4.95 (3.30-5.50) M/uL Hgb 14.9 (12.0-15.0) g/dL Hct 44.8 (36.0-48.0) % MCV 91 (80-98) fL MCH 30 (27-31) pg MCHC 33 (32-36) % Plt Count 227 (150-400) K/uL Neut % (Auto) 78.3 H (36-66) % Lymph % (Auto) 10.8 L (24-44) % [place] % (Auto) 10.5 H (2-6) % Eos % (Auto) 0.3 L (2-4) % Baso % (Auto) 0.1 (0-1) % Puncture Site ABG pH (7.350-7.450) ABG pCO2 (35.0-42.0) mmHg ABG pO2 (75.0-100.0) mmHg ABG HCO3 (22.0-26.0) mmol/L ABG Total CO2 (21.0-25.0) mmol/L ABG O2 Saturation (95.0-98.0) % ABG O2 Content (15.0-23.0) %vol ABG Base Excess mm/L ABG Hemoglobin (12.0-16.0) g/dL ABG Oxyhemoglobin % ABG Carboxyhemoglobin (0.0-1.6) % ABG Methemoglobin % O2 Delivery Device Oxygen Flow Rate L Sodium 139 L (140-148) mmol/L Potassium 3.5 L (3.6-5.2) mmol/L Chloride 100 (100-108) mmol/L Carbon Dioxide 27 (21-32) mmol/L Anion Gap 15.5 H (5.0-14.0) mmol/L BUN 6 L (7-18) mg/dL Creatinine 1.1 H (0.6-1.0) mg/dL Est Cr Clr Drug Dosing 56.89 mL/min Estimated GFR (MDRD) 53 L (>60) Glucose 107 H (74-106) mg/dL POC Glucose (74-106) mg/dL Lactic Acid 4.7 H (0.4-2.0) mmol/L Calcium 8.4 L (8.5-10.1) mg/dL Total Bilirubin 0.3 (0.2-1.0) mg/dL AST 15 (15-37) U/L ALT 19 (12-78) U/L Alkaline Phosphatase 105 (46-116) U/L Ammonia (11-32) umol/L C-Reactive Protein 3.10 H (0.0-0.3) mg/dL NT-Pro-B Natriuret Pep (5-125) pg/mL Total Protein 6.3 L (6.4-8.2) g/dL Albumin 2.6 L (3.4-5.0) g/dL Globulin 3.7 H (2.3-3.5) g/dL Albumin/Globulin Ratio 0.7 L (1.2-2.2) Procalcitonin ng/mL Urine Color (YELLOW) Urine Appearance (CLEAR) Urine pH (5.0-8.0) Ur Specific [place] (1.008-1.030) Urine Protein (NEGATIVE) mg/dL Urine Glucose (UA) (NEGATIVE) mg/dL Urine Ketones (NEGATIVE) mg/dL Urine Occult Blood (NEGATIVE) Urine Nitrite (NEGATIVE) Urine Bilirubin (NEGATIVE) Urine Urobilinogen (0.2-1.0) EU/dL Ur Leukocyte Esterase (NEGATIVE) Urine RBC (0-5) Urine WBC (0-5) Ur Epithelial Cells Amorphous Sediment Urine Bacteria Urine Mucus Salicylates (2.0-20.0) mg/dL Urine Opiates Screen (NEGATIVE) Ur Oxycodone Screen (NEGATIVE) Urine Methadone Screen (NEGATIVE) Ur Propoxyphene Screen (NEGATIVE) Acetaminophen (10.0-30.0) ug/mL Ur Barbiturates Screen (NEGATIVE) Ur Tricyclics Screen (NEGATIVE) Ur Phencyclidine Scrn (NEGATIVE) Ur Amphetamine Screen (NEGATIVE) U Methamphetamines Scrn (NEGATIVE) Urine MDMA Screen (NEGATIVE) U Benzodiazepines Scrn (NEGATIVE) U Cocaine Metab Screen (NEGATIVE) U Marijuana (THC) Screen (NEGATIVE) Ethyl Alcohol mg/dL Influenza Type A RNA (NEGATIVE) RSV RNA (INAAT) (NEGATIVE) Influenza Type B RNA (NEGATIVE) SARS-CoV-2 RNA ([place]) (NEGATIVE) 08/31/20 08/31/20 08/31/20 Range/Units 00:25 00:25 00:25 WBC (4.5-11.0) K/uL RBC (3.30-5.50) M/uL Hgb (12.0-15.0) g/dL Hct (36.0-48.0) % MCV (80-98) fL MCH (27-31) pg MCHC (32-36) % Plt Count (150-400) K/uL Neut % (Auto) (36-66) % Lymph % (Auto) (24-44) % [place] % (Auto) (2-6) % Eos % (Auto) (2-4) % Baso % (Auto) (0-1) % Puncture Site ABG pH (7.350-7.450) ABG pCO2 (35.0-42.0) mmHg ABG pO2 (75.0-100.0) mmHg ABG HCO3 (22.0-26.0) mmol/L ABG Total CO2 (21.0-25.0) mmol/L ABG O2 Saturation (95.0-98.0) % ABG O2 Content (15.0-23.0) %vol ABG Base Excess mm/L ABG Hemoglobin (12.0-16.0) g/dL ABG Oxyhemoglobin % ABG Carboxyhemoglobin (0.0-1.6) % ABG Methemoglobin % O2 Delivery Device Oxygen Flow Rate L Sodium (140-148) mmol/L Potassium (3.6-5.2) mmol/L Chloride (100-108) mmol/L Carbon Dioxide (21-32) mmol/L Anion Gap (5.0-14.0) mmol/L BUN (7-18) mg/dL Creatinine (0.6-1.0) mg/dL Est Cr Clr Drug Dosing mL/min Estimated GFR (MDRD) (>60) Glucose (74-106) mg/dL POC Glucose (74-106) mg/dL Lactic Acid (0.4-2.0) mmol/L Calcium (8.5-10.1) mg/dL Total Bilirubin (0.2-1.0) mg/dL AST (15-37) U/L ALT (12-78) U/L Alkaline Phosphatase (46-116) U/L Ammonia 15 (11-32) umol/L C-Reactive Protein (0.0-0.3) mg/dL NT-Pro-B Natriuret Pep 47 (5-125) pg/mL Total Protein (6.4-8.2) g/dL Albumin (3.4-5.0) g/dL Globulin (2.3-3.5) g/dL Albumin/Globulin Ratio (1.2-2.2) Procalcitonin < 0.05 ng/mL Urine Color (YELLOW) Urine Appearance (CLEAR) Urine pH (5.0-8.0) Ur Specific Spring (1.008-1.030) Urine Protein (NEGATIVE) mg/dL Urine Glucose (UA) (NEGATIVE) mg/dL Urine Ketones (NEGATIVE) mg/dL Urine Occult Blood (NEGATIVE) Urine Nitrite (NEGATIVE) Urine Bilirubin (NEGATIVE) Urine Urobilinogen (0.2-1.0) EU/dL Ur Leukocyte Esterase (NEGATIVE) Urine RBC (0-5) Urine WBC (0-5) Ur Epithelial Cells Amorphous Sediment Urine Bacteria Urine Mucus Salicylates (2.0-20.0) mg/dL Urine Opiates Screen (NEGATIVE) Ur Oxycodone Screen (NEGATIVE) Urine Methadone Screen (NEGATIVE) Ur Propoxyphene Screen (NEGATIVE) Acetaminophen 0.0 L (10.0-30.0) ug/mL Ur Barbiturates Screen (NEGATIVE) Ur Tricyclics Screen (NEGATIVE) Ur Phencyclidine Scrn (NEGATIVE) Ur Amphetamine Screen (NEGATIVE) U Methamphetamines Scrn (NEGATIVE) Urine MDMA Screen (NEGATIVE) U Benzodiazepines Scrn (NEGATIVE) U Cocaine Metab Screen (NEGATIVE) U Marijuana (THC) Screen (NEGATIVE) Ethyl Alcohol mg/dL Influenza Type A RNA (NEGATIVE) RSV RNA (INAAT) (NEGATIVE) Influenza Type B RNA (NEGATIVE) SARS-CoV-2 RNA ([place]) (NEGATIVE) 08/31/20 08/31/20 08/31/20 Range/Units 00:25 00:25 00:30 WBC (4.5-11.0) K/uL RBC (3.30-5.50) M/uL Hgb (12.0-15.0) g/dL Hct (36.0-48.0) % MCV (80-98) fL MCH (27-31) pg MCHC (32-36) % Plt Count (150-400) K/uL Neut % (Auto) (36-66) % Lymph % (Auto) (24-44) % [place] % (Auto) (2-6) % Eos % (Auto) (2-4) % Baso % (Auto) (0-1) % Puncture Site R brachial ABG pH 7.429 (7.350-7.450) ABG pCO2 39.4 (35.0-42.0) mmHg ABG pO2 67.0 L (75.0-100.0) mmHg ABG HCO3 25.6 (22.0-26.0) mmol/L ABG Total CO2 22.2 (21.0-25.0) mmol/L ABG O2 Saturation 93.3 L (95.0-98.0) % ABG O2 Content 18.0 (15.0-23.0) %vol ABG Base Excess 1.8 mm/L ABG Hemoglobin 15.0 (12.0-16.0) g/dL ABG Oxyhemoglobin 85.4 % ABG Carboxyhemoglobin 7.5 H (0.0-1.6) % ABG Methemoglobin 1.0 % O2 Delivery Device Nasal cannula Oxygen Flow Rate 2.0 L Sodium (140-148) mmol/L Potassium (3.6-5.2) mmol/L Chloride (100-108) mmol/L Carbon Dioxide (21-32) mmol/L Anion Gap (5.0-14.0) mmol/L BUN (7-18) mg/dL Creatinine (0.6-1.0) mg/dL Est Cr Clr Drug Dosing mL/min Estimated GFR (MDRD) (>60) Glucose (74-106) mg/dL POC Glucose (74-106) mg/dL Lactic Acid (0.4-2.0) mmol/L Calcium (8.5-10.1) mg/dL Total Bilirubin (0.2-1.0) mg/dL AST (15-37) U/L ALT (12-78) U/L Alkaline Phosphatase (46-116) U/L Ammonia (11-32) umol/L C-Reactive Protein (0.0-0.3) mg/dL NT-Pro-B Natriuret Pep (5-125) pg/mL Total Protein (6.4-8.2) g/dL Albumin (3.4-5.0) g/dL Globulin (2.3-3.5) g/dL Albumin/Globulin Ratio (1.2-2.2) Procalcitonin ng/mL Urine Color (YELLOW) Urine Appearance (CLEAR) Urine pH (5.0-8.0) Ur Specific [place] (1.008-1.030) Urine Protein (NEGATIVE) mg/dL Urine Glucose (UA) (NEGATIVE) mg/dL Urine Ketones (NEGATIVE) mg/dL Urine Occult Blood (NEGATIVE) Urine Nitrite (NEGATIVE) Urine Bilirubin (NEGATIVE) Urine Urobilinogen (0.2-1.0) EU/dL Ur Leukocyte Esterase (NEGATIVE) Urine RBC (0-5) Urine WBC (0-5) Ur Epithelial Cells Amorphous Sediment Urine Bacteria Urine Mucus Salicylates 7.8 (2.0-20.0) mg/dL Urine Opiates Screen (NEGATIVE) Ur Oxycodone Screen (NEGATIVE) Urine Methadone Screen (NEGATIVE) Ur Propoxyphene Screen (NEGATIVE) Acetaminophen (10.0-30.0) ug/mL Ur Barbiturates Screen (NEGATIVE) Ur Tricyclics Screen (NEGATIVE) Ur Phencyclidine Scrn (NEGATIVE) Ur Amphetamine Screen (NEGATIVE) U Methamphetamines Scrn (NEGATIVE) Urine MDMA Screen (NEGATIVE) U Benzodiazepines Scrn (NEGATIVE) U Cocaine Metab Screen (NEGATIVE) U Marijuana (THC) Screen (NEGATIVE) Ethyl Alcohol 3 mg/dL Influenza Type A RNA (NEGATIVE) RSV RNA (INAAT) (NEGATIVE) Influenza Type B RNA (NEGATIVE) SARS-CoV-2 RNA ([place]) (NEGATIVE) 08/31/20 08/31/20 08/31/20 Range/Units 01:40 01:55 02:08 WBC (4.5-11.0) K/uL RBC (3.30-5.50) M/uL Hgb (12.0-15.0) g/dL Hct (36.0-48.0) % MCV (80-98) fL MCH (27-31) pg MCHC (32-36) % Plt Count (150-400) K/uL Neut % (Auto) (36-66) % Lymph % (Auto) (24-44) % [place] % (Auto) (2-6) % Eos % (Auto) (2-4) % Baso % (Auto) (0-1) % Puncture Site ABG pH (7.350-7.450) ABG pCO2 (35.0-42.0) mmHg ABG pO2 (75.0-100.0) mmHg ABG HCO3 (22.0-26.0) mmol/L ABG Total CO2 (21.0-25.0) mmol/L ABG O2 Saturation (95.0-98.0) % ABG O2 Content (15.0-23.0) %vol ABG Base Excess mm/L ABG Hemoglobin (12.0-16.0) g/dL ABG Oxyhemoglobin % ABG Carboxyhemoglobin (0.0-1.6) % ABG Methemoglobin % O2 Delivery Device Oxygen Flow Rate L Sodium (140-148) mmol/L Potassium (3.6-5.2) mmol/L Chloride (100-108) mmol/L Carbon Dioxide (21-32) mmol/L Anion Gap (5.0-14.0) mmol/L BUN (7-18) mg/dL Creatinine (0.6-1.0) mg/dL Est Cr Clr Drug Dosing mL/min Estimated GFR (MDRD) (>60) Glucose (74-106) mg/dL POC Glucose (74-106) mg/dL Lactic Acid (0.4-2.0) mmol/L Calcium (8.5-10.1) mg/dL Total Bilirubin (0.2-1.0) mg/dL AST (15-37) U/L ALT (12-78) U/L Alkaline Phosphatase (46-116) U/L Ammonia (11-32) umol/L C-Reactive Protein (0.0-0.3) mg/dL NT-Pro-B Natriuret Pep (5-125) pg/mL Total Protein (6.4-8.2) g/dL Albumin (3.4-5.0) g/dL Globulin (2.3-3.5) g/dL Albumin/Globulin Ratio (1.2-2.2) Procalcitonin ng/mL Urine Color Yellow (YELLOW) Urine Appearance Clear (CLEAR) Urine pH 6.0 (5.0-8.0) Ur Specific Spring 1.015 (1.008-1.030) Urine Protein Negative (NEGATIVE) mg/dL Urine Glucose (UA) Negative (NEGATIVE) mg/dL Urine Ketones Negative (NEGATIVE) mg/dL Urine Occult Blood Negative (NEGATIVE) Urine Nitrite Negative (NEGATIVE) Urine Bilirubin Negative (NEGATIVE) Urine Urobilinogen 0.2 (0.2-1.0) EU/dL Ur Leukocyte Esterase Small H (NEGATIVE) Urine RBC 0-5 (0-5) Urine WBC 20-30 H (0-5) Ur Epithelial Cells Few Amorphous Sediment Not seen Urine Bacteria Few Urine Mucus Not seen Salicylates (2.0-20.0) mg/dL Urine Opiates Screen Negative (NEGATIVE) Ur Oxycodone Screen Negative (NEGATIVE) Urine Methadone Screen Negative (NEGATIVE) Ur Propoxyphene Screen Negative (NEGATIVE) Acetaminophen (10.0-30.0) ug/mL Ur Barbiturates Screen Negative (NEGATIVE) Ur Tricyclics Screen Presumptive positive H (NEGATIVE) Ur Phencyclidine Scrn Negative (NEGATIVE) Ur Amphetamine Screen Negative (NEGATIVE) U Methamphetamines Scrn Negative (NEGATIVE) Urine MDMA Screen Negative (NEGATIVE) U Benzodiazepines Scrn Presumptive positive H (NEGATIVE) U Cocaine Metab Screen Negative (NEGATIVE) U Marijuana (THC) Screen Presumptive positive H (NEGATIVE) Ethyl Alcohol mg/dL Influenza Type A RNA Negative (NEGATIVE) RSV RNA (INAAT) Negative (NEGATIVE) Influenza Type B RNA Negative (NEGATIVE) SARS-CoV-2 RNA ([place]) Negative (NEGATIVE) 08/31/20 08/31/20 08/31/20 Range/Units 04:15 04:25 04:25 WBC 13.5 H (4.5-11.0) K/uL RBC 4.89 (3.30-5.50) M/uL Hgb 14.5 (12.0-15.0) g/dL Hct 44.3 (36.0-48.0) % MCV 91 (80-98) fL MCH 30 (27-31) pg MCHC 33 (32-36) % Plt Count 264 (150-400) K/uL Neut % (Auto) (36-66) % Lymph % (Auto) (24-44) % [place] % (Auto) (2-6) % Eos % (Auto) (2-4) % Baso % (Auto) (0-1) % Puncture Site ABG pH (7.350-7.450) ABG pCO2 (35.0-42.0) mmHg ABG pO2 (75.0-100.0) mmHg ABG HCO3 (22.0-26.0) mmol/L ABG Total CO2 (21.0-25.0) mmol/L ABG O2 Saturation (95.0-98.0) % ABG O2 Content (15.0-23.0) %vol ABG Base Excess mm/L ABG Hemoglobin (12.0-16.0) g/dL ABG Oxyhemoglobin % ABG Carboxyhemoglobin (0.0-1.6) % ABG Methemoglobin % O2 Delivery Device Oxygen Flow Rate L Sodium 142 (140-148) mmol/L Potassium 3.7 (3.6-5.2) mmol/L Chloride 102 (100-108) mmol/L Carbon Dioxide 28 (21-32) mmol/L Anion Gap 12.1 (5.0-14.0) mmol/L BUN 6 L (7-18) mg/dL Creatinine 1.0 (0.6-1.0) mg/dL Est Cr Clr Drug Dosing 62.58 mL/min Estimated GFR (MDRD) 59 L (>60) Glucose 98 (74-106) mg/dL POC Glucose (74-106) mg/dL Lactic Acid 3.0 H (0.4-2.0) mmol/L Calcium 8.2 L (8.5-10.1) mg/dL Total Bilirubin (0.2-1.0) mg/dL AST (15-37) U/L ALT (12-78) U/L Alkaline Phosphatase (46-116) U/L Ammonia (11-32) umol/L C-Reactive Protein (0.0-0.3) mg/dL NT-Pro-B Natriuret Pep (5-125) pg/mL Total Protein (6.4-8.2) g/dL Albumin (3.4-5.0) g/dL Globulin (2.3-3.5) g/dL Albumin/Globulin Ratio (1.2-2.2) Procalcitonin ng/mL Urine Color (YELLOW) Urine Appearance (CLEAR) Urine pH (5.0-8.0) Ur Specific Spring (1.008-1.030) Urine Protein (NEGATIVE) mg/dL Urine Glucose (UA) (NEGATIVE) mg/dL Urine Ketones (NEGATIVE) mg/dL Urine Occult Blood (NEGATIVE) Urine Nitrite (NEGATIVE) Urine Bilirubin (NEGATIVE) Urine Urobilinogen (0.2-1.0) EU/dL Ur Leukocyte Esterase (NEGATIVE) Urine RBC (0-5) Urine WBC (0-5) Ur Epithelial Cells Amorphous Sediment Urine Bacteria Urine Mucus Salicylates (2.0-20.0) mg/dL Urine Opiates Screen (NEGATIVE) Ur Oxycodone Screen (NEGATIVE) Urine Methadone Screen (NEGATIVE) Ur Propoxyphene Screen (NEGATIVE) Acetaminophen (10.0-30.0) ug/mL Ur Barbiturates Screen (NEGATIVE) Ur Tricyclics Screen (NEGATIVE) Ur Phencyclidine Scrn (NEGATIVE) Ur Amphetamine Screen (NEGATIVE) U Methamphetamines Scrn (NEGATIVE) Urine MDMA Screen (NEGATIVE) U Benzodiazepines Scrn (NEGATIVE) U Cocaine Metab Screen (NEGATIVE) U Marijuana (THC) Screen (NEGATIVE) Ethyl Alcohol mg/dL Influenza Type A RNA (NEGATIVE) RSV RNA (INAAT) (NEGATIVE) Influenza Type B RNA (NEGATIVE) SARS-CoV-2 RNA ([place]) (NEGATIVE) 08/31/20 08/31/20 Range/Units 07:19 11:23 WBC (4.5-11.0) K/uL RBC (3.30-5.50) M/uL Hgb (12.0-15.0) g/dL Hct (36.0-48.0) % MCV (80-98) fL MCH (27-31) pg MCHC (32-36) % Plt Count (150-400) K/uL Neut % (Auto) (36-66) % Lymph % (Auto) (24-44) % [place] % (Auto) (2-6) % Eos % (Auto) (2-4) % Baso % (Auto) (0-1) % Puncture Site ABG pH (7.350-7.450) ABG pCO2 (35.0-42.0) mmHg ABG pO2 (75.0-100.0) mmHg ABG HCO3 (22.0-26.0) mmol/L ABG Total CO2 (21.0-25.0) mmol/L ABG O2 Saturation (95.0-98.0) % ABG O2 Content (15.0-23.0) %vol ABG Base Excess mm/L ABG Hemoglobin (12.0-16.0) g/dL ABG Oxyhemoglobin % ABG Carboxyhemoglobin (0.0-1.6) % ABG Methemoglobin % O2 Delivery Device Oxygen Flow Rate L Sodium (140-148) mmol/L Potassium (3.6-5.2) mmol/L Chloride (100-108) mmol/L Carbon Dioxide (21-32) mmol/L Anion Gap (5.0-14.0) mmol/L BUN (7-18) mg/dL Creatinine (0.6-1.0) mg/dL Est Cr Clr Drug Dosing mL/min Estimated GFR (MDRD) (>60) Glucose (74-106) mg/dL POC Glucose 84 80 (74-106) mg/dL Lactic Acid (0.4-2.0) mmol/L Calcium (8.5-10.1) mg/dL Total Bilirubin (0.2-1.0) mg/dL AST (15-37) U/L ALT (12-78) U/L Alkaline Phosphatase (46-116) U/L Ammonia (11-32) umol/L C-Reactive Protein (0.0-0.3) mg/dL NT-Pro-B Natriuret Pep (5-125) pg/mL Total Protein (6.4-8.2) g/dL Albumin (3.4-5.0) g/dL Globulin (2.3-3.5) g/dL Albumin/Globulin Ratio (1.2-2.2) Procalcitonin ng/mL Urine Color (YELLOW) Urine Appearance (CLEAR) Urine pH (5.0-8.0) Ur Specific [place] (1.008-1.030) Urine Protein (NEGATIVE) mg/dL Urine Glucose (UA) (NEGATIVE) mg/dL Urine Ketones (NEGATIVE) mg/dL Urine Occult Blood (NEGATIVE) Urine Nitrite (NEGATIVE) Urine Bilirubin (NEGATIVE) Urine Urobilinogen (0.2-1.0) EU/dL Ur Leukocyte Esterase (NEGATIVE) Urine RBC (0-5) Urine WBC (0-5) Ur Epithelial Cells Amorphous Sediment Urine Bacteria Urine Mucus Salicylates (2.0-20.0) mg/dL Urine Opiates Screen (NEGATIVE) Ur Oxycodone Screen (NEGATIVE) Urine Methadone Screen (NEGATIVE) Ur Propoxyphene Screen (NEGATIVE) Acetaminophen (10.0-30.0) ug/mL Ur Barbiturates Screen (NEGATIVE) Ur Tricyclics Screen (NEGATIVE) Ur Phencyclidine Scrn (NEGATIVE) Ur Amphetamine Screen (NEGATIVE) U Methamphetamines Scrn (NEGATIVE) Urine MDMA Screen (NEGATIVE) U Benzodiazepines Scrn (NEGATIVE) U Cocaine Metab Screen (NEGATIVE) U Marijuana (THC) Screen (NEGATIVE) Ethyl Alcohol mg/dL Influenza Type A RNA (NEGATIVE) RSV RNA (INAAT) (NEGATIVE) Influenza Type B RNA (NEGATIVE) SARS-CoV-2 RNA ([place]) (NEGATIVE) Med Orders - Current: Current Medications Acetaminophen (Acetaminophen 325 Mg Tab) 650 mg PO Q4H PRN PRN Reason: Pain (Mild 1-3)/fever Albuterol (Albuterol 0.083% 2.5 Mg/3 Ml Neb Soln) 2.5 mg NEB Q4H PRN PRN Reason: Shortness Of Breath/wheezing Albuterol/Ipratropium (Albuterol/Ipratropium 3.0-0.5 Mg/3 Ml Neb Soln) 3 ml .XX Q6H PRN PRN Reason: Shortness of Breath Aspirin (Aspirin 81 Mg Tab.Ec) [address] [facility] Last Admin: 08/31/20 12:38 Dose: 81 mg Documented by: Fluoxetine HCl (Fluoxetine 20 Mg Cap) [address] [facility] Last Admin: 08/31/20 12:38 Dose: 60 mg Documented by: Fluoxetine HCl (Fluoxetine 20 Mg Cap) [address] [facility] Gabapentin (Gabapentin 300 Mg Cap) [address] [facility] Sodium Chloride (Normal Saline) 1,000 mls @ 125 mls/hr IV ASDIRECTED [facility] Last Admin: 08/31/20 08:40 Dose: 125 mls/hr Documented by: Ceftriaxone Sodium 1 gm/ (Sodium Chloride) 50 mls @ 100 mls/hr IV Q24H [facility] Last Admin: 08/31/20 08:40 Dose: 100 mls/hr Documented by: Ibuprofen (Ibuprofen 600 Mg Tab) 600 mg PO Q6H PRN PRN Reason: Pain (moderate 4-6) Last Admin: 08/31/20 08:45 Dose: 600 mg Documented by: Insulin Human Lispro (Insulin Lispro 100 Unit/Ml 3 Ml Kwikpen) [address] [facility]; Protocol Last Admin: 08/31/20 12:38 Dose: Not Given Documented by: Lamotrigine (Lamotrigine 100 Mg Tab) [address] [facility] Levothyroxine Sodium (Levothyroxine 100 Mcg Tab) [address] [facility] Last Admin: 08/31/20 12:38 Dose: 100 mcg Documented by: Lisinopril (Lisinopril 2.5 Mg Tab) 2.[address] [facility] Lorazepam (Lorazepam 2 Mg/Ml Sdv) 0.5 mg IVPUSH Q4H PRN PRN Reason: Nausea/Vomiting Magnesium Hydroxide (Magnesium Hydroxide 400 Mg/5 Ml Susp 30 Ml Cup) 30 ml PO Q12H PRN PRN Reason: Constipation Mometasone Furoate (Mometasone Furoate Powder 220 Mcg/Puff 14 Dose Inhaler) 1 puff INH DAILY@0700 [facility] Nicotine (Nicotine 21 Mg/24 Hr Patch) [address] [facility] Non-Formulary Medication (Metformin [Glucophage]) 1,[address] [facility] Non-Formulary Medication (Simvastatin [Zocor]) [address] [facility] Ondansetron HCl (Ondansetron 4 Mg/2 Ml Sdv) 4 mg IV Q6H PRN PRN Reason: Nausea/Vomiting Ondansetron HCl (Ondansetron 4 Mg Tab.Dis) 4 mg PO Q6H PRN PRN Reason: Nausea able to take PO Quetiapine Fumarate (Quetiapine 25 Mg Tab) 25 mg PO QID PRN PRN Reason: Anxiety Senna/Docusate Sodium (Docusate Sodium/Sennosides 50-8.6 Mg Tab) 1 tab PO BID PRN PRN Reason: Constipation Discontinued Medications Acetaminophen (Acetaminophen 500 Mg Tab) 1,000 mg PO ONETIME ONE Stop: 08/31/20 03:46 Last Admin: 08/31/20 04:18 Dose: 1,000 mg Documented by: Cyanocobalamin (Cyanocobalamin (Vitamin B12) 1,000 Mcg Tab) 1,[address] [facility] Last Admin: 08/31/20 12:28 Dose: Not Given Documented by: Lactated Ringer's (Ringers, Lactated) 1,000 mls @ 999 [facility]ls[facility] Last Admin: 08/31/20 00:35 Dose: 999 mls/hr Documented by: Piperacillin Sod/Tazobactam (Sod 4.5 gm/ Sodium Chloride) 100 mls @ 100 mls/hr IV ONETIME ONE Stop: 08/31/20 01:16 Last Admin: 08/31/20 01:09 Dose: 100 mls/hr Documented by: Sodium Chloride (Normal Saline) 1,000 mls @ 999 mls/hr IV ASDIRECTED [facility] Stop: 08/31/20 04:46 Last Admin: 08/31/20 04:22 Dose: 999 mls/hr Documented by: Oxybutynin Chloride (Oxybutynin 5 Mg Tab) 2.[address] [facility] Last Admin: 08/31/20 12:28 Dose: Not Given Documented by: - Exam General: Alert, Oriented, Cooperative, Mild Distress Lungs: Clear to Auscultation, Normal Respiratory Effort Cardiovascular: Regular Rate, Regular Rhythm, No Murmurs GI/Abdominal Exam: Soft, Non-Tender, No Organomegaly, No Distention Extremities: Non-Tender, No Pedal Edema - Patient Data Lab Results Last 24 hrs: Laboratory Results - last 24 hr 08/31/20 08/31/20 08/31/20 Range/Units 00:25 00:25 00:25 WBC 15.2 H (4.5-11.0) K/uL RBC 4.95 (3.30-5.50) M/uL Hgb 14.9 (12.0-15.0) g/dL Hct 44.8 (36.0-48.0) % MCV 91 (80-98) fL MCH 30 (27-31) pg MCHC 33 (32-36) % Plt Count 227 (150-400) K/uL Neut % (Auto) 78.3 H (36-66) % Lymph % (Auto) 10.8 L (24-44) % [place] % (Auto) 10.5 H (2-6) % Eos % (Auto) 0.3 L (2-4) % Baso % (Auto) 0.1 (0-1) % Puncture Site ABG pH (7.350-7.450) ABG pCO2 (35.0-42.0) mmHg ABG pO2 (75.0-100.0) mmHg ABG HCO3 (22.0-26.0) mmol/L ABG Total CO2 (21.0-25.0) mmol/L ABG O2 Saturation (95.0-98.0) % ABG O2 Content (15.0-23.0) %vol ABG Base Excess mm/L ABG Hemoglobin (12.0-16.0) g/dL ABG Oxyhemoglobin % ABG Carboxyhemoglobin (0.0-1.6) % ABG Methemoglobin % O2 Delivery Device Oxygen Flow Rate L Sodium 139 L (140-148) mmol/L Potassium 3.5 L (3.6-5.2) mmol/L Chloride 100 (100-108) mmol/L Carbon Dioxide 27 (21-32) mmol/L Anion Gap 15.5 H (5.0-14.0) mmol/L BUN 6 L (7-18) mg/dL Creatinine 1.1 H (0.6-1.0) mg/dL Est Cr Clr Drug Dosing 56.89 mL/min Estimated GFR (MDRD) 53 L (>60) Glucose 107 H (74-106) mg/dL POC Glucose (74-106) mg/dL Lactic Acid 4.7 H (0.4-2.0) mmol/L Calcium 8.4 L (8.5-10.1) mg/dL Total Bilirubin 0.3 (0.2-1.0) mg/dL AST 15 (15-37) U/L ALT 19 (12-78) U/L Alkaline Phosphatase 105 (46-116) U/L Ammonia (11-32) umol/L C-Reactive Protein 3.10 H (0.0-0.3) mg/dL NT-Pro-B Natriuret Pep (5-125) pg/mL Total Protein 6.3 L (6.4-8.2) g/dL Albumin 2.6 L (3.4-5.0) g/dL Globulin 3.7 H (2.3-3.5) g/dL Albumin/Globulin Ratio 0.7 L (1.2-2.2) Procalcitonin ng/mL Urine Color (YELLOW) Urine Appearance (CLEAR) Urine pH (5.0-8.0) Ur Specific [place] (1.008-1.030) Urine Protein (NEGATIVE) mg/dL Urine Glucose (UA) (NEGATIVE) mg/dL Urine Ketones (NEGATIVE) mg/dL Urine Occult Blood (NEGATIVE) Urine Nitrite (NEGATIVE) Urine Bilirubin (NEGATIVE) Urine Urobilinogen (0.2-1.0) EU/dL Ur Leukocyte Esterase (NEGATIVE) Urine RBC (0-5) Urine WBC (0-5) Ur Epithelial Cells Amorphous Sediment Urine Bacteria Urine Mucus Salicylates (2.0-20.0) mg/dL Urine Opiates Screen (NEGATIVE) Ur Oxycodone Screen (NEGATIVE) Urine Methadone Screen (NEGATIVE) Ur Propoxyphene Screen (NEGATIVE) Acetaminophen (10.0-30.0) ug/mL Ur Barbiturates Screen (NEGATIVE) Ur Tricyclics Screen (NEGATIVE) Ur Phencyclidine Scrn (NEGATIVE) Ur Amphetamine Screen (NEGATIVE) U Methamphetamines Scrn (NEGATIVE) Urine MDMA Screen (NEGATIVE) U Benzodiazepines Scrn (NEGATIVE) U Cocaine Metab Screen (NEGATIVE) U Marijuana (THC) Screen (NEGATIVE) Ethyl Alcohol mg/dL Influenza Type A RNA (NEGATIVE) RSV RNA (INAAT) (NEGATIVE) Influenza Type B RNA (NEGATIVE) SARS-CoV-2 RNA ([place]) (NEGATIVE) 08/31/20 08/31/20 08/31/20 Range/Units 00:25 00:25 00:25 WBC (4.5-11.0) K/uL RBC (3.30-5.50) M/uL Hgb (12.0-15.0) g/dL Hct (36.0-48.0) % MCV (80-98) fL MCH (27-31) pg MCHC (32-36) % Plt Count (150-400) K/uL Neut % (Auto) (36-66) % Lymph % (Auto) (24-44) % [place] % (Auto) (2-6) % Eos % (Auto) (2-4) % Baso % (Auto) (0-1) % Puncture Site ABG pH (7.350-7.450) ABG pCO2 (35.0-42.0) mmHg ABG pO2 (75.0-100.0) mmHg ABG HCO3 (22.0-26.0) mmol/L ABG Total CO2 (21.0-25.0) mmol/L ABG O2 Saturation (95.0-98.0) % ABG O2 Content (15.0-23.0) %vol ABG Base Excess mm/L ABG Hemoglobin (12.0-16.0) g/dL ABG Oxyhemoglobin % ABG Carboxyhemoglobin (0.0-1.6) % ABG Methemoglobin % O2 Delivery Device Oxygen Flow Rate L Sodium (140-148) mmol/L Potassium (3.6-5.2) mmol/L Chloride (100-108) mmol/L Carbon Dioxide (21-32) mmol/L Anion Gap (5.0-14.0) mmol/L BUN (7-18) mg/dL Creatinine (0.6-1.0) mg/dL Est Cr Clr Drug Dosing mL/min Estimated GFR (MDRD) (>60) Glucose (74-106) mg/dL POC Glucose (74-106) mg/dL Lactic Acid (0.4-2.0) mmol/L Calcium (8.5-10.1) mg/dL Total Bilirubin (0.2-1.0) mg/dL AST (15-37) U/L ALT (12-78) U/L Alkaline Phosphatase (46-116) U/L Ammonia 15 (11-32) umol/L C-Reactive Protein (0.0-0.3) mg/dL NT-Pro-B Natriuret Pep 47 (5-125) pg/mL Total Protein (6.4-8.2) g/dL Albumin (3.4-5.0) g/dL Globulin (2.3-3.5) g/dL Albumin/Globulin Ratio (1.2-2.2) Procalcitonin < 0.05 ng/mL Urine Color (YELLOW) Urine Appearance (CLEAR) Urine pH (5.0-8.0) Ur Specific Spring (1.008-1.030) Urine Protein (NEGATIVE) mg/dL Urine Glucose (UA) (NEGATIVE) mg/dL Urine Ketones (NEGATIVE) mg/dL Urine Occult Blood (NEGATIVE) Urine Nitrite (NEGATIVE) Urine Bilirubin (NEGATIVE) Urine Urobilinogen (0.2-1.0) EU/dL Ur Leukocyte Esterase (NEGATIVE) Urine RBC (0-5) Urine WBC (0-5) Ur Epithelial Cells Amorphous Sediment Urine Bacteria Urine Mucus Salicylates (2.0-20.0) mg/dL Urine Opiates Screen (NEGATIVE) Ur Oxycodone Screen (NEGATIVE) Urine Methadone Screen (NEGATIVE) Ur Propoxyphene Screen (NEGATIVE) Acetaminophen 0.0 L (10.0-30.0) ug/mL Ur Barbiturates Screen (NEGATIVE) Ur Tricyclics Screen (NEGATIVE) Ur Phencyclidine Scrn (NEGATIVE) Ur Amphetamine Screen (NEGATIVE) U Methamphetamines Scrn (NEGATIVE) Urine MDMA Screen (NEGATIVE) U Benzodiazepines Scrn (NEGATIVE) U Cocaine Metab Screen (NEGATIVE) U Marijuana (THC) Screen (NEGATIVE) Ethyl Alcohol mg/dL Influenza Type A RNA (NEGATIVE) RSV RNA (INAAT) (NEGATIVE) Influenza Type B RNA (NEGATIVE) SARS-CoV-2 RNA ([place]) (NEGATIVE) 0708/31/20 08/31/20 Range/Units 00:25 00:25 00:30 WBC (4.5-11.0) K/uL RBC (3.30-5.50) M/uL Hgb (12.0-15.0) g/dL Hct (36.0-48.0) % MCV (80-98) fL MCH (27-31) pg MCHC (32-36) % Plt Count (150-400) K/uL Neut % (Auto) (36-66) % Lymph % (Auto) (24-44) % [place] % (Auto) (2-6) % Eos % (Auto) (2-4) % Baso % (Auto) (0-1) % Puncture Site R brachial ABG pH 7.429 (7.350-7.450) ABG pCO2 39.4 (35.0-42.0) mmHg ABG pO2 67.0 L (75.0-100.0) mmHg ABG HCO3 25.6 (22.0-26.0) mmol/L ABG Total CO2 22.2 (21.0-25.0) mmol/L ABG O2 Saturation 93.3 L (95.0-98.0) % ABG O2 Content 18.0 (15.0-23.0) %vol ABG Base Excess 1.8 mm/L ABG Hemoglobin 15.0 (12.0-16.0) g/dL ABG Oxyhemoglobin 85.4 % ABG Carboxyhemoglobin 7.5 H (0.0-1.6) % ABG Methemoglobin 1.0 % O2 Delivery Device Nasal cannula Oxygen Flow Rate 2.0 L Sodium (140-148) mmol/L Potassium (3.6-5.2) mmol/L Chloride (100-108) mmol/L Carbon Dioxide (21-32) mmol/L Anion Gap (5.0-14.0) mmol/L BUN (7-18) mg/dL Creatinine (0.6-1.0) mg/dL Est Cr Clr Drug Dosing mL/min Estimated GFR (MDRD) (>60) Glucose (74-106) mg/dL POC Glucose (74-106) mg/dL Lactic Acid (0.4-2.0) mmol/L Calcium (8.5-10.1) mg/dL Total Bilirubin (0.2-1.0) mg/dL AST (15-37) U/L ALT (12-78) U/L Alkaline Phosphatase (46-116) U/L Ammonia (11-32) umol/L C-Reactive Protein (0.0-0.3) mg/dL NT-Pro-B Natriuret Pep (5-125) pg/mL Total Protein (6.4-8.2) g/dL Albumin (3.4-5.0) g/dL Globulin (2.3-3.5) g/dL Albumin/Globulin Ratio (1.2-2.2) Procalcitonin ng/mL Urine Color (YELLOW) Urine Appearance (CLEAR) Urine pH (5.0-8.0) Ur Specific Spring (1.008-1.030) Urine Protein (NEGATIVE) mg/dL Urine Glucose (UA) (NEGATIVE) mg/dL Urine Ketones (NEGATIVE) mg/dL Urine Occult Blood (NEGATIVE) Urine Nitrite (NEGATIVE) Urine Bilirubin (NEGATIVE) Urine Urobilinogen (0.2-1.0) EU/dL Ur Leukocyte Esterase (NEGATIVE) Urine RBC (0-5) Urine WBC (0-5) Ur Epithelial Cells Amorphous Sediment Urine Bacteria Urine Mucus Salicylates 7.8 (2.0-20.0) mg/dL Urine Opiates Screen (NEGATIVE) Ur Oxycodone Screen (NEGATIVE) Urine Methadone Screen (NEGATIVE) Ur Propoxyphene Screen (NEGATIVE) Acetaminophen (10.0-30.0) ug/mL Ur Barbiturates Screen (NEGATIVE) Ur Tricyclics Screen (NEGATIVE) Ur Phencyclidine Scrn (NEGATIVE) Ur Amphetamine Screen (NEGATIVE) U Methamphetamines Scrn (NEGATIVE) Urine MDMA Screen (NEGATIVE) U Benzodiazepines Scrn (NEGATIVE) U Cocaine Metab Screen (NEGATIVE) U Marijuana (THC) Screen (NEGATIVE) Ethyl Alcohol 3 mg/dL Influenza Type A RNA (NEGATIVE) RSV RNA (INAAT) (NEGATIVE) Influenza Type B RNA (NEGATIVE) SARS-CoV-2 RNA ([place]) (NEGATIVE) 08/31/20 08/31/20 08/31/20 Range/Units 01:40 01:55 02:08 WBC (4.5-11.0) K/uL RBC (3.30-5.50) M/uL Hgb (12.0-15.0) g/dL Hct (36.0-48.0) % MCV (80-98) fL MCH (27-31) pg MCHC (32-36) % Plt Count (150-400) K/uL Neut % (Auto) (36-66) % Lymph % (Auto) (24-44) % [place] % (Auto) (2-6) % Eos % (Auto) (2-4) % Baso % (Auto) (0-1) % Puncture Site ABG pH (7.350-7.450) ABG pCO2 (35.0-42.0) mmHg ABG pO2 (75.0-100.0) mmHg ABG HCO3 (22.0-26.0) mmol/L ABG Total CO2 (21.0-25.0) mmol/L ABG O2 Saturation (95.0-98.0) % ABG O2 Content (15.0-23.0) %vol ABG Base Excess mm/L ABG Hemoglobin (12.0-16.0) g/dL ABG Oxyhemoglobin % ABG Carboxyhemoglobin (0.0-1.6) % ABG Methemoglobin % O2 Delivery Device Oxygen Flow Rate L Sodium (140-148) mmol/L Potassium (3.6-5.2) mmol/L Chloride (100-108) mmol/L Carbon Dioxide (21-32) mmol/L Anion Gap (5.0-14.0) mmol/L BUN (7-18) mg/dL Creatinine (0.6-1.0) mg/dL Est Cr Clr Drug Dosing mL/min Estimated GFR (MDRD) (>60) Glucose (74-106) mg/dL POC Glucose (74-106) mg/dL Lactic Acid (0.4-2.0) mmol/L Calcium (8.5-10.1) mg/dL Total Bilirubin (0.2-1.0) mg/dL AST (15-37) U/L ALT (12-78) U/L Alkaline Phosphatase (46-116) U/L Ammonia (11-32) umol/L C-Reactive Protein (0.0-0.3) mg/dL NT-Pro-B Natriuret Pep (5-125) pg/mL Total Protein (6.4-8.2) g/dL Albumin (3.4-5.0) g/dL Globulin (2.3-3.5) g/dL Albumin/Globulin Ratio (1.2-2.2) Procalcitonin ng/mL Urine Color Yellow (YELLOW) Urine Appearance Clear (CLEAR) Urine pH 6.0 (5.0-8.0) Ur Specific Spring 1.015 (1.008-1.030) Urine Protein Negative (NEGATIVE) mg/dL Urine Glucose (UA) Negative (NEGATIVE) mg/dL Urine Ketones Negative (NEGATIVE) mg/dL Urine Occult Blood Negative (NEGATIVE) Urine Nitrite Negative (NEGATIVE) Urine Bilirubin Negative (NEGATIVE) Urine Urobilinogen 0.2 (0.2-1.0) EU/dL Ur Leukocyte Esterase Small H (NEGATIVE) Urine RBC 0-5 (0-5) Urine WBC 20-30 H (0-5) Ur Epithelial Cells Few Amorphous Sediment Not seen Urine Bacteria Few Urine Mucus Not seen Salicylates (2.0-20.0) mg/dL Urine Opiates Screen Negative (NEGATIVE) Ur Oxycodone Screen Negative (NEGATIVE) Urine Methadone Screen Negative (NEGATIVE) Ur Propoxyphene Screen Negative (NEGATIVE) Acetaminophen (10.0-30.0) ug/mL Ur Barbiturates Screen Negative (NEGATIVE) Ur Tricyclics Screen Presumptive positive H (NEGATIVE) Ur Phencyclidine Scrn Negative (NEGATIVE) Ur Amphetamine Screen Negative (NEGATIVE) U Methamphetamines Scrn Negative (NEGATIVE) Urine MDMA Screen Negative (NEGATIVE) U Benzodiazepines Scrn Presumptive positive H (NEGATIVE) U Cocaine Metab Screen Negative (NEGATIVE) U Marijuana (THC) Screen Presumptive positive H (NEGATIVE) Ethyl Alcohol mg/dL Influenza Type A RNA Negative (NEGATIVE) RSV RNA (INAAT) Negative (NEGATIVE) Influenza Type B RNA Negative (NEGATIVE) SARS-CoV-2 RNA ([place]) Negative (NEGATIVE) 08/31/20 08/31/20 08/31/20 Range/Units 04:15 04:25 04:25 WBC 13.5 H (4.5-11.0) K/uL RBC 4.89 (3.30-5.50) M/uL Hgb 14.5 (12.0-15.0) g/dL Hct 44.3 (36.0-48.0) % MCV 91 (80-98) fL MCH 30 (27-31) pg MCHC 33 (32-36) % Plt Count 264 (150-400) K/uL Neut % (Auto) (36-66) % Lymph % (Auto) (24-44) % [place] % (Auto) (2-6) % Eos % (Auto) (2-4) % Baso % (Auto) (0-1) % Puncture Site ABG pH (7.350-7.450) ABG pCO2 (35.0-42.0) mmHg ABG pO2 (75.0-100.0) mmHg ABG HCO3 (22.0-26.0) mmol/L ABG Total CO2 (21.0-25.0) mmol/L ABG O2 Saturation (95.0-98.0) % ABG O2 Content (15.0-23.0) %vol ABG Base Excess mm/L ABG Hemoglobin (12.0-16.0) g/dL ABG Oxyhemoglobin % ABG Carboxyhemoglobin (0.0-1.6) % ABG Methemoglobin % O2 Delivery Device Oxygen Flow Rate L Sodium 142 (140-148) mmol/L Potassium 3.7 (3.6-5.2) mmol/L Chloride 102 (100-108) mmol/L Carbon Dioxide 28 (21-32) mmol/L Anion Gap 12.1 (5.0-14.0) mmol/L BUN 6 L (7-18) mg/dL Creatinine 1.0 (0.6-1.0) mg/dL Est Cr Clr Drug Dosing 62.58 mL/min Estimated GFR (MDRD) 59 L (>60) Glucose 98 (74-106) mg/dL POC Glucose (74-106) mg/dL Lactic Acid 3.0 H (0.4-2.0) mmol/L Calcium 8.2 L (8.5-10.1) mg/dL Total Bilirubin (0.2-1.0) mg/dL AST (15-37) U/L ALT (12-78) U/L Alkaline Phosphatase (46-116) U/L Ammonia (11-32) umol/L C-Reactive Protein (0.0-0.3) mg/dL NT-Pro-B Natriuret Pep (5-125) pg/mL Total Protein (6.4-8.2) g/dL Albumin (3.4-5.0) g/dL Globulin (2.3-3.5) g/dL Albumin/Globulin Ratio (1.2-2.2) Procalcitonin ng/mL Urine Color (YELLOW) Urine Appearance (CLEAR) Urine pH (5.0-8.0) Ur Specific Spring (1.008-1.030) Urine Protein (NEGATIVE) mg/dL Urine Glucose (UA) (NEGATIVE) mg/dL Urine Ketones (NEGATIVE) mg/dL Urine Occult Blood (NEGATIVE) Urine Nitrite (NEGATIVE) Urine Bilirubin (NEGATIVE) Urine Urobilinogen (0.2-1.0) EU/dL Ur Leukocyte Esterase (NEGATIVE) Urine RBC (0-5) Urine WBC (0-5) Ur Epithelial Cells Amorphous Sediment Urine Bacteria Urine Mucus Salicylates (2.0-20.0) mg/dL Urine Opiates Screen (NEGATIVE) Ur Oxycodone Screen (NEGATIVE) Urine Methadone Screen (NEGATIVE) Ur Propoxyphene Screen (NEGATIVE) Acetaminophen (10.0-30.0) ug/mL Ur Barbiturates Screen (NEGATIVE) Ur Tricyclics Screen (NEGATIVE) Ur Phencyclidine Scrn (NEGATIVE) Ur Amphetamine Screen (NEGATIVE) U Methamphetamines Scrn (NEGATIVE) Urine MDMA Screen (NEGATIVE) U Benzodiazepines Scrn (NEGATIVE) U Cocaine Metab Screen (NEGATIVE) U Marijuana (THC) Screen (NEGATIVE) Ethyl Alcohol mg/dL Influenza Type A RNA (NEGATIVE) RSV RNA (INAAT) (NEGATIVE) Influenza Type B RNA (NEGATIVE) SARS-CoV-2 RNA ([place]) (NEGATIVE) 08/31/20 08/31/20 Range/Units 07:19 11:23 WBC (4.5-11.0) K/uL RBC (3.30-5.50) M/uL Hgb (12.0-15.0) g/dL Hct (36.0-48.0) % MCV (80-98) fL MCH (27-31) pg MCHC (32-36) % Plt Count (150-400) K/uL Neut % (Auto) (36-66) % Lymph % (Auto) (24-44) % [place] % (Auto) (2-6) % Eos % (Auto) (2-4) % Baso % (Auto) (0-1) % Puncture Site ABG pH (7.350-7.450) ABG pCO2 (35.0-42.0) mmHg ABG pO2 (75.0-100.0) mmHg ABG HCO3 (22.0-26.0) mmol/L ABG Total CO2 (21.0-25.0) mmol/L ABG O2 Saturation (95.0-98.0) % ABG O2 Content (15.0-23.0) %vol ABG Base Excess mm/L ABG Hemoglobin (12.0-16.0) g/dL ABG Oxyhemoglobin % ABG Carboxyhemoglobin (0.0-1.6) % ABG Methemoglobin % O2 Delivery Device Oxygen Flow Rate L Sodium (140-148) mmol/L Potassium (3.6-5.2) mmol/L Chloride (100-108) mmol/L Carbon Dioxide (21-32) mmol/L Anion Gap (5.0-14.0) mmol/L BUN (7-18) mg/dL Creatinine (0.6-1.0) mg/dL Est Cr Clr Drug Dosing mL/min Estimated GFR (MDRD) (>60) Glucose (74-106) mg/dL POC Glucose 84 80 (74-106) mg/dL Lactic Acid (0.4-2.0) mmol/L Calcium (8.5-10.1) mg/dL Total Bilirubin (0.2-1.0) mg/dL AST (15-37) U/L ALT (12-78) U/L Alkaline Phosphatase (46-116) U/L Ammonia (11-32) umol/L C-Reactive Protein (0.0-0.3) mg/dL NT-Pro-B Natriuret Pep (5-125) pg/mL Total Protein (6.4-8.2) g/dL Albumin (3.4-5.0) g/dL Globulin (2.3-3.5) g/dL Albumin/Globulin Ratio (1.2-2.2) Procalcitonin ng/mL Urine Color (YELLOW) Urine Appearance (CLEAR) Urine pH (5.0-8.0) Ur Specific Spring (1.008-1.030) Urine Protein (NEGATIVE) mg/dL Urine Glucose (UA) (NEGATIVE) mg/dL Urine Ketones (NEGATIVE) mg/dL Urine Occult Blood (NEGATIVE) Urine Nitrite (NEGATIVE) Urine Bilirubin (NEGATIVE) Urine Urobilinogen (0.2-1.0) EU/dL Ur Leukocyte Esterase (NEGATIVE) Urine RBC (0-5) Urine WBC (0-5) Ur Epithelial Cells Amorphous Sediment Urine Bacteria Urine Mucus Salicylates (2.0-20.0) mg/dL Urine Opiates Screen (NEGATIVE) Ur Oxycodone Screen (NEGATIVE) Urine Methadone Screen (NEGATIVE) Ur Propoxyphene Screen (NEGATIVE) Acetaminophen (10.0-30.0) ug/mL Ur Barbiturates Screen (NEGATIVE) Ur Tricyclics Screen (NEGATIVE) Ur Phencyclidine Scrn (NEGATIVE) Ur Amphetamine Screen (NEGATIVE) U Methamphetamines Scrn (NEGATIVE) Urine MDMA Screen (NEGATIVE) U Benzodiazepines Scrn (NEGATIVE) U Cocaine Metab Screen (NEGATIVE) U Marijuana (THC) Screen (NEGATIVE) Ethyl Alcohol mg/dL Influenza Type A RNA (NEGATIVE) RSV RNA (INAAT) (NEGATIVE) Influenza Type B RNA (NEGATIVE) SARS-CoV-2 RNA ([place]) (NEGATIVE) Result Diagrams: 08/31/20 04:25 08/31/20 04:25 Sepsis Event Note - Evaluation Sepsis Screening Result: Severe Sepsis Risk - Focused Exam Vital Signs: Vital Signs Temp Pulse Resp BP Pulse Ox 08/31/20 10:43 95.7 F L 86 16 90/55 L 95 08/31/20 07:46 94 L 08/31/20 07:00 96.2 F L 72 18 96/55 L 97 08/31/20 05:54 93 L 08/31/20 05:00 95.7 F L 82 18 86/56 L 95 08/31/20 04:00 86 19 100/59 L 93 L 08/31/20 03:00 91 92/55 L 08/31/20 02:00 95 19 95/56 L 93 L 08/31/20 01:15 93 17 96/53 L 92 L - Problem List Review Problem List Initiated/Reviewed/Updated: Yes - My Orders Last 24 Hours: My Active Orders 08/31/20 10:52 PT Evaluation and Treatment [CONS] Routine 08/31/20 12:45 Albuterol/Ipratropium [DuoNeb 3.0-0.5 MG/3 ML] 3 ml .XX Q6H PRN QUEtiapine [SEROqueL] 25 mg PO QID PRN 08/31/20 12:49 RT Aerosol Therapy [RC] ASDIRECTED 08/31/20 17:00 metFORMIN [Glucophage] 1,000 mg PO BIDMEALS 08/31/20 21:00 Gabapentin [Neurontin] 600 mg PO BID Simvastatin [Zocor] 10 mg PO BEDTIME lamoTRIgine 150 mg PO BID 09/01/20 05:00 BASIC METABOLIC PANEL,BMP [CHEM] Timed CBC WITH AUTO DIFF [HEME] Timed LACTIC ACID [CHEM] Timed 09/01/20 08:00 FLUoxetine [PROzac] 60 mg PO WITHBREAKFAST 09/01/20 09:00 Nicotine [Habitrol] 21 mg TRDERM DAILY lisinopriL [Prinivil] 2.5 mg PO DAILY - Plan Plan:: ASSESSMENT AND PLAN - Syncope-she has improved from admission and is more alert and interactive this morning. Accurate medication list has been obtained and reviewed. She continues to report symptoms of weakness and lightheadedness. Lactic acid level has improved but is not yet back to normal range. -Saline lock IV -Decrease gabapentin to 600 mg twice daily -Hold muscle relaxants -Cardiac monitoring -Repeat lactic acid -Empiric dose of ceftriaxone, consider additional antibiotics if urine culture grows out a specific bacteria -Hold home medications as discussed below Bipolar disorder with anxiety-complicated medication history. Type 2 diabetes mellitus-she has lactic acidosis and her Metformin will be held. -Low-dose sliding scale insulin Tobacco dependence-encourage cessation Maintenance issues - -DVT prophylaxis-mechanical -GI prophylaxis-not indicated -Nutrition-diabetic -Kimble catheter-not indicated CODE STATUS -full code Admission justification -this patient will be admitted for observation to provide hydration and ensure that she clears up Disposition -I anticipate discharge home after the hospital stay Primary care physician -CONNOR Lopez
[2020-08-31] MEDS: ALPRAZolam 0.5 MG Tab PO PRN ×2 (13:40→20:02)
[2020-08-31] MEDS: Nicotine 21 MG/24 Hr Patch TRDERM SCH (16:48)
[2020-08-31] MEDS: metFORMIN 500 MG Tab PO SCH (16:48)
[2020-08-31] MEDS ORDERED: Non-Formulary Medication 1 Each (Metformin [Glucophage] 1,000 MG Tablet) PO SCH (17:00)
[2020-08-31] MEDS: lamoTRIgine 100 MG, lamoTRIgine 50 MG PO SCH ×2 (20:02)
[2020-08-31] MEDS: Gabapentin 300 MG Cap PO SCH (20:02)
[2020-08-31] MEDS ORDERED: SIMVASTATIN 10 MG PO SCH (21:00)
[2020-08-31] MEDS ORDERED: lamoTRIgine 100 MG Tab PO SCH (21:00)
[2020-08-31] MEDS ORDERED: Pravastatin 20 MG Tab PO SCH (21:00)
[2020-08-31] MEDS ORDERED: Cyclobenzaprine 10 MG Tab PO ONE (21:20)
[2020-09-01] MEDS: Sodium Chloride 0.9% 1,000 ML IV SCH ×2 (01:23→07:55)
[2020-09-01] MEDS ORDERED: Mometasone Furoate Powder 220 MCG/Puff 14 Dose Inhaler INH SCH (07:00)
[2020-09-01] MEDS ORDERED: Tiotropium BR/Olodaterol HCL 4 GM Inhalation Spray 2.5mcg/1 dose; 10 doses INH SCH (07:00)
[2020-09-01] MEDS: cefTRIAXone 1 GM in Sodium Chloride 0.9% 50 ML IV SCH (07:55)
[2020-09-01] MEDS ORDERED: FLUoxetine 20 MG Cap PO SCH (08:00)
[2020-09-01] MEDS: Insulin Lispro 100 Unit/ML 3 ML KwikPen SUBCUT SCH ×2 (08:05→11:27)
[2020-09-01] MEDS: metFORMIN 500 MG Tab PO SCH (08:06)
[2020-09-01] MEDS: Nicotine 21 MG/24 Hr Patch TRDERM SCH (08:06)
[2020-09-01] MEDS: Aspirin 81 MG Tab.EC PO SCH (08:06)
[2020-09-01] MEDS: lamoTRIgine 100 MG, lamoTRIgine 50 MG PO SCH ×2 (08:06)
[2020-09-01] MEDS: Levothyroxine 100 MCG Tab PO SCH (08:06)
[2020-09-01] MEDS: FLUoxetine 20 MG Cap PO SCH (08:07)
[2020-09-01] MEDS: Gabapentin 300 MG Cap PO SCH (08:07)
[2020-09-01] MEDS: ALPRAZolam 0.5 MG Tab PO PRN (08:15)
[2020-09-01] MEDS ORDERED: Lisinopril 2.5 MG Tab PO SCH (09:00)
[2020-09-01] MEDS ORDERED: Nicotine 21 MG/24 Hr Patch TRDERM SCH (09:00)
[2020-09-01] MEDS ORDERED: Potassium Chloride 20 MEQ Tab.ER PO ONE (09:30)
[2020-09-01 11:20] VITALS: BP 118/80; PULSE 87
--- NOTE | 2020-09-01 13:26 | PCM.DCSUM1 ---
Discharge Summary - Hospital Course Brief History: Ms. Zeng is a 49-year-old woman who was admitted through the emergency department with weakness, lethargy, and recent syncopal episodes, secondary to medication effect. - Discharge Data Discharge Date: 09/01/20 Discharge Disposition: Home, Self-Care 01 Condition: Stable - Referral to Home Health Primary Care Physician: PCP None - Discharge Diagnosis/Problem(s) (1) Chronic mental illness SNOMED Code(s): 935893415 ICD Code: F99 - MENTAL DISORDER, NOT OTHERWISE SPECIFIED Status: Chronic Priority: Medium Current Visit: No (2) Lethargic SNOMED Code(s): 814435021 ICD Code: R53.83 - OTHER FATIGUE Status: Acute Current Visit: Yes (3) Syncope SNOMED Code(s): 664380371 ICD Code: R55 - SYNCOPE AND COLLAPSE Status: Acute Current Visit: No Qualifiers: Syncope type: unspecified Qualified Code(s): R55 - Syncope and collapse (4) Type 2 diabetes mellitus SNOMED Code(s): 18701699 ICD Code: E11.9 - TYPE 2 DIABETES MELLITUS WITHOUT COMPLICATIONS Status: Chronic Priority: Medium Current Visit: No Qualifiers: Diabetes mellitus skilled nursing insulin use: without intermediate card tender use Diabetes mellitus complication status: without complication Qualified Code(s): E11.9 - Type 2 diabetes mellitus without complications - Patient Summary/Data Consults: Consultations 08/31/20 10:52 PT Evaluation and Treatment [CONS] Routine Please Evaluate and Treat. PT Reason for Consult: Strengthening This query below is only for informational purposes and is not editable. Admission Diagnosis/Problem: Syncope Hospital Course: Ms. Zeng presented to the emergency room with another episode of syncope. She reports 4 such episodes over the past 4 days. She was evaluated 5 days ago for the same thing. Work-up was benign. She does not report any preceding symptoms. She says she just simply collapses. Tonight she was getting out of the shower and just suddenly went to the ground. She reports that otherwise she has been feeling well. She has not had recent dose changes of her medications that she is aware of. She reports that home care sets up her medications. She is currently reporting mild achy pain in both of her knees because of the fall and abrasions. Pain is worse when she tries to move her legs around and gets better when they are stationary. She is been using ibuprofen at home with some relief. Work-up in the emergency room revealed a sedated patient who is able to answer questions. White blood cell count mildly elevated lactic acid level is 4.7. No strong evidence for infection at this point. I think this is related to too many medications contributing to his somnolence and she is dehydrated. She will be admitted for observation, hydration and medication review. On admission all medications were held and she was given IV fluids overnight for hydration. She was less lethargic the following day and an accurate medication list was obtained. Her dose of gabapentin was decreased from 900 mg 4 times daily to 600 mg twice daily. Her as needed dose of Seroquel was decreased from 50 mg to 25 mg 4 times daily as needed. Muscle relaxants were held and her dose of Xanax was decreased to 0.5 mg 4 times daily as needed. With these interventions she improved significantly and was alert and interactive and able to walk long distances on the day of discharge. She was seen and evaluated by physical therapy during hospitalization. She is willing to accept decreased doses of the gabapentin and Seroquel but is strongly opposed to decreasing the Xanax or stopping muscle relaxants. There was question of possible urinary tract infection on admission, she was treated with ceftriaxone pending culture results. Both blood cultures and urine culture showed no growth by the time of discharge. Antibiotic therapy will be discontinued. Follow-up appointment will be scheduled with her primary care provider within 1 week. She will remain on a diabetic diet and activity will be as tolerated. - Patient Instructions Diet: Diabetic Diet Activity: As Tolerated Other/Special Instructions: Schedule follow-up appointment with primary care provider within 1 week. - Discharge Plan *PRESCRIPTION DRUG MONITORING PROGRAM REVIEWED*: Not Applicable *COPY OF PRESCRIPTION DRUG MONITORING REPORT IN PATIENT PARVIZ: Not Applicable Home Medications: Home Meds Ibuprofen 800 mg PO Q8HR 06/05/15 [History] lamoTRIgine [Lamotrigine] 150 mg PO BID 06/08/16 [History] Ciclopirox [Loprox 0.77% Crm] 1 cm TOP DAILY PRN 07/12/17 [History] Furosemide 80 mg PO BID 11/01/18 [History] Potassium Chloride [Klor-Con M20] 20 meq PO BID 11/01/18 [History] Fluticasone/Umeclidin/Vilanter [Trelegy Ellipta 100-62.5-25] 1 puff INH DAILY 04/22/19 [History] ALPRAZolam [Xanax] 1 mg PO QID PRN 08/26/20 [History] Albuterol [Ventolin HFA] 1 puff IH Q4HR PRN 08/26/20 [History] Aspirin [Halfprin] 81 mg PO DAILY 08/26/20 [History] Clotrimazole [Lotrimin AF 1% Crm] 1 applic TOP BID 08/26/20 [History] Levothyroxine [Synthroid] 100 mcg PO ACBREAKFAST 08/26/20 [History] Oxybutynin Chloride [Oxybutynin Chloride ER] 5 mg PO DAILY 08/26/20 [History] Simvastatin [Zocor] 10 mg PO BEDTIME 08/26/20 [History] Urea [Urea 40% Crm] 1 applic TOP BID 08/26/20 [History] lisinopriL [Lisinopril] 2.5 mg PO DAILY 08/26/20 [History] metFORMIN [Glucophage] 1,000 mg PO BIDMEALS 08/26/20 [History] polyethylene glycoL 3350 [Polyethylene Glycol 3350] 17 gm PO DAILY PRN 08/26/20 [History] Albuterol/Ipratropium [DuoNeb 3.0-0.5 MG/3 ML] 3 ml .XX Q6H PRN 08/31/20 [History] Cyclobenzaprine [Flexeril] 10 mg PO TID PRN 08/31/20 [History] Docusate Sodium [Dok] 100 mg PO BID PRN 08/31/20 [History] Ergocalciferol (Vitamin D2) [Vitamin D2] 50,000 units PO WEEKLY 08/31/20 [History] FLUoxetine HCl [Prozac] 60 mg PO WITHBREAKFAST 08/31/20 [History] Magnesium Citrate [Citrate of Magnesia] 300 ml PO DAILY 08/31/20 [History] Nicotine Polacrilex [Nicotine Lozenge] 4 mg BC DAILY 08/31/20 [History] Nicotine [Nicotine Patch] 21 mg TD DAILY 08/31/20 [History] Gabapentin [Neurontin] 600 mg PO BID #0 09/01/20 [Rx] QUEtiapine [SEROquel] 25 mg PO QID PRN #0 09/01/20 [Rx] Referrals: Abbi Harding PA [Advanced RN Practitioner] - 09/17/20 1:30 pm - Discharge Summary/Plan Comment DC Time >30 min.: No - Patient Data Vitals - Most Recent: Last Vital Signs Temp 96.9 F 09/01/20 11:20 Pulse 87 09/01/20 11:20 Resp 20 09/01/20 11:20 BP 118/80 09/01/20 11:20 Pulse Ox 92 L 09/01/20 11:20 Orthostatic Blood Pressure [ 103/78 Standing] Orthostatic Blood Pressure [ 98/75 Sitting] Orthostatic Blood Pressure [ 96/63 Supine] Weight - Most Recent: 219 lb 15.988 oz I&O - Last 24 hours: Intake & Output 08/31/20 09/01/20 09/01/20 22:59 06:59 14:59 Intake Total 2260 2324 1300 Balance 2260 2324 1300 Lab Results - Last 24 hrs: Laboratory Results - last 24 hr 08/31/20 08/31/20 09/01/20 Range/Units 16:30 21:10 04:35 WBC 7.7 (4.5-11.0) K/uL RBC 4.59 (3.30-5.50) M/uL Hgb 13.7 (12.0-15.0) g/dL Hct 42.1 (36.0-48.0) % MCV 92 (80-98) fL MCH 30 (27-31) pg MCHC 33 (32-36) % Plt Count 237 (150-400) K/uL Neut % (Auto) 57.0 (36-66) % Lymph % (Auto) 30.5 (24-44) % [place] % (Auto) 11.3 H (2-6) % Eos % (Auto) 0.9 L (2-4) % Baso % (Auto) 0.3 (0-1) % Sodium (140-148) mmol/L Potassium (3.6-5.2) mmol/L Chloride (100-108) mmol/L Carbon Dioxide (21-32) mmol/L Anion Gap (5.0-14.0) mmol/L BUN (7-18) mg/dL Creatinine (0.6-1.0) mg/dL Est Cr Clr Drug Dosing mL/min Estimated GFR (MDRD) (>60) Glucose (74-106) mg/dL POC Glucose 121 H 82 (74-106) mg/dL Lactic Acid (0.4-2.0) mmol/L Calcium (8.5-10.1) mg/dL 09/01/20 09/01/20 09/01/20 Range/Units 04:35 04:35 08:05 WBC (4.5-11.0) K/uL RBC (3.30-5.50) M/uL Hgb (12.0-15.0) g/dL Hct (36.0-48.0) % MCV (80-98) fL MCH (27-31) pg MCHC (32-36) % Plt Count (150-400) K/uL Neut % (Auto) (36-66) % Lymph % (Auto) (24-44) % [place] % (Auto) (2-6) % Eos % (Auto) (2-4) % Baso % (Auto) (0-1) % Sodium 142 (140-148) mmol/L Potassium 3.5 L (3.6-5.2) mmol/L Chloride 105 (100-108) mmol/L Carbon Dioxide 30 (21-32) mmol/L Anion Gap 10.5 (5.0-14.0) mmol/L BUN 4 L (7-18) mg/dL Creatinine 0.7 (0.6-1.0) mg/dL Est Cr Clr Drug Dosing 89.26 mL/min Estimated GFR (MDRD) > 60 (>60) Glucose 71 L (74-106) mg/dL POC Glucose 106 (74-106) mg/dL Lactic Acid 1.1 (0.4-2.0) mmol/L Calcium 7.8 L (8.5-10.1) mg/dL 09/01/20 Range/Units 11:25 WBC (4.5-11.0) K/uL RBC (3.30-5.50) M/uL Hgb (12.0-15.0) g/dL Hct (36.0-48.0) % MCV (80-98) fL MCH (27-31) pg MCHC (32-36) % Plt Count (150-400) K/uL Neut % (Auto) (36-66) % Lymph % (Auto) (24-44) % [place] % (Auto) (2-6) % Eos % (Auto) (2-4) % Baso % (Auto) (0-1) % Sodium (140-148) mmol/L Potassium (3.6-5.2) mmol/L Chloride (100-108) mmol/L Carbon Dioxide (21-32) mmol/L Anion Gap (5.0-14.0) mmol/L BUN (7-18) mg/dL Creatinine (0.6-1.0) mg/dL Est Cr Clr Drug Dosing mL/min Estimated GFR (MDRD) (>60) Glucose (74-106) mg/dL POC Glucose 77 (74-106) mg/dL Lactic Acid (0.4-2.0) mmol/L Calcium (8.5-10.1) mg/dL [facility] Results - Last 24 hrs: Microbiology 08/31/20 01:50 Urine Culture - Preliminary Urine, Clean Catch NO GROWTH AFTER 1 DAY 08/31/20 00:30 Aerobic Blood Culture - Preliminary Blood - Arterial Line - Direct Stick NO GROWTH AFTER 1 DAY Anaerobic Blood Culture - Preliminary NO GROWTH AFTER 1 DAY 08/31/20 00:25 Aerobic Blood Culture - Preliminary Blood - Arm, Right NO GROWTH AFTER 1 DAY Anaerobic Blood Culture - Preliminary NO GROWTH AFTER 1 DAY Med Orders - Current: Current Medications Acetaminophen (Acetaminophen 325 Mg Tab) 650 mg PO Q4H PRN PRN Reason: Pain (Mild 1-3)/fever Albuterol (Albuterol 0.083% 2.5 Mg/3 Ml Neb Soln) 2.5 mg NEB Q4H PRN PRN Reason: Shortness Of Breath/wheezing Albuterol/Ipratropium (Albuterol/Ipratropium 3.0-0.5 Mg/3 Ml Neb Soln) 3 ml INH Q6H PRN PRN Reason: Shortness of Breath Alprazolam (Alprazolam 0.5 Mg Tab) 0.5 mg PO QID PRN PRN Reason: Anxiety Last Admin: 09/01/20 08:15 Dose: 0.5 mg Documented by: Aspirin (Aspirin 81 Mg Tab.Ec) 81 mg PO DAILY [facility] Last Admin: 09/01/20 08:06 Dose: 81 mg Documented by: Fluoxetine HCl (Fluoxetine 20 Mg Cap) 60 mg PO DAILY [facility] Last Admin: 09/01/20 08:07 Dose: 60 mg Documented by: Gabapentin (Gabapentin 300 Mg Cap) 600 mg PO BID [facility] Last Admin: 09/01/20 08:07 Dose: 600 mg Documented by: Sodium Chloride (Normal Saline) 1,000 mls @ 125 mls/hr IV ASDIRECTED [facility] Last Admin: 09/01/20 07:55 Dose: 125 mls/hr Documented by: Ceftriaxone Sodium 1 gm/ (Sodium Chloride) 50 mls @ 100 mls/hr IV Q24H [facility] Last Admin: 09/01/20 07:55 Dose: 100 mls/hr Documented by: Ibuprofen (Ibuprofen 600 Mg Tab) 600 mg PO Q6H PRN PRN Reason: Pain (moderate 4-6) Last Admin: 08/31/20 20:02 Dose: 600 mg Documented by: Insulin Human Lispro (Insulin Lispro 100 Unit/Ml 3 Ml Kwikpen) 0 unit SUBCUT QIDACANDBED [facility]; Protocol Last Admin: 09/01/20 11:27 Dose: Not Given Documented by: Lamotrigine 100 mg/ (Lamotrigine 50 mg) 150 mg PO BID [facility] Last Admin: 09/01/20 08:06 Dose: 150 mg Documented by: Levothyroxine Sodium (Levothyroxine 100 Mcg Tab) 100 mcg PO ACBREAKFAST [facility] Last Admin: 09/01/20 08:06 Dose: 100 mcg Documented by: Lisinopril (Lisinopril 2.5 Mg Tab) 2.5 mg PO DAILY [facility] Last Admin: 09/01/20 08:07 Dose: 2.5 mg Documented by: Lorazepam (Lorazepam 2 Mg/Ml Sdv) 0.5 mg IVPUSH Q4H PRN PRN Reason: Nausea/Vomiting Magnesium Hydroxide (Magnesium Hydroxide 400 Mg/5 Ml Susp 30 Ml Cup) 30 ml PO Q12H PRN PRN Reason: Constipation Metformin HCl (Metformin 500 Mg Tab) 1,000 mg PO BIDMEALS [facility] Last Admin: 09/01/20 08:06 Dose: 1,000 mg Documented by: Mometasone Furoate (Mometasone Furoate Powder 220 Mcg/Puff 14 Dose Inhaler) 1 puff INH DAILY@0700 [facility] Last Admin: 09/01/20 07:03 Dose: 1 puff Documented by: Nicotine (Nicotine 21 Mg/24 Hr Patch) 21 mg TRDERM DAILY [facility] Last Admin: 09/01/20 08:06 Dose: 21 mg Documented by: Ondansetron HCl (Ondansetron 4 Mg/2 Ml Sdv) 4 mg IV Q6H PRN PRN Reason: Nausea/Vomiting Ondansetron HCl (Ondansetron 4 Mg Tab.Dis) 4 mg PO Q6H PRN PRN Reason: Nausea able to take PO Pravastatin Sodium (Pravastatin 20 Mg Tab) 20 mg PO BEDTIME [facility] Last Admin: 08/31/20 20:02 Dose: 20 mg Documented by: Quetiapine Fumarate (Quetiapine 25 Mg Tab) 25 mg PO QID PRN PRN Reason: Anxiety Senna/Docusate Sodium (Docusate Sodium/Sennosides 50-8.6 Mg Tab) 1 tab PO BID PRN PRN Reason: Constipation Last Admin: 08/31/20 20:07 Dose: 1 tab Documented by: Discontinued Medications Acetaminophen (Acetaminophen 500 Mg Tab) 1,000 mg PO ONETIME ONE Stop: 08/31/20 03:46 Last Admin: 08/31/20 04:18 Dose: 1,000 mg Documented by: Cyanocobalamin (Cyanocobalamin (Vitamin B12) 1,000 Mcg Tab) 1,000 mcg PO DAILY [facility] Last Admin: 08/31/20 12:28 Dose: Not Given Documented by: Cyclobenzaprine HCl (Cyclobenzaprine 10 Mg Tab) 10 mg PO ONETIME ONE Stop: 08/31/20 21:21 Last Admin: 08/31/20 21:28 Dose: 10 mg Documented by: Lactated Ringer's (Ringers, Lactated) 1,000 mls @ 999 mls/hr IV ASDIRECTED [facility] Last Admin: 08/31/20 00:35 Dose: 999 mls/hr Documented by: Piperacillin Sod/Tazobactam (Sod 4.5 gm/ Sodium Chloride) 100 mls @ 100 mls/hr IV ONETIME ONE Stop: 08/31/20 01:16 Last Admin: 08/31/20 01:09 Dose: 100 mls/hr Documented by: Sodium Chloride (Normal Saline) 1,000 mls @ 999 mls/hr IV ASDIRECTED [facility] Stop: 08/31/20 04:46 Last Admin: 08/31/20 04:22 Dose: 999 mls/hr Documented by: Oxybutynin Chloride (Oxybutynin 5 Mg Tab) 2.5 mg PO BID [facility] Last Admin: 08/31/20 12:28 Dose: Not Given Documented by: Potassium Chloride (Potassium Chloride 20 Meq Tab.Er) 40 meq PO ONETIME ONE Stop: 09/01/20 09:31 Last Admin: 09/01/20 11:26 Dose: 40 meq Documented by: - Exam General: Reports: Alert, Oriented, Cooperative, No Acute Distress Lungs: Reports: Clear to Auscultation, Normal Respiratory Effort Cardiovascular: Reports: Regular Rate, Regular Rhythm, No Murmurs GI/Abdominal Exam: Soft, Non-Tender, No Organomegaly, No Distention Extremities: Non-Tender, No Pedal Edema
== END 2020-09-01 13:48 | disposition home or self-care (01) ==
LOC: JP.ED 23:39 → JP.MS 08-31 03:48
PROVIDERS: ADMIT Internal Medicine; ATTEND Internal Medicine
DX: R55 Syncope and collapse (principal); R53.83 Other fatigue; F99 Mental disorder, not otherwise specified; E11.9 Type 2 diabetes mellitus without complications; E78.00 Pure hypercholesterolemia, unspecified; I11.0 Hypertensive heart disease with heart failure; I50.9 Heart failure, unspecified; F17.210 Nicotine dependence, cigarettes, uncomplicated; E66.9 Obesity, unspecified; F17.200 Nicotine dependence, unspecified, uncomplicated; Z20.822 Contact with and (suspected) exposure to COVID-19; Z79.899 Other long term (current) drug therapy; Z79.84 Long term (current) use of oral hypoglycemic drugs; Z68.36 Body mass index [BMI] 36.0-36.9, adult
CPT/HCPCS: 0241U; 36415; 36600; 71045; 80048; 80053; 80143; 80179; 80305; 80307; 81001; 82140; 82803; 82947; 83605; 83880; 84145; 85025; 85027; 86140; 87040; 87086; 93005; 94640; 94762; 96365; 96367; 96376; 97110; 97162; 97530; 99285; A9270; G0378; J0696; J2543; J7030; J7120; J1815

== ENCOUNTER 2021-03-06 12:58 | Emergency (ER) | payer MEDICARE, MEDICAID ==
[2021-03-06] MEDS ORDERED: fentaNYL 100 MCG/2 ML SDV IM ONE (14:05)
--- NOTE | 2021-03-06 14:08 | EDM.PDOC ---
ED HPI GENERAL MEDICAL PROBLEM - General Chief Complaint: Abdominal Pain Stated Complaint: GALLSTONES Time Seen by Provider: 03/06/21 13:57 Source of Information: Reports: Patient, Old Records, RN Notes Reviewed History Limitations: Reports: No Limitations - History of Present Illness INITIAL COMMENTS - FREE TEXT/NARRATIVE: 50-year-old female presents emergency department today complaint of abdominal pain she has had an extensive work-up for cholelithiasis as well as cholecystitis recently underwent ultrasound CT scan and HIDA scan ultrasound does show extensive amount of stones with multiple stones in the neck that are mobile HIDA scan reveals normal gallbladder function. She states her biggest problem today is mainly pain control she does have an appointment with general surgery next week on Monday where they are planned for a removal of the gallbladder. She has not had any fevers no nausea vomiting still having normal bowel movements. Abdomen Pain Score (Numeric/FACES): 10 - Related Data Allergies Allergy/AdvReac Type Severity Reaction Status Date / Time No Known Allergies Allergy Verified 03/06/21 13:29 Home Meds: Home Meds Ibuprofen 800 mg PO Q8HR 06/05/15 [History] lamoTRIgine [Lamotrigine] 150 mg PO BID 06/08/16 [History] Furosemide 80 mg PO BID 11/01/18 [History] Potassium Chloride [Klor-Con M20] 20 meq PO BID 11/01/18 [History] Fluticasone/Umeclidin/Vilanter [Trelegy Ellipta 100-62.5-25] 1 puff INH DAILY 04/22/19 [History] ALPRAZolam [Xanax] 1 mg PO QID PRN 08/26/20 [History] Albuterol [Ventolin HFA] 1 puff IH Q4HR PRN 08/26/20 [History] Aspirin [Halfprin] 81 mg PO DAILY 08/26/20 [History] Clotrimazole [Lotrimin AF 1% Crm] 1 applic TOP BID 08/26/20 [History] Levothyroxine [Synthroid] 100 mcg PO ACBREAKFAST 08/26/20 [History] Oxybutynin Chloride [Oxybutynin Chloride ER] 5 mg PO DAILY 08/26/20 [History] Simvastatin [Zocor] 10 mg PO BEDTIME 08/26/20 [History] Urea [Urea 40% Crm] 1 applic TOP BID 08/26/20 [History] polyethylene glycoL 3350 [Polyethylene Glycol 3350] 17 gm PO DAILY PRN 08/26/20 [History] Albuterol/Ipratropium [DuoNeb 3.0-0.5 MG/3 ML] 3 ml INH Q6H PRN 08/31/20 [History] Cyclobenzaprine [Flexeril] 10 mg PO TID PRN 08/31/20 [History] Docusate Sodium [Dok] 100 mg PO BID PRN 08/31/20 [History] Ergocalciferol (Vitamin D2) [Vitamin D2] 50,000 units PO WEEKLY 08/31/20 [History] FLUoxetine HCl [Prozac] 60 mg PO WITHBREAKFAST 08/31/20 [History] Magnesium Citrate [Citrate of Magnesia] 300 ml PO DAILY 08/31/20 [History] Nicotine [Nicotine Patch] 21 mg TD DAILY 08/31/20 [History] Gabapentin [Neurontin] 600 mg PO BID #0 09/01/20 [Rx] QUEtiapine [SEROquel] 25 mg PO QID PRN #0 09/01/20 [Rx] Past Medical History HEENT History: Reports: Impaired Vision, Other (See Below) Other HEENT History: dental caries; wears glasses Cardiovascular History: Reports: High Cholesterol, Heart Failure, Hypertension, SOB on Exertion Respiratory History: Reports: COPD, Other (See Below), Sleep Apnea, SOB Other Respiratory History: wheezing at noc; uses home O2; hospitalized in ICU 07/2017 for pneumonia Gastrointestinal History: Reports: Chronic Constipation, Irritable Bowel Syndrome Other Gastrointestinal History: constipation Genitourinary History: Reports: UTI, Recurrent AIR BAG BUFFER History: Reports: Musculoskeletal History: Reports: Back Pain, Chronic, Fibromyalgia, Fracture, Neck Pain, Chronic Other Musculoskeletal History: left wrist 10/07/13 Neurological History: Reports: Concussion, Headaches, Chronic, Migraines Psychiatric History: Reports: Anxiety, Bipolar, Depression, Other (See Below), Panic Attack, Psych Hospitalization(s), PTSD, Suicide Attempt, Suicidal Ideation Other Psychiatric History: seeing psychologist, BORDER[employer] PERSONALITY Endocrine/Metabolic History: Reports: Diabetes, Type II, Hypothyroidism, Obesity/BMI 30+ Oncologic (Cancer) History: Reports: Cervix Other Oncologic History: frozen - Infectious Disease History Infectious Disease History: Reports: Chicken Pox - Past Surgical History Head Surgeries/Procedures: Reports: None HEENT Surgical History: Reports: Adenoidectomy, Tonsillectomy Cardiovascular Surgical History: Reports: None Respiratory Surgical History: Reports: None GI Surgical History: Reports: Hernia, Abdominal, Hernia Repair/Other, None, Other (See Below) Other GI Surgeries/Procedures: laparoscopies umbilical hernia with mesh x4 Female Surgical History: Reports: Cystectomy, Cervical Cryotherapy, Section, D&C, Tubal Ligation Endocrine Surgical History: Reports: None Neurological Surgical History: Reports: None Musculoskeletal Surgical History: Reports: Other (See Below) Other Musculoskeletal Surgeries/Procedures:: left wrist Oncologic Surgical History: Reports: None Social & Family History - Family History Family Medical History: No Pertinent Family History HEENT: Reports: Impaired Vision Cardiac: Reports: IA, Stent Respiratory: Reports: COPD Musculoskeletal: Reports: Back pain, Chronic Endocrine/Metabolic: Reports: Diabetes, type II, Hypothyroidism Oncologic: Reports: Prostate - Tobacco Use Tobacco Use Status *Q: Current Every Day Tobacco User Years of Tobacco use: 30 Packs/Tins Daily: 1 - Caffeine Use Caffeine Use: Reports: Coffee, Soda Other Caffeine Use: high intake per day - Recreational Drug Use Recreational Drug Use: Yes Recreational Drug Type: Reports: Marijuana/Hashish Other Recreational Drug Type: has prescription for medical marijuana. last used yesterday. - Living Situation & Occupation Living situation: Reports: with Significant Other (lives with YOVANY Goldman in [place]. 2 children ages 26 years and 11 years.) Occupation: Disabled ED ROS GENERAL - Review of Systems Review Of Systems: See Below Constitutional: Reports: No Symptoms HEENT: Reports: No Symptoms Respiratory: Reports: No Symptoms Cardiovascular: Reports: No Symptoms GI/Abdominal: Reports: Abdominal Pain. Denies: Constipation, Diarrhea, Nausea, Vomiting ED EXAM, GENERAL - Physical Exam Exam: See Below Exam Limited By: No Limitations General Appearance: Alert, WD/WN, No Apparent Distress Respiratory/Chest: No Respiratory Distress, Lungs Clear, Normal Breath Sounds, No Accessory Muscle Use, Chest Non-Tender Cardiovascular: Regular Rate, Rhythm, No Murmur GI/Abdominal: Normal Bowel Sounds, Soft, Non-Tender, No Distention Course - Vital Signs Last Recorded V/S: Last Vital Signs Temp 97.1 F 03/06/21 13:26 Pulse 86 03/06/21 13:51 Resp 18 01/08/22 13:51 BP 122/81 03/06/21 13:51 Pulse Ox 94 L 03/06/21 13:26 Departure - Departure Time of Disposition: 14:07 Disposition: Home, Self-Care 01 Condition: Fair Clinical Impression: Cholelithiasis Qualifiers: Cholelithiasis location: gallbladder and bile duct Cholecystitis presence: without cholecystitis Biliary obstruction: without biliary obstruction Qualified Code(s): K80.70 - Calculus of gallbladder and bile duct without cholecystitis without obstruction - Discharge Information Instructions: Cholelithiasis Referrals: Ameya Crum MD [Primary Care Provider] - Additional Instructions: Use the pain medication as needed to help your symptoms please keep your follow- up appointment with Dr. Crum next week call or return to the emergency department with worsening of any symptoms Sepsis Event Note (ED) - Evaluation Sepsis Screening Result: No Definite Risk - Focused Exam Vital Signs: Vital Signs Temp Pulse Resp BP Pulse Ox 03/06/21 13:51 86 18 122/81 03/06/21 13:26 97.1 F 84 16 131/87 94 L - Assessment/Plan Plan: Assessment Acuity = acute Site and laterality = cholelithiasis Etiology = unknown Manifestations = abdominal pain Location of injury = Home Lab values = none Plan She was provided 50 mcg fentanyl while in the emergency department prescription written for hydrocodone 5/325 1 tab p.o. 3 times daily as needed total #10 she is to keep her follow-up appointment general surgery on Monday of next week return to the emergency department with development or worsening of any symptoms This note was dictated using [email or web address] voice recognition software please call with any questions on syntax or grammar.
[2021-03-06 14:51] VITALS: BP 126/77; PULSE 81
== END 2021-03-06 15:00 | disposition home or self-care (01) ==
LOC: JP.ED 12:58
DX: K80.70 Calculus of gallbladder and bile duct without cholecystitis without obstruction (principal); E78.00 Pure hypercholesterolemia, unspecified; I11.0 Hypertensive heart disease with heart failure; I50.9 Heart failure, unspecified; J44.9 Chronic obstructive pulmonary disease, unspecified; E11.9 Type 2 diabetes mellitus without complications; E03.9 Hypothyroidism, unspecified; E66.9 Obesity, unspecified; Z68.41 Body mass index [BMI] 40.0-44.9, adult; Z79.82 Long term (current) use of aspirin; Z79.899 Other long term (current) drug therapy; Z72.0 Tobacco use
CPT/HCPCS: 96372; 99283; J3010

== ENCOUNTER 2021-03-12 05:27 | Day surgery (SDC) | payer MEDICARE, MEDICAID ==
[2021-03-12] MEDS ORDERED: Gabapentin 300 MG Cap PO ONE (06:00)
[2021-03-12] MEDS ORDERED: Oxybutynin 5 MG Tab PO SCH (06:00)
[2021-03-12] MEDS ORDERED: Dextrose 5%-Lactated Ringers 1,000 ML IV SCH (06:00)
[2021-03-12] MEDS ORDERED: Acetaminophen 500 MG Tab PO ONE (06:16)
[2021-03-12] MEDS ORDERED: Albuterol/Ipratropium 3.0-0.5 MG/3 ML Neb Soln NEB ONE (07:00)
[2021-03-12] MEDS ORDERED: Bupivacaine 0.5%/EPINEPHrine 1:200,000 50 ML MDV ONE (07:00)
[2021-03-12] MEDS ORDERED: Glycopyrrolate 0.2 MG/ML 5 ML MDV ONE (07:09)
[2021-03-12] MEDS ORDERED: Rocuronium 50 MG/5 ML Vial ONE (07:09)
[2021-03-12] MEDS ORDERED: Neostigmine Methylsulfate 1 MG/ML 5 ML Syringe ONE (07:09)
[2021-03-12] MEDS ORDERED: Propofol 200 MG/20 ML SDV ONE (07:09)
[2021-03-12] MEDS ORDERED: Succinylcholine 200 MG/10 ML MDV ONE (07:09)
[2021-03-12] MEDS ORDERED: fentaNYL 250 MCG/5 ML SDV ONE ×3 (07:09→09:52)
[2021-03-12] MEDS ORDERED: Ondansetron 4 MG/2 ML SDV ONE (07:09)
[2021-03-12] MEDS ORDERED: Dexamethasone 4 MG/ML SDV ONE (07:09)
[2021-03-12] MEDS ORDERED: cefOXitin 2 GM in Sodium Chloride 0.9% 50 ML IV ONE (07:15)
[2021-03-12] MEDS ORDERED: Ketamine 19 MG in Sodium Chloride 0.9% 19.81 ML IV SCH (07:30)
[2021-03-12] MEDS ORDERED: Ketamine 500 MG/5 ML MDV IV SCH (07:30)
[2021-03-12] MEDS ORDERED: Bupivacaine 0.5% 30 ML SDV ONE (07:56)
[2021-03-12] MEDS ORDERED: Ketorolac 30 MG/ML SDV ONE (08:05)
[2021-03-12] MEDS ORDERED: hydrOXYzine HCL 100 MG/2 ML SDV IM ONE (08:45)
[2021-03-12 10:17] LABS: HEMOGLOBIN A1C 6.1 % (4.5-6.2)
[2021-03-12] MEDS ORDERED: HYDROmorphone 2 MG Tab PO PRN (12:01)
[2021-03-12 12:02] VITALS: PULSE 86
[2021-03-12 12:03] VITALS: BP 114/80
== END 2021-03-12 13:10 | disposition home or self-care (01) ==
LOC: JP.SDS 05:27
PROVIDERS: ATTEND Surgery
DX: K80.10 Calculus of gallbladder with chronic cholecystitis without obstruction (principal); K43.0 Incisional hernia with obstruction, without gangrene; E78.00 Pure hypercholesterolemia, unspecified; I11.0 Hypertensive heart disease with heart failure; I50.9 Heart failure, unspecified; J44.9 Chronic obstructive pulmonary disease, unspecified; E11.9 Type 2 diabetes mellitus without complications; E03.9 Hypothyroidism, unspecified; E66.9 Obesity, unspecified; F17.210 Nicotine dependence, cigarettes, uncomplicated; Z79.899 Other long term (current) drug therapy; Z79.82 Long term (current) use of aspirin; Z98.890 Other specified postprocedural states; Z90.49 Acquired absence of other specified parts of digestive tract; Z88.8 Allergy status to other drugs, medicaments and biological substances
CPT/HCPCS: 36415; 47562; 80053; 83036; 83735; 84100; 84703; 85025; 94640; A9270; J0171; J0330; J0694; J1100; J1885; J2405; J2704; J2710; J2795; J3010; J3410; J3490; J7121; J7620-GY

== ENCOUNTER 2021-03-21 12:40 | Emergency (ER) | payer MEDICARE, MEDICAID ==
[2021-03-21 13:04] VITALS: BP 135/79; PULSE 90
== END 2021-03-21 13:07 | disposition left against medical advice (07) ==
LOC: JP.ED 12:40
DX: Z53.21 Procedure and treatment not carried out due to patient leaving prior to being seen by health care provider (principal)

== ENCOUNTER 2021-04-12 16:22 | Emergency (ER) | payer MEDICARE, MEDICAID ==
[2021-04-12] MEDS ORDERED: LORazepam 2 MG/ML SDV IVPUSH ONE ×2 (17:30→19:08)
[2021-04-12] MEDS ORDERED: Sodium Chloride 0.9% 10 ML Syringe FLUSH PRN (17:31)
[2021-04-12] MEDS ORDERED: Sodium Chloride 0.9% 1,000 ML IV SCH (17:45)
[2021-04-12] MEDS ORDERED: Apixaban 5 MG Tab PO STA (18:29)
[2021-04-12 19:04] VITALS: BP 125/91; PULSE 94
[2021-04-12] MEDS: Ketorolac 30 MG/ML SDV IVPUSH ONE ×2 (19:16→19:39)
== END 2021-04-12 20:00 | disposition home or self-care (01) ==
LOC: JP.ED 16:22
DX: F41.1 Generalized anxiety disorder (principal); F31.9 Bipolar disorder, unspecified; R20.2 Paresthesia of skin; J44.9 Chronic obstructive pulmonary disease, unspecified; E78.00 Pure hypercholesterolemia, unspecified; I11.0 Hypertensive heart disease with heart failure; I50.9 Heart failure, unspecified; E11.9 Type 2 diabetes mellitus without complications; E03.9 Hypothyroidism, unspecified; E66.9 Obesity, unspecified; Z68.39 Body mass index [BMI] 39.0-39.9, adult; Z72.0 Tobacco use; Z88.8 Allergy status to other drugs, medicaments and biological substances; Z79.82 Long term (current) use of aspirin; Z79.899 Other long term (current) drug therapy
CPT/HCPCS: 36415; 70450; 80053; 80305; 80307; 81001; 83605; 84484; 85025; 93005; 96374; 96375; 96376; 99284; J1885; J2060; J7030

== ENCOUNTER 2021-08-14 00:46 | Emergency (ER) | payer MEDICARE, MEDICAID ==
[2021-08-14 01:59] VITALS: BP 109/70; PULSE 73
[2021-08-14] MEDS ORDERED: Morphine 4 MG/ML Syringe IM ONE (02:37)
[2021-08-14] MEDS ORDERED: Acetaminophen/HYDROcodone 325-7.5 MG Tab PO ONE (03:19)
== END 2021-08-14 03:46 | disposition home or self-care (01) ==
LOC: JP.ED 00:46
DX: S22.32XA Fracture of one rib, left side, initial encounter for closed fracture (principal); E11.9 Type 2 diabetes mellitus without complications; I11.0 Hypertensive heart disease with heart failure; I50.9 Heart failure, unspecified; F41.9 Anxiety disorder, unspecified; J44.9 Chronic obstructive pulmonary disease, unspecified; F32.A Depression, unspecified; E78.00 Pure hypercholesterolemia, unspecified; E03.9 Hypothyroidism, unspecified; E66.9 Obesity, unspecified; Z68.39 Body mass index [BMI] 39.0-39.9, adult; Z20.822 Contact with and (suspected) exposure to COVID-19; Z79.899 Other long term (current) drug therapy; Z88.8 Allergy status to other drugs, medicaments and biological substances
CPT/HCPCS: 71101; 96372; 99282; 99283; A9270; J2270

== ENCOUNTER 2021-08-18 09:07 | Emergency (ER) | payer MEDICARE, MEDICAID ==
[2021-08-18 09:41] VITALS: BP 148/84; PULSE 92
[2021-08-18] MEDS ORDERED: LORazepam 0.5 MG Tab PO ONE (11:02)
[2021-08-18] MEDS ORDERED: Ketorolac 30 MG/ML SDV IM ONE (11:02)
[2021-08-18] MEDS ORDERED: Acetaminophen/oxyCODONE 325-5 MG Tab PO ONE (12:16)
[2021-08-18 13:03] LABS: CORONAVIRUS COVID-19 NAA NEGATIVE (NEGATIVE)
== END 2021-08-18 13:22 | disposition home or self-care (01) ==
LOC: JP.ED 09:07
DX: S22.42XA Multiple fractures of ribs, left side, initial encounter for closed fracture (principal); J18.9 Pneumonia, unspecified organism; F41.9 Anxiety disorder, unspecified; Z20.822 Contact with and (suspected) exposure to COVID-19; I11.0 Hypertensive heart disease with heart failure; I50.9 Heart failure, unspecified; E78.00 Pure hypercholesterolemia, unspecified; J44.9 Chronic obstructive pulmonary disease, unspecified; Z88.8 Allergy status to other drugs, medicaments and biological substances; F17.290 Nicotine dependence, other tobacco product, uncomplicated; Z79.899 Other long term (current) drug therapy; W01.10XA Fall on same level from slipping, tripping and stumbling with subsequent striking against unspecified object, initial encounter
CPT/HCPCS: 0241U; 71250; 96372; 99283; 99284; A9270; J1885

== ENCOUNTER 2022-05-12 23:23 | Emergency (ER) | payer MEDICARE, MEDICAID ==
[2022-05-12] MEDS ORDERED: Sodium Chloride 0.9% 10 ML Syringe FLUSH PRN (23:27)
[2022-05-13 00:05] LABS: ESTIMATED GFR 62 mL/min (>60)
[2022-05-13] MEDS ORDERED: Ketorolac 15 MG/ML SDV IM ONE (00:42)
[2022-05-13 01:02] LABS: CORONAVIRUS COVID-19 NAA NEGATIVE (NEGATIVE)
[2022-05-13 01:37] VITALS: BP 100/44; PULSE 78
== END 2022-05-13 01:10 | disposition home or self-care (01) ==
LOC: JP.ED 23:23
DX: G47.10 Hypersomnia, unspecified (principal); R09.02 Hypoxemia; R29.6 Repeated falls; E66.01 Morbid (severe) obesity due to excess calories; I11.0 Hypertensive heart disease with heart failure; I50.9 Heart failure, unspecified; E78.00 Pure hypercholesterolemia, unspecified; E11.9 Type 2 diabetes mellitus without complications; E03.9 Hypothyroidism, unspecified; Z68.38 Body mass index [BMI] 38.0-38.9, adult; Z91.14 Patient's other noncompliance with medication regimen; Z72.0 Tobacco use; Z88.8 Allergy status to other drugs, medicaments and biological substances; Z79.01 Long term (current) use of anticoagulants; Z79.82 Long term (current) use of aspirin; Z79.899 Other long term (current) drug therapy
CPT/HCPCS: 0241U; 36415; 80053; 85025; 99284; 99285

== ENCOUNTER 2022-07-24 21:02 | Emergency (ER) | payer MEDICARE, MEDICAID ==
[2022-07-24 21:13] VITALS: BP 119/57; PULSE 90
[2022-07-24] MEDS ORDERED: Sodium Chloride 0.9% 10 ML Syringe FLUSH PRN (21:18)
== END 2022-07-24 21:31 | disposition left against medical advice (07) ==
LOC: JP.ED 21:02
DX: Z53.21 Procedure and treatment not carried out due to patient leaving prior to being seen by health care provider (principal)

== ENCOUNTER 2022-07-25 10:32 | Inpatient (IN) | payer MEDICARE, MEDICAID ==
[2022-07-25 11:20] LABS: BASOPHILS ABSOLUTE AUTO 0.03 K/uL (0.00-0.10); BASOPHILS PERCENT AUTO 0.3 % (0.1-1.3); EOSINOPHILS ABSOLUTE AUTO 0.11 K/uL (0.00-0.40); EOSINOPHILS PERCENT AUTO 1.1 % (0.0-5.4); HEMATOCRIT 42.3 % (34.3-46.0); IMMATURE GRAN ABSOLUTE AUTO 0.05 K/uL (0.00-0.23); IMMATURE GRAN PERCENT AUTO 0.5 % (0.0-0.7); LYMPHOCYTES PERCENT AUTO 14.9 % (11.4-47.7); MEAN CORPUSCULAR HEMOGLOBIN 29.6 pg (31.6-35.5); MEAN CORPUSCULAR HGB CONC 33.1 g/dL (31.6-35.5); MEAN CORPUSCULAR VOLUME 89.4 fL (81.4-99.0); MONOCYTES ABSOLUTE AUTO 1.41 K/uL (0.20-0.90); NEUTROPHILS ABSOLUTE AUTO 6.99 K/uL (1.0-7.6); NEUTROPHILS PERCENT AUTO 69.2 % (40.0-78.1); PLATELET COUNT,PLT 248 K/uL (130-375); RED BLOOD CELL COUNT 4.73 M/uL (3.77-5.24); WHITE BLOOD CELL COUNT,WBC 10.1 K/uL (3.2-11.0)
[2022-07-25 11:37] LABS: INR 1.5; PROTHROMBIN TIME 14.6 sec (9.2-10.6)
[2022-07-25 11:41] LABS: A/G RATIO 0.7 (1.2-2.2); ALANINE AMINOTRANSFERASE,ALT 30 U/L (12-78); ALBUMIN 3.3 g/dL (3.4-5.0); ALKALINE PHOSPHATASE 116 U/L (46-116); ASPARTATE AMNIOTRANSFERASE,AST 29 U/L (15-37); BLOOD UREA NITROGEN,BUN 7 mg/dL (7-18); CALCIUM 8.6 mg/dL (8.5-10.1); CARBON DIOXIDE,CO2 29 mmol/L (21-32); CHLORIDE,CL 99 mmol/L (100-108); CREATININE 1.2 mg/dL (0.6-1.0); EST CRCL DRUG DOSING (CG) 55.15 mL/min; ESTIMATED GFR 55 mL/min (>60); GLUCOSE RANDOM 134 mg/dL (74-106); POTASSIUM,K 3.8 mmol/L (3.6-5.2); PROTEIN TOTAL,TP 7.8 g/dL (6.4-8.2); SODIUM,NA 135 mmol/L (140-148)
[2022-07-25 11:44] LABS: ANION GAP 10.8 mmol/L (5.0-14.0)
[2022-07-25] MEDS ORDERED: Doxycycline 100 MG Cap PO ONE (16:10)
[2022-07-25] MEDS ORDERED: Sodium Chloride 0.9% 1,000 ML IV ONE (16:10)
[2022-07-25] MEDS ORDERED: hydrOXYzine HCl 25 MG Tab PO PRN (16:10)
[2022-07-25] MEDS ORDERED: Docusate Sodium 100 MG Cap PO PRN (16:10)
[2022-07-25] MEDS ORDERED: Ondansetron 4 MG Tab.DIS PO PRN (16:10)
[2022-07-25] MEDS ORDERED: Acetaminophen 325 MG Tab PO PRN (16:10)
[2022-07-25] MEDS ORDERED: Ondansetron 4 MG/2 ML SDV IV PRN (16:10)
[2022-07-25] MEDS ORDERED: Magnesium Hydroxide 400 MG/5 ML Susp 30 ML Cup PO PRN (16:10)
[2022-07-25] MEDS: oxyCODONE 5 MG Tab PO PRN (16:24)
[2022-07-25] MEDS ORDERED: Pantoprazole 40 MG Tab.CR PO ONE (19:45)
[2022-07-25] MEDS: Gabapentin 300 MG Cap PO SCH (20:23)
[2022-07-25] MEDS: Melatonin 3 MG Tab PO SCH (20:23)
[2022-07-25] MEDS: Potassium Chloride 20 MEQ Tab.ER PO SCH (20:23)
[2022-07-25] MEDS: Pravastatin 20 MG Tab PO SCH (20:24)
[2022-07-25] MEDS: lamoTRIgine 100 MG Tab PO SCH (20:24)
[2022-07-25] MEDS: Lactobacillus Rhamnosus GG (Probiotic) Cap PO SCH (20:24)
[2022-07-25] MEDS: Ibuprofen 600 MG Tab PO SCH (20:24)
[2022-07-25] MEDS: Albuterol/Ipratropium 3.0-0.5 MG/3 ML Neb Soln INH SCH ×3 (20:25→20:27)
[2022-07-25] MEDS ORDERED: SIMVASTATIN 10 MG PO SCH (21:00)
[2022-07-25] MEDS: Doxycycline 100 MG Cap PO SCH (21:43)
[2022-07-26 04:55] LABS: HEMOGLOBIN 12.1 g/dL (11.2-15.5); MEAN CORPUSCULAR HEMOGLOBIN 29.5 pg (31.6-35.5); MEAN CORPUSCULAR HGB CONC 32.7 g/dL (31.6-35.5); MEAN CORPUSCULAR VOLUME 90.2 fL (81.4-99.0); RED BLOOD CELL COUNT 4.1 M/uL (3.77-5.24); WHITE BLOOD CELL COUNT,WBC 5.8 K/uL (3.2-11.0)
[2022-07-26 05:15] LABS: CALCIUM 8.1 mg/dL (8.5-10.1); CREATININE 0.9 mg/dL (0.6-1.0); EST CRCL DRUG DOSING (CG) 73.53 mL/min; POTASSIUM,K 3.3 mmol/L (3.6-5.2)
[2022-07-26 05:19] LABS: ANION GAP 9.3 mmol/L (5.0-14.0)
[2022-07-26] MEDS: Albuterol/Ipratropium 3.0-0.5 MG/3 ML Neb Soln INH SCH ×5 (07:04→21:28)
[2022-07-26] MEDS ORDERED: Tiotropium Bromide 4 GM Inhalation Spray (2.5mcg/1 dose; 10 doses) INH SCH (08:00)
[2022-07-26] MEDS: Formoterol/Mometasone 100-5 MCG 8.8 GM Inhaler IH SCH ×2 (08:11→20:25)
[2022-07-26] MEDS: Tiotropium Bromide 4 GM Inhalation Spray (2.5mcg/1 dose; 10 doses) INH SCH (08:11)
[2022-07-26] MEDS ORDERED: Potassium Chloride 20 MEQ Tab.ER PO ONE (08:15)
[2022-07-26] MEDS ORDERED: Oxybutynin 5 MG Tab PO SCH (09:00)
[2022-07-26] MEDS ORDERED: OXYBUTYNIN CHLORIDE 5 MG PO SCH (09:00)
[2022-07-26] MEDS: oxyCODONE 5 MG Tab PO PRN ×2 (09:02→14:45)
[2022-07-26] MEDS: Nicotine 21 MG/24 Hr Patch TRDERM PRN (09:02)
[2022-07-26 09:04] LABS: APPEARANCE,URINE CLOUDY (CLEAR); BILIRUBIN,URINE MODERATE (NEGATIVE); COLOR,URINE OTHER (YELLOW); GLUCOSE,URINE NEGATIVE (NEGATIVE); KETONES,URINE NEGATIVE (NEGATIVE); LEUKOCYTE ESTERASE,URINE NEGATIVE (NEGATIVE); NITRITE,URINE NEGATIVE (NEGATIVE); OCCULT BLOOD,URINE NEGATIVE (NEGATIVE); PROTEIN,URINE 30 mg/dL (NEGATIVE)
[2022-07-26] MEDS: buPROPion 150 MG Tab.ER PO SCH (09:04)
[2022-07-26] MEDS: Ibuprofen 600 MG Tab PO SCH ×3 (09:04→20:22)
[2022-07-26] MEDS: Gabapentin 300 MG Cap PO SCH ×2 (09:04→20:23)
[2022-07-26] MEDS: Aspirin 81 MG Tab.EC PO SCH (09:04)
[2022-07-26] MEDS: Potassium Chloride 20 MEQ Tab.ER PO SCH ×2 (09:06→20:23)
[2022-07-26] MEDS: Cyanocobalamin (Vitamin B12) 1,000 MCG Tab PO SCH (09:06)
[2022-07-26] MEDS: Levothyroxine 100 MCG Tab PO SCH (09:06)
[2022-07-26] MEDS: FLUoxetine 20 MG Cap PO SCH (09:06)
[2022-07-26] MEDS: lamoTRIgine 100 MG Tab PO SCH ×2 (09:06→20:23)
[2022-07-26] MEDS: Folic Acid 1 MG Tab PO SCH (09:06)
[2022-07-26] MEDS: Lactobacillus Rhamnosus GG (Probiotic) Cap PO SCH ×2 (09:06→20:23)
[2022-07-26 09:07] LABS: AMPHETAMINES SCREEN, URINE NEGATIVE (NEGATIVE); BARBITURATE SCREEN,URINE NEGATIVE (NEGATIVE); BENZODIAZEPINES SCREEN,URINE PRESUMPTIVE POSITIVE (NEGATIVE); METHADONE SCREEN, URINE NEGATIVE (NEGATIVE); METHAMPHETAMINES SCREEN, URINE NEGATIVE (NEGATIVE); OXYCODONE SCREEN,URINE PRESUMPTIVE POSITIVE (NEGATIVE); PROPOXYPHENE SCREEN,URINE NEGATIVE (NEGATIVE); THC SCREEN,URINE 50 NG/ML PRESUMPTIVE POSITIVE (NEGATIVE)
[2022-07-26] MEDS: Sennosides 8.6 MG Tab PO SCH (09:07)
[2022-07-26] MEDS: Doxycycline 100 MG Cap PO SCH ×2 (09:07→21:27)
[2022-07-26] MEDS: Lisinopril 2.5 MG Tab PO SCH (09:11)
[2022-07-26 09:41] LABS: AMORPHOUS SEDIMENT,URINE NOT SEEN; BACTERIA,URINE FEW; EPITHELIAL CELLS,URINE MANY; MUCUS,URINE MANY
[2022-07-26] MEDS: Melatonin 3 MG Tab PO SCH (20:22)
[2022-07-26] MEDS: Pantoprazole 40 MG Tab.CR PO SCH (20:24)
[2022-07-26] MEDS: Pravastatin 20 MG Tab PO SCH (20:25)
[2022-07-27 06:05] LABS: HEMATOCRIT 37.6 % (34.3-46.0); HEMOGLOBIN 11.9 g/dL (11.2-15.5); MEAN CORPUSCULAR HEMOGLOBIN 29.3 pg (31.6-35.5); MEAN CORPUSCULAR HGB CONC 31.6 g/dL (31.6-35.5); MEAN CORPUSCULAR VOLUME 92.6 fL (81.4-99.0); RED BLOOD CELL COUNT 4.06 M/uL (3.77-5.24); WHITE BLOOD CELL COUNT,WBC 5.1 K/uL (3.2-11.0)
[2022-07-27 06:16] LABS: ANION GAP 6.8 mmol/L (5.0-14.0); CALCIUM 8.4 mg/dL (8.5-10.1); CREATININE 0.8 mg/dL (0.6-1.0); EST CRCL DRUG DOSING (CG) 82.72 mL/min
[2022-07-27] MEDS: oxyCODONE 5 MG Tab PO PRN ×2 (06:49→17:47)
[2022-07-27] MEDS: Formoterol/Mometasone 100-5 MCG 8.8 GM Inhaler IH SCH ×2 (07:06→20:13)
[2022-07-27] MEDS: Albuterol/Ipratropium 3.0-0.5 MG/3 ML Neb Soln INH SCH ×4 (07:06→20:21)
[2022-07-27] MEDS: Tiotropium Bromide 4 GM Inhalation Spray (2.5mcg/1 dose; 10 doses) INH SCH (07:06)
[2022-07-27] MEDS: Levothyroxine 100 MCG Tab PO SCH (08:10)
[2022-07-27] MEDS: Ibuprofen 600 MG Tab PO SCH ×3 (08:13→20:14)
[2022-07-27] MEDS: Folic Acid 1 MG Tab PO SCH (08:14)
[2022-07-27] MEDS: Cyanocobalamin (Vitamin B12) 1,000 MCG Tab PO SCH (08:14)
[2022-07-27] MEDS: Aspirin 81 MG Tab.EC PO SCH (08:14)
[2022-07-27] MEDS: buPROPion 150 MG Tab.ER PO SCH (08:14)
[2022-07-27] MEDS: FLUoxetine 20 MG Cap PO SCH (08:14)
[2022-07-27] MEDS: Potassium Chloride 20 MEQ Tab.ER PO SCH ×2 (08:14→20:13)
[2022-07-27] MEDS: lamoTRIgine 100 MG Tab PO SCH ×2 (08:14→20:13)
[2022-07-27] MEDS: Lactobacillus Rhamnosus GG (Probiotic) Cap PO SCH ×2 (08:14→20:13)
[2022-07-27] MEDS: Gabapentin 300 MG Cap PO SCH ×2 (08:14→20:14)
[2022-07-27] MEDS: Sennosides 8.6 MG Tab PO SCH (08:15)
[2022-07-27] MEDS: Lisinopril 2.5 MG Tab PO SCH (08:15)
[2022-07-27] MEDS: Doxycycline 100 MG Cap PO SCH ×2 (10:16→22:18)
[2022-07-27] MEDS: Nicotine 21 MG/24 Hr Patch TRDERM PRN (12:07)
[2022-07-27] MEDS: Melatonin 3 MG Tab PO SCH (20:13)
[2022-07-27] MEDS: Pantoprazole 40 MG Tab.CR PO SCH (20:14)
[2022-07-27] MEDS: Pravastatin 20 MG Tab PO SCH (20:14)
[2022-07-28] MEDS: oxyCODONE 5 MG Tab PO PRN ×2 (05:17→16:52)
[2022-07-28] MEDS: Albuterol/Ipratropium 3.0-0.5 MG/3 ML Neb Soln INH SCH ×4 (07:11→20:38)
[2022-07-28] MEDS: Formoterol/Mometasone 100-5 MCG 8.8 GM Inhaler IH SCH ×2 (07:12→20:37)
[2022-07-28] MEDS: Tiotropium Bromide 4 GM Inhalation Spray (2.5mcg/1 dose; 10 doses) INH SCH (07:12)
[2022-07-28] MEDS: FLUoxetine 20 MG Cap PO SCH (07:33)
[2022-07-28] MEDS: Levothyroxine 100 MCG Tab PO SCH (07:33)
[2022-07-28] MEDS: lamoTRIgine 100 MG Tab PO SCH ×2 (08:47→20:38)
[2022-07-28] MEDS: Cyanocobalamin (Vitamin B12) 1,000 MCG Tab PO SCH (08:47)
[2022-07-28] MEDS: Ibuprofen 600 MG Tab PO SCH ×3 (08:47→20:38)
[2022-07-28] MEDS: Lactobacillus Rhamnosus GG (Probiotic) Cap PO SCH ×2 (08:47→20:38)
[2022-07-28] MEDS: Aspirin 81 MG Tab.EC PO SCH (08:47)
[2022-07-28] MEDS: Potassium Chloride 20 MEQ Tab.ER PO SCH ×2 (08:47→20:37)
[2022-07-28] MEDS: Gabapentin 300 MG Cap PO SCH ×2 (08:47→20:39)
[2022-07-28] MEDS: Lisinopril 2.5 MG Tab PO SCH (08:48)
[2022-07-28] MEDS: Sennosides 8.6 MG Tab PO SCH (08:48)
[2022-07-28] MEDS: Folic Acid 1 MG Tab PO SCH (08:48)
[2022-07-28] MEDS: buPROPion 150 MG Tab.ER PO SCH (08:48)
[2022-07-28] MEDS: Doxycycline 100 MG Cap PO SCH ×2 (09:01→22:24)
[2022-07-28] MEDS: Pantoprazole 40 MG Tab.CR PO SCH (20:37)
[2022-07-28] MEDS: Pravastatin 20 MG Tab PO SCH (20:38)
[2022-07-28] MEDS: Melatonin 3 MG Tab PO SCH (20:38)
[2022-07-28] MEDS: Nicotine 21 MG/24 Hr Patch TRDERM PRN (20:49)
[2022-07-29] MEDS: oxyCODONE 5 MG Tab PO PRN ×2 (02:53→08:04)
[2022-07-29] MEDS: Albuterol/Ipratropium 3.0-0.5 MG/3 ML Neb Soln INH SCH ×2 (07:11→11:04)
[2022-07-29] MEDS: Formoterol/Mometasone 100-5 MCG 8.8 GM Inhaler IH SCH (07:12)
[2022-07-29] MEDS: Tiotropium Bromide 4 GM Inhalation Spray (2.5mcg/1 dose; 10 doses) INH SCH (07:13)
[2022-07-29 07:43] VITALS: PULSE 76
[2022-07-29] MEDS: Levothyroxine 100 MCG Tab PO SCH (08:04)
[2022-07-29] MEDS: FLUoxetine 20 MG Cap PO SCH (08:04)
[2022-07-29] MEDS: Potassium Chloride 20 MEQ Tab.ER PO SCH (08:10)
[2022-07-29] MEDS: Folic Acid 1 MG Tab PO SCH (08:10)
[2022-07-29] MEDS: Aspirin 81 MG Tab.EC PO SCH (08:10)
[2022-07-29] MEDS: Lactobacillus Rhamnosus GG (Probiotic) Cap PO SCH (08:10)
[2022-07-29] MEDS: Gabapentin 300 MG Cap PO SCH (08:11)
[2022-07-29] MEDS: buPROPion 150 MG Tab.ER PO SCH (08:11)
[2022-07-29] MEDS: Lisinopril 2.5 MG Tab PO SCH (08:11)
[2022-07-29] MEDS: Cyanocobalamin (Vitamin B12) 1,000 MCG Tab PO SCH (08:11)
[2022-07-29] MEDS: lamoTRIgine 100 MG Tab PO SCH (08:11)
[2022-07-29] MEDS: Ibuprofen 600 MG Tab PO SCH (08:11)
[2022-07-29] MEDS: Sennosides 8.6 MG Tab PO SCH (08:12)
[2022-07-29] MEDS ORDERED: Cyclobenzaprine 10 MG Tab PO ONE (11:00)
[2022-07-29 11:22] VITALS: BP 104/71
== END 2022-07-29 12:15 | disposition home health service (06) | DRG 193 ==
LOC: JP.ED 10:32 → JP.MS 15:05 → OBSVTOIN 07-26 14:36
PROVIDERS: ADMIT Internal Medicine; ATTEND Internal Medicine
DX: J18.9 Pneumonia, unspecified organism (principal); J96.01 Acute respiratory failure with hypoxia; S22.43XA Multiple fractures of ribs, bilateral, initial encounter for closed fracture; F25.9 Schizoaffective disorder, unspecified; R29.6 Repeated falls; I11.0 Hypertensive heart disease with heart failure; I50.9 Heart failure, unspecified; E11.9 Type 2 diabetes mellitus without complications; F17.210 Nicotine dependence, cigarettes, uncomplicated; E03.9 Hypothyroidism, unspecified; J44.9 Chronic obstructive pulmonary disease, unspecified; E78.00 Pure hypercholesterolemia, unspecified; Z20.822 Contact with and (suspected) exposure to COVID-19; Z88.8 Allergy status to other drugs, medicaments and biological substances; Z79.82 Long term (current) use of aspirin; Z79.899 Other long term (current) drug therapy; Z90.89 Acquired absence of other organs; Z90.49 Acquired absence of other specified parts of digestive tract; Z98.890 Other specified postprocedural states; W19.XXXA Unspecified fall, initial encounter
CPT/HCPCS: 36415; 71046; 71250; 80048; 80053; 80305-QW; 81001; 85025; 85027; 85610; 94640; 96360; 96361; 97110-GP; 97116-GP; 97162-GP; 97165-GO; 97535-GO; 99223; 99232; 99233; 99238; 99285; A9270-GY; G0378; J7030; J7620; U0002

== ENCOUNTER 2022-08-17 13:13 | Emergency (ER) | payer MEDICARE, MEDICAID ==
[2022-08-17] MEDS ORDERED: Acetaminophen 325 MG Tab PO ONE (14:21)
[2022-08-17] MEDS ORDERED: oxyCODONE 5 MG Tab PO ONE (16:00)
[2022-08-17 16:59] VITALS: BP 128/72; PULSE 70
== END 2022-08-17 17:19 | disposition home or self-care (01) ==
LOC: JP.ED 13:13
DX: S22.41XA Multiple fractures of ribs, right side, initial encounter for closed fracture (principal); E78.00 Pure hypercholesterolemia, unspecified; I11.0 Hypertensive heart disease with heart failure; I50.9 Heart failure, unspecified; J44.9 Chronic obstructive pulmonary disease, unspecified; E03.9 Hypothyroidism, unspecified; E66.9 Obesity, unspecified; Z68.36 Body mass index [BMI] 36.0-36.9, adult; Z88.5 Allergy status to narcotic agent; Z88.8 Allergy status to other drugs, medicaments and biological substances; Z79.82 Long term (current) use of aspirin; Z79.899 Other long term (current) drug therapy; Z72.0 Tobacco use; W06.XXXA Fall from bed, initial encounter
CPT/HCPCS: 71046; 99284; A9270

== ENCOUNTER 2022-08-27 12:39 | Emergency (ER) | payer MEDICARE, MEDICAID ==
[2022-08-27 13:15] VITALS: BP 118/75; PULSE 94
[2022-08-27] MEDS ORDERED: Ketorolac 30 MG/ML SDV IM ONE (13:54)
== END 2022-08-27 15:45 | disposition home or self-care (01) ==
LOC: JP.ED 12:39
DX: S22.41XG Multiple fractures of ribs, right side, subsequent encounter for fracture with delayed healing (principal); E78.00 Pure hypercholesterolemia, unspecified; I11.0 Hypertensive heart disease with heart failure; I50.9 Heart failure, unspecified; K21.9 Gastro-esophageal reflux disease without esophagitis; E11.9 Type 2 diabetes mellitus without complications; E03.9 Hypothyroidism, unspecified; E66.9 Obesity, unspecified; F17.210 Nicotine dependence, cigarettes, uncomplicated; Z88.8 Allergy status to other drugs, medicaments and biological substances; Z79.51 Long term (current) use of inhaled steroids; Z79.82 Long term (current) use of aspirin; Z68.38 Body mass index [BMI] 38.0-38.9, adult; Z79.899 Other long term (current) drug therapy; W22.8XXA Striking against or struck by other objects, initial encounter
CPT/HCPCS: 71250; 96372; 99283; J1885

== ENCOUNTER 2022-10-27 20:25 | Emergency (ER) | payer MEDICARE, MEDICAID ==
[2022-10-27] MEDS ORDERED: Ketorolac 30 MG/ML SDV IM ONE (21:08)
[2022-10-27 21:25] LABS: BASOPHILS ABSOLUTE AUTO 0.03 K/uL (0.00-0.10); BASOPHILS PERCENT AUTO 0.4 % (0.1-1.3); EOSINOPHILS ABSOLUTE AUTO 0.13 K/uL (0.00-0.40); EOSINOPHILS PERCENT AUTO 1.6 % (0.0-5.4); HEMATOCRIT 43.3 % (34.3-46.0); HEMOGLOBIN 14.1 g/dL (11.2-15.5); IMMATURE GRAN ABSOLUTE AUTO 0.03 K/uL (0.00-0.23); IMMATURE GRAN PERCENT AUTO 0.4 % (0.0-0.7); LYMPHOCYTES ABSOLUTE AUTO 2.49 K/uL (0.8-3.3); LYMPHOCYTES PERCENT AUTO 31.3 % (11.4-47.7); MEAN CORPUSCULAR HEMOGLOBIN 28.8 pg (31.6-35.5); MEAN CORPUSCULAR HGB CONC 32.6 g/dL (31.6-35.5); MEAN CORPUSCULAR VOLUME 88.4 fL (81.4-99.0); MONOCYTES ABSOLUTE AUTO 0.99 K/uL (0.20-0.90); MONOCYTES PERCENT AUTO 12.5 % (3.3-12.6); NEUTROPHILS ABSOLUTE AUTO 4.28 K/uL (1.0-7.6); NEUTROPHILS PERCENT AUTO 53.8 % (40.0-78.1); PLATELET COUNT,PLT 249 K/uL (130-375)
[2022-10-27] MEDS ORDERED: HYDROmorphone 1 MG/ML Syringe IM ONE (21:45)
[2022-10-27 21:47] LABS: A/G RATIO 0.9 (1.2-2.2); ALANINE AMINOTRANSFERASE,ALT 19 U/L (12-78); ALBUMIN 3.6 g/dL (3.4-5.0); ALKALINE PHOSPHATASE 115 U/L (46-116); ASPARTATE AMNIOTRANSFERASE,AST 25 U/L (15-37); BILIRUBIN TOTAL 0.4 mg/dL (0.2-1.0); BLOOD UREA NITROGEN,BUN 7 mg/dL (7-18); CALCIUM 8.8 mg/dL (8.5-10.1); CARBON DIOXIDE,CO2 29 mmol/L (21-32); CHLORIDE,CL 100 mmol/L (100-108); CREATININE 1.1 mg/dL (0.6-1.0); EST CRCL DRUG DOSING (CG) 62.41 mL/min; ESTIMATED GFR 62 mL/min (>60); GLUCOSE RANDOM 119 mg/dL (74-106); POTASSIUM,K 3.3 mmol/L (3.6-5.2); PROTEIN TOTAL,TP 7.5 g/dL (6.4-8.2); SODIUM,NA 137 mmol/L (140-148)
[2022-10-27 21:50] LABS: ANION GAP 11.3 mmol/L (5.0-14.0)
[2022-10-27] MEDS ORDERED: Bacitracin Oint 1 GM U/D Packet TOP ONE (22:06)
[2022-10-27] MEDS ORDERED: Lidocaine 1% with EPINEPHrine 1:100,000 50 ML MDV SUBCUT STA (22:06)
[2022-10-27 23:09] LABS: APPEARANCE,URINE SLIGHTLY CLOUDY (CLEAR); BILIRUBIN,URINE NEGATIVE (NEGATIVE); COLOR,URINE YELLOW (YELLOW); GLUCOSE,URINE NEGATIVE (NEGATIVE); KETONES,URINE NEGATIVE (NEGATIVE); LEUKOCYTE ESTERASE,URINE NEGATIVE (NEGATIVE); NITRITE,URINE NEGATIVE (NEGATIVE); OCCULT BLOOD,URINE NEGATIVE (NEGATIVE); PH,URINE 5.5 (5.0-8.0); PROTEIN,URINE NEGATIVE (NEGATIVE)
[2022-10-27 23:12] LABS: AMORPHOUS SEDIMENT,URINE NOT SEEN; BACTERIA,URINE FEW; EPITHELIAL CELLS,URINE RARE; MUCUS,URINE FEW; RBC,URINE 0-5 (0-5); WBC,URINE 0-5 (0-5)
[2022-10-27 23:13] LABS: AMPHETAMINES SCREEN, URINE NEGATIVE (NEGATIVE); BARBITURATE SCREEN,URINE NEGATIVE (NEGATIVE); BENZODIAZEPINES SCREEN,URINE PRESUMPTIVE POSITIVE (NEGATIVE); METHADONE SCREEN, URINE NEGATIVE (NEGATIVE); METHAMPHETAMINES SCREEN, URINE NEGATIVE (NEGATIVE); OXYCODONE SCREEN,URINE NEGATIVE (NEGATIVE); PROPOXYPHENE SCREEN,URINE NEGATIVE (NEGATIVE); THC SCREEN,URINE 50 NG/ML PRESUMPTIVE POSITIVE (NEGATIVE)
[2022-10-28] MEDS ORDERED: Acetaminophen/HYDROcodone 325-5 MG Tab PO ONE (05:53)
[2022-10-28] MEDS ORDERED: Albuterol 0.021% 0.63 MG/3 ML Neb Soln NEB PRN (08:29)
[2022-10-28] MEDS ORDERED: Oxybutynin 5 MG Tab PO SCH (09:00)
[2022-10-28] MEDS: Ibuprofen 800 MG Tab PO PRN ×2 (10:53→21:21)
[2022-10-28] MEDS: Aspirin 81 MG Tab.Chew PO SCH (10:53)
[2022-10-28] MEDS: Docusate Sodium 100 MG Cap PO SCH ×2 (10:54→21:16)
[2022-10-28] MEDS: lamoTRIgine 100 MG Tab PO SCH ×2 (10:58→21:13)
[2022-10-28] MEDS: Potassium Chloride 20 MEQ Tab.ER PO SCH ×2 (10:58→21:13)
[2022-10-28] MEDS: Folic Acid 1 MG Tab PO SCH (10:58)
[2022-10-28] MEDS: Furosemide 20 MG Tab PO SCH (10:59)
[2022-10-28] MEDS: Gabapentin 300 MG Cap PO SCH ×2 (11:00→21:13)
[2022-10-28] MEDS: Oxybutynin 5 MG Tab PO SCH ×2 (11:00→21:12)
[2022-10-28] MEDS: FLUoxetine 20 MG Cap PO SCH (11:01)
[2022-10-28] MEDS: buPROPion 150 MG Tab.ER PO SCH (11:01)
[2022-10-28] MEDS: Lisinopril 2.5 MG Tab PO SCH (11:03)
[2022-10-28] MEDS: Sennosides 8.6 MG Tab PO SCH (11:04)
[2022-10-28] MEDS: Levothyroxine 112 MCG Tab PO SCH (11:05)
[2022-10-28] MEDS: Formoterol/Mometasone 100-5 MCG 8.8 GM Inhaler IH SCH ×2 (11:05→21:15)
[2022-10-28] MEDS: hydrOXYzine HCl 25 MG Tab PO PRN (11:07)
[2022-10-28] MEDS: Tiotropium Bromide 4 GM Inhalation Spray (2.5mcg/1 dose; 10 doses) INH SCH (11:08)
[2022-10-28] MEDS: LORazepam 1 MG Tab PO SCH ×3 (11:46→21:21)
[2022-10-28] MEDS ORDERED: Furosemide 20 MG Tab PO SCH (14:00)
[2022-10-28] MEDS ORDERED: Albuterol 6.7 GM Inhaler INH PRN (15:00)
[2022-10-29] MEDS ORDERED: Levothyroxine 100 MCG Tab PO SCH (07:30)
[2022-10-29] MEDS: Formoterol/Mometasone 100-5 MCG 8.8 GM Inhaler IH SCH ×2 (09:36→21:15)
[2022-10-29] MEDS: Folic Acid 1 MG Tab PO SCH (09:36)
[2022-10-29] MEDS: Docusate Sodium 100 MG Cap PO SCH ×2 (09:36→21:08)
[2022-10-29] MEDS: Potassium Chloride 20 MEQ Tab.ER PO SCH ×2 (09:36→21:07)
[2022-10-29] MEDS: Aspirin 81 MG Tab.Chew PO SCH (09:36)
[2022-10-29] MEDS: Gabapentin 300 MG Cap PO SCH ×2 (09:37→21:02)
[2022-10-29] MEDS: Levothyroxine 112 MCG Tab PO SCH (09:37)
[2022-10-29] MEDS: lamoTRIgine 100 MG Tab PO SCH ×2 (09:37→21:05)
[2022-10-29] MEDS: Furosemide 20 MG Tab PO SCH (09:37)
[2022-10-29] MEDS: FLUoxetine 20 MG Cap PO SCH (09:38)
[2022-10-29] MEDS: Oxybutynin 5 MG Tab PO SCH ×2 (09:38→21:06)
[2022-10-29] MEDS: Sennosides 8.6 MG Tab PO SCH (09:39)
[2022-10-29] MEDS: Tiotropium Bromide 4 GM Inhalation Spray (2.5mcg/1 dose; 10 doses) INH SCH (09:39)
[2022-10-29] MEDS: Lisinopril 2.5 MG Tab PO SCH (09:40)
[2022-10-29] MEDS: buPROPion 150 MG Tab.ER PO SCH (09:40)
[2022-10-29] MEDS: LORazepam 1 MG Tab PO SCH ×3 (09:47→21:13)
[2022-10-29] MEDS: hydrOXYzine HCl 25 MG Tab PO PRN (13:47)
[2022-10-29] MEDS ORDERED: Acetaminophen 325 MG Tab PO ONE (19:47)
[2022-10-29] MEDS: Ibuprofen 800 MG Tab PO PRN (21:01)
[2022-10-29] MEDS: Cephalexin 250 MG Cap PO SCH (21:13)
[2022-10-30] MEDS: Formoterol/Mometasone 100-5 MCG 8.8 GM Inhaler IH SCH ×2 (08:49→22:47)
[2022-10-30] MEDS: Tiotropium Bromide 4 GM Inhalation Spray (2.5mcg/1 dose; 10 doses) INH SCH (08:49)
[2022-10-30] MEDS: Aspirin 81 MG Tab.Chew PO SCH (08:50)
[2022-10-30] MEDS: LORazepam 1 MG Tab PO SCH ×3 (08:51→22:51)
[2022-10-30] MEDS: Folic Acid 1 MG Tab PO SCH (08:51)
[2022-10-30] MEDS: Docusate Sodium 100 MG Cap PO SCH ×2 (08:51→22:47)
[2022-10-30] MEDS: FLUoxetine 20 MG Cap PO SCH (08:52)
[2022-10-30] MEDS: Furosemide 20 MG Tab PO SCH (08:52)
[2022-10-30] MEDS: Gabapentin 300 MG Cap PO SCH ×2 (08:52→22:47)
[2022-10-30] MEDS: Oxybutynin 5 MG Tab PO SCH ×2 (08:52→22:47)
[2022-10-30] MEDS: Potassium Chloride 20 MEQ Tab.ER PO SCH ×2 (08:52→22:51)
[2022-10-30] MEDS: Ibuprofen 800 MG Tab PO PRN ×2 (08:53→22:47)
[2022-10-30] MEDS: lamoTRIgine 100 MG Tab PO SCH ×2 (08:53→22:47)
[2022-10-30] MEDS: Levothyroxine 112 MCG Tab PO SCH (08:53)
[2022-10-30] MEDS: buPROPion 150 MG Tab.ER PO SCH (08:53)
[2022-10-30] MEDS: Sennosides 8.6 MG Tab PO SCH (08:53)
[2022-10-30] MEDS: Cephalexin 250 MG Cap PO SCH ×4 (09:04→22:51)
[2022-10-30] MEDS: Lisinopril 2.5 MG Tab PO SCH (09:04)
[2022-10-30] MEDS: hydrOXYzine HCl 25 MG Tab PO PRN (13:06)
[2022-10-31 08:18] VITALS: BP 116/80; PULSE 89
[2022-10-31] MEDS: Lisinopril 2.5 MG Tab PO SCH (09:11)
[2022-10-31] MEDS: Oxybutynin 5 MG Tab PO SCH (09:12)
[2022-10-31] MEDS: Aspirin 81 MG Tab.Chew PO SCH (09:12)
[2022-10-31] MEDS: lamoTRIgine 100 MG Tab PO SCH (09:12)
[2022-10-31] MEDS: buPROPion 150 MG Tab.ER PO SCH (09:13)
[2022-10-31] MEDS: FLUoxetine 20 MG Cap PO SCH (09:14)
[2022-10-31] MEDS: Docusate Sodium 100 MG Cap PO SCH (09:14)
[2022-10-31] MEDS: Furosemide 20 MG Tab PO SCH (09:15)
[2022-10-31] MEDS: Folic Acid 1 MG Tab PO SCH (09:15)
[2022-10-31] MEDS: Gabapentin 300 MG Cap PO SCH (09:15)
[2022-10-31] MEDS: Potassium Chloride 20 MEQ Tab.ER PO SCH (09:15)
[2022-10-31] MEDS: Levothyroxine 112 MCG Tab PO SCH (09:16)
[2022-10-31] MEDS: Formoterol/Mometasone 100-5 MCG 8.8 GM Inhaler IH SCH (09:17)
[2022-10-31] MEDS: Tiotropium Bromide 4 GM Inhalation Spray (2.5mcg/1 dose; 10 doses) INH SCH (09:17)
[2022-10-31] MEDS: Sennosides 8.6 MG Tab PO SCH (09:18)
[2022-10-31] MEDS: Cephalexin 250 MG Cap PO SCH (09:35)
[2022-10-31] MEDS: LORazepam 1 MG Tab PO SCH (09:35)
== END 2022-10-31 14:29 | disposition home or self-care (01) ==
LOC: JP.ED 20:25
DX: S61.512A Laceration without foreign body of left wrist, initial encounter (principal); L08.9 Local infection of the skin and subcutaneous tissue, unspecified; F99 Mental disorder, not otherwise specified; F32.A Depression, unspecified; I11.0 Hypertensive heart disease with heart failure; I50.9 Heart failure, unspecified; E78.00 Pure hypercholesterolemia, unspecified; E11.9 Type 2 diabetes mellitus without complications; E03.9 Hypothyroidism, unspecified; E66.9 Obesity, unspecified; Z88.8 Allergy status to other drugs, medicaments and biological substances; Z79.82 Long term (current) use of aspirin; Z79.899 Other long term (current) drug therapy; Z87.891 Personal history of nicotine dependence; Z68.36 Body mass index [BMI] 36.0-36.9, adult; Z20.822 Contact with and (suspected) exposure to COVID-19; X78.9XXA Intentional self-harm by unspecified sharp object, initial encounter
CPT/HCPCS: 12004; 36415; 80053; 80143; 80179; 80305; 80307; 81001; 81025; 84443; 85025; 94640; 96372; 99283; 99285; A9270; J1170; J1885; U0002

== ENCOUNTER 2022-12-27 12:42 | Emergency (ER) | payer MEDICARE, MEDICAID ==
[2022-12-27] MEDS ORDERED: Haloperidol Lactate 5 MG/ML SDV IM ONE (13:10)
[2022-12-27 13:26] LABS: BASOPHILS PERCENT AUTO 0.2 % (0.1-1.3); EOSINOPHILS ABSOLUTE AUTO 0.07 K/uL (0.00-0.40); EOSINOPHILS PERCENT AUTO 0.7 % (0.0-5.4); HEMATOCRIT 44.2 % (34.3-46.0); HEMOGLOBIN 14.7 g/dL (11.2-15.5); IMMATURE GRAN ABSOLUTE AUTO 0.03 K/uL (0.00-0.23); IMMATURE GRAN PERCENT AUTO 0.3 % (0.0-0.7); LYMPHOCYTES ABSOLUTE AUTO 2.83 K/uL (0.8-3.3); LYMPHOCYTES PERCENT AUTO 30.1 % (11.4-47.7); MEAN CORPUSCULAR HEMOGLOBIN 28.4 pg (31.6-35.5); MEAN CORPUSCULAR HGB CONC 33.3 g/dL (31.6-35.5); MEAN CORPUSCULAR VOLUME 85.5 fL (81.4-99.0); MONOCYTES ABSOLUTE AUTO 0.85 K/uL (0.20-0.90); MONOCYTES PERCENT AUTO 9.1 % (3.3-12.6); NEUTROPHILS ABSOLUTE AUTO 5.59 K/uL (1.0-7.6); NEUTROPHILS PERCENT AUTO 59.6 % (40.0-78.1); PLATELET COUNT,PLT 277 K/uL (130-375); RED BLOOD CELL COUNT 5.17 M/uL (3.77-5.24); WHITE BLOOD CELL COUNT,WBC 9.4 K/uL (3.2-11.0)
[2022-12-27 13:27] LABS: BASOPHILS ABSOLUTE AUTO 0.02 K/uL (0.00-0.10)
[2022-12-27 13:56] LABS: A/G RATIO 0.9 (1.2-2.2); ALANINE AMINOTRANSFERASE,ALT 12 U/L (12-78); ALBUMIN 3.7 g/dL (3.4-5.0); ALKALINE PHOSPHATASE 126 U/L (46-116); ASPARTATE AMNIOTRANSFERASE,AST 17 U/L (15-37); BILIRUBIN TOTAL 0.3 mg/dL (0.2-1.0); BLOOD UREA NITROGEN,BUN 6 mg/dL (7-18); CALCIUM 8.3 mg/dL (8.5-10.1); CARBON DIOXIDE,CO2 27 mmol/L (21-32); CHLORIDE,CL 102 mmol/L (100-108); CREATININE 1.1 mg/dL (0.6-1.0); EST CRCL DRUG DOSING (CG) 61.72 mL/min; ESTIMATED GFR 61 mL/min (>60); GLUCOSE RANDOM 129 mg/dL (74-106); PROTEIN TOTAL,TP 7.9 g/dL (6.4-8.2); SODIUM,NA 138 mmol/L (140-148)
[2022-12-27 14:39] VITALS: BP 148/95; PULSE 101
[2022-12-27 14:56] LABS: APPEARANCE,URINE CLEAR (CLEAR); BILIRUBIN,URINE NEGATIVE (NEGATIVE); COLOR,URINE YELLOW (YELLOW); GLUCOSE,URINE NEGATIVE (NEGATIVE); KETONES,URINE NEGATIVE (NEGATIVE); LEUKOCYTE ESTERASE,URINE NEGATIVE (NEGATIVE); NITRITE,URINE NEGATIVE (NEGATIVE); OCCULT BLOOD,URINE NEGATIVE (NEGATIVE); PH,URINE 5.5 (5.0-8.0); PROTEIN,URINE NEGATIVE (NEGATIVE); UROBILINOGEN,URINE 0.2 EU/dL (0.2-1.0)
[2022-12-27 15:02] LABS: AMORPHOUS SEDIMENT,URINE NOT SEEN; BACTERIA,URINE RARE; EPITHELIAL CELLS,URINE NOT SEEN; MUCUS,URINE NOT SEEN; RBC,URINE 0-5 (0-5); WBC,URINE 0-5 (0-5)
[2022-12-27 15:03] LABS: AMPHETAMINES SCREEN, URINE NEGATIVE (NEGATIVE); BENZODIAZEPINES SCREEN,URINE PRESUMPTIVE POSITIVE (NEGATIVE); THC SCREEN,URINE 50 NG/ML PRESUMPTIVE POSITIVE (NEGATIVE)
[2022-12-27 15:04] LABS: BARBITURATE SCREEN,URINE NEGATIVE (NEGATIVE); METHADONE SCREEN, URINE NEGATIVE (NEGATIVE); METHAMPHETAMINES SCREEN, URINE NEGATIVE (NEGATIVE); OXYCODONE SCREEN,URINE NEGATIVE (NEGATIVE); PROPOXYPHENE SCREEN,URINE NEGATIVE (NEGATIVE)
== END 2022-12-27 15:44 | disposition home or self-care (01) ==
LOC: JP.ED 12:42
DX: F41.9 Anxiety disorder, unspecified (principal); E78.00 Pure hypercholesterolemia, unspecified; I11.0 Hypertensive heart disease with heart failure; I50.9 Heart failure, unspecified; J44.9 Chronic obstructive pulmonary disease, unspecified; E11.9 Type 2 diabetes mellitus without complications; E03.9 Hypothyroidism, unspecified; E66.9 Obesity, unspecified; F17.210 Nicotine dependence, cigarettes, uncomplicated; Z68.36 Body mass index [BMI] 36.0-36.9, adult; Z20.822 Contact with and (suspected) exposure to COVID-19; Z88.8 Allergy status to other drugs, medicaments and biological substances; Z79.82 Long term (current) use of aspirin; Z79.899 Other long term (current) drug therapy
CPT/HCPCS: 36415; 80053; 80305; 80307; 81001; 84443; 85025; 96372; 99284; J1630; U0002

== ENCOUNTER 2023-08-25 06:20 | Day surgery (SDC) | payer MEDICARE, MEDICAID ==
[2023-08-25] MEDS: Lactated Ringers 1,000 ML IV SCH (06:40)
[2023-08-25] MEDS ORDERED: fentaNYL 50 MCG/ML SDV ONE (06:56)
[2023-08-25] MEDS ORDERED: Propofol 200 MG/20 ML SDV ONE (06:56)
[2023-08-25] MEDS ORDERED: Midazolam 1 MG/ML 2 ML SDV ONE (06:56)
[2023-08-25 10:01] VITALS: BP 99/65; PULSE 58
== END 2023-08-25 09:05 | disposition home or self-care (01) ==
LOC: JP.SDS 06:20
PROVIDERS: ATTEND Surgery
DX: Z12.11 Encounter for screening for malignant neoplasm of colon (principal); D12.5 Benign neoplasm of sigmoid colon; E11.9 Type 2 diabetes mellitus without complications
CPT/HCPCS: 45385; J2250; J2704; J3010; J7120; 00811-QZ

== ENCOUNTER 2024-10-25 15:02 | Emergency (ER) | payer MEDICARE, MEDICAID ==
[2024-10-25] MEDS ORDERED: Sodium Chloride 0.9% 10 ML Syringe FLUSH PRN (16:06)
[2024-10-25] MEDS ORDERED: Naloxone 0.4 MG/ML SDV IVPUSH PRN (16:17)
[2024-10-25 16:19] LABS: BASOPHILS ABSOLUTE AUTO 0.03 K/uL (0.00-0.10); BASOPHILS PERCENT AUTO 0.3 % (0.1-1.3); EOSINOPHILS ABSOLUTE AUTO 0.10 K/uL (0.00-0.40); EOSINOPHILS PERCENT AUTO 1.0 % (0.0-5.4); IMMATURE GRAN ABSOLUTE AUTO 0.04 K/uL (0.00-0.23); IMMATURE GRAN PERCENT AUTO 0.4 % (0.0-0.7); LYMPHOCYTES ABSOLUTE AUTO 2.68 K/uL (0.8-3.3); LYMPHOCYTES PERCENT AUTO 27.4 % (11.4-47.7); MONOCYTES ABSOLUTE AUTO 0.85 K/uL (0.20-0.90); MONOCYTES PERCENT AUTO 8.7 % (3.3-12.6); NEUTROPHILS ABSOLUTE AUTO 6.09 K/uL (1.0-7.6); NEUTROPHILS PERCENT AUTO 62.2 % (40.0-78.1); PLATELET COUNT,PLT 244 K/uL (130-375); RED BLOOD CELL COUNT 5.00 M/uL (3.77-5.24); WHITE BLOOD CELL COUNT,WBC 9.8 K/uL (3.2-11.0)
[2024-10-25] MEDS: Iopamidol 612 MG/ML 100 ML Bottle IV PRN (16:35)
[2024-10-25 16:43] LABS: LACTIC ACID 1.7 mmol/L (0.4-2.0)
[2024-10-25 16:50] LABS: A/G RATIO 0.8 (1.2-2.2); ALANINE AMINOTRANSFERASE,ALT 25 U/L (12-78); ASPARTATE AMNIOTRANSFERASE,AST 17 U/L (15-37); BILIRUBIN TOTAL 0.2 mg/dL (0.2-1.0); BLOOD UREA NITROGEN,BUN 5 mg/dL (7-18); CARBON DIOXIDE,CO2 34 mmol/L (21-32); CHLORIDE,CL 99 mmol/L (100-108); CREATININE 0.8 mg/dL (0.6-1.0); EST CRCL DRUG DOSING (CG) 80.90 mL/min; ESTIMATED GFR 89 mL/min (>60); GLUCOSE RANDOM 242 mg/dL (74-106); POTASSIUM,K 4.0 mmol/L (3.6-5.2); PROTEIN TOTAL,TP 7.3 g/dL (6.4-8.2); SODIUM,NA 136 mmol/L (140-148)
[2024-10-25 17:10] VITALS: BP 98/57; PULSE 94
[2024-10-25 17:20] LABS: APPEARANCE,URINE CLEAR (CLEAR); GLUCOSE,URINE 100 mg/dL (NEGATIVE); OCCULT BLOOD,URINE NEGATIVE (NEGATIVE)
== END 2024-10-25 17:43 | disposition home or self-care (01) ==
LOC: JP.ED 15:02
DX: R10.31 Right lower quadrant pain (principal); I11.0 Hypertensive heart disease with heart failure; I50.9 Heart failure, unspecified; E78.00 Pure hypercholesterolemia, unspecified; J44.9 Chronic obstructive pulmonary disease, unspecified; E11.9 Type 2 diabetes mellitus without complications; E03.9 Hypothyroidism, unspecified; Z88.8 Allergy status to other drugs, medicaments and biological substances; Z79.82 Long term (current) use of aspirin; Z79.51 Long term (current) use of inhaled steroids
CPT/HCPCS: 36415; 74177; 74177-26; 80053; 81003; 83605; 83690; 84703; 85025; 86140; 96374; 99284; 99284-25; J1171; Q9967